=== PATIENT | male | born 1950 | race Caucasian/White ===

== ENCOUNTER 2022-12-30 13:09 | Outpatient (OUT) | payer MEDICARE, SELFPAY ==
--- NOTE | 2022-12-30 | ECG_ITS ---
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
== END 2022-12-30 13:10 | disposition home or self-care (01) ==
LOC: CARD 13:13
PROVIDERS: PCP Family Medicine; Visit Provider Family Medicine
DX: I10 Essential (primary) hypertension (principal); E78.00 Pure hypercholesterolemia, unspecified
CPT/HCPCS: 93005

== ENCOUNTER 2023-10-03 12:36 | Outpatient (OUT) | payer MEDICARE, SELFPAY ==
--- NOTE | 2023-10-03 13:17 | P.CN_ITS ---
Consult Note: HPI Data of Consult Patient: new to practice Consult date: 10/03/23 Requesting Physician: Kelly Boyd MD Primary Care Provider: ALAYNA LOPEZ Consult Narrative Reason for consult: low back, right buttock pain Narrative: 73yom who presents for evaluation. notes increasing low back, buttock R>L pain. worsening over past several months. lumbar imaging shows spondylosis and degenerative disc disease in lower lumbar spine. previously underwent lumbar rfa in 2019 with significant benefit >6 months. notes that pain is similar to back then. has completed >6 weeks of provider directed home exercises program, without benefit. uses OTC pain meds as needed. denies adverse med side effects. cc:: CC: Kelly Boyd MD Review of Systems ROS Status of ROS 10 or more systems reviewed and unremark able except as noted in history and below Exam Narrative Exam Narrative: Psych-alert and oriented x 3. Attentive and appropriate, constitutionally normal, displays normal mood and affect per situation.? There are no obvious deficits in memory, reasoning, or intellect.? Skin-no obvious rashes, bruising, erythema noted to the patient's area of pain. Extremities- extremities are warm with minimal edema and palpable pulses. Lumbar-no significant tenderness to palpation noted in the lumbar spine and paraspinal musculature.? Pain is elicited with extension, and lateral rotation of the lumbar spine. Range of motion is slightly diminished with these motions due to pain. Facet loading maneuvers are positive bilaterally and do appear to be concordant with the patient's normal complaints of pain.? Coordination remains intact.? Gait remains non-antalgic. Assessment and Plan Assessment and Plan (1) Lumbar spondylosis: Plan 73yom who presents for evaluation. failed conservative measures, as noted. imaging reviewed, as noted. given symptoms and imaging, coupled with previous relief, prudent to attempt diagnostic bilateral l4-5, l5-s1 medial branch blocks under fluoroscopic guidance with intention of proceeding to radiofrequency ablation. he is in agreement. meds reviewed, no changes. follow up after procedure.
== END 2023-10-03 12:37 | disposition home or self-care (01) ==
LOC: PM 12:36
PROVIDERS: PCP Family Medicine; Visit Provider Anesthesiology
DX: M47.816 Spondylosis without myelopathy or radiculopathy, lumbar region (principal)
CPT/HCPCS: G0463

== ENCOUNTER 2023-10-17 11:18 | Day surgery (SDC) | payer MEDICARE, SELFPAY ==
--- OUTSIDE RECORDS SUMMARY | 2023-10-17 11:30 | XMS_ITS ---
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 Name Role Phone DR JOSE JACKMAN Primary Care Unavailable ERICKA KEMP Consulting Unavailab ERICKA Schilling Attending Unavailab ERICKA Schilling Admitting Unavailab MD Bora Mcduffie Attending Provider MD Miguelina Tellez Primary Care Provider [phone] MD Miguelina Tellez Referring Provider MD Miguelina Tellez Primary Care Provider MD Gerardo Roman Attending Provider Miguelina Tellez Primary Care Unavailable Gerardo Roman Admitting Unavailable Gerardo Roman Attending Unavailable Miguelina Tellez MD Primary Care Provider MELANIE TAMAYO Attending Unavailable WONDERPARESH, MIGUELINA Alonso Referring Unavailable WONDERPARESH, MIGUELINA Gavin Primary Care Unavailable MILY NELSON Attending Unavailable WONDERPARESH, MIGUELINA Gavin Referring Unavailable WONDERLY, MIGUELINA Gavin Primary Care Unavailable QUYEN MCMAHON Attending Unavailable WONDERPARESH, MIGUELINA Alonso Referring Unavailable WONDERPARESH, MIGUELINA Gavin Primary Care Unavailable SHAHZAD SCRUGGS Attending Unavailable PIETER RANKIN Attending Unavailable PIETER RANKIN Referring Unavailable Kelly Boyd MD Attending Unavailable Allergies Allergy Classification Reported Allergen(s) Allergy Type Date of Onset Reaction(s) Facility (1 source) Penicillin Drug Allergy [facility] (4 sources) Amoxicillin; Translations: [amoxicillin] Drug Allergy 2 Unknown Reaction [facility] (4 sources) empagliflozin; Translations: [empagliflozin] Drug Allergy 2 Unknown Reaction [facility] (4 sources) Fish derivative; Translations: [fish derived] Propensity to adverse reactions 2 Vomiting [facility] (4 sources) liraglutide; Translations: [liraglutide] Drug Allergy 2 Diarrhea [facility] (9 sources) Lisinopril; Translations: [lisinopril] Drug Allergy 2 Cough [facility] (9 sources) pioglitazone; Translations: [pioglitazone] Drug Allergy 2 Unknown Reaction [facility] (4 sources) Shellfish; Translations: [shellfish derived] Propensity to adverse reactions 2 Unknown Reaction [facility] (5 sources) Penicillins; Translations: [PENICILLINS] Propensity to adverse reactions to drug 9 Rash [facility] (5 sources) Shellfish; Translations: [SHELLFISH CONTAINING PRODUCTS] Propensity to adverse reactions to drug 2 [facility] Encounters Encounter Date Encounter Type Care Provider Facility Start: 10-03-2023 End: 10-04-2023 ambulatory Kelly Boyd MD Facility:[facility] Start: 09-16-2023 End: 09-17-2023 ambulatory PIETER RANKIN Not Available Start: 09-13-2023 End: 09-13-2023 ambulatory MELANIE [facility] Start: 08-08-2023 Telephone encounter Mily perales APRN-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 ASSEMBLER Work Phone: [facility] Start: 08-05-2023 End: 08-06-2023 ambulatory SHAHZAD SCRUGGS Not Available Start: 07-15-2023 Telephone encounter [facility]ll[facility] Start: 07-11-2023 End: 07-11-2023 ambulatory QUYEN MCMAHON [facility] Start: 06-13-2023 Telephone encounter Narcisa barahona [facility] Start: 06-01-2023 End: 06-01-2023 ambulatory MILY Jimenez BARBVj [facility] Start: 06-01-2023 End: 06-01-2023 Office outpatient visit 25 minutes Mily Nelson 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 Work Phone: [facility] Comment on above: Type 2 diabetes jaxson itus with hypoglycemia without coma, without long-term current use of insulin ([facility]) (Primary Dx) Start: 03-24-2023 End: 03-24-2023 ambulatory Miguelina Tellez Facility:[facility] Start: 03-24-2023 End: 03-24-2023 ambulatory MD Miguelina Tellez Work Phone: [facility] Work Phone: Start: 03-24-2023 End: 03-24-2023 Departed Referred MD Miguelina Tellez Work Phone: [facility] [place] Work Phone: Start: 01-11-2022 End: 01-11-2022 Registered Recurring MD Bora Lindsey Work Phone: [facility] Start: 01-06-2021 End: 01-07-[address] JOSE JACKMAN Facility: Medical Equipment Procedure Code Equipment Code Equipment Origin al Text Equipment Identifier Dates USE DIRECTED THREE TIMES DAILY [id number] Start: 11-17-2022 by miscellaneous route 3 (three) times a day. [id number] USE TO ADMINISTE R INSULIN 4 TIMES DAILY. [id number] Start: 04-18-2023 Medications Current Medications Medication Drug Class(es) Dates Sig (Normalized) Sig (Original) amLODIPine 5 mg oral tablet (3 sources) Dihydropyridine Calcium Channel Evy Start: 2 take 5 mg by mouth once daily Amlodipine Active 5 MG PO Daily January 07, 2022 11:00pm AMLODIPINE BESYLATE, BULK, MISC (4 sources) AMLODIPINE BESYLATE, BULK, MISC 5 mg by miscellaneous route in the morning. 0 Active aspirin 81 mg delayed release oral tablet (7 sources) Platelet Aggregation Inhibitor, Nonsteroidal Anti-inflammatory Drug Start: 2 take 1 tablet by mouth once daily Aspirin (Aspir-81) 81 mg Tablet,Delayed Release (Dr/Ec) Active 81 MG PO Daily January 07, 2022 11:00pm atorvastatin 80 mg oral tablet (7 sources) HMG-CoA Reductase Inhibitor Start: 2 take 80 mg by mouth once daily Atorvastatin Active 80 MG PO Daily January 07, 2022 11:00pm blood-glucose meter kit (4 sources) blood-glucose meter kit by other route 3 (three) times a day. Use as instructed 0 Active blood-glucose meter misc (4 sources) blood-glucose meter misc by miscellaneous route. 0 Active glimepiride 4 mg oral tablet (3 sources) Sulfonylurea Start: 2 take 4 mg by mouth once daily Glimepiride Active 4 MG PO Daily January 07, 2022 11:00pm hydroCHLOROthiazide 25 mg / losartan potassium 100 mg oral tablet (7 sources) Thiazide Diuretic, Angiotensin 2 Receptor Evy Start: 2 take 1 tablet by mouth once daily Losartan-Hydrochl orothiazide Active 1 TAB PO Daily January 07, 2022 11:00pm take 1 tablet by constantine th once in the morning losartan-hydroCHLOROthiazide (HYZAAR) 10 0-25 mg per tablet Take 1 tablet by mouth in the morning. 0 Active 3 ml insulin aspart protamine, human 70 unt/ml / insulin aspart, human 30 unt/ml pen injector (3 sources) Insulin Analog Start: 01-11-2022 Insulin Asp Pr t-Insulin Aspart (Novolog Mix 70-30flexpen U-100) 100 unit/mL (70-30) Insulin Pen Active 35 SUBCUT Twice daily January 10, 2022 11:00pm 35 units bid 3 ml insulin aspart, human 100 unt/ml pen injector (4 sources) Insulin Analog Start: 02-18-2023 insulin aspart U-100 (NovoLOG FlexPen U-100 Insulin) 100 unit/mL (3 mL) insulin pen Indications: Type 2 diabetes mellitus with hypoglycemia without coma, without long-term current use of insulin ([facility]) Inject 18 Units under the skin in the morning and 18 Units at noon and 18 Units in the evening. Inject with meals. 45 mL 3 02/18/2023 Active 3 ml insulin glargine 100 unt/ml pen injector (4 sources) Insulin Analog Start: 02-18-2023 insulin glargi ne (LANTUS SOLOSTAR U-100 INSULIN) 100 unit/mL (3 mL) insulin pen Indications: Type 2 diabetes mellitus with hypoglycemia without coma, without long-term current use of insulin ([facility]) Inject 35 Units under the skin in the morning. 36 mL 3 02/18/2023 Active Start: 02-18-2023 insulin glargi ne (LANTUS SOLOSTAR U-100 INSULIN) 100 unit/mL (3 mL) insulin pen Indications: Type 2 diabetes mellitus with hypoglycemia without coma, without long-term current use of insulin ([facility]) Inject 35 Units under the skin in the morning. 36 mL 3 02/18/2023 Active metFORMIN hydrochloride 500 mg oral tablet (3 sources) Biguanide Start: 01-08-2022 take 500 mg by mouth once daily Metformin Active 500 MG PO Daily January 07, 2022 11:00pm Multivitamin (Multiple Vitamin) Tablet (3 sources) Start: 01-08-2022 take 1 tablet by mouth once daily Multivitamin (Multiple Vitamin) Tablet Active 1 TAB PO Daily January 07, 2022 11:00pm Start: 01-08-2022 take 1 tablet by constantine th once daily Multivitamin (Multiple Vitamin) Tablet Active 1 TAB PO Daily January 08, 2022 12:00am omega 1-swl-btw-fish oil 1,200 (144-216) mg capsule (4 sources) omega 3-dha-epa- fish oil 1,200 (144-216) mg capsule Take by mouth daily. 0 Active therapeutic multivitamin (THERAGRAN) tablet (4 sources) take 1 tablet by mouth in the morning therapeutic multivitamin (THERAGRAN) tablet Take 1 tablet by mouth in the morning. 0 Active zolpidem tartrate 10 mg oral tablet (4 sources) gamma-Aminobutyri c Acid-ergic Agonist take 1 tablet by mouth once daily as needed for sleep zolpidem (AMBIEN) 10 mg tablet Take 1 tablet (10 mg total) by mouth nightly as needed for sleep. 0 Active Payers Date Payer Category Payer Unknown 2023 Self-pay 2016 Medicare [id number] 2016 Private Health Insurance [facility] [id number] 2016-Present [phone] [address] [place] [address] [id number] 1959 Medicare [id number] 1959 Unknown [id number] 1950 Unknown [id number] 1950 Unknown [id number] .1286 1950 Unknown [id number] .1286 1950 Unknown [id number] .1286 1950 Unknown [id number] [id number] .1259 1950 Unknown [id number] .1259 1950 Unknown [id number] [id number] .1259 1950 Unknown [id number] .196 Unknown [id number] .531 Plan of Treatment Date Care Activity Detail Author Start: 11-21-2028 DTaP,Tdap and Td Vaccines (2 - Td or Tdap) DTaP,Tdap and Td Vaccines (2 - Td or Tdap) [facility] Start: 07-11-2024 Adult BMI Screening Adult BMI Screening [facility] Start: 07-09-2024 End: 07-09-2024 Patient encounter procedure 07/09/2024 10:30 AM EST Office Visit [facility] [address] [place] [address] Quyen Mcmahon MD [address] [place] [address] [facility] Start: 06-01-2024 Adult BMI Screening Adult BMI Screening [facility] Start: 06-01-2024 Tobacco Screening Tobacco Screening [facility] Start: 02-19-2024 Adult BMI Screening Adult [facility] Screening [facility] Start: 02-19-2024 Tobacco Screening Tobacco Screening [facility] Start: 12-03-2023 Urine screening for protein Urine Microalbumin [facility] Start: 10-15-2023 Depression Screening Depression Screening [facility] Start: 09-13-2023 End: 09-13-2023 Patient encounter procedure 09/13/2023 10:15 AM EDT Office Visit [facility] [address] [place] [address] Melanie Tamayo MD [address] [place] [address] [facility] Start: 07-11-2023 End: 07-11-2023 Patient encounter procedure 07/11/2023 12:00 PM EST Office Visit [facility] [address] [place] [address] Quyen Mcmahon MD [address] [place] [address] [facility] Start: 04-11-2023 COVID-19 Vaccine ( season) COVID-19 Vaccine ( season) [facility] Start: 2016 Fall Risk Screening Fall Risk Screening [facility] Start: 1969 Adult BMI Follow Up Plan Adult BMI Follow Up Plan [facility] Start: 1969 Diabetic foot examination Diabetic Foot Exam [facility] Start: 1950 Glaucoma screening Diabetic Ophthalmology Exam [facility] Start: 1950 Medicare Annual Wellness Visit Medicare Annual Wellness Visit [facility] Work Phone: Problems Active Problems Problem Classification Problem Date Documented Da te Episodic/Chronic Diabetes mellitus with complications (7 sources) Type 2 diabetes mellitus; Translations: [Type 2 diabetes mellitus with hypoglycemia without coma] Onset: 06-17-2022 06-01-2023 Chronic Diabetes mellitus without complication (5 sources) Type 2 diabetes mellitus without complication; Translations: [Type 2 diabetes mellitus without complications] Onset: 09-22-2016 Resolved: 06-17-2022 06-17-2022 Chronic Disorders of lipid metabolism (1 source) Mixed hyperlipidemia; Translations: [Mixed hyperlipidemia] Onset: 09-13-2023 Chronic Essential hypertension (5 sources) Essential hypertension; Translations: [Essential (primary) hypertension] Onset: 09-22-2016 09-22-2016 Chronic Malaise and fatigue (1 source) Other fatigue; Translations: [OTHER FATIGUE] Onset: 01-14-2021 Episodic Nutritional deficiencies (1 source) Vitamin D deficiency, unspecified; Translations: [Vitamin D deficiency, unspecified] Onset: 09-13-2023 Chronic Other nutritional; endocrine; and metabolic disorders (4 sources) Obesity; Translations: [Obesity, unspecified] Onset: 09-22-2016 09-22-2016 Chronic Residual codes; unclassified (4 sources) Obstructive sleep apnea syndrome; Translations: [Obstructive sleep apnea (adult) (pediatric)] Onset: 09-22-2016 09-22-2016 Chronic Residual codes; unclassified (1 source) Obstructive sleep apnea (adult) (pediatric); Translations: [Obstructive sleep apnea (adult) (pediatric)] Onset: 07-11-2023 Chronic Residual codes; unclassified (1 source) Sleep apnea Onset: 07-11-2023 Chronic Residual codes; unclassified (4 sources) Reactive thrombocytosis; Translations: [Reactive thrombocytosis] 01-11-2022 Episodic Unclassified (3 sources) CONTACT W/AND (SUSP) EXPOS COVID-19; Translations: [CONTACT W/AND (SUSP) EXPOS COVID-19] Onset: 01-14-2021 Unclassified (1 source) Ocular pain, bilateral; Translations: [Ocular pain, bilateral] Onset: 03-24-2023 Past or Other Problems Problem Classification Problem Date Documented Da te Episodic/Chronic Mood disorders (4 sources) Mood disorders Onset: 10-14-2022 10-14-2022 Other aftercare (1 source) 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; Translations: [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] Onset: 06-17-2022 Episodic Unclassified (1 source) CONTACT W/AND (SUSP) EXPOS COVID-19; Translations: [CONTACT W/AND (SUSP) EXPOS COVID-19] Onset: 01-06-2021 Procedures Date Procedure Procedure Detail Performing Clinician Start: 06-01-2023 Hemoglobin glycosyla javon a1c Mily Nelson [employer] Work Phone: Start: 12-02-2022 Microalbumin [Mass/v olume] in Urine by Test strip Mily Nelson [employer] Work Phone: Start: 10-14-2022 Adult depression scr eening assessment Mily Nelson [employer] Work Phone: Results Test Name Value Interpretation Reference Range Facility POCT Hemoglobin A1con 2023 HbA1c (Bld) [Mass fraction] 6.8 g/dL 4 - 7 g/dL [employer] [facility] Armando 03-24-2023 L - -------- Specimen: [id number] Received: 03/25/23 Status: AIRAM Jones Num: [id number] Spec Type: Surgical Subm Dr: Gerardo Roman MD Tissues: A Skin-Other than Cyst, tag, debridement or plastic repair (LT EYE) B Skin-Other than Cyst, tag, debridement or plastic repair (RT EYE) Procedures: HE/2, Gross/Micro L4/2 -------- Age/ Patient Sex Location Account Attending Physician -------- Jered Garay 72/M [place] [id number] Gerardo Roman MD -------- SPEC NUM: [id number] RECD: 03/25/23 STATUS: AIRAM JONES NUM: [id number] COLBY: 03/24/23 [facility] DR: Gerardo Roman MD ENTERED: 03/25/23 [facility] SIVA [facility] TYPE: Surgical DEPT: S ORDERED: HE/2, Gross/Micro L4/2 ORDERED: HE/2, Gross/Micro L4/2 Pathological Diagnosis A. 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 Received in formalin labeled with the patient's name, date of and left conjunctiva lipodermoid is a 1.5 x 1.0 x 0.2 cm aggregate of yellow-valero, lobular tissue. Entirely submitted in one cassette labeled A1. B. Received in formalin labeled with the patient's name, date of and right conjunctiva lipodermoid is a 0.7 x 0.4 x 0.3 cm yellow-valero lobular tissue. Entirely subm itted in one cassette labeled B1. -------- Specimen: [id number] Received: 03/25/23 Status: AIRAM Jones Num: [id number] Spec Type: Surgical Subm Dr: Gerardo Roman MD Tissues: A Skin-Other than Cyst, tag, debridement or plastic repair (LT EYE) B Skin-Other than Cyst, tag, debridement or plastic repair (RT EYE) Procedures: HE/Chanel, Gross/Micro L4/2 -------- Patient: Jered Garay [id number] (Continued) -------- Specimen: [id number] Received: 03/25/23 (Continued) Signed (signature on file) Minh Doran MD 03/28/23 1400 -------- Specimen: [id number] Received: 03/25/23 Status: AIRAM Jones Num: [id number] Spec Type: Surgical Subm Dr: Gerardo Roman MD Tissues: A Skin-Other than Cyst, tag, debridement or plastic repair (LT EYE) B Skin-Other than Cyst, tag, debridement or plastic repair (RT EYE) Procedures: HE/2, Gross/Micro L4/2 -------- Patient: Jered Garay [id number] (Continued) -------- Specimen: [id number] Received: 03/25/23 (Continued) Microscopic Description A. One H E slide reviewed. The microscopic examination confirms the diagnosis. B. One H E slide reviewed. The microscopic examination confirms the diagnosis. CPT Codes 57379z6 -------- -------- Specimen: [id number] Received: 03/25/23 Status: AIRAM Jones Num: [id number] Spec Type: Surgical Subm Dr: Gerardo Roman MD Tissues: A Skin-Other than Cyst, tag, debridement or plastic repair (LT EYE) B Skin-Other than Cyst, tag, debridement or plastic repair (RT EYE) Procedures: HE/Chanel, Gross/Micro L4/2 -------- Patient: TerrieJered [id number] (Continued) -------- Signed (signature on file) Minh Doran MD 03/28/[address] [place] [address] XR Chest 2 Views*on 05-04-20 XR Chest 2 Views* FINDINGS: Comparison made with prior examination September 14, 2019. No change is seen. No acute cardiac or pulmonary disease is identified. No worrisome mass lesions or infiltrates are seen. No pulmonary edema or pneumothorax is present. Cardiac silhouette size is normal. Skeletal structures are normal. IMPRESSION: No acute cardiac or pulmonary disease Report reported and signed by Mansoor Nash on 05/04/2022 0943 Normal [facility] Complete Blood Counton 10-07 Erythrocyte distribution width (RBC) [Ratio] 12.9 % Normal 11.0-15.0 [facility] Comment on above: Performed By: #### L IPD, CBC, CMP #### [facility] [address] [place], [place] [id number] Hematocrit (Bld) [Volume fraction] 45.1 % Normal 38.5-50.0 [facility] Comment on above: Performed By: #### L IPD, CBC, CMP #### [facility] [address] [place], [place] [id number] Hemoglobin (Bld) [Mass/Vol] 14.9 g/dL Normal 13.0-17.1 [facility] Comment on above: Performed By: #### L IPD, CBC, CMP #### [facility] [address] [place], [place] [id number] MCH (RBC) [Entitic mass] 29.9 pg Normal 27.0-33.0 [facility] Comment on above: Performed By: #### L IPD, CBC, CMP #### [facility] [address] [place], [place] [id number] MCHC (RBC) [Mass/Vol] 33.0 g/dL Normal 32.0-36.0 [facility] Comment on above: Performed By: #### L IPD, CBC, CMP #### [facility] [address] [place], [place] [id number] MCV (RBC) [Entitic vol] 90 fL Normal 80-100 [facility] Comment on above: Performed By: #### L IPD, CBC, CMP #### [facility] [address] [place], [place] [id number] Platelet mean volume (Bld) [Entitic vol] 8.90 fL Normal 7.50-12.50 [facility] Specialist Comment on above: Performed By: #### L IPD, CBC, CMP #### [facility] [address] [place], [place] [id number] Platelets (Bld) [#/Vol] 421 10*3/uL High 140-400 [facility] Comment on above: Performed By: #### L IPD, CBC, CMP #### [facility] [address] [place], [place] [id number] RBC (Bld) [#/Vol] 4.99 10*6/uL Normal 4.20-5.80 [facility] [employer] Comment on above: Performed By: #### L IPD, CBC, CMP #### [facility] [address] [place], [place] [id number] RDW-SD 42.6 fL Normal 37.0-50.0 [facility] Comment on above: Performed By: #### L IPD, CBC, CMP #### [facility] [address] [place], [place] [id number] WBC (Bld) [#/Vol] 6.6 10*3/uL Normal 3.8-11.0 [facility] [facility] Comment on above: Performed By: #### L IPD, CBC, CMP #### [facility] [address] [place], [place] [id number] [facility] 10-07-2021 Albumin [Mass/Vol] 4.7 g/dL Normal 3.6-5.1 [facility] [employer] Comment on above: Performed By: #### L IPD, CBC, CMP #### [facility] [address] [place], [place] [id number] Albumin/Globulin [Mass ratio] 1.9 {ratio} Normal 1.0-2.5 [facility] Special[facility] Comment on above: Performed By: #### L IPD, CBC, CMP #### [facility] [address] [place], [place] [id number] ALP [Catalytic activity/Vol] 96 U/L Normal 40-129 [facility] [employer] Comment on above: Performed By: #### L IPD, CBC, CMP #### [facility] [address] [place], [place] [id number] ALT [Catalytic activity/Vol] 29 U/L Normal 9-46 [facility] Comment on above: Result Comment: 04/15 Female reference range changed. Performed By: #### L IPD, CBC, CMP #### [facility] [address] [place], [place] [id number] Anion gap [Moles/Vol] 18 mmol/L Normal 12-20 [facility] Comment on above: Result Comment: Effchandan ctive 05/21/2019 reference range changed. Performed By: #### L IPD, CBC, CMP #### [facility] [address] [place], [place] [id number] AST [Catalytic activity/Vol] 24 U/L Normal 10-40 [facility] Comment on above: Performed By: #### L IPD, CBC, CMP #### [facility] [address] [place], [place] [id number] Bilirubin [Mass/Vol] 0.99 mg/dL Normal 0.30-1.20 [facility] Comment on above: Performed By: #### L IPD, CBC, CMP #### [facility] [address] [place], [place] [id number] BUN/CREA 13 Ratio Normal 6-22 [facility] Comment on above: Performed By: #### L IPD, CBC, CMP #### [facility] [address] [place], [place] [id number] Calcium [Mass/Vol] 10.0 mg/dL Normal 8.6-10.2 [facility] Comment on above: Performed By: #### L IPD, CBC, CMP #### [facility] [address] [place], [place] [id number] Chloride [Moles/Vol] 97 mmol/L Low 98-107 [facility] Comment on above: Performed By: #### L IPD, CBC, CMP #### [facility] [address] [place], [place] [id number] CO2 [Moles/Vol] 26 mmol/L Normal 20-31 [facility] Comment on above: Performed By: #### L IPD, CBC, CMP #### [facility] [address] [place], [place] [id number] Creatinine [Mass/Vol] 0.9 mg/dL Normal 0.7-1.4 [facility] Comment on above: Performed By: #### L IPD, CBC, CMP #### [facility] [address] [place], [place] [id number] eGFRAA 99 mL/min/1.73m2 Normal >60 [facility] [employer] Comment on above: Performed By: #### L IPD, CBC, CMP #### [facility] [address] [place], [place] [id number] eGFRNAA 81 mL/min/1.73m2 Normal >60 [facility] [employer] Comment on above: Performed By: #### L IPD, CBC, CMP #### [facility] [address] [place], [place] [id number] Globulin (S) [Mass/Vol] 2.5 g/dL Normal 1.9-3.7 [facility] [employer] Comment on above: Performed By: #### L IPD, CBC, CMP #### [facility] [address] [place], [place] [id number] Glucose [Mass/Vol] 196 mg/dL High 65-99 [facility] [facility] Comment on above: Result Comment: For FASTING Glucose --- ADA reference ranges: Normal 65-99 mg/dl Prediabetes 100-125 Diabetes >/= 126 Performed By: #### L IPD, CBC, CMP #### [facility] Laboratory [address] [place], [place] [id number] Potassium [Moles/Vol] 4.0 mmol/L Normal 3.5-5.5 [facility] Comment on above: Performed By: #### L IPD, CBC, CMP #### [facility] [address] [place], [place] [id number] Protein [Mass/Vol] 7.2 g/dL Normal 6.1-8.1 [facility] Comment on above: Performed By: #### L IPD, CBC, CMP #### [facility] [address] [place], [place] [id number] Sodium [Moles/Vol] 137 mmol/L Normal 135-146 [facility] Comment on above: Performed By: #### L IPD, CBC, CMP #### [facility] [address] [place], [place] [id number] Urea nitrogen [Mass/Vol] 12 mg/dL Normal 7-25 [facility] Comment on above: Performed By: #### L IPD, CBC, CMP #### [facility] [address] [place], [place] [id number] Lipid Panelon 10-07-2021 Cholesterol [Mass/Vol] 142 mg/dL Normal 125-200 [facility] Specialist Comment on above: Result Comment: Low risk < 200mg/dL Borderline risk 201-239 mg/dl High risk > or equal to 240 Performed By: #### L IPD, CBC, CMP #### [facility] [address] [place], [place] [id number] Cholesterol in HDL [Mass/Vol] 42 mg/dL Normal >40 [facility] Specialist Comment on above: Result Comment: High Cardiovascular Risk HDL <40 mg/dL Low Cardiovascular Risk HDL > or equal to 60 mg/dl Performed By: #### L IPD, CBC, CMP #### [facility] [address] [place], [place] [id number] Cholesterol in LDL [Mass/Vol] 40 mg/dL Normal [facility] Specialist Comment on above: Result Comment: LDL ATP III CLASSIFICATION LDL less than 100 mg/dl Optimal LDL 100-129 mg/dl Near or above optimal LDL 130-159 Borderline high LDL 160-189 High LDL greater than 189 mg/dl Very High Performed By: #### L IPD, CBC, CMP #### [facility] [address] [place], [place] [id number] Cholesterol in VLDL [Mass/Vol] 60 mg/dL Normal [facility] Specialist Comment on above: Performed By: #### L IPD, CBC, CMP #### [facility] [address] [place], [place] [id number] Cholesterol.total/Ch olesterol in HDL [Mass ratio] 3 {ratio} Normal [facility] Specialist Comment on above: Performed By: #### L IPD, CBC, CMP #### [facility] [address] [place], [place] [id number] Triglyceride [Mass/Vol] 298 mg/dL High 30-150 [facility] Comment on above: Result Comment: TRIG ATPIII CLASSIFICATIONS TRIG less than 150 mg/dl Normal TRIG 150-199 mg/dl Borderline High TRIG 200-500 mg/dl High TRIG greather than 500 mg/dl Very High Performed By: #### L IPD, CBC, CMP #### [facility] [address] [place], [place] [id number] Microalbumin (w/o Creat)on 10-07-2021 mALB 27.4 mg/dL Normal [facility] Comment on above: Result Comment: mALB reference range not established. Performed By: #### m ALB #### [facility] [address] [place], [place] [id number] Covid-19 PCR ([facility])on 12-15 SARS-CoV-2 (COVID-19) RNA DANNY+probe Ql (Unsp spec) Not detected Normal NOT DETECTED [facility] Comment on above: Result Comment: This test is not yet approved or cleared by the [place] FDA. When there are no FDA-approved or cleared tests available, and other criteria are met, FDA can make tests available under an emergency access mechanism called an Emergency Use Authorization (EUA). The EUA for this test is supported by the [place] of Health and Human Service's (HHS's) declaration that circumstances exist to justify the emergency use of in vitro diagnostics for the detection and/or diagnosis of the virus that causes COVID-19. This EUA will remain in effect (meaning this test can be used) for the duration of the COVID-19 declaration justifying emergency of IVDs, unless it is terminated or revoked by FDA (after which the test may no longer be used). When diagnostic testing is negative, the possibility of a false negative should be considered in the context of a patient's recent exposures and the presence of clinical signs and symptoms consistent with SARS-CoV-2. Performed By: #### C VDTBH #### [facility] [address] [place], [place] [address] Ted Casas Basic Metabolic Panelon 10-2 Calcium [Mass/Vol] 9.5 mg/dL Normal 8.5-10.6 [facility] Chloride [Moles/Vol] 100 mmol/L Normal 98-107 [facility] CO2 [Moles/Vol] 25 mmol/L Normal 21-32 [facility] Creatinine [Mass/Vol] 0.95 mg/dL Normal 0.70-1.30 [facility] Glucose [Mass/Vol] 171 mg/dL High 70-99 [facility] Potassium [Moles/Vol] 4.4 mmol/L Normal 3.5-5.1 [facility] Sodium [Moles/Vol] 136 mmol/L Normal 136-145 [facility] Urea nitrogen (BldV) [Mass/Vol] 19 mg/dL High 7.0-18.0 [facility] Urea nitrogen/Creatinine [Mass ratio] 20 mg/mg Normal [facility] CBC with Differentialon 10-2 -2019 Basophils (Bld) [#/Vol] 0.1 thou/mcL Normal 0.0-0.2 [facility] Basophils/100 WBC (Bld) 1.0 % Normal 0-3 [facility] Differential cell count method Nom (Bld) AUTOMATED DIFFERENTIAL Normal [facility] Eosinophils (Bld) [#/Vol] 0.1 thou/mcL Normal 0.0-0.4 [facility] Eosinophils/100 WBC (Bld) 2.6 % Normal 0-7 [facility] Erythrocyte distribution width (RBC) [Entitic vol] 14.0 % Normal 11.7-15.0 [facility] Hematocrit (Bld) [Volume fraction] 39.7 % Normal 34.0-50.0 [facility] Hemoglobin (Bld) [Mass/Vol] 13.2 g/dL Normal 11.5-17.0 [facility] Lymphocytes (Bld) [#/Vol] 1.5 thou/mcL Normal 0.7-4.5 [facility] Lymphocytes/100 WBC (Bld) 26.0 % Normal 14-46 [facility] MCH (RBC) [Entitic mass] 30.1 Picograms Normal 27.0-34.0 [facility] MCHC (RBC) [Mass/Vol] 33.3 g/dL Normal 32.0-36.0 [facility] MCV (RBC) [Entitic vol] 90.5 fL Normal 80-98 [facility] Monocytes (Bld) [#/Vol] 0.5 thou/mcL Normal 0.1-1.0 [facility] Monocytes/100 WBC (Bld) 8.4 % Normal 4-13 [facility] Neutrophils (Bld) [#/Vol] 3.5 thou/mcL Normal 1.5-7.8 [facility] Neutrophils/100 WBC (Bld) 62.0 % Normal 40-74 [facility] Platelet mean volume (Bld) [Entitic vol] 7.0 fL Low 7.5-11.2 [facility] Platelets (Bld) [#/Vol] 390 thou/mcL Normal 140-415 [facility] RBC (Bld) [#/Vol] 4.39 x(10)6/mcL Normal 3.80-5.60 [facility] WBC (Bld) [#/Vol] 5.6 thou/mcL Normal 4.0-10.5 [facility] Partial Thromboplastin Time (aPTT)on 03-07-2019 aPTT Coag (PPP) [Time] 27 Sec Normal 23.2-34.6 [facility] Prothrombin Timeon 9 INR Coag (Bld) [Relative time] 0.9 {INR} Normal [facility] Comment on above: Result Comment: MG ANN THE INDUCTION PHASE OF ORAL ANTICOAGULATION, THE INR MAY NOT REFLECT THE ANTICOAGULANT STATUS OF THE PATIENT. THERAPEUTIC RANGES FOR INR'S ARE: MOST CLINICAL SITUATIONS: INR 2.0-3.0 MECHANICAL PROSTHETIC VALVES: INR 2.5-3.5 CRITICAL: INR 5.0 PT Coag (PPP) [Time] 11.9 Sec Normal 11.9-14.[address] [facility] Patient Portal Messageon Patient Portal Message --- --- --- --- --- --- --- --- --- From: Hospital, Patient Summary Visit To: JERED GARAY Sent: 08/09/18 01:30:45 AM EDT Subject: New Results Available A summary regarding your recent visit is available in the Documents section of your Health Record. Normal [facility] Basic Metabolic Panelon 07-15 Calcium [Mass/Vol] 8.4 mg/dL Low 8.5-10.6 [facility] Chloride [Moles/Vol] 100 mmol/L Normal 98-[address] [facility] CO2 [Moles/Vol] 29 mmol/L Normal 21-32 [facility] Creatinine [Mass/Vol] 0.97 mg/dL Normal 0.70-1.30 [facility] Glucose [Mass/Vol] 166 mg/dL High 74-106 [facility] Potassium [Moles/Vol] 3.9 mmol/L Normal 3.5-5.1 [facility] Sodium [Moles/Vol] 137 mmol/L Normal 136-145 [facility] Urea nitrogen (BldV) [Mass/Vol] 14 mg/dL Normal 7-18 [facility] Urea nitrogen/Creatinine [Mass ratio] 14 mg/mg Normal [facility] CBC with Differentialon - Basophils (Bld) [#/Vol] 0.1 thou/mcL Normal 0.0-0.2 [facility] Basophils/100 WBC (Bld) 0.5 % Normal 0-3 [facility] Differential cell count method Nom (Bld) AUTOMATED DIFFERENTIAL Normal [facility] Eosinophils (Bld) [#/Vol] 0.1 thou/mcL Normal 0.0-0.4 [facility] Eosinophils/100 WBC (Bld) 1.2 % Normal 0-7 [facility] Erythrocyte distribution width (RBC) [Entitic vol] 13.3 % Normal 11.7-15.0 [facility] Hematocrit (Bld) [Volume fraction] 36.4 % Normal 34.0-50.0 [facility] Hemoglobin (Bld) [Mass/Vol] 12.1 g/dL Normal 11.5-17.0 [facility] Lymphocytes (Bld) [#/Vol] 2.0 thou/mcL Normal 0.7-4.5 [facility] Lymphocytes/100 WBC (Bld) 20.2 % Normal 14-46 [facility] MCH (RBC) [Entitic mass] 30.1 Picograms Normal 27.0-34.0 [facility] MCHC (RBC) [Mass/Vol] 33.1 g/dL Normal 32.0-36.0 [facility] MCV (RBC) [Entitic vol] 90.8 fL Normal 80-98 [facility] Monocytes (Bld) [#/Vol] 0.8 thou/mcL Normal 0.1-1.0 [facility] Monocytes/100 WBC (Bld) 8.2 % Normal 4-13 [facility] Neutrophils (Bld) [#/Vol] 7.1 thou/mcL Normal 1.5-7.8 [facility] Neutrophils/100 WBC (Bld) 69.9 % Normal 40-74 [facility] Platelet mean volume (Bld) [Entitic vol] 6.8 fL Low 7.5-11.2 [facility] Platelets (Bld) [#/Vol] 333 thou/mcL Normal 140-415 [facility] RBC (Bld) [#/Vol] 4.01 x(10)6/mcL Normal 3.80-5.60 [facility] WBC (Bld) [#/Vol] 10.1 thou/mcL Normal 4.0-10.5 [facility] Patient Summaryon 08-08-2018 Patient Summary PATIENT DISCHARGE INSTRUCTIONS If you are having an emergency and are not able to reach your physician, CALL 911 or go to the nearest emergency room and take this document with you. [facility] 08/08/18 11:02 [address] [place]. [address] PATIENT INFORMATION Name: JERED GARAY Tony Address: [address] [place] [id number] Age: 68 Years Phone: [phone] : 1950 12:00 MRN: [id number] Sex: Male Race: White Ethnicity: Not Hispan/Lat Admitted From: Clinic or [facility] Medical Service: Orthopedic Surgery Nurse Unit/Bed: (CO) 2N 0225-01 Admit Date: 08/07/2018 07:26 PCP: Miguelina Tellez MD PHYSICIANS INVOLVED WITH CARE ------ Attending Physicians: Jameson Espinal MD , Jeremy - Orthopaedic Surg Admitting Physician: Jameson Espinal MD , Jeremy - Orthopaedic Surg Primary Care Physician:Geoff VERGARA , Miguelina Clark,[facility], - Consults: RONALDO Gill - Internal Medicine FOLLOW-UP APPOINTMENTS: Provider: Specialty: Address: Date: Jeremy Bermudez Jr, MD Orthopaedic Surg [address] [facility] [address] [facility] [phone] (1) Comment: Please call to schedule a 6 week appt. May call sooner if problems occur Provider: Specialty: Address: Date: Miguelina Tellez MD [place] [id number] [place] [phone] (1) Follow-up as needed Provider: Specialty: Address: Date: Outpatient PT Comment: Blue order form for OPPT provided for patient if needed for therapy services ALLERGIES: amoxicillin : Reaction:Rash : Itching Seafood : Reaction:Vomiting penicillin : Reaction:Rash MEASUREMENTS: Last Charted: Weight: Admission 93.70 kg /206 lbs 9 oz ( 08/07/18 08:38:00 ) MEDICATIONS For: JERED GARAY This is your list of medication(s). Keep it with you at all times. Your doctor may have changed doses, add, held or stopped some of your medications. Please share this information with your family doctor. Carry this list of medications with you in case of an emergency. Update it when medications are stopped, doses are changed, or new medications (including tuof-sfa-vfrohdw products) are added. Ask your doctor if you have any questions. THESE ARE THE MEDICATIONS YOU SHOULD BE TAKING AmLODIPine (amLODIPine 5 mg oral tablet) 1 Tab(s) By Mouth once a day. am. aspirin (aspirin 81 mg oral tablet) 1 Tab(s) By Mouth once a day. NOTES TO PATIENT: May resume in 6 weeks after the 81 mg twice daily protocol is completed atorvastatin (atorvastatin 80 mg oral tablet) 1 Tab(s) By Mouth Bedtime. Freetext Medication (Freetext Medication.) Follow instructions on new written post op prescriptions -Oxycodone -Tramadol -Tylenol -Baby Aspirin -Celebrex -Flexeril. Freetext Medication (Otc Berberine plus) 1 Tab(s) By Mouth once a day. NOTES TO PATIENT: resume after follow-up with surgeon glimepiride (glimepiride 4 mg oral tablet) 1 Tab(s) By Mouth Twice a day. hydroCHLOROthiazide-l isinopril (lisinopril-hydroCHLO ROthiazide 20 mg-25 mg oral tablet) 2 Tab(s) By Mouth once a day. am. insulin isophane-insulin regular (NovoLIN 70/30 human recombinant 70 unit-30 unit/ml subcutaneous injection) 30 unit Subcutaneous Twice a day. MetFORMIN (metFORMIN 500 mg oral tablet, extended release) 2 Tab(s) By Mouth Twice a day. multivitamin 1 Tab(s) By Mouth once a day. omega-3 polyunsaturated fatty acids (Fish Oil - oral capsule) 1,200 Milligram By Mouth Twice a day. NOTES TO PATIENT: resume after follow-up with surgeon MEDICATION CHANGE DETAILS (Not your Final Home Medication List) During the course of your visit, your home medication list was updated with the most current information. The details of those changes are shown below: NEW MEDICATIONS Other Medications Freetext Medication (Freetext Medication.) Follow instructions on new written post op prescriptions -Oxycodone -Tramadol -Tylenol -Baby Aspirin -Celebrex -Flexeril. Comment UPDATED MEDICATIONS None UNCHANGED MEDICATIONS Other Medications AmLODIPine (amLODIPine 5 mg oral tablet) 1 Tab(s) By Mouth once a day. am. Comment aspirin (aspirin 81 mg oral tablet) 1 Tab(s) By Mouth once a day. NOTES TO PATIENT: May resume in 6 weeks after the 81 mg twice daily protocol is completed Comment atorvastatin (atorvastatin 80 mg oral tablet) 1 Tab(s) By Mouth Bedtime. Comment Freetext Medication (Otc Berberine plus) 1 Tab(s) By Mouth once a day. NOTES TO PATIENT: resume after follow-up with surgeon Comment glimepiride (glimepiride 4 mg oral tablet) 1 Tab(s) By Mouth Twice a day. Comment hydroCHLOROthiazide-l isinopril (lisinopril-hydroCHLO ROthiazide 20 mg-25 mg oral tablet) 2 Tab(s) By Mouth once a day. am. Comment insulin isophane-insulin regular (NovoLIN 70/30 human recombinant 70 unit-30 unit/ml subcutaneous injection) 30 unit Subcutaneous Twice a day. Comment MetFORMIN (metFORMIN 500 mg oral tablet, extended release) 2 Tab(s) By Mouth Twice a day. Comment multivitamin 1 Tab(s) By Mouth once a day. Comment omega-3 polyunsaturated fatty acids (Fish Oil - oral capsule) 1,200 Milligram By Mouth Twice a day. NOTES TO PATIENT: resume after follow-up with surgeon Comment STOP TAKING THESE MEDICATIONS ibuprofen (ibuprofen 200 mg oral tablet) 1 Tab(s) By Mouth as needed Pain/Discomfort. DO NOT TAKE UNTIL YOU TALK TO YOUR DOCTOR None NON-MEDICATION PRESCRIPTION SCHEDULING PHONE NUMBER: SELECTED LAB RESULTS Lab Result Order Date Hemoglobin 12.1 gm/dL 08/08/2018 Hematocrit 36.4 % 08/08/2018 WBC Count 10.1 thou/mcL 08/08/2018 Platelet Count 333 thou/mcL 08/08/2018 Sodium Level 137 mMol/L 08/08/2018 Potassium Level 3.9 mMol/L 08/08/2018 Creatinine 0.97 mg/dL 08/08/2018 BUN 14 mg/dL 08/08/2018 Glucose Blood POCT 146 mg/dL ADVANCE DIRECTIVE/HEALTH CARE DECISIONS: Advance Directive/Health Care Decisions Executed by Patient: Yes Advance Directive/Health Care Decisions Type: Living Will, Medical Power of Supervisor [employer] Copy of Advance Directive/Health Care Decisions on Chart: Patient/Family asked to provide copy SUICIDE HOTLINE: Your mental and emotional well-being are important. If you are in a mental health crisis, or having thoughts of suicide, please call the nationwide suicide hotline, anytime day or night, at 5-376-789-WVTU. Important information about accessing your health information through the [facility] patient portal If you initiated the self-registration process for [facility] during your stay, please check your personal email for an invitation to enroll in [facility] and complete the steps outlined in the email. If you would prefer to enroll while in the hospital, ask a member of your care team. We would be happy to assist you. If you have already enrolled in [facility], go to [email or web address] to login and access your health information. Thank you for choosing [facility]. PATIENT EDUCATION Constipation, Adult Constipation is when a person: ???Poops (has a bowel movement) less than 3 times a week. ???Has a hard time pooping. ???Has poop that is dry, hard, or bigger than normal. HOME CARE ???Eat foods with a lot of fiber in them. This includes fruits, vegetables, beans, and whole grains such as brown rice. ???Avoid fatty foods and foods with a lot of sugar. This includes st helenian fries, hamburgers, cookies, candy, and soda. ???If you are not getting enough fiber from food, take products with added fiber in them (supplements). ???Drink enough fluid to keep your pee (urine) clear or pale yellow. ???Exercise on a regular basis, or as told by your doctor. ???Go to the restroom when you feel like you need to poop. Do not hold it. ???Only take medicine as told by your doctor. Do not take medicines that help you poop (laxatives) without talking to your doctor first. GET HELP RIGHT AWAY IF: ???You have bright red blood in your poop (stool). ???Your constipation lasts more than 4 days or gets worse. ???You have belly (abdominal) or butt (rectal) pain. ???You have thin poop (as thin as a pencil). ???You lose weight, and it cannot be explained. MAKE SURE YOU: ???Understand these instructions. ???Will watch your condition. ???Will get help right away if you are not doing well or get worse. This information is not intended to replace advice given to you by your health care provider. Make sure you discuss any questions you have with your health care provider. Document Released: 10/18/2008 Document Revised: 05/23/2015 Document Reviewed: 02/11/2014 Elsevier Interactive Patient Education ?2016 [employer] Venous Thromboembolism, Prevention A venous thromboembolism is a blood clot that forms in a vein. A blood clot in a deep vein is called a deep venous thrombosis (DVT). A blood clot in the lungs is called a pulmonary embolism (PE). Blood clots are dangerous and can cause . Blood clots can form in the: ???Lungs. ???Legs. ???Arms. CAUSES ???A blood clot can form in a vein from different conditions. A blood clot can develop due to: ???Blood flow within a vein that is sluggish or very slow. ???Medical conditions that make the blood clot easily. ???Vein damage. RISK FACTORS Risk factors can increase your risk of developing a blood clot. Risk factors can include: ???Smoking. ???Obesity. ???Age. ???Immobility or sedentary lifestyle. ???Sitting or standing for long periods of time. ???Chronic or long-term bedrest. ???Medical or past history of blood clots. ???Family history of blood clots. ???Hip, leg, or pelvis injury or trauma. ???Major surgery, especially surgery on the hip, knee, or abdomen. ??? and childbirth. ??? control pills and hormone replacement therapy. ???Medical conditions such as ???Peripheral vascular disease (PVD). ???Diabetes. ???Cancer. SYMPTOMS Symptoms of VTE can depend on where the clot is located and if the clot breaks off and travels to another organ. Sometimes, there may be no symptoms. ???DVT symptoms can include: ???Swelling of the leg or arm, especially on one side. ???Warmth and redness of the leg or arm, especially on one side. ???Pain in an arm or leg. Leg pain may be more noticeable or worse when standing or walking. ???PE symptoms can include: ???Shortness of breath. ???Coughing. ???Coughing up blood or blood-tinged mucus (hemoptysis). ???Chest pain or chest pain with deep breaths (pleuritic chest pain). ???Apprehension, anxiety, or a feeling of impending doom. ???Rapid heartbeat. PREVENTION ???Exercise regularly. Take a brisk 30 minute walk every day. Staying active and moving around can help prevent blood clots. ???Avoid sitting or lying in bed for long periods of time. Change your position often, especially during a long trip. ???Women, especially those over the age of 35, should consider the risks and benefits of taking estrogen medicines. This includes control pills and hormone replacement therapy. ???Do not smoke, especially if you take estrogen medicines. If you smoke, talk to your caregiver on how to quit. ???Eat plenty of fruits and vegetables. Ask your caregiver or dietitian if there are foods you should avoid. ???Maintain a weight as suggested by your caregiver. ???Wear loose-fitting clothing. Avoid constrictive or tight clothing around your legs or waist. ???Try not to bump or injure your legs. Avoid crossing your legs when you are sitting. ???Do not use pillows under your knees unless told by your caregiver. ???Take all medicines that your caregiver prescribes you. ???Wear special stockings (compression stockings or JAVON hose) if your caregiver prescribes them. ???Wearing compression stockings (support hose) can make the leg veins more narrow. This increases blood flow in the legs and can help prevent blood clots. ???It is important to wear compression stockings correctly. Do not let them bunch up when you are wearing them. TRAVEL Long distance travel can increase the risk of a blood clot. To prevent a blood clot when traveling: ???You should exercise your legs by walking or by pumping your muscles every hour. To help prevent poor circulation on long trips, stand, stretch, and walk up and down the aisle of your airplane, train, or bus as often as possible to get the blood moving. ???Do squats if you are able. If you are unable to do squats, raise your foot on the balls of your feet and tighten your lower leg muscles (particularly the calve muscles) while seated. Pointing (flexing and extending) your toes while tightening your calves while seated are also good exercises to do every hour during long trips. They help increase blood flow and reduce risk of DVT. ???Stay well hydrated. Drink water regularly when traveling, especially when you are sitting or immobile for long periods of time. ???Use of drugs to prevent DVT during routine travel is not generally recommended. Before taking any drugs to reduce risk of DVT, consult your caregiver. SURGERY AND HOSPITALIZATION ???People who are at high risk for a blood clot may be given a blood thinning medicine (anticoagulant) when they are hospitalized even if they are not going to have surgery. ???A long trip prior to surgery can increase the risk of a clot for patients undergoing hip and knee replacements. Talk to your caregiver about travel plans before your surgery. ???After hip or knee surgery, your caregiver may give you anticoagulants to help prevent blood clots. ???Anticoagulants may be given to people at high risk of developing thromboembolism, before, during, or sometimes after surgery, including people with clotting disorders or with a history of past thromboembolism. TRAVEL AFTER SURGERY ???In orthopedic surgery, the cutting of bones prompts the body to increase clotting factors in the blood. Due to the size of the bones involved in hip and knee replacements, there is a higher risk of blood clotting than other orthopedic surgeries. ???There is a risk of clotting for up to 4?6 weeks after surgery. Flying or traveling long distances can increase your risk of a clot. As a result, those who travel long distances may need additional preventive measures after their procedure. ???Drink only non-alcoholic beverages during your flight, train, or car travel. Alcohol can dehydrate you and increase your risk of getting blood clots. SEEK IMMEDIATE MEDICAL CARE IF: ???You develop chest pain. ???You develop severe shortness of breath. ???You have breathing problems after traveling. ???You develop swelling or pain in the leg. ???You begin to cough up bloody mucus or phlegm (sputum). ???You feel dizzy or faint. This information is not intended to replace advice given to you by your health care provider. Make sure you discuss any questions you have with your health care provider. Document Released: 04/20/2010 Document Revised: 01/24/2013 Document Reviewed: 08/27/2015 [email or web address] Interactive Patient Education ?2016 [email or web address] Incentive Spirometer An incentive spirometer is a tool that can help keep your lungs clear and active. This tool measures how well you are filling your lungs with each breath. Taking long, deep breaths may help reverse or decrease the chance of developing breathing (pulmonary) problems (especially infection) following: ???Surgery of the chest or abdomen. ???Surgery if you have a history of smoking or a lung problem. ???A long period of time when you are unable to move or be active. BEFORE THE PROCEDURE ???If the spirometer includes an indicator to show your best effort, your nurse or respiratory therapist will set it to a desired goal. ???If possible, sit up straight or lean slightly forward. Try not to slouch. ???Hold the incentive spirometer in an upright position. INSTRUCTIONS FOR USE 1.??Sit on the edge of your bed if possible, or sit up as far as you can in bed or on a chair. 2.??Hold the incentive spirometer in an upright position. 3.??Breathe out normally. 4.??Place the mouthpiece in your mouth and seal your lips tightly around it. 5.??Breathe in slowly and as deeply as possible, raising the piston or the ball toward the top of the column. 6.??Hold your breath for 3?5 seconds or for as long as possible. Allow the piston or ball to fall to the bottom of the column. 7.??Remove the mouthpiece from your mouth and breathe out normally. 8.??Rest for a few seconds and repeat Steps 1 through 7 at least 10 times every 1?2 hours when you are awake. Take your time and take a few normal breaths between deep breaths. 9.??The spirometer may include an indicator to show your best effort. Use the indicator as a goal to work toward during each repetition. 10.??After each set of 10 deep breaths, practice coughing to be sure your lungs are clear. If you have an incision (the cut made at the time of surgery), support your incision when coughing by placing a pillow or rolled-up towels firmly against it. Once you are able to get out of bed, walk around indoors and cough well. You may stop using the incentive spirometer when instructed by your caregiver. RISKS AND COMPLICATIONS ???Breathing too quickly may cause dizziness. At an extreme, this could cause you to pass out. Take your time so you do not get dizzy or light-headed. ???If you are in pain, you may need to take or ask for pain medication before doing incentive spirometry. It is harder to take a deep breath if you are having pain. AFTER USE ???Rest and breathe slowly and easily. ???It can be helpful to keep a log of your progress. Your caregiver can provide you with a simple table to help with this. If you are using the spirometer at home, follow these instructions: SEEK MEDICAL CARE IF: ???You are having difficultly using the spirometer. ???You have trouble using the spirometer as often as instructed. ???Your pain medication is not giving enough relief while using the spirometer. ???You develop fever of 100.5?F (38.1?C) or higher. SEEK IMMEDIATE MEDICAL CARE IF: ???You cough up bloody sputum that had not been present before. ???You develop fever of 102?F (38.9?C) or greater. ???You develop worsening pain at or near the incision site. MAKE SURE YOU: ???Understand these instructions. ???Will watch your condition. ???Will get help right away if you are not doing well or get worse. This information is not intended to replace advice given to you by your health care provider. Make sure you discuss any questions you have with your health care provider. Document Released: 09/12/2007 Document Revised: 05/23/2015 Document Reviewed: 12/09/2014 [email or web address] Interactive Patient Education ?2016 [email or web address] Pain Medicine Instructions HOW CAN PAIN MEDICINE AFFECT ME? You were prescribed pain medicine. This medicine may: ???Make you tired or sleepy. ???Affect how well you can: ???Drive ???Do certain activities. Pain medicine may not make all of your pain go away. You should be comfortable enough to: ???Move. ???Breathe. ???Take care of yourself. HOW OFTEN SHOULD I TAKE PAIN MEDICINE AND HOW MUCH SHOULD I TAKE?Take pain medicine only as told by your doctor and only as needed for pain. ???You do not need to take pain medicine if you are not having pain, unless your doctor tells you to do that. ???You can take less than the prescribed dose if you find that less medicine helps your pain. WHAT SHOULD I AVOID WHILE I AM TAKING PAIN MEDICINE? Follow these instructions after you start taking pain medicine, while you are taking the medicine, and for 8 hours after you stop taking the medicine: ???Do not drive. ???Do not use machinery. ???Do not use power tools. ???Do not sign legal documents. ???Do not drink alcohol. ???Do not take sleeping pills. ???Do not take care of children by yourself. ???Do not do any activities that involve climbing or being in high places. ???Do not go into any body of water unless there is an adult nearby who can watch and help you. This includes: ???Lakes. ???[place]. ???Oceans. ???Spas. ???Swimming pools. HOW CAN I KEEP OTHERS SAFE WHILE I AM TAKING PAIN MEDICINE?Store your pain medicine as told by your doctor. Make sure that you keep it where children and pets cannot reach it. ???Do not share your pain medicine with anyone. ???Do not save any leftover pills. If you have any leftover pain medicine, get rid of it or destroy it as told by your doctor. WHAT ELSE DO I NEED TO KNOW ABOUT TAKING PAIN MEDICINE?Use a poop (stool) softener if you have trouble pooping (constipation) because of your pain medicine. Eating more fruits and vegetables also helps with constipation. ???Write down the times when you take your pain medicine. Look at the times before you take your next dose of medicine. ???If your pain is very bad, do not take more pills than told by your doctor. Call your doctor for help. ???Your pain medicine might have acetaminophen in it. Do not take any other acetaminophen while you are taking this medicine. An overdose of acetaminophen can do very bad damage to your liver. If you are taking any medicines in addition to your pain medicine, check the active ingredients on those medicines to see if acetaminophen is listed. WHEN SHOULD I CALL MY DOCTOR?Your medicine is not helping the pain. ???You do either of these soon after you take the medicine: ???Throw up (vomit). ???Have watery poop (diarrhea). ???You have new pain in areas that did not hurt before. ???You have an allergic reaction to your medicine. This may include: ???Feeling itchy. ???Swelling. ???Feeling dizzy. ???Getting a new rash. WHEN SHOULD I CALL 911 OR GO TO THE EMERGENCY ROOM?You feel dizzy or you faint. ???You feel very confused. ???You throw up again and again. ???Your skin or lips turn pale or bluish in color. ???You are: ???Short of breath. ???Breathing much more slowly than usual. ???You have a very bad allergic reaction to your medicine. This includes: ???Developing a swollen tongue. ???Having trouble breathing. This information is not intended to replace advice given to you by your health care provider. Make sure you discuss any questions you have with your health care provider. Document Released: 10/18/2008 Document Revised: 09/16/2015 Document Reviewed: 03/06/2015 [employer] Interactive Patient Education ?2016 [email or web address] Fall Prevention in the Home Falls can cause injuries. They can happen to people of all ages. There are many things you can do to make your home safe and to help prevent falls. WHAT CAN I DO ON THE OUTSIDE OF MY HOME?Regularly fix the edges of walkways and driveways and fix any cracks. ???Remove anything that might make you trip as you walk through a door, such as a raised step or threshold. ???Trim any bushes or trees on the path to your home. ???Use bright outdoor lighting. ???Clear any walking paths of anything that might make someone trip, such as rocks or tools. ???Regularly check to see if handrails are loose or broken. Make sure that both sides of any steps have handrails. ???Any raised decks and porches should have guardrails on the edges. ???Have any leaves, snow, or ice cleared regularly. ???Use sand or salt on walking paths during winter. ???Clean up any spills in your garage right away. This includes oil or grease spills. WHAT CAN I DO IN THE BATHROOM?Use night lights. ???Install grab bars by the toilet and in the tub and shower. Do not use towel bars as grab bars. ???Use non-skid mats or decals in the tub or shower. ???If you need to sit down in the shower, use a plastic, non-slip stool. ???Keep the floor dry. Clean up any water that spills on the floor as soon as it happens. ???Remove soap buildup in the tub or shower regularly. ???Attach bath mats securely with double-sided non-slip rug tape. ???Do not have throw rugs and other things on the floor that can make you trip. WHAT CAN I DO IN THE BEDROOM?Use night lights. ???Make sure that you have a light by your bed that is easy to reach. ???Do not use any sheets or blankets that are too big for your bed. They should not hang down onto the floor. ???Have a firm chair that has side arms. You can use this for support while you get dressed. ???Do not have throw rugs and other things on the floor that can make you trip. WHAT CAN I DO IN THE KITCHEN?Clean up any spills right away. ???Avoid walking on wet floors. ???Keep items that you use a lot in slte-kr-tihhr places. ???If you need to reach something above you, use a strong step stool that has a grab bar. ???Keep electrical cords out of the way. ???Do not use floor estonian or wax that makes floors slippery. If you must use wax, use non-skid floor wax. ???Do not have throw rugs and other things on the floor that can make you trip. WHAT CAN I DO WITH MY STAIRS?Do not leave any items on the stairs. ???Make sure that there are handrails on both sides of the stairs and use them. Fix handrails that are broken or loose. Make sure that handrails are as long as the stairways. ???Check any carpeting to make sure that it is firmly attached to the stairs. Fix any carpet that is loose or worn. ???Avoid having throw rugs at the top or bottom of the stairs. If you do have throw rugs, attach them to the floor with carpet tape. ???Make sure that you have a light switch at the top of the stairs and the bottom of the stairs. If you do not have them, ask someone to add them for you. WHAT ELSE CAN I DO TO HELP PREVENT FALLS?Wear shoes that: ???Do not have high heels. ???Have rubber bottoms. ???Are comfortable and fit you well. ???Are closed at the toe. Do not wear sandals. ???If you use a stepladder: ???Make sure that it is fully opened. Do not climb a closed stepladder. ???Make sure that both sides of the stepladder are locked into place. ???Ask someone to hold it for you, if possible. ???Clearly jose and make sure that you can see: ???Any grab bars or handrails. ???First and last steps. ???Where the edge of each step is. ???Use tools that help you move around (mobility aids) if they are needed. These include: ???Canes. ???Walkers. ???Scooters. ???Crutches. ???Turn on the lights when you go into a dark area. Replace any light bulbs as soon as they burn out. ???Set up your furniture so you have a clear path. Avoid moving your furniture around. ???If any of your floors are uneven, fix them. ???If there are any pets around you, be aware of where they are. ???Review your medicines with your doctor. Some medicines can make you feel dizzy. This can increase your chance of falling. Ask your doctor what other things that you can do to help prevent falls. This information is not intended to replace advice given to you by your health care provider. Make sure you discuss any questions you have with your health care provider. Document Released: 02/26/2010 Document Revised: 09/16/2015 Document Reviewed: 06/06/2015 [employer] Interactive Patient Education ?2016 [employer] PATIENT DISCHARGE INSTRUCTION Signature Page for: JERED GARAY Date/Time: 08/08/2018 11:02:16 A Clinician has explained the information on my discharge instructions and has provided me with a copy. My questions have been answered to my satisfaction. Patient Signature Date/Time Responsible Party Date/Time Relationship to Patient Clinician Signature Date/Time Normal [facility] Anesthesia Recordon 08-08-19 Anesthesia Record Patient: JERED GARAY Age: 68 years Sex: Male : 1950 Associated Diagnoses: None Author: Idalia Godinez DO Procedure Time Out Pitman Protocol: patient identity verified, site verified, side verified, procedure to be done verified, patient position verified. REGIONAL ANESTHESIA PROCEDURE Procedure date and begin time: See nurses notes. Procedure date and end time: See nurses notes. Second Procedure Start: Spinal block. Performed by: Idalia Godinez DO. Assisted by: no administrative assistant. Informed consent: signed by patient. Technique: Spinal technique performed, for postoperative pain management, at surgeon request. Medications-Sedation: sedate with meaningful contact maintained.. Local Anesthesia: 1% lidocaine. Preparation for Peripheral Nerve Block: The skin was prepped with chlorhexidine in the usual fashion, sterile technique followed, including: drape, cap, hand washing, gloves, and mask.. Needle(s): 4 inches, 24 gauge. Needle(s): 3.5 inches, 22 gauge. Injectate: bupivacaine (concentration 0.75 %, volume 1.2 mL). SPINAL sterile prep with chloraprep and drape. 1cc 1% lidocaine local infiltration in lower lumbar region. spinal needle placed without paresthesia. +CSF. negative heme. subarachnoid injection without pain or paresthesia. patient responsive and interactive throughout procedure. Sterile Technique Followed throughout procedure. . Monitored during procedure: EKG, heart rate, heart rhythm, blood pressure (NIBP), pulse oximetry. Procedure tolerated: well. Complications: none. Procedure done in: holding area. Findings-Comments: none. Estimated Blood Loss: none. Specimen(s) obtained: none. Impression and Plan Diagnosis and Plan: Diagnosis Preoperative Diagnosis: Hip OA Postoperative Diagnosis: Hip OA . Normal [facility] Basic Metabolic Panelon 07-15 Calcium [Mass/Vol] 8.6 mg/dL Normal 8.5-10.6 [facility] Chloride [Moles/Vol] 100 mmol/L Normal 98-107 [facility] CO2 [Moles/Vol] 26 mmol/L Normal 21-32 [facility] Creatinine [Mass/Vol] 0.95 mg/dL Normal 0.70-1.30 [facility] Glucose [Mass/Vol] 191 mg/dL High 74-106 [facility] Potassium [Moles/Vol] 4.2 mmol/L Normal 3.5-5.1 [facility] Sodium [Moles/Vol] 136 mmol/L Normal 136-145 [facility] Urea nitrogen (BldV) [Mass/Vol] 23 mg/dL High 7-18 [facility] Urea nitrogen/Creatinine [Mass ratio] 24 mg/mg Normal [facility] OR Nursingon 08-07-2018 OR Nursing CO NA OR Nursing Record Summary Primary Physician: Jeremy Bermudez Jr, MD Finalized Date/Time: 08/07/18 12:06:15 Pt. Name: GARAYJERED/Sex: 1950 Male Med Rec #: [id number] Physician: Jeremy Bermudez Jr, MD Financial #: [id number] Pt. Type: I Room/Bed: / Admit/Disch: 08/07/18 07:26:00 - Institution: CO NA OR Case Times Entry 1 Patient Times Patient In Room 08/07/18 10:06:00 Patient Out Room 08/07/18 11:59:00 Surgical Times Start Time 08/07/18 10:48:00 Stop Time 08/07/18 11:52:00 Last Modified By: Kamini Cunningham RN 08/07/18 11:57:43 CO NA OR Delays Entry 1 Delay Reason Other See Comment Description incision greater than 30 mins after in room time/dr bermudez in room@[id number] Duration (minutes) 12 Min Last Modified By: Marisa RN , Kamini 08/07/18 10:49:30 CO NA OR Case Attendees Entry 1 Entry 2 Entry 3 Case Attendee Jameson Espinal MD , Jeremy Godinez DO, Александр Flores CRNA Role Performed Primary Surgeon Anesthesiologist Nurse Book Cutter Time In 08/07/18 10:44:00 08/07/18 10:06:00 08/07/18 10:06:00 Time Out 08/07/18 11:25:00 08/07/18 11:59:00 08/07/18 11:08:00 Procedure Arthroplasty Hip Total Arthroplasty Hip Total Arthroplasty Hip Total Anterior(Right) Anterior(Right) Anterior(Right) Attendee Comment COVERAGE Relief Reason Last Modified By: Marisa RN , Marisa RN , Marisa RN , [place] 08/07/18 [place] 08/07/18 [place] 08/07/18 11:58:27 11:58:27 11:58:27 Entry 4 Entry 5 Entry 6 Case Attendee Case, Attendee Other Kristy MOY , Yessica Monreal Role Performed Hull Line Crew Member friction welding machine operator First Scrub Time In 08/07/18 10:44:00 08/07/18 10:06:00 08/07/18 10:06:00 Time Out 08/07/18 11:25:00 08/07/18 11:00:00 08/07/18 11:59:00 Procedure Arthroplasty Hip Total Arthroplasty Hip Total Arthroplasty Hip Total Anterior(Right) Anterior(Right) Anterior(Right) Attendee Comment BERNIE/GENIE Relief Reason Lunch Last Modified By: Marisa RN , Marisa RN , Marisa RN , [place] 08/07/18 [place] 08/07/18 [place] 08/07/18 11:58:27 11:58:27 11:58:27 Entry 7 Entry 8 Entry 9 Case Attendee Daija Dietrich , Rocio Lovell Role Performed Second Scrub Physician Stockroom Coordinator Assistive Personnel Time In 08/07/18 10:06:00 08/07/18 10:06:00 08/07/18 10:06:00 Time Out 08/07/18 11:35:00 08/07/18 11:59:00 08/07/18 11:59:00 Procedure Arthroplasty Hip Total Arthroplasty Hip Total Arthroplasty Hip Total Anterior(Right) Anterior(Right) Anterior(Right) Attendee Comment Relief Reason Last Modified By: Marisa RN , Marisa RN , Marisa RN , Kamini 08/07/18 Kamini 08/07/18 Kamini 08/07/18 11:58:27 11:58:27 11:58:27 Entry 10 Entry 11 Entry 12 Case Attendee Marisa RN , Kamini MOYER , Mirta Foster RN , Patricia Orona Role Performed friction welding machine operator Media Producer friction welding machine operator Time In 08/07/18 10:06:00 08/07/18 10:30:00 08/07/18 11:00:00 Time Out 08/07/18 11:00:00 08/07/18 11:59:00 08/07/18 11:30:00 Procedure Arthroplasty Hip Total Arthroplasty Hip Total Arthroplasty Hip Total Anterior(Right) Anterior(Right) Anterior(Right) Attendee Comment relief Relief Reason Lunch Last Modified By: Marisa RN , Marisa RN , Marisa RN , Kamini 08/07/18 Kamini 08/07/18 Kamini 08/07/18 11:58:27 11:58:27 11:58:27 Entry 13 Entry 14 Entry 15 Case Attendee Jd DRILLER AND BROACHER, Mansoor Ness DRILLER AND BROACHER, Александр Cunningham RN , Kamini Role Performed Nurse Book Cutter Nurse Book Cutter friction welding machine operator Time In 08/07/18 11:08:00 08/07/18 11:34:00 08/07/18 11:30:00 Time Out 08/07/18 11:34:00 08/07/18 11:59:00 08/07/18 11:59:00 Procedure Arthroplasty Hip Total Arthroplasty Hip Total Arthroplasty Hip Total Anterior(Right) Anterior(Right) Anterior(Right) Attendee Comment Relief Reason Last Modified By: Marisa RN , Marisa RN , Marisa RN , Kamini 08/07/18 Kamini 08/07/18 Kamini 08/07/18 11:58:27 11:58:27 11:58:27 Entry 16 Case Attendee Yokasta Wagner RN Role Performed friction welding machine operator Time In 08/07/18 11:30:00 Time Out 08/07/18 11:59:00 Procedure Arthroplasty Hip Total Anterior(Right) Attendee Comment Relief Reason Last Modified By: Kamini Cunningham RN 08/07/18 11:58:27 CO NA OR General Case Medical Delivery Driver 1 OR CO NA 08 ASA Class 3 Case Wound Class Clean Specialty Orthopedic Surgery Case Level Ortho Complex Diagnosis Preop Diagnosis M16.11 Postop Same As Preop Yes Postop Diagnosis M16.11 This is a down time No record. Last Modified By: Kamini Cunningham RN 08/07/18 11:47:58 CO NA OR Surgical Procedures Entry 1 Procedure Arthroplasty Hip Total Primary Procedure Yes Anterior Modifiers Right Procedure Wound Clean Class Primary Surgeon Jameson Espinal MD , Jeremy Surgical Service Orthopedic Surgery Anesthesia Type General Procedure Performed ASI right total hip arthroplasty Start 08/07/18 10:48:00 Stop 08/07/18 11:52:00 Last Modified By: Kamini Cunningham RN 08/07/18 11:51:28 CO NA OR Catheters, Drains, and Tubes Entry 1 Device Type DRAIN 10 FR ROUND Present on Arrival? No [id number] Location Operative Hip Inserted By Jameson Espinal MD , Jeremy Comments 10 Fr Round Silicone DC'd at End of Case? No Drain/400ml Hemovac [place] Tegaderm to secure drain. Last Modified By: Kamini Cunningham RN 08/07/18 10:40:29 CO NA OR Patient Positioning Entry 1 Abdomen Pre N/A Skin Condition Warm, Dry, Intact Procedure Before Body Position Supine Pressure Points Yes Assessed? Right Arm Position On armboard Left Arm Position On armboard Arm Secured Right, Left Right Leg Position Straight Left Leg Position Straight Safety Strap Applied No Positioned By Rocio Cooney Carabin RN Procedure Arthroplasty Hip Total , Yokasta, Sharp Anterior(Right) MEGAN, Marisa Fountain RN, Elizabeth Last Modified By: Kamini Cunningham RN 08/07/18 10:35:02 CO NA OR Skin Prep Entry 1 Hair Removal Method None Site Bilateral Legs Performed By Yokasta Wagner RN Skin Prep Prep Agents Duraprep Prep Site Opertaive hip, entire bilateral legs leg to toes Prep by Yokasta Wagner RN Procedure Arthroplasty Hip Total Anterior(Right) Last Modified By: Kamini Cunningham RN 08/07/18 10:35:46 CO NA OR Fire Risk Assessment Entry 1 Alcohol Based Prep Yes Solution Dry Time >3 Minutes or According to Manufactures Instructions. No Pooling Observed. (No Alcohol Prep used Select N/A) Fire Risk Factors Yes = 1, No or N/A = 0 Procedure No Open O2 Source No Site/Incision Above (Face Mask/Nasal Xyphoid Process Cannula) Ignition source Yes Fire Risk Total 1 (Cautery, Laser, Score Fiberoptic Light Source) Last Modified By: Kamini Cunningham RN 08/07/18 10:36:18 Post-Care Text: Standard Fire Safety precautions - Score 1 or 2 Prep drying time - minimum three minutes Protected heat source (i.e bovie jackson) Standard draping procedure HIGH RISK FIRE PRACTICES - SCORE 3 *RN verbalizes to the team the presence of high-risk score and verifies the fire triangle *Write High Risk on the white board *Verbally confirm lowest effective setting on the heat source *Minimize 02 entrapment by proper draping of the patient *Encourage use of wet sponges *Available basin with sterile water and bulb syringe for suppression *Anesthesia Awareness and communication of oxygen flows/concentration *Allow for dispersion of 02 at least 1 minute before and during electrosurgical and laser use and communicate to surgeon *Use lowest tolerable concentration of 02 (less than 30% when able) CO NA OR Surgical Safety Checklist Entry 1 TIme Out Verified 08/07/18 10:48:00 Procedure Arthroplasty Hip Total At: Anterior(Right) Pre-Induction Patient confirms Before Introduction of Additional identity, site and Incision/Suspend surgical team and/or Verification procedure, Anesthesia all Activities new members, Entire safety check complete, (Before surgical team verbally pulse ox on, Confirm Incision/Start of confirm patient, site, patient allergies, Procedure) procedure, Nursing team Implants, devices, reviews: has sterility special equipment been confirmed and are available and there any functioning patient-specific concerns?, Antibiotic infused/ing and redosing discussed if applicable, Relevant images and results properly labeled and correctly displayed if applicable Fire Risk Yes Assessment Completed Last Modified By: Kamini Cunningham RN/25/19 10:49:47 CO NA OR Cautery Entry 1 Cautery and Settings Type Monopolar Unit ID Number 3 Coagulation Setting 35 Cut Setting 75 Grounding Pad Abdomen Applied By Rocio Cooney Location Last Modified By: Marisa MOY , [place] 08/07/18 10:36:58 CO NA OR Medication Entry 1 Entry 2 Entry 3 Times Med Administered Medication CO NAROPIN 0.5% 5MG/1ML CO EPINEPHRINE INJ. COS VANCOMYCIN 1 GM 30ML ROPIVACAINE 1:1000/ML AMPULE POWDER VANCOCIN Medication Dosage 60ml 0.5ml 1gm Route of Local Local Topical Administration Meds Administered By Jameson Espinal MD , Jeremy Bermudez Jr, MD , Jeremy Bermudez Jr, MD , Jeremy Medication Comment Last Modified By: Marisa MOY , Marisa MOY , Marisa MOY , [place] 08/07/18 [place] 08/07/18 [place] 08/07/18 10:49:59 10:49:59 10:49:59 CO NA OR Irrigation Entry 1 Irrigant 0.9% Saline Irrigant Volume 1000 mL Last Modified By: Marisa MOY , [place] 08/07/18 12:06:05 CO NA OR Implants Entry 1 Entry 2 Entry 3 Procedure Arthroplasty Hip Total Arthroplasty Hip Total Arthroplasty Hip Total Anterior(Right) Anterior(Right) Anterior(Right) Implant/Explant Implant Implant Implant Wasted Reason Provided by Surgeon No No No Implant Identification Description HIP ACETABULAR SHELL G7 HIP ACETABULAR LINER VE SCREW SUZANNE BIOMET G7 FINNED HT 54MM F 36MM F NEUTRAL [id number] LOW PROFILE DOME TI [id number] 6.5X20MM [id number] Contractor [employer] Catalog Number [id number] Lot Number [id number] Serial Number n/a n/a n/a Implant Site right hip right hip right hip Quantity 1 1 1 Expiration Date 04/23/28 06/09/23 03/21/28 No Expiration Date No No No Unique Device Indent (KAVITA) Human Readable Machine Readable Manufactured Date Tissue Tissue Implanted No No No Material Used to N/A N/A N/A Prepare/Process Tissue Processed By: Last Modified By: Cristian MOY , Patricia Foster RN , Patricia Foster RN , Patricia Orona 08/07/18 11:14:58 08/07/18 11:14:58 08/07/18 11:14:58 Entry 4 Entry 5 Entry 6 Procedure Arthroplasty Hip Total Arthroplasty Hip Total Arthroplasty Hip Total Anterior(Right) Anterior(Right) Anterior(Right) Implant/Explant Implant Implant Implant Wasted Reason Provided by Surgeon No No No Implant Identification Description SCREW SUZANNE BIOMET G7 Taperloc 133 FP type 1 HIP CERAMIC HEAD BIOLOX LOW PROFILE DOME TI MP PPS HO [id number] Ma DELTA OPTION CE 36MM 6.5X35MM [id number] [phone] Contractor [employer]ANNE [employer]OMET BIOMET ORTHOPED BRACING BIOMET ORTHOPEDICS [employer] [facility] Catalog Number [id number] [phone] Lot Number [id number] Serial Number n/a n/a n/a Implant Site right hip right hip right hip Quantity 1 1 1 Expiration Date 04/16/28 10/22/27 02/25/28 No Expiration Date No No No Unique Device Indent (KAVITA) Human Readable Machine Readable Manufactured Date Tissue Tissue Implanted No No No Material Used to N/A N/A N/A Prepare/Process Tissue Processed By: Last Modified By: Cristian MOY , Patricia Foster RN , Patricia Foster RN , Patricia Orona 08/07/18 11:14:58 08/07/18 11:33:50 08/07/18 11:33:50 Entry 7 Procedure Arthroplasty Hip Total Anterior(Right) Implant/Explant Implant Wasted Reason Provided by Surgeon No Implant Identification Description HIP NECK BIOLOX OPTION TAPER ADAPTER -6 [phone] Contractor [employer] Catalog Number [id number] Lot Number [id number] Serial Number n/a Implant Site right hip Quantity 1 Expiration Date 04/07/28 No Expiration Date No Unique Device Indent (KAVITA) Human Readable Machine Readable Manufactured Date Tissue Tissue Implanted No Material Used to N/A Prepare/Process Tissue Processed By: Last Modified By: Patricia Foster RN 08/07/18 11:33:50 CO NA OR Counts Entry 1 Entry 2 Instrument Count N/A N/A Surgeon Notified of No Yes Count Sponge Count Initial Count Done 1st count correct X-ray Taken No No Sharps/Miscellaneous Initial Count Done 1st count correct Count RN Performing Count Kristy MOY , Yokasta Wagner RN , Yokasta Count Performed with Yessica Laura Kaley L Comment Procedure Arthroplasty Hip Total Arthroplasty Hip Total Anterior(Right) Anterior(Right) Last Modified By: Marisa MOY , Kamini Cunningham RN 08/07/18 Kamini 08/07/18 10:42:44 11:38:42 CO NA OR Dressing/Packing Entry 1 Dressing Dressing/Packing ADHESIVE SKIN DERMABOND Dressing/Packing Operative hip Type ADV 12/BX DNX12 Site Dressing/Packing Dermabond, Telfa, and Comment Large Tegaderm. Last Modified By: Kamini Cunningham RN 08/07/18 10:43:42 CO NA OR Temperature Regulation Entry 1 Device CO UNIT VERNA HUGGER Unit ID 12 Site Upper Body Verna Hugger Setting Per Anesthesia Warm blankets, Warm fluids Last Modified By: Kamini Cunningham RN 08/07/18 10:38:33 CO NA OR Final Count Entry 1 Sponges Correct Yes Sharps/Miscellaneous Yes Correct Instruments Correct n/a Count Performed with Yessica Laura RN Performing Count Kamini Cunningham RN Surgeon Notified of Yes Count X-ray Taken No Comment Also performed with Physician's Stockroom Coordinator. Procedure Arthroplasty Hip Total Anterior(Right) Last Modified By: Kamini Cunningham RN 08/07/18 12:00:10 CO NA OR PNDS Risk of Impaired Skin Entry 1 Interventions/Activi Identifies physical OUTCOME STATEMENTS: The patient is free ties: alterations that may from visible signs and affect symptoms of injury procedure-specific related to positioning, positioning., Positions immobilization, the patient., pressure and/or Implements protective shearing forces. measures to prevent skin or tissue injury due to thermal, chemical, or mechanical sources., Uses supplies and equipment within safe parameters., Evaluates for signs and symptoms of injury as a result of positioning, immobilization, pressure and/or shearing forces. Last Modified By: Kamini Cunningham RN 08/07/18 11:48:40 CO NA OR PNDS Risk of Altered Body Temp Entry 1 Interventions/Activi Monitors body OUTCOME STATEMENT: The patient is at or ties: temperature., returning to Implements normothermia at the thermoregulation conclusion of the measures., Evaluates operative period. response to thermoregulation. Last Modified By: Kamini Cunningham RN 08/07/18 11:49:04 CO NA OR PNDS Risk of Infection Entry 1 INTERVENTIONS/ACTIVI Implements aseptic OUTCOME STATEMENT: The patient is free of TIES: technique., Classifies signs and symptoms of surgical wound., infection at the Assesses susceptibility conclusion of the for infection., operative period. Performs skin preparations., Protects from cross-contamination., Monitors for signs and symptoms of infection., Minimizes the length of invasive procedure planning care., Administers prescribed prophylactic treatments., Initiates traffic control., Administers care to invasive device sites., Administers care to wound sites. Last Modified By: Kamini Cunningham RN 08/07/18 11:49:36 CO NA OR Patient Debriefing Entry 1 Patient Debriefing Verify name of Skin Assessment Unchanged from procedure(s) performed After Pre-Procedure including site/side, Sponge and needle counts are correct, N/A review specimens and how each is labeled, Discuss equipment, instrument problems reported and case improvements, Review klein concerns for further patient management Last Modified By: Kamini Cunningham RN 08/07/18 11:50:25 CO NA OR PNDS Risk of Injury Entry 1 Interventions/Activi Implements protective OUTCOME STATEMENT: The patient is free ties: measures to prevent from visible signs and injury due to symptoms of injury electrical sources., related to electrical, Implements protective mechanical, radiation measures to prevent or laser. injury due to radiation sources., Implements protective measures to prevent injury due to mechanical sources, Implements latex allergy precautions as needed, Records devices implanted during invasive procedure., Performs required counts., Evaluates for signs and symptoms of laser, electrical, mechanical and radiation injury. Last Modified By: Kamini Cunningham RN 08/07/18 11:49:46 CO NA OR Transport from OR Entry 1 Patient Status Awakening Post-op Destination PACU Phase I Via Bed Last Modified By: Kamini Cunningham RN 08/07/18 11:58:41 Case Comments Finalized By: Kamini Cunningham RN Document Signatures Signed By: Kamini Cunningham RN 08/07/18 12:06 Normal [facility] PACU I Nursingon 08-07-2018 PACU I Nursing CO NA PACU I Nursing Record Summary Primary Physician: Jeremy Bermudez Jr, MD Finalized Date/Time: 08/07/18 12:46:58 Pt. Name: JERED GARAY/Sex: 1950 Male Med Rec #: [id number] Physician: Jeremy Bermudez Jr, MD Financial #: [id number] Pt. Type: I Room/Bed: / Admit/Disch: 08/07/18 07:26:00 - Institution: CO NA OR Main PACU I Case Times Entry 1 In PACU I 08/07/18 12:00:00 Ready for PACU I 08/07/18 12:37:00 Discharge Discharge from PACU 08/07/18 12:46:00 PACU I Discharge Receiving Unit - RN I Delay Reason unavail for report Last Modified By: Ghislaine Lagunas RN 08/07/18 12:46:55 CO NA OR Main PACU I Case Attendees Entry 1 Case Attendee Ghislaine Lagunas RN Role Performed RN Last Modified By: Ghislaine Lagunas RN 08/07/18 11:59:27 Finalized By: Ghislaine Lagunas RN Document Signatures Signed By: Ghislaine Lagunas RN 08/07/18 12:46 Normal [facility] PreOp Nursingon 08-07-2018 PreOp Nursing CO NA PreOp Nursing Record Summary Primary Physician: Jeremy Bermudez Jr, MD Finalized Date/Time: 08/07/18 10:11:50 Pt. Name: JERED GARAY/Sex: 1950 Male Med Rec #: [id number] Physician: Jeremy Bermudez Jr, MD Financial #: [id number] Pt. Type: I Room/Bed: / Admit/Disch: 08/07/18 07:26:00 - Institution: CO NA OR PreOp Case Times Entry 1 PreOp Case Times In Room Time 08/07/18 08:26:00 Out Room Time 08/07/18 10:05:00 Last Modified By: Kamini Cunningham RN 08/07/18 10:11:48 CO NA OR PreOp Case Attendees Entry 1 Case Attendee Mis Blakely RN Role Performed RN Last Modified By: Mis Blakely RN 08/07/18 08:37:23 Finalized By: Kamini Cunningham RN Document Signatures Signed By: Kamini Cunningham RN 08/07/18 10:11 Normal [facility] XR Pelvis 1-2 Viewson 2018 XR Pelvis 1 or 2 views EXAMINATION TYPE: XR Pelvis 1-2 Views DATE OF EXAM : 08/07/2018 12:37 PM HISTORY: Postoperative, RIGHT total hip arthroplasty COMPARISON: NONE FINDINGS: Status post RIGHT total hip arthroplasty. Air within the surrounding soft tissues and surgical drain laterally are consistent with recent postoperative state. No acute fractures evident, given portable AP projection. IMPRESSION: Status post RIGHT total hip arthroplasty with recent postoperative changes. [place] thanks you for the opportunity to care for your patient. Workstation ID: [id number] FINAL REPORT Dictated By: Marcell Mcgowan MD 08/07/2018 12:44 Assigned Physician: Marcell Mcgowan MD Reviewed and Electronically Signed By: Marcell Mcgowan MD 08/07/2018 12:44 Transcribed by: MIMI 08/07/2018 12:44 Technologist: FRANCISCO Normal [facility] Comment on above: Order Comment: Posto perative, s/p SIMON Basic Metabolic Panelon 07-15 Calcium [Mass/Vol] 9.5 mg/dL Normal 8.5-10.6 [facility] Chloride [Moles/Vol] 100 mmol/L Normal 98-107 [facility] CO2 [Moles/Vol] 28 mmol/L Normal 21-32 [facility] Creatinine [Mass/Vol] 0.95 mg/dL Normal 0.70-1.30 [facility] Glucose [Mass/Vol] 209 mg/dL High 74-106 [facility] Potassium [Moles/Vol] 4.0 mmol/L Normal 3.5-5.1 [facility] Sodium [Moles/Vol] 139 mmol/L Normal 136-145 [facility] Urea nitrogen (BldV) [Mass/Vol] 13 mg/dL Normal 7-18 [facility] Urea nitrogen/Creatinine [Mass ratio] 14 mg/mg Normal [facility] CBC with Differentialon 03-2 0-2019 Basophils (Bld) [#/Vol] 0.1 thou/mcL Normal 0.0-0.2 [facility] Basophils/100 WBC (Bld) 1.2 % Normal 0-3 [facility] Differential cell count method Nom (Bld) AUTOMATED DIFFERENTIAL Normal [facility] Eosinophils (Bld) [#/Vol] 0.2 thou/mcL Normal 0.0-0.4 [facility] Eosinophils/100 WBC (Bld) 2.6 % Normal 0-7 [facility] Erythrocyte distribution width (RBC) [Entitic vol] 13.2 % Normal 11.7-15.0 [facility] Hematocrit (Bld) [Volume fraction] 39.4 % Normal 34.0-50.0 [facility] Hemoglobin (Bld) [Mass/Vol] 13.1 g/dL Normal 11.5-17.0 [facility] Lymphocytes (Bld) [#/Vol] 1.9 thou/mcL Normal 0.7-4.5 [facility] Lymphocytes/100 WBC (Bld) 28.7 % Normal 14-46 [facility] MCH (RBC) [Entitic mass] 29.9 Picograms Normal 27.0-34.0 [facility] MCHC (RBC) [Mass/Vol] 33.2 g/dL Normal 32.0-36.0 [facility] MCV (RBC) [Entitic vol] 90.3 fL Normal 80-98 [facility] Monocytes (Bld) [#/Vol] 0.6 thou/mcL Normal 0.1-1.0 [facility] Monocytes/100 WBC (Bld) 8.8 % Normal 4-13 [facility] Neutrophils (Bld) [#/Vol] 3.9 thou/mcL Normal 1.5-7.8 [facility] Neutrophils/100 WBC (Bld) 58.7 % Normal 40-74 [facility] Platelet mean volume (Bld) [Entitic vol] 7.2 fL Low 7.5-11.2 [facility] Platelets (Bld) [#/Vol] 418 thou/mcL High 140-415 [facility] RBC (Bld) [#/Vol] 4.37 x(10)6/mcL Normal 3.80-5.60 [facility] WBC (Bld) [#/Vol] 6.7 thou/mcL Normal 4.0-10.5 [facility] Partial Thromboplastin Time (aPTT)on 08-02-2018 aPTT Coag (PPP) [Time] 29 Sec Normal 24.4-37.5 [facility] Prothrombin Timeon 9 INR Coag (Bld) [Relative time] 1.0 {INR} Normal 0.8-1.2 [facility] Comment on above: Result Comment: MG ANN THE INDUCTION PHASE OF ORAL ANTICOAGULATION, THE INR MAY NOT REFLECT THE ANTICOAGULANT STATUS OF THE PATIENT. THERAPEUTIC RANGES FOR INR'S ARE: MOST CLINICAL SITUATIONS: INR 2.0-3.0 MECHANICAL PROSTHETIC VALVES: INR 2.5-3.5 CRITICAL: INR 5.0 PT Coag (PPP) [Time] 10.7 Sec Normal 9.4-12.5 [facility] Social History Date Type Detail Facility Start: 06-01-2023 Alcohol intake Current non-dr culled fruit packer of alcohol (finding) [facility] Start: 06-26-2020 End: 06-01-2023 Alcohol intake [facility] Start: 06-26-2020 End: 06-01-2023 Tobacco use panel [facility] Start: 06-17-2022 Tobacco use and exposure Smokeless tobacco non-user [facility] Start: 06-17-2022 Tobacco Comment Quite 40 years ago P [facility] Start: 01-11-2022 End: 06-17-2022 Tobacco smoking status NHIS Ex-smoker (finding) [facility] Start: 1950 Sex Assigned At Male F [facility] Start: 1950 Sex Assigned At Not on file P [facility] History of tobacco use Current smoker [facility] Adolescent depressio n screening assessment 0 [facility] Vital Signs Date Time Vital Sign Value Performing Clinician Gena hendrickson 06-01-2023 10:02-0500 Body mass index (BMI) [Ratio] 33.08 kg/m2 Mily Nelson 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 Work Phone: [facility] 06-01-2023 10:02-0500 Body weight 95.8 kg Mily Nelson 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 Work Phone: [facility] 06-01-2023 10:02-0500 Diastolic blood pressure 75 mm[Hg] Mily Nelson 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 Work Phone: [facility] 06-01-2023 10:02-0500 Heart rate 81 /min Mily Nelson 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 Work Phone: [facility] 06-01-2023 10:02-0500 Systolic blood pressure 140 mm[Hg] Mily Nelson 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 Work Phone: [facility] 01-11-2022 11:26-0400 Body temperature 98 [degF] MD Bora Lindsey Work Phone: [facility] 01-11-2022 11:26-0400 Body weight 95.39 kg MD Bora Lindsey Work Phone: [facility] 01-11-2022 11:26-0400 Diastolic blood pressure 78 mm[Hg] MD Bora Lindsey Work Phone: [facility] 01-11-2022 11:26-0400 Heart rate 83 /min MD Bora Lindsey Work Phone: [facility] 01-11-2022 11:26-0400 Respiratory rate 16 /min MD Bora Lindsey Work Phone: [facility] 01-11-2022 11:26-0400 SaO2% (BldA) [Mass fraction] 97 % MD Bora Lindsey Work Phone: [facility] 01-11-2022 11:26-0400 Systolic blood pressure 154 mm[Hg] MD Bora Lindsey Work Phone: [facility] 01-11-2022 11:15-0400 Body height 168.91 cm MD Bora Lindsey Work Phone: [facility] Clinical Notes 06-01-2023 to 08-08-2023 Telephone Encounter - Jordana Borrero - 08/08/2023 11:25 AM EDTTelephone Encounter - CLARI Pacheco - 08/08/2023 11:25 AM EDTTelephone Encounter - Jordana Borrero - 08/08/2023 11:25 AM EDT Note Date & Type Note Facility 08-08-2023 Miscellaneous Notes LM that he is on 3rd day of 12 day prednisone pack and sugars are elevated. Asking if any insulin adjustments need made. Currently taking 35u lantus am and novolog on ss of under 70 take no insulin, 70-100 take 5 units, 101-150 take 10 units, 151-200 take 13 units, 201-250 take 16 units, 251-300 take 19 units, over 300 take 22 units. He also states this morning bs was 116 but now 231, he ate breakfast today already. He states after meals it sometimes goes up to mid 200-300 range. Please advise I recommend he add 2 units to each range for now and until two days AFTER he is off steroids and then resume regular sliding scale. I would not increasing the long acting dose since his fasting sugars are normal Patient informed and verbalized understanding [facility] Tele[facility] encounter Note LM that he is on 3rd day of 12 day prednisone pack and sugars are elevated. Asking if any insulin adjustments need made. Currently taking 35u lantus am and novolog on ss of under 70 take no insulin, 70-100 take 5 units, 101-150 take 10 units, 151-200 take 13 units, 201-250 take 16 units, 251-300 take 19 units, over 300 take 22 units. He also states this morning bs was 116 but now 231, he ate breakfast today already. He states after meals it sometimes goes up to mid 200-300 range. Please advise [facility] 08-08-2023 Telephone encounter Note I recommend he add 2 units to each range for now and until two days AFTER he is off steroids and then resume regular sliding scale. I would not increasing the long acting dose since his fasting sugars are normal [facility] Work Phone: 08-08-2023 Telephone encounter Note Patient informed and verbalized understanding [facility] 07-15-2023 Miscellaneous Notes Faxed PAP supply order along with office note to [facility] documented in this encounter [facility] 07-15-2023 Telephone encounter Note Faxed PAP supply order along with office note to [facility] 06-13-2023 Miscellaneous Notes Patient is asking to speak with you directly. I left a message for the patient asking for more details regarding this phone call. He called back. He has Novolog 70/30 pens that are unused and have been refrigerated. He is wanting to donate them to you for the free clinic and wondering when and how to get them to you. Okay to drop them off at frontload driver. I will take them into the free clinic I let him know. He will bring them to the frontload driver soon. documented in this encounter [facility] [employer] [facility] 06-13-2023 Telephone encounter Note Patient is asking to speak with you directly. [facility] 06-13-2023 Telephone encounter Note I left a message for the patient asking for more details regarding this phone call. [facility] 06-13-2023 Telephone encounter Note He called back. He has Novolog 70/30 pens that are unused and have been refrigerated. He is wanting to donate them to you for the free clinic and wondering when and how to get them to you. [facility] 06-13-2023 Telephone encounter Note Okay to drop them off at frontload driver. I will take them into the free clinic [employer] 06-13-2023 Telephone encounter Note I let him know. He will bring them to the frontload driver soon. [employer] 06-01-2023 History of Presen t illness Narrative Images from the original note were not included. REASON FOR VISIT: Jered Garay returns today for follow-up of his diabetes. DIABETES HISTORY: Type of Diabetes: 2 Duration of Diabetes : since 1999 INTERVAL HISTORY: HgA1C was 6.8% DOWN from 8.4% at last visit. He now has sensor and switched back to MDI. He is happy with better control but concerned he is having high post prandials. Was taken off glimepiride at last visit but fasting sugars are sometimes high, he will take one glimepiride 4 mg at bedtime if BG is over 170 DIABETES COMPLICATIONS/SURVEILLANCE: Retinopathy: no Last eye exam: UTD Nephropathy: Yes;microalbuminuria Peripheral neuropathy: yes Sees podiatry: yes History of foot sores/infections: no History of amputations: no Autonomic neuropathy: no Macrovascular disease: CAD: no PVD: no Stroke: no Hypertension: yes Dyslipidemia: yes Tobacco use: no ASA prophylaxis: yes Sleep apnea: yes Routine dental care: yes Immunizations current : yes GLUCOSE CONTROL: Diabetes medications: Metformin ER 500mg 2 tabs am and hs, Lantus 35 units in the morning, NovoLog scale before meals based on blood sugars as follows under 70 take no insulin, 70-100 take 5 units, 101-150 take 10 units, 151-200 take 13 units, 201-250 take 16 units, 251-300 take 19 units, over 300 take 22 units. 2nd NovoLog scale at mealtime but not eating: Under 150 none take 3 units for every 50 points over 150. 3rd sliding scale insulin for bedtime: Under 200 none take 3 units for every 50 points over 200. Generally taking 13 units Previous medications: Victoza-GI upset,diarrhea Jardiance-nocturia, glimepiride stopped 2020 for lack of efficacy, Novolog 70/30 Blood glucose summary: Patient uses Glucometer contour next Insulin pump/ Continuous glucose monitoring sensor data is available to review under Media tab Hypoglycemia: Awareness: GOOD Frequency: infrequent Glucagon available: no Past Medical History: Diagnosis Date DM type 2 (diabetes mellitus, type 2) ([facility]) HLD (hyperlipidemia) HTN (hypertension) Lactose intolerance PAULINE (obstructive sleep apnea) Sleep apnea Past Surgical History: Procedure Laterality Date APPENDECTOMY CARPAL TUNNEL RELEASE CATARACT EXTRACTION COLONOSCOPY N/A 09/14/2018 Performed by Magnus Mccarty MD at [facility] CYST REMOVAL HYDROCELE EXCISION / REPAIR INJECTION NERVE BLOCK REPLACEMENT TOTAL KNEE 03/2019 ROTATOR CUFF REPAIR Right 2005 TONSILLECTOMY TOTAL HIP ARTHROPLASTY 07/2018 Current Outpatient Medications: AMLODIPINE BESYLATE, BULK, MISC, 5 mg by miscellaneous route in the morning., Disp: , Rfl: aspirin 81 mg, Take 1 tablet (81 mg total) by mouth in the morning., Disp: , Rfl: atorvastatin (LIPITOR) 80 mg tablet, Take 1 tablet (80 mg total) by mouth in the morning., Disp: , Rfl: blood sugar diagnostic (CONTOUR NEXT TEST STRIPS) strip, USE DIRECTED THREE TIMES DAILY, Disp: 300 strip, Rfl: 3 blood-glucose meter kit, by other route 3 (three) times a day. Use as instructed, Disp: , Rfl: blood-glucose meter misc, by miscellaneous route., Disp: , Rfl: insulin aspart U-100 (NovoLOG FlexPen U-100 Insulin) 100 unit/mL (3 mL) insulin pen, Inject 18 Units under the skin in the morning and 18 Units at noon and 18 Units in the evening. Inject with meals., Disp: 45 mL, Rfl: 3 insulin glargine (LANTUS SOLOSTAR U-100 INSULIN) 100 unit/mL (3 mL) insulin pen, Inject 35 Units under the skin in the morning., Disp: 36 mL, Rfl: 3 lancets 33 gauge misc, by miscellaneous route 3 (three) times a day., Disp: , Rfl: losartan-hydroCHLOROthiazide (HYZAAR) 100-25 mg per tablet, Take 1 tablet by mouth in the morning., Disp: , Rfl: pen needle, diabetic 32 gauge x 5/32 needle, USE TO ADMINISTER INSULIN 4 TIMES DAILY., Disp: 400 each, Rfl: 3 therapeutic multivitamin (THERAGRAN) tablet, Take 1 tablet by mouth in the morning., Disp: , Rfl: zolpidem (AMBIEN) 10 mg tablet, Take 1 tablet (10 mg total) by mouth nightly as needed for sleep., Disp: , Rfl: omega 7-afu-utt-fish oil 1,200 (144-216) mg capsule, Take by mouth daily. (Patient not taking: Reported on 02/18/2023), Disp: , Rfl: Allergies, social history and family history were reviewed and updated in [facility]. REVIEW OF SYSTEMS: 10 systems have been reviewed and positives are discussed in HPI PHYSICAL EXAM: Wt Readings from Last 3 Encounters: 06/01/23 95.8 kg (211 lb 3.2 oz) 02/18/23 98 kg (216 lb 1.6 oz) 10/14/22 95 kg (209 lb 8 oz) Body mass index is 33.08 kg/m . Vitals: 06/01/23 1002 BP: 140/75 Pulse: 81 Weight: 95.8 kg (211 lb 3.2 oz) General appearance: Well appearing male in no apparent distress. HEENT: EOMI, oropharynx clear, mucous membranes moist. Neck: No carotid bruits, thyroid palpable. No palpable cervical lymph nodes. Skin: No skin lesions. No nail lesions. No lipohypertrophy at insulin injection sites. Neuro: A & O x 3. Sensation is intact bilaterally to 10 gram monofilament testing. Psych: Mood and affect are appropriate. 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 Type 2 diabetes mellitus with hypoglycemia without coma, without long-term current use of insulin ([facility]) Better controlled, high post prandial most consistently at supper. He will add one more unit at supper time, I want him to try to avoid taking glimepiride at bedtime. - POCT Hemoglobin A1c NovoLog scale before meals based on blood sugars as follows under 70 take no insulin, 70-100 take 5 units, 101-150 take 10 units, 151-200 take 13 units, 201-250 take 16 units, 251-300 take 19 units, over 300 take 22 units. 2nd NovoLog scale at mealtime but not eating: Under 150 none take 3 units for every 50 points over 150. 3rd sliding scale insulin for bedtime: Under 200 none take 3 units for every 50 points over 200. Successful with sensor A1c elevation is associated with significant risk for the development and progression of retinal, neurological and renal complications that can lead to vision loss, amputation, and renal failure. Tight glucose control is required to prevent these complications. Ongoing diabetes education is recommended. If possible a minimum of 150 minutes of physical activity per week is encouraged. Ongoing progressive weight loss is advised yes The signs symptoms and treatment of hypoglycemia are understood by the patient. The individual should not drive if symptoms of hypoglycemia are precieved and if possible the blood glucose should be check before driving or participating in dangerous activity. A diabetes ID is recommended. Yearly dilated eye examination and yearly urine Microalbumin to cr ratio are advised. The blood pressure should be maintained under 140/80. The LDL less than 100 mg/dl for primary prevention atherosclerosis and < 70 mg/dL as secondary prevention. Daily examination of the feet for signs of injury and inspection of the shoes for foreign body or shoe deformity that could lead to foot injury. Return to clinic: august appt with doctor CLARI Pacheco 06/01/23 1237 documented in this encounter [employer] Consult note Note Date/Time January 11, 2022 12:23pm [facility] at [place] [id number] Hem/Onc Consult Note - OP Signed Patient: Jered Garay MR#: [id number] : 1950 Acct:[id number] Age/Sex: 71 / M Type: REG RCR Copies to: Miguelina Tellez MD~ HPI Date/Time of Service: Date of Service: 01/11/2022 Time of Service: 12:19 Referring Provider/PCP: Referring Provider: Miguelina Tellez MD PCP: Miguelina Tellez MD - History of Present Illness Reason for Consultation: Thrombocytosis Chief Complaint: DVT HPI: Patient is a 71-year-old white gentleman seen for evaluation and management of thrombocytosis. He had couple of CBCs about 6 months apart that showed very mild thrombocytosis 1 at 424,000 and the other at 421,000. Consistently his CBCshowed normal WBC and H&H. There is no anemia let alone iron deficiency which is not commonly associated with thrombocytosis. There is nothing to suggest a myeloproliferative disorder. Upon extensive review of systems he has had off-and-on symptoms of degenerative joint disease with flareups that required injections. No obvious history of infection. Patient denies any symptoms of erythromelalgia or related problems. He even denies nonspecific symptoms including unexplained fever, night sweats or weight loss. PMFSH - Medical History Medical History: Medical History (Last Updated 01/08/22 @ 15:50 by Nichole Mccoy) Back pain Benign essential hypertension Colon polyp 2013 Diabetes GERD (gastroesophageal reflux disease) Hyperlipidemia Insomnia - Surgical History Surgical History: Surgical History (Last Updated 01/08/22 @ 15:53 by Nichole Mccoy) H/O cataract extraction 2009 H/O repair of rotator cuff 2005 History of carpal tunnel release 1992 History of total right hip arthroplasty 2019 Hx of appendectomy Hx of tonsillectomy Status post right partial knee replacement 2019 - Family History Family History: Family History (Last Updated 01/08/22 @ 15:56 by Nichole Mccoy) Father Heart disease Mother CAD (coronary artery disease) - Social History Smoking Status: Former smoker Tobacco Type: cigarettes Substance Use Type: None Home Medications & Allergies Allergies amoxicillin Adverse Reaction (Verified 01/11/22 11:23) Unknown Reaction empagliflozin [From Jardiance] Adverse Reaction (Verified 01/11/22 11:23) Unknown Reaction fish derived Adverse Reaction (Verified 01/11/22 11:23) Vomiting liraglutide [From Victoza] Adverse Reaction (Verified 01/11/22 11:23) Diarrhea lisinopril Adverse Reaction (Verified 01/11/22 11:23) Cough pioglitazone [From Actos] Adverse Reaction (Verified 01/11/22 11:23) Unknown Reaction shellfish derived Adverse Reaction (Verified 01/11/22 11:23) Unknown Reaction Home Medications amlodipine 5 mg tablet 5 mg PO DAILY 01/08/22 [History Confirmed 01/08/22] aspirin 81 mg tablet,delayed release 81 mg PO DAILY 01/08/22 [History Confirmed 01/08/22] atorvastatin 80 mg tablet 80 mg PO DAILY 01/08/22 [History Confirmed 01/08/22] glimepiride 4 mg tablet 4 mg PO DAILY 01/08/22 [History Confirmed 01/08/22] losartan 100 mg-hydrochlorothiazide 25 mg tablet 1 tab PO DAILY 01/08/22 [History Confirmed 01/08/22] metformin 500 mg tablet 500 mg PO DAILY 01/08/22 [History Confirmed 01/08/22] multivitamin 1 tab PO DAILY 01/08/22 [History Confirmed 01/08/22] insulin aspar prot-insulin aspart 100 unit/mL (70-30) subcutaneous pen (Novolog Mix 70-30FlexPen U-100) 35 subcut BID 01/11/22 [History] Subjective Data Subjective/ROS - Narrative: My ROS complete Objective - Height/Weight Height/Weight: Height 5 ft 6.5 in Weight 95.39 kg - Vital Signs Vital Signs: 01/11/22 11:26 Temperature 98 F Pulse Rate [Right Brachial] 83 Respiratory Rate 16 Blood Pressure [Left Arm] 154/78 H 02 Sat by Pulse Oximetry 97 Oxygen Delivery Method Room Air Physical Exam Narrative: My PE complete - ECOG Performance Status ECOG Score: 0 Assessment and Plan (1) Reactive thrombocytosis Patient's thrombocytosis is very mild and actually in many labs across the [place] would have been considered in the normal range. He is completely asymptomatic, has no splenomegaly or any other features suspicious for myeloproliferative disorder. Evaluating the CBC speaks against conditions such as myelofibrosis orMDS. Reassured patient that certainly does not require any therapeutic intervention. Discussed with him certain available tests including the JAK2 mutations, CALR and MPL which can be done anytime and anywhere. However the very benign level of his count and no other features would be actually against performing this testing and certainly a test like BCR/ABL by FISH analysis I recommended to the patient to have his CBC every 6 months done by his PCP. If they become persistently greater than 500,000 or even 450,000 would be prudent to refer her back to hematology. At that time molecular testing can be more reasonably considered. I instructed patient to return to office as needed - Time with Patient Coordination of Care & Counseling Time: Greater than 50% of time spent with patient was for coordination of care (as documented) and ffyf-es-sebt counseling of patient and/or family. Dictated By: Bora Lindsey MD DD/ 1219 Signed By: <Electronically signed by Bora Lindsey MD> 01/11/22 1230 [facility] Work Phone: Evaluation note* Diagnosis Onset Date Resolution Status Reactive thrombocytosis acut e [facility] Work Phone: Evaluation noteNo assessment information available [facility] Work Phone: Evaluation note* Diagnosis Type 2 diabetes mellitus with hypoglycemia without coma, without long-term current use of insulin ([facility])- Primary documented in this encounter [employer] SystemInstructionsNot on filedocumented in this encounter [employer] SystemInstructionsNot on filedocumented in this encounter [employer] SystemInstructionsNot on filedocumented in this encounter [employer] Summary Purpose Family History No Family History Records Found Relationship Condition Age at Onset Recorded Date/T lacey father Heart disease Unknown Not Specified Coronary artery disease Unknown Advance Directives No Advanced Directives Records Found Advance Directive Response Recorded Date/ Time Advance Directives No January 08, 2022 3:31pm Advance Directive Response Recorded Date/ Time Advance Directives No January 08, 2022 2:31pm Assessments Note Patient: JERED GARAY MRN: [id number] Age: 68 years Sex: Male : 1950 Associated Diagnoses: None Author: Kenneth Zuniga DO Assessment Assessment Diagnosis: Primary osteoarthritis of right hip (RDG51-UO M16.11, Working, Medical). Plan Postoperative day #1 right total hip arthroplasty. Enteric coated aspirin--deep venous thrombosis prophylaxis per primary surgical service. Ijjmhsaizenj-dgnyicwdp-floqaoubhf on qvbtpjhhdh-chsoykzhjgrcadgnkyi-dqlrfhody postoperatively. Good blood pressure control postoperatively. Type II insulin requiring diabetes mellitus-control?-On metformin/glimepiride/70/30 insulin-continued postoperatively plus sliding scale regular insulin coverage ordered. Glucose range 146-191. Obstructive Sleep Apnea (G47.33) - chronic condition present on admission. Patient will be at risk for postoperative respiratory complications and will require close monitoring including continuous pulse oximetry and telemetry. Sleep apnea protocol griffin (more content not included)... Note CONSULTATION DICTATED BY: LEVI MD DATE OF SERVICE: 08/02/2018 NAME: JERED GARAY. DATE OF : 1950 SURGERY DATE: 08/07/2018 REFERRING PHYSICIAN: Jeremy Bermudez MD ADMISSION DIAGNOSIS: Osteoarthritis of the right hip. CHIEF COMPLAINT: Preoperative medical risk stratification. HISTORY OF PRESENT ILLNESS: This is a 68-year-old male presenting for preoperative medical risk stratification prior to plans for a right hip replacement surgery. The patient describes a 6-month history of severe constant right hip pain, which has failed to improve with conservative measures. The patient now seeks surgical correction for his ongoing hip pain. Please see below regarding the status of this patient's active medical conditions and the impression and plan for his preoperative medical risk stratification. PAST MEDICAL HISTORY: Surgeries: 1. Right rotator cuff repair, 2004. 2. Cataract removal, 2005. 3. Hydrocele removal, 2012. 4. Appendectomy in 1966. Medical Illnesses: 1. (more content not included)... Note CLINICAL SUMMARY Please take this summary document to your follow up appointments. [facility] 08/08/18 11:02 [address] [place]. [id number] PATIENT INFORMATION Name: JERED GARAY Address: [address] [place] [id number] Age: 68 Years Phone: [phone] : 1950 12:00 [id number] Sex: Male Race: White Ethnicity: Not Hispan/Lat Admitted From: Clinic or [facility] Medical Service: Orthopedic Surgery Nurse Unit/Bed: ([facility] 2N 0225-01 Admit Date: 08/07/2018 07:26 PCP: Miguelina Tellez MD PHYSICIANS INVOLVED WITH CARE Attending Physicians: Jameson Espinal MD , Jeremy - Orthopaedic Surg Admitting Physician: Jameson Espinal MD , Jeremy - Orthopaedic Surg Primary Care Physician:Geoff VERGARA , Miguelina Clark,[facility], - Consults: RONALDO Gill - Internal Medicine Problems Active PAULINE (more content not included)... Note Patient: JERED GARAY [id number] Age: 68 years Sex: Male : 1950 Associated Diagnoses: None Author: Idalia Godinez DO Supervising Physician Comments Documentation By: Attending Physician. Subjective Subjective: Patient participated in the evaluation: Yes. Nausea: not present. Vomiting: not present. Pain: acceptable pain control. Objective Objective: Vital Signs: Last Charted Vital Signs Temperature: 97.7 (08/07 14:37) Pulse: 62 (08/07 14:37) Respiration: 16 (08/07 14:37) BP: 118/82 (08/07 14:37) Activity: Awake (08/07 14:37) Pulse Ox: 98 (08/07 14:37) Oxygen Delivery: Nasal cannula (08/07 12:55) O2 Device Flow: 3 L/min Pain Score: 6 (08/07 16:40) . Mental Status: alert and oriented. Postoperative hydration: adequate. Assessment Assessment: Post anesthetic condition: no anesthetic complications, the patient is doing well, pain is adequately controlled. Airway patent: yes. Plan Plan: Postanesthesia Plan: post anesthetic surveillance concluded (more content not included)... Hospital Course Note CLINICAL SUMMARY Please take this summary document to your follow up appointments. [facility] 08/08/18 11:02 [address] [place]. [address] PATIENT INFORMATION Name: JERED GARAY Address: [address] [place] [id number] Age: 68 Years Phone: [phone] : 1950 12:00 MRN: ([id number] Sex: Male Race: White Ethnicity: Not Hispan/Lat Admitted From: Clinic or [facility] Medical Service: Orthopedic Surgery Nurse Unit/Bed: ([place]) [facility] [address] Admit Date: 08/07/2018 07:26 PCP: Miguelina Tellez MD PHYSICIANS INVOLVED WITH CARE Attending Physicians: Jameson Espinal MD , Jeremy - Orthopaedic Surg Admitting Physician: Jameson Espinal MD , Jeremy - Orthopaedic Surg Primary Care Physician:Geoff VERGARA , Miguelina Clark,[facility], - Consults: RONALDO Gill - Internal Medicine Problems Active PAULINE (more content not included)... Procedure Findings Note Patient: JERED GARAY MRN: ([id number] Age: 68 years Sex: Male : 1950 Associated Diagnoses: None Author: Idalia Godinez DO Supervising Physician Comments Documentation By: Attending Physician. Subjective Subjective: Patient participated in the evaluation: Yes. Nausea: not present. Vomiting: not present. Pain: acceptable pain control. Objective Objective: Vital Signs: Last Charted Vital Signs Temperature: 97.7 (08/07 14:37) Pulse: 62 (08/07 14:37) Respiration: 16 (08/07 14:37) BP: 118/82 (08/07 14:37) Activity: Awake (08/07 14:37) Pulse Ox: 98 (08/07 14:37) Oxygen Delivery: Nasal cannula (08/07 12:55) O2 Device Flow: 3 L/min Pain Score: 6 (08/07 16:40) . Mental Status: alert and oriented. Postoperative hydration: adequate. Assessment Assessment: Post anesthetic condition: no anesthetic complications, the patient is doing well, pain is adequately controlled. Airway patent: yes. Plan Plan: Postanesthesia Plan: post anesthetic surveillance concluded (more content not included)... Chief Complaint and Reason for Visit Chief Complaint High Platelet Reason for Visit Reactive thrombocyto sis Additional Source Comments (unrecognized sect ion and content) No Status Records FoundNo Status Records FoundNo Status Records FoundNo Status Records FoundNo Status Records FoundNo Status Records FoundNo Status Records Found INFORMATION SOURCE (unrecogn ized section and content) DATE CREATED AUTHOR 03/08/2019 [facility] DATE CREATED AUTHOR AUTHOR'S ORGANIZ ATION 01/15/2021 [facility] DATE CREATED AUTHOR AUTHOR'S ORGANIZ ATION 05/07/[address] [facility] dical Specialist DATE CREATED AUTHOR AUTHOR'S ORGANIZ ATION 04/03/2023 [facility] DATE CREATED AUTHOR AUTHOR'S ORGANIZ ATION 09/14/2023 [facility] DATE CREATED AUTHOR AUTHOR'S ORGANIZ ATION 09/21/[address] [facility] dical Specialists EPIC DATE CREATED AUTHOR AUTHOR'S ORGANIZ ATION 10/09/2023 [facility] Care Teams (unrecognized sec tion and content) Team Status: Active Member Role Status Dates Bora Lindsey MD Attending Provider Active Miguelina Tellez MD Primary Care Provider, Referring Pr meño Active Team Status: Active Member Role Status Dates Miguelina Tellez MD Primary Care Provider Active Team Status: Inactive Member Role Status Dates Miguelina Tellez MD Primary Care Provider Active Gene Mike Roman MD Attending Provider Active Mold Presser Relationship Specialty Start Date End Date Miguelina Tellez MD [address] [place] [address] PCP - General Family Medicine 09/12/18 Mold Presser Relationship Specialty Start Date End Date Miguelina Tellez MD [address] [place] [address] PCP - General Family Medicine 09/12/18 Mold Presser Relationship Specialty Start Date End Date Miguelina Tellez MD [address] [place] [address] PCP - General Family Medicine 09/12/18 Goals (unrecognized section and content) Goals may be documented in a n alternate sectionGoals may be documented in an alternate sectionGoals may be documented in an alternate sectionNot on filedocumented as of this encounterNot on filedocumented as of this encounterNot on filedocumented as of this encounterNot on filedocumented as of this encounter Reason for Visit (unrecogniz ed section and content) Reason Comments Diabetes Mellitus FOR RECORDS PERTAINING TO PATIENTS WHO ARE OR HAVE BEEN ENROLLED IN A CHEMICAL DEPENDENCY/SUBSTANCEABUSE PROGRAM, SOME INFORMATION MAY BE OMITTED. This clinical summary was aggregated from multiple sources. Caution should be exercised in using it in the provision of clinical care. This summary normalizes information from multiple sources, and as a consequence, information in this document may materially change the coding, format and clinical context of patient data. In addition, data may be omitted in some cases. CLINICAL DECISIONS SHOULD BE BASED ON THE PRIMARY CLINICAL RECORDS. [facility]. provides no warranty or guarantee of the accuracy or completeness of information in this document.
[2023-10-17 11:59] VITALS: BP 135/76; PULSE 68; TEMP 36.6; O2SAT 98
[2023-10-17 12:22] VITALS: PULSE 75; O2SAT 95
[2023-10-17] MEDS: LIDOCAINE HCL 2% PF 100 MG/5 ML VIAL INJ (12:23)
[2023-10-17] MEDS: BUPIVACAINE HCL 0.25% PF 25 MG/10 ML VIAL INJ (12:23)
[2023-10-17 12:24] VITALS: BP 126/62; BP 157/69; PULSE 65; O2SAT 96
--- NOTE | 2023-10-17 12:26 | P.ON_ITS ---
Date of procedure: 10/17/23 Pre-op diagnosis: Lumbar spondylosis without myelopathy Post-op diagnosis: same as pre-op Procedure: Procedure: Bilateral L4-5, L5-S1 medial branch block Medications: Bupivacaine 0.25% 6cc The patient was seen and examined in the preoperative holding area.? An informed consent was obtained and placed on the chart.? The patient was brought to the medical procedure unit and placed in the prone position.? A timeout was completed verifying correct patient, procedure site, positioning, plan, and special equipment.? Using aseptic technique, the needle was placed at left L4. Under direct fluoroscopic visualization a Quincke-tipped spinal needle was ad vanced to the junction of the superior articulating process with the transverse process at the designated medial branch segment.? Preceded by negative aspiration, the above-mentioned injectate was placed in 1 mL aliquots.? The procedure was repeated at left L5, S1.? The needle was removed and insertion site was covered. The same procedure, at the same levels, was completed on the right side. The patient was taken to the postprocedural recovery area and monitored for an appropriate length of time before found suitable for discharge in the company of a responsible adult. Anesthesia: Local Surgeon: Kelly Boyd Pathology: none sent Condition: stable Disposition: no change
== END 2023-10-17 12:29 | disposition home or self-care (01) ==
LOC: SURGOUT 11:20
PROVIDERS: PCP Family Medicine; Visit Provider Anesthesiology
DX: M47.816 Spondylosis without myelopathy or radiculopathy, lumbar region (principal); Z79.4 Long term (current) use of insulin; Z79.84 Long term (current) use of oral hypoglycemic drugs
CPT/HCPCS: 64493; 64494; 82948

== ENCOUNTER 2023-10-20 08:44 | Outpatient (OUT) | payer MEDICARE, SELFPAY ==
--- OUTSIDE RECORDS SUMMARY | 2023-10-20 08:59 | XMS_ITS | CCD ---
Author Organization [facility] ion Partnership 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 Name Role Phone DR JOSE JACKMAN Primary Care Unavailable ERICKA KEMP Consulting Unavailab ERICKA Schilling Attending Unavailab ERICKA Schilling Admitting Unavailab MD Bora Mcduffie Attending Provider [phone] MD Miguelina Tellez Primary Care Provider MD Miguelina Tellez Referring Provider [phone] MD Miguelina Tellez Primary Care Provider MD Gerardo Roman Attending Provider Miguelina Tellez Primary Care Unavailable Gerardo Roman Admitting Unavailable Gerardo Roman Attending Unavailable Miguelina Tellez MD Primary Care Provider MELANIE SAXENA Attending Unavailable WONDERPARESH, MIGUELINA Alonso Referring Unavailable WONDERLY, MIGUELINA Gavin Primary Care Unavailable MILY NELSON Attending Unavailable WONDERLY, MIGUELINA B Referring Unavailable WONDERLY, MIGUELINA B Primary Care Unavailable QUYEN MCMAHON Attending Unavailable WONDERLY, MIGUELINA B Referring Unavailable WONDERLY, MIGUELINA B Primary Care Unavailable SHAHZAD SCRUGGS Attending Unavailable PIETER RANKIN Attending Unavailable PIETER RANKIN Referring Unavailable Oliver VERGARA, Kelly Longoria Attending Unavailable Allergies Allergy Classification Reported Allergen(s) Allergy Type Date of Onset Reaction(s) Facility (1 source) Penicillin Drug Allergy [facility] Repository (4 sources) Amoxicillin; Translations: [amoxicillin] Drug Allergy 2 Unknown Reaction [facility] (4 sources) empagliflozin; Translations: [empagliflozin] Drug Allergy 2 Unknown Reaction [facility] (4 sources) Fish derivative; Translations: [fish derived] Propensity to adverse reactions 2 Vomiting [facility] (4 sources) liraglutide; Translations: [liraglutide] Drug Allergy 2 Diarrhea [facility] (9 sources) Lisinopril; Translations: [lisinopril] Drug Allergy 2 Cough [facility] (9 sources) pioglitazone; Translations: [pioglitazone] Drug Allergy 2 Unknown Reaction [facility] (4 sources) Shellfish; Translations: [shellfish derived] Propensity to adverse reactions 2 Unknown Reaction [facility] (5 sources) Penicillins; Translations: [PENICILLINS] Propensity to adverse reactions to drug 9 Rash [employer] [employer] [facility] (5 sources) Shellfish; Translations: [SHELLFISH CONTAINING PRODUCTS] Propensity to adverse reactions to drug 2 [facility] Medications Current Medications Medication Drug Class(es) Dates [...] Thiazide Diuretic, Angiotensin 2 Receptor Evy Start: take 1 tablet by mouth once daily [...] coma, without long-term current use of insulin ([facility]) Inject 18 Units under the skin in [...] coma, without long-term current use of insulin ([facility]) Inject 35 Units under the skin in the morning. 36 mL 3 02/18/2023 Active Start: 02-18-2023 insulin glargi ne (LANTUS SOLOSTAR U-100 INSULIN) 100 unit/mL (3 mL) insulin pen Indications: Type 2 diabetes mellitus with hypoglycemia without coma, without long-term current use of insulin ([facility]) Inject 35 Units under the skin in [...] PO Daily January 08, 2022 12:00am omega 2-xrx-roo-fish oil 1,200 (144-216) mg capsule (4 sources) [...] nightly as needed for sleep. 0 Active Problems Active Problems Problem Classification Problem Date [...] Onset: 10-14-2022 10-14-2022 Other aftercare (1 source) penitentiary (current) use of insulin; Translations: [penitentiary (current) use of insulin] Onset: 06-17-2022 Episodic Unclassified (1 source) CONTACT W/AND (SUSP) EXPOS COVID-19; Translations: [CONTACT W/AND (SUSP) EXPOS COVID-19] Onset: 01-06-2021 Results Test Name Value Interpretation Reference Range Facility POCT Hemoglobin A1con 2023 HbA1c (Bld) [Mass fraction] 6.8 g/dL 4 - 7 g/dL [facility] Armando 03-24-2023 L - -------- Specimen: [id number] Received: 03/25/23 Status: AIRAM Rosado Num: [id number] Spec Type: Surgical Subm Dr: Gerardo Roman MD Tissues: A Skin-Other than Cyst, tag, debridement or plastic repair (LT EYE) B Skin-Other than Cyst, tag, debridement or plastic repair (RT EYE) Procedures: HE/2, Gross/Micro L4/2 -------- Age/ Patient Sex Location Account Attending Physician -------- Jered Falcon/M [place] [id number] Gerardo Roman MD -------- SPEC NUM: [id number] RECD: 03/25/23 STATUS: AIRAM ROSADO NUM: [id number] COLBY: 03/24/[address] [facility] [address]: Gerardo Roman MD ENTERED: 03/25/[address]: SPEC TYPE: Surgical DEPT: S ORDERED: HE/2, Gross/Micro [...] in one cassette labeled B1. -------- Specimen: [id number] Received: 03/25/23 Status: AIRAM Rosado Num: [id number] Spec Type: Surgical Subm Dr: Gerardo Roman MD Tissues: A Skin-Other than Cyst, tag, debridement or plastic repair (LT EYE) B Skin-Other than Cyst, tag, debridement or plastic repair (RT EYE) Procedures: RICHARD/Xavier Buchanan/Vipul L4/2 -------- Patient: Jered Falcon [id number] (Continued) -------- Specimen: [id number] Received: 03/25/23 (Continued) Signed (signature on file) Minh Doran MD 03/28/23 1400 -------- Specimen: [id number] Received: 03/25/23 Status: AIRAM Karen Num: [id number] Spec Type: Surgical Subm Dr: Gerardo Roman MD Tissues: A Skin-Other than Cyst, tag, debridement or plastic repair (LT EYE) B Skin-Other than Cyst, tag, debridement or plastic repair (RT EYE) Procedures: Xavier BLANCO/Vipul L4/2 -------- Patient: Jered Falcon [id number] (Continued) -------- Specimen: [id number] Received: 03/25/23 (Continued) Microscopic Description A. One H E slide reviewed. The microscopic examination confirms the diagnosis. B. One H E slide reviewed. The microscopic examination confirms the diagnosis. CPT Codes 39405l4 -------- -------- Specimen: [id number] Received: 03/25/23 Status: AIRAM Rosado Num: [id number] Spec Type: Surgical Subm Dr: Gerardo Roman MD Tissues: A Skin-Other than Cyst, tag, debridement or plastic repair (LT EYE) B Skin-Other than Cyst, tag, debridement or plastic repair (RT EYE) Procedures: HE/Chanel, Gross/Micro L4/2 -------- Patient: Jered Falcon [id number] (Continued) -------- Signed (signature on file) Minh Doran MD 03/28/23 1400 [facility] XR Chest 2 Views*on 05-04-20 XR Chest [...] by Mansoor Nash on 05/04/20[address] [facility] Complete Blood Counton 10-07 Erythrocyte distribution width (RBC) [Ratio] 12.9 % Normal 11.0-15.0 [facility] Comment on above: Performed By: #### L IPD, CBC, CMP #### [facility] [address], [place] [id number] Hematocrit (Bld) [Volume fraction] 45.1 % Normal 38.5-50.0 [facility] Comment on above: Performed By: #### L IPD, CBC, CMP #### [facility] [address], [place] [id number] Hemoglobin (Bld) [Mass/Vol] 14.9 g/dL Normal 13.0-17.1 [facility] Comment on above: Performed By: #### L IPD, CBC, CMP #### [facility] [address], [place] [id number] MCH (RBC) [Entitic mass] 29.9 pg Normal 27.0-33.0 [facility] Comment on above: Performed By: #### L IPD, CBC, CMP #### [facility] [address], [place] [id number] MCHC (RBC) [Mass/Vol] 33.0 g/dL Normal 32.0-36.0 [facility] Comment on above: Performed By: #### L IPD, CBC, CMP #### [facility] [address], [place] [id number] MCV (RBC) [Entitic vol] 90 fL Normal 80-100 [facility] Comment on above: Performed By: #### L IPD, CBC, CMP #### [facility] [address], [place] [id number] Platelet mean volume (Bld) [Entitic vol] 8.90 fL Normal 7.50-12.50 [facility] Specialist Comment on above: Performed By: #### L IPD, CBC, CMP #### [facility] [address], [place] [id number] Platelets (Bld) [#/Vol] 421 10*3/uL High 140-400 [facility] Comment on above: Performed By: #### L IPD, CBC, CMP #### [facility] [address], [place] [id number] RBC (Bld) [#/Vol] 4.99 10*6/uL Normal 4.20-5.80 [facility] Comment on above: Performed By: #### L IPD, CBC, CMP #### [facility] [address], [place] [id number] RDW-SD 42.6 fL Normal 37.0-50.0 [facility] Comment on above: Performed By: #### L IPD, CBC, CMP #### [facility] [address], [place] [id number] WBC (Bld) [#/Vol] 6.6 10*3/uL Normal 3.8-11.0 [facility] Comment on above: Performed By: #### L IPD, CBC, CMP #### [facility] [address], [place] [id number] Comprehensive Metabolic Pane [facility] 10-07-2021 Albumin [Mass/Vol] 4.7 g/dL Normal 3.6-5.1 [facility] Comment on above: Performed By: #### L IPD, CBC, CMP #### [facility] [address], [place] [id number] Albumin/Globulin [Mass ratio] 1.9 {ratio} Normal 1.0-2.5 [facility] [employer] Comment on above: Performed By: #### L IPD, CBC, CMP #### [facility] [address], [place] [id number] ALP [Catalytic activity/Vol] 96 U/L Normal 40-[address] [facility] Comment on above: Performed By: #### L IPD, CBC, CMP #### [facility] [address], [place] [id number] ALT [Catalytic activity/Vol] 29 U/L Normal 9-[address] [facility] Comment on above: Result Comment: 04/15 Female reference range changed. Performed By: #### L IPD, CBC, CMP #### [facility] [address], [place] [id number] Anion gap [Moles/Vol] 18 mmol/L Normal 12-[address] [facility] Comment on above: Result Comment: Effe ctive 05/21/2019 reference range changed. Performed By: #### L IPD, CBC, CMP #### [facility] [address], [place] [id number] AST [Catalytic activity/Vol] 24 U/L Normal 10-[address] [facility] Comment on above: Performed By: #### L IPD, CBC, CMP #### [facility] [address], [place] [id number] Bilirubin [Mass/Vol] 0.99 mg/dL Normal 0.30-1.20 [facility] Comment on above: Performed By: #### L IPD, CBC, CMP #### [facility] [address], [place] [id number] BUN/CREA 13 Ratio Normal 6-[address] [facility] Comment on above: Performed By: #### L IPD, CBC, CMP #### [facility] [address], [place] [id number] Calcium [Mass/Vol] 10.0 mg/dL Normal 8.6-10.2 [facility] Comment on above: Performed By: #### L IPD, CBC, CMP #### [facility] [address], [place] [id number] Chloride [Moles/Vol] 97 mmol/L Low 98-107 [facility] Comment on above: Performed By: #### L IPD, CBC, CMP #### [facility] [address], [place] [id number] CO2 [Moles/Vol] 26 mmol/L Normal 20-31 [facility] Comment on above: Performed By: #### L IPD, CBC, CMP #### [facility] [address], [place] [id number] Creatinine [Mass/Vol] 0.9 mg/dL Normal 0.7-1.4 [facility] [facility] Comment on above: Performed By: #### L IPD, CBC, CMP #### [facility] [address], [place] [id number] eGFRAA 99 mL/min/1.73m2 Normal >60 [facility] Comment on above: Performed By: #### L IPD, CBC, CMP #### [facility] [address], [place] [id number] eGFRNAA 81 mL/min/1.73m2 Normal >60 [facility] [facility] Comment on above: Performed By: #### L IPD, CBC, CMP #### [facility] [address], [place] [id number] Globulin (S) [Mass/Vol] 2.5 g/dL Normal 1.9-3.7 [facility] Comment on above: Performed By: #### L IPD, CBC, CMP #### [facility] [address], [place] [id number] Glucose [Mass/Vol] 196 mg/dL High 65-99 [facility] Comment on above: Result Comment: For FASTING Glucose --- ADA reference ranges: Normal 65-99 mg/dl Prediabetes 100-125 Diabetes >/= 126 Performed By: #### L IPD, CBC, CMP #### [facility] [address], [place] [id number] Potassium [Moles/Vol] 4.0 mmol/L Normal 3.5-5.5 [facility] Comment on above: Performed By: #### L IPD, CBC, CMP #### [facility] [address], [place] [id number] Protein [Mass/Vol] 7.2 g/dL Normal 6.1-8.1 [facility] Comment on above: Performed By: #### L IPD, CBC, CMP #### [facility] [address] [place], [place] [id number] Sodium [Moles/Vol] 137 mmol/L Normal 135-146 [place] [facility] Comment on above: Performed By: #### L IPD, CBC, CMP #### [facility] [address] [place], [place] [id number] Urea nitrogen [Mass/Vol] 12 mg/dL Normal 7-25 [facility] Comment on above: Performed By: #### L IPD, CBC, CMP #### [facility] [address] [place], [place] [id number] Lipid Panelon 10-07-2021 Cholesterol [Mass/Vol] 142 mg/dL Normal 125-200 [facility] Comment on above: Result Comment: Low risk < 200mg/dL Borderline risk 201-239 mg/dl High risk > or equal to 240 Performed By: #### L IPD, CBC, CMP #### [facility] [address] [place] [id number] Cholesterol in HDL [Mass/Vol] 42 mg/dL Normal >40 [facility] Comment on above: Result Comment: High Cardiovascular Risk HDL <40 mg/dL Low Cardiovascular Risk HDL > or equal to 60 mg/dl Performed By: #### L IPD, CBC, CMP #### [facility] [address] [id number] Cholesterol in LDL [Mass/Vol] 40 mg/dL Normal [facility] Comment on above: Result Comment: LDL ATP III CLASSIFICATION LDL less than 100 mg/dl Optimal LDL 100-129 mg/dl Near or above optimal LDL 130-159 Borderline high LDL 160-189 High LDL greater than 189 mg/dl Very High Performed By: #### L IPD, CBC, CMP #### [facility] [address] [id number] Cholesterol in VLDL [Mass/Vol] 60 mg/dL Normal [facility] Comment on above: Performed By: #### L IPD, CBC, CMP #### [facility] [address] [place], [place] [id number] Cholesterol.total/Ch olesterol in HDL [Mass ratio] 3 {ratio} Normal [facility] Comment on above: Performed By: #### L IPD, CBC, CMP #### [facility] [address], [place] [id number] Triglyceride [Mass/Vol] 298 mg/dL High 30-150 [facility] Comment on above: Result Comment: TRIG ATPIII CLASSIFICATIONS TRIG less than 150 mg/dl Normal TRIG 150-199 mg/dl Borderline High TRIG 200-500 mg/dl High TRIG greather than 500 mg/dl Very High Performed By: #### L IPD, CBC, CMP #### [facility] [address], [place] [id number] Microalbumin (w/o Creat)on 0 10-07-2021 mALB 27.4 mg/dL Normal [facility] Comment on above: Result Comment: mALB reference range not established. Performed By: #### m ALB #### [facility] [address], [place] [id number] Covid-19 PCR ([facility])on 12-15 SARS-CoV-2 (COVID-19) RNA DANNY+probe Ql (Unsp spec) Not detected Normal NOT DETECTED [facility] Comment on above: Result Comment: This test is not yet approved or cleared by the [place] FDA. When there are no FDA-approved or cleared tests available, and other criteria are met, FDA can make tests available under an emergency access mechanism called an Emergency Use Authorization (EUA). The EUA for this test is supported by the [place] of Health and Human Service's (HHS's) declaration [...] SARS-CoV-2. Performed By: #### C VDTBH #### [facility] [address] [address] Ted Casas Basic Metabolic Panelon 02-14 Calcium [Mass/Vol] 9.5 mg/dL Normal 8.5-10.6 [facility] Chloride [Moles/Vol] 100 mmol/L Normal 98-107 [facility] CO2 [Moles/Vol] 25 mmol/L Normal 21-32 [facility] Creatinine [Mass/Vol] 0.95 mg/dL Normal 0.70-1.30 [facility] Glucose [Mass/Vol] 171 mg/dL High 70-99 [facility] Potassium [Moles/Vol] 4.4 mmol/L Normal 3.5-5.1 [facility] Sodium [Moles/Vol] 136 mmol/L Normal 136-145 [facility] Urea nitrogen (BldV) [Mass/Vol] 19 mg/dL High 7.0-18.0 [facility] Urea nitrogen/Creatinine [Mass ratio] 20 mg/mg Normal [facility] CBC with Differentialon 02-14 Basophils (Bld) [#/Vol] 0.1 thou/mcL Normal 0.0-0.2 [facility] Basophils/100 WBC (Bld) 1.0 % Normal 0-3 [facility] Differential cell count method Nom (Bld) AUTOMATED DIFFERENTIAL Normal [facility] Eosinophils (Bld) [#/Vol] 0.1 thou/mcL Normal 0.0-0.4 [facility] Eosinophils/100 WBC (Bld) 2.6 % Normal 0-7 [facility] Lymphocytes (Bld) [#/Vol] 1.5 thou/mcL Normal 0.7-4.5 [facility] Lymphocytes/100 WBC (Bld) 26.0 % Normal 14-46 [facility] Monocytes (Bld) [#/Vol] 0.5 thou/mcL Normal 0.1-1.0 [facility] Monocytes/100 WBC (Bld) 8.4 % Normal 4-13 [facility] Neutrophils (Bld) [#/Vol] 3.5 thou/mcL Normal 1.5-7.8 [facility] Neutrophils/100 WBC (Bld) 62.0 % Normal 40-74 [facility] Erythrocyte distribution width (RBC) [Entitic vol] 14.0 % Normal 11.7-15.0 [facility] Hematocrit (Bld) [Volume fraction] 39.7 % Normal 34.0-50.0 [facility] Hemoglobin (Bld) [Mass/Vol] 13.2 g/dL Normal 11.5-17.0 [facility] MCH (RBC) [Entitic mass] 30.1 Picograms Normal 27.0-34.0 [facility] MCHC (RBC) [Mass/Vol] 33.3 g/dL Normal 32.0-36.0 [facility] MCV (RBC) [Entitic vol] 90.5 fL Normal 80-98 [facility] Platelet mean volume (Bld) [Entitic vol] 7.0 fL Low 7.5-11.2 [facility] Platelets (Bld) [#/Vol] 390 thou/mcL Normal 140-415 [facility] RBC (Bld) [#/Vol] 4.39 x(10)6/mcL Normal 3.80-5.60 [facility] WBC (Bld) [#/Vol] 5.6 thou/mcL Normal 4.0-10.5 [facility] Partial Thromboplastin Time (aPTT)on 03-07-2019 aPTT Coag (PPP) [Time] 27 Sec Normal 23.2-34.6 [facility] Prothrombin Timeon 9 INR Coag (Bld) [Relative time] 0.9 {INR} Normal [facility] Comment on above: Result Comment: MG ANN THE INDUCTION PHASE OF ORAL ANTICOAGULATION, THE INR MAY NOT REFLECT THE ANTICOAGULANT STATUS OF THE PATIENT. THERAPEUTIC RANGES FOR INR'S ARE: MOST CLINICAL SITUATIONS: INR 2.0-3.0 MECHANICAL PROSTHETIC VALVES: INR 2.5-3.5 CRITICAL: INR 5.0 PT Coag (PPP) [Time] 11.9 Sec Normal 11.9-14.6 [facility] Patient Portal Messageon Patient Portal Message --- --- --- --- --- --- --- --- --- From: Hospital, Patient Summary Visit To: JERED FALCON Sent: 08/09/18 01:30:45 AM EDT Subject: New Results Available A summary regarding your recent visit is available in the Documents section of your Health Record. Normal [facility] Basic Metabolic Panelon 07-15 Calcium [Mass/Vol] 8.4 mg/dL Low 8.5-10.6 [facility] Chloride [Moles/Vol] 100 mmol/L Normal 98-107 Moun t [facility] CO2 [Moles/Vol] 29 mmol/L Normal 21-32 [facility] Creatinine [Mass/Vol] 0.97 mg/dL Normal 0.70-1.30 [facility] Glucose [Mass/Vol] 166 mg/dL High 74-106 [facility] Potassium [Moles/Vol] 3.9 mmol/L Normal 3.5-5.1 [facility] Sodium [Moles/Vol] 137 mmol/L Normal 136-145 [facility] Urea nitrogen (BldV) [Mass/Vol] 14 mg/dL Normal 7-18 [facility] Urea nitrogen/Creatinine [Mass ratio] 14 mg/mg Normal [facility] CBC with Differentialon 07-15 Basophils (Bld) [#/Vol] 0.1 thou/mcL Normal 0.0-0.2 [facility] Basophils/100 WBC (Bld) 0.5 % Normal 0-3 [facility] Differential cell count method Nom (Bld) AUTOMATED DIFFERENTIAL Normal [facility] Eosinophils (Bld) [#/Vol] 0.1 thou/mcL Normal 0.0-0.4 [facility] Eosinophils/100 WBC (Bld) 1.2 % Normal 0-7 [facility] Erythrocyte distribution width (RBC) [Entitic vol] 13.3 % Normal 11.7-15.0 [facility] Hematocrit (Bld) [Volume fraction] 36.4 % Normal 34.0-50.0 [facility] Hemoglobin (Bld) [Mass/Vol] 12.1 g/dL Normal 11.5-17.0 [facility] Lymphocytes (Bld) [#/Vol] 2.0 thou/mcL Normal 0.7-4.5 [facility] Lymphocytes/100 WBC (Bld) 20.2 % Normal 14-46 [facility] MCH (RBC) [Entitic mass] 30.1 Picograms Normal 27.0-34.0 [facility] MCHC (RBC) [Mass/Vol] 33.1 g/dL Normal 32.0-36.0 [facility] MCV (RBC) [Entitic vol] 90.8 fL Normal 80-98 [facility] Monocytes (Bld) [#/Vol] 0.8 thou/mcL Normal 0.1-1.0 [facility] Monocytes/100 WBC (Bld) 8.2 % Normal 4-13 [facility] Neutrophils (Bld) [#/Vol] 7.1 thou/mcL Normal 1.5-7.8 [facility] Neutrophils/100 WBC (Bld) 69.9 % Normal 40-74 [facility] Platelet mean volume (Bld) [Entitic vol] 6.8 fL Low 7.5-11.2 [facility] Platelets (Bld) [#/Vol] 333 thou/mcL Normal 140-415 [facility] RBC (Bld) [#/Vol] 4.01 x(10)6/mcL Normal 3.80-5.60 [facility] WBC (Bld) [#/Vol] 10.1 thou/mcL Normal 4.0-10.5 Moun t [facility] Patient Summaryon 08-08-2018 Patient Summary PATIENT DISCHARGE INSTRUCTIONS If you are having an emergency and are not able to reach your physician, CALL 911 or go to the nearest emergency room and take this document with you. [facility] 08/08/18 11:02 [address] [place]. [address] PATIENT INFORMATION Name: JERED FALCON Tony Address: [address] [place] [id number] Age: 68 Years Phone: [phone] : 1950 12:00 MRN: [id number] Sex: Male Race: White Ethnicity: Not Hispan/Lat Admitted From: Clinic or [facility] Medical Service: Orthopedic Surgery Nurse Unit/Bed: ([place]) 2N 0225-01 Admit Date: 08/07/2018 07:26 PCP: Miguelina Tellez MD PHYSICIANS INVOLVED WITH CARE ------ Attending Physicians: Jameson Espinal MD , Jeremy - Orthopaedic Surg Admitting Physician: Jameson Espinal MD , Jeremy - Orthopaedic Surg Primary Care Physician:Geoff VERGARA , Miguelina Clark,[facility], - Consults: RONALDO Gill - Internal Medicine FOLLOW-UP APPOINTMENTS: Provider: Specialty: Address: Date: Jeremy Barba Jr, MD Orthopaedic Surg [address] [place] [address] (1) Comment: Please call to schedule a 6 week appt. May call sooner if problems occur Provider: Specialty: Address: Date: Miguelina Tellez MD [place] [address] (1) Follow-up as needed Provider: Specialty: Address: Date: Outpatient PT Comment: Blue order form for OPPT provided for patient if needed for therapy services ALLERGIES: amoxicillin : Reaction:Rash : Itching Seafood : Reaction:Vomiting penicillin : Reaction:Rash MEASUREMENTS: Last Charted: Weight: Admission 93.70 kg /206 lbs 9 oz ( 08/07/18 08:38:00 ) MEDICATIONS For: JERED FALCON This is your list of medication(s). Keep it with you at all times. Your doctor may have changed doses, add, held or stopped some of your medications. Please share this information with your family doctor. Carry this list of medications with you in case of an emergency. Update it when medications are stopped, doses are changed, or new medications (including fbev-qha-htdgkmq products) are added. Ask your doctor if [...] Decisions Type: Living Will, Medical Power of Teacher Copy of Advance Directive/Health Care Decisions on Chart: Patient/Family asked to provide copy SUICIDE HOTLINE: Your mental and emotional well-being are important. If you are in a mental health crisis, or having thoughts of suicide, please call the nationwide suicide hotline, anytime day or night, at 3-765-981-YQXM. Important information about accessing your health information through the [facility] patient portal If you initiated the self-registration process [facility] during your stay, please check your personal email for an invitation to enroll in [facility] and complete the steps outlined in the email. If you would prefer to enroll while in the hospital, ask a member of your care team. We would be happy to assist you. If you have already enrolled in [employer], go to [email or web address].[email or web address] /[email or web address] to login and access your health information. [facility] you [facility] choosing [facility]. PATIENT EDUCATION Constipation, Adult Constipation is when [...] with a lot of sugar. This includes luxembourger fries, hamburgers, cookies, candy, and soda. ???If [...] 10/18/2008 Document Revised: 05/23/2015 Document Reviewed: 02/11/2014 [employer] Interactive Patient Education ?2016 [employer] Venous Thromboembolism, Prevention A venous thromboembolism [...] 04/20/2010 Document Revised: 01/24/2013 Document Reviewed: 08/27/2015 [employer] Interactive Patient Education ?2016 [employer]. Incentive Spirometer An incentive spirometer is a [...] 09/12/2007 Document Revised: 05/23/2015 Document Reviewed: 12/09/2014 ElseIngeny Interactive Patient Education ?2016 [employer] Pain Medicine Instructions HOW CAN PAIN [...] watch and help you. This includes: ???Lakes. ???Shaw. ???Oceans. ???Spas. ???Swimming pools. HOW CAN I [...] 10/18/2008 Document Revised: 09/16/2015 Document Reviewed: 03/06/2015 [employer] Interactive Patient Education ?2016 [employer] Fall Prevention in the Home Falls [...] items that you use a lot in vvlo-cu-bmjlg places. ???If you need to reach something above you, use a strong step stool that has a grab bar. ???Keep electrical cords out of the way. ???Do not use floor kazakh or wax that makes floors slippery. If [...] Document Reviewed: 06/06/2015 Elsevier Interactive Patient Education ?2015 Elsevier Inc. PATIENT DISCHARGE INSTRUCTION Signature Page for: JERED FALCON Date/Time: 08/08/2018 11:02:16 A Clinician has explained the information on my discharge instructions and has provided me with a copy. My questions have been answered to my satisfaction. Patient Signature Date/Time Responsible Party Date/Time Relationship to Patient Clinician Signature Date/Time Normal [facility] Anesthesia Recordon 08-08-19 Anesthesia Record Patient: JERED FALCON Age: 68 years Sex: Male : 1950 Associated Diagnoses: None Author: Idalia Godinez DO Procedure Time Out Weare Protocol: patient identity verified, site verified, side verified, procedure to be done verified, patient position verified. REGIONAL ANESTHESIA PROCEDURE Procedure date and begin time: See nurses notes. Procedure date and end time: See nurses notes. Second Procedure Start: Spinal block. Performed by: Idalia Godinez DO. Assisted by: no fire control assistant. Informed consent: signed by patient. Technique: [...] OA Postoperative Diagnosis: Hip OA . Normal [facility] Basic Metabolic Panelon 07-15 Calcium [Mass/Vol] 8.6 mg/dL Normal 8.5-10.6 [facility] Chloride [Moles/Vol] 100 mmol/L Normal 98-107 [facility] CO2 [Moles/Vol] 26 mmol/L Normal 21-32 [facility] Creatinine [Mass/Vol] 0.95 mg/dL Normal 0.70-1.30 [facility] Glucose [Mass/Vol] 191 mg/dL High 74-106 [facility] Potassium [Moles/Vol] 4.2 mmol/L Normal 3.5-5.1 [facility] Sodium [Moles/Vol] 136 mmol/L Normal 136-145 [facility] Urea nitrogen (BldV) [Mass/Vol] 23 mg/dL High 7-18 [facility] Urea nitrogen/Creatinine [Mass ratio] 24 mg/mg Normal [facility] OR Nursingon 08-07-2018 OR Nursing CO NA OR Nursing Record Summary Primary Physician: Jameson Espinal MD , Jeremy Finalized Date/Time: 08/07/18 12:06:15 Pt. Name: JERED FALCON/Sex: 1950 Male Med Rec #: [id number] Physician: Jeremy Barba Jr, MD Financial #: [id number] Pt. Type: I Room/Bed: / Admit/Disch: 08/07/18 07:26:00 - Institution: CO NA OR Case Times Entry 1 Patient Times Patient In Room 08/07/18 10:06:00 Patient Out Room 08/07/18 11:59:00 Surgical Times Start Time 08/07/18 10:48:00 Stop Time 08/07/18 11:52:00 Last Modified By: Marisa MOY , Kamini 08/07/18 11:57:43 CO NA OR Delays Entry 1 Delay Reason Other See Comment Description incision greater than 30 mins after in room time/dr barba in room@1044 Duration (minutes) 12 Min Last Modified By: Marisa MOY , Kamini 08/07/18 10:49:30 CO NA OR Case Attendees Entry 1 Entry 2 Entry 3 Case Attendee Jameson Espinal MD , Idalia Mo DO, CRNA, Storm Role Performed Primary Surgeon Anesthesiologist Nurse Ice Cream Mixer Time In 08/07/18 10:44:00 08/07/18 10:06:00 08/07/18 10:06:00 Time Out 08/07/18 11:25:00 08/07/18 11:59:00 08/07/18 11:08:00 Procedure Arthroplasty Hip Total Arthroplasty Hip Total Arthroplasty Hip Total Anterior(Right) Anterior(Right) Anterior(Right) Attendee Comment COVERAGE Relief Reason Last Modified By: Marisa RN , Marisa RN , Marisa MOY Ravenna 08/07/18 Ravenna 08/07/18 Ravenna 08/07/18 11:58:27 11:58:27 11:58:27 Entry 4 Entry 5 Entry 6 Case Attendee Case, Attendee Other Kristy MOY , Yessica Monreal Role Performed Head Grease Maker business services sales agent First Scrub Time In 08/07/18 10:44:00 08/07/18 10:06:00 08/07/18 10:06:00 Time Out 08/07/18 11:25:00 08/07/18 11:00:00 08/07/18 11:59:00 Procedure Arthroplasty Hip Total Arthroplasty Hip Total Arthroplasty Hip Total Anterior(Right) Anterior(Right) Anterior(Right) Attendee Comment BERNIE/GENIE Relief Reason Lunch Last Modified By: Marisa RN , Marisa RN , Marisa RN , Ravenna 08/07/18 Ravenna 08/07/18 Kamini 08/07/18 11:58:27 11:58:27 11:58:27 Entry 7 Entry 8 Entry 9 Case Attendee Daija Dietrich , Rocio Lovell Role Performed Second Scrub Physician Surfacing Technician Assistive Personnel Time In 08/07/18 10:06:00 08/07/18 10:06:00 08/07/18 10:06:00 Time Out 08/07/18 11:35:00 08/07/18 11:59:00 08/07/18 11:59:00 Procedure Arthroplasty Hip Total Arthroplasty Hip Total Arthroplasty Hip Total Anterior(Right) Anterior(Right) Anterior(Right) Attendee Comment Relief Reason Last Modified By: Marisa RN , Marisa RN , Marisa RN , Ravenna 08/07/18 Ravenna 08/07/18 Kamini 08/07/18 11:58:27 11:58:27 11:58:27 Entry 10 Entry 11 Entry 12 Case Attendee Marisa RN , Kamini MOEYR , Mirta Foster RN , Patricia Orona Role Performed business services sales agent [employer]ator business services sales agent Time In 08/07/18 10:06:00 08/07/18 10:30:00 08/07/18 11:00:00 Time Out 08/07/18 11:00:00 08/07/18 11:59:00 08/07/18 11:30:00 Procedure Arthroplasty Hip Total Arthroplasty Hip Total Arthroplasty Hip Total Anterior(Right) Anterior(Right) Anterior(Right) Attendee Comment relief Relief Reason Lunch Last Modified By: Marisa RN , Marisa RN , Marisa RN , Ravenna 08/07/18 Ravenna 08/07/18 Ravenna 08/07/18 11:58:27 11:58:27 11:58:27 Entry 13 Entry 14 Entry 15 Case Attendee Jd MANAGER KNOWLEDGE, Mansoor Ness MANAGER KNOWLEDGE, Александр Cunningham RN , Kamini Role Performed Nurse Ice Cream Mixer Nurse Ice Cream Mixer business services sales agent Time In 08/07/18 11:08:00 08/07/18 11:34:00 08/07/18 11:30:00 Time Out 08/07/18 11:34:00 08/07/18 11:59:00 08/07/18 11:59:00 Procedure Arthroplasty Hip Total Arthroplasty Hip Total Arthroplasty Hip Total Anterior(Right) Anterior(Right) Anterior(Right) Attendee Comment Relief Reason Last Modified By: Marisa MOY , Marisa MOY , Marisa MOY Kamini 08/07/18 Ravenna 08/07/18 Ravenna 08/07/18 11:58:27 11:58:27 11:58:27 Entry 16 Case Attendee Yokasta Wagner RN Role Performed business services sales agent Time In 08/07/18 11:30:00 Time Out 08/07/18 11:59:00 Procedure Arthroplasty Hip Total Anterior(Right) Attendee Comment Relief Reason Last Modified By: Rosi Cunningham RNbeth 08/07/18 11:58:27 CO NA OR General Case Vaccinator 1 OR CO NA 08 ASA Class 3 Case Wound Class Clean Specialty Orthopedic Surgery Case Level Ortho Complex Diagnosis Preop Diagnosis M16.11 Postop Same As Preop Yes Postop Diagnosis M16.11 This is a down time No record. Last Modified By: Rosi Cunningham RNbeth 08/07/18 11:47:58 CO NA OR Surgical Procedures Entry 1 Procedure Arthroplasty Hip Total Primary Procedure Yes Anterior Modifiers Right Procedure Wound Clean Class Primary Surgeon Jameson Espinal MD , Jeremy Surgical Service Orthopedic Surgery Anesthesia Type General Procedure Performed ASI right total hip arthroplasty Start 08/07/18 10:48:00 Stop 08/07/18 11:52:00 Last Modified By: Rosi Cunningham RNbeth 08/07/18 11:51:28 CO NA OR Catheters, Drains, and Tubes Entry 1 Device Type DRAIN 10 FR ROUND Present on Arrival? No [id number] Location Operative Hip Inserted By Jameson Espinal MD , Jeremy Comments 10 Fr Round Silicone DC'd at End of Case? No Drain/400ml Hemovac [place] Tegaderm to secure drain. Last Modified By: Errol Cunningham RNth 08/07/18 10:40:29 CO NA OR Patient Positioning [...] Arthroplasty Hip Total , Yokasta, Sharp Anterior(Right) Александр GUZMAN Calderone RN, Elizabeth Last Modified By: Kamini Cunningham [...] Risk Yes Assessment Completed Last Modified By: Marisa MOY , Kamini 08/07/18 10:49:47 CO NA OR Cautery Entry 1 Cautery and Settings Type Monopolar Unit ID Number 3 Coagulation Setting 35 Cut Setting 75 Grounding Pad Abdomen Applied By Rocio Cooney Location Last Modified By: Kamini Cunningham RN 08/07/18 10:36:58 CO NA OR Medication Entry 1 Entry 2 Entry 3 Times Med Administered Medication CO NAROPIN 0.5% 5MG/1ML CO EPINEPHRINE INJ. COS VANCOMYCIN 1 GM 30ML ROPIVACAINE 1:1000/ML AMPULE POWDER VANCOCIN Medication Dosage 60ml 0.5ml 1gm Route of Local Local Topical Administration Meds Administered By Jameson Espinal MD , Jeremy Barba Jr, MD , Jeremy Barba Jr, MD , Jeremy Medication Comment Last Modified By: Marisa MOY , Marisa MOY , Marisa MOY , Kamini 08/07/18 Kamini 08/07/18 Kamini 08/07/18 10:49:59 10:49:59 10:49:59 CO NA OR Irrigation Entry 1 Irrigant 0.9% Saline Irrigant Volume 1000 mL Last Modified By: Errol Cunningham RNth 08/07/18 12:06:05 CO NA OR Implants Entry 1 Entry 2 Entry 3 Procedure Arthroplasty Hip Total Arthroplasty Hip Total Arthroplasty Hip Total Anterior(Right) Anterior(Right) Anterior(Right) Implant/Explant Implant Implant Implant Wasted Reason Provided by Surgeon No No No Implant Identification Description HIP ACETABULAR SHELL G7 HIP ACETABULAR LINER VE SCREW SUZANNE BIOMET G7 FINNED HT 54MM F 36MM F NEUTRAL [id number] LOW PROFILE DOME TI [id number] 6.5X20MM [id number] Cooker Meal SUZANNE BIOMET SUZANNE BIOMET SUZANNE BIOMET Catalog Number [id number] Lot Number [id number] Serial Number n/a n/a n/a Implant Site right hip right hip right hip Quantity 1 1 1 Expiration Date 04/23/28 06/09/23 03/21/28 No Expiration Date No No No Unique Device Indent (KAVITA) Human Readable Machine Readable Manufactured Date Tissue Tissue Implanted No No No Material Used to N/A N/A N/A Prepare/Process Tissue Processed By: Last Modified By: Cristian RN , Patricia Foster RN , Patricia Foster [...] LOW PROFILE DOME TI MP PPS HO [id number] Ma DELTA OPTION CE 36MM 6.5X35MM [id number] 650-1057 [employer]er Meal SUZANNE BIOMET BIOMET ORTHOPED BRACING BIOMET ORTHOPEDICS [facility] Catalog Number [id number] [id number] Lot Number [id number] Serial Number n/a n/a n/a Implant Site right hip right hip right hip Quantity 1 1 1 Expiration Date 04/16/28 10/22/27 02/25/28 No Expiration Date No No No Unique Device Indent (KAVITA) Human Readable Machine Readable Manufactured Date Tissue Tissue Implanted No No No Material Used to N/A N/A N/A Prepare/Process Tissue Processed By: Last Modified By: Cristian RN , Patricia Foster RN , Patricia Foster RN , Patricia Orona 08/07/18 11:14:58 08/07/18 11:33:50 08/07/18 11:33:50 Entry 7 Procedure Arthroplasty Hip Total Anterior(Right) Implant/Explant Implant Wasted Reason Provided by Surgeon No Implant Identification Description HIP NECK BIOLOX OPTION TAPER ADAPTER -6 [id number] Cooker Meal [employer]THOP[employer] Catalog Number 650-1064 Lot Number [id number] Serial Number n/a Implant Site right hip [...] Total Anterior(Right) Anterior(Right) Last Modified By: Marisa Cunningham RN, RN, Elizabeth 08/07/18 Kamini 08/07/18 10:42:44 11:38:42 CO NA [...] Taken No Comment Also performed with Physician's Surfacing Technician. Procedure Arthroplasty Hip Total Anterior(Right) Last Modified [...] By: Kamini Cunningham RN 08/07/18 12:06 Normal [facility] PACU I Nursingon 08-07-2018 PACU I Nursing CO NA PACU I Nursing Record Summary Primary Physician: Jeremy Barba Jr, MD Finalized Date/Time: 08/07/18 12:46:58 Pt. Name: RIO FALCONONI Frederick/Sex: 1950 Male Med Rec #: [id number] Physician: Jeremy Barba Jr, MD Financial #: [id number] Pt. Type: I Room/Bed: / Admit/Disch: 08/07/18 [...] By: Ghislaine Lagunas RN 08/07/18 12:46 Normal [facility] PreOp Nursingon 08-07-2018 PreOp Nursing CO NA PreOp Nursing Record Summary Primary Physician: Jeremy Barba Jr, MD Finalized Date/Time: 08/07/18 10:11:50 Pt. Name: JERED FALCON Tony HesterB./Sex: 1950 Male Med Rec #: [id number] Physician: Jameson Espinal MD , Jeremy Financial #: [id number] Pt. Type: I Room/Bed: / Admit/Disch: 08/07/18 07:26:00 - Institution: CO NA OR PreOp Case Times Entry 1 PreOp Case Times In Room Time 08/07/18 08:26:00 Out Room Time 08/07/18 10:05:00 Last Modified By: Kamini Cunningham RN 08/07/18 10:11:48 CO NA OR PreOp Case Attendees Entry 1 Case Attendee Mis Blakely RN RN Last Modified By: Mis Blakely RN 08/07/18 08:37:23 Finalized By: Kamini Cunningham RN Document Signatures Signed By: Kamini Cunningham RN 08/07/18 10:11 Normal [facility] XR Pelvis 1-2 Viewson 2018 XR Pelvis [...] total hip arthroplasty with recent postoperative changes. [place] thanks you for the opportunity to care for your patient. Workstation ID: [id number] - [id number] FINAL REPORT Dictated By: Marcell Mcgowan MD 08/07/2018 12:44 Assigned Physician: Marcell Mcgowan MD Reviewed and Electronically Signed By: Marcell Mcgowan MD 08/07/2018 12:44 Transcribed by: MIMI 08/07/2018 12:44 Technologist: FRANCISCO [facility] Comment on above: Order Comment: Posto perative, s/p SIMON Basic Metabolic Panelon 07-15 Calcium [Mass/Vol] 9.5 mg/dL Normal 8.5-10.6 [facility] Chloride [Moles/Vol] 100 mmol/L Normal 98-107 [facility] CO2 [Moles/Vol] 28 mmol/L Normal 21-32 [facility] Creatinine [Mass/Vol] 0.95 mg/dL Normal 0.70-1.30 [facility] Glucose [Mass/Vol] 209 mg/dL High 74-106 [facility] Potassium [Moles/Vol] 4.0 mmol/L Normal 3.5-5.1 [facility] Sodium [Moles/Vol] 139 mmol/L Normal 136-145 [facility] Urea nitrogen (BldV) [Mass/Vol] 13 mg/dL Normal 7-18 [facility] Urea nitrogen/Creatinine [Mass ratio] 14 mg/mg Normal [facility] CBC with Differentialon 07-15 Basophils (Bld) [#/Vol] 0.1 thou/mcL Normal 0.0-0.2 [facility] Basophils/100 WBC (Bld) 1.2 % Normal 0-3 [facility] Differential cell count method Nom (Bld) AUTOMATED DIFFERENTIAL Normal [facility] Eosinophils (Bld) [#/Vol] 0.2 thou/mcL Normal 0.0-0.4 [facility] Eosinophils/100 WBC (Bld) 2.6 % Normal 0-7 [facility] Erythrocyte distribution width (RBC) [Entitic vol] 13.2 % Normal 11.7-15.0 [facility] Hematocrit (Bld) [Volume fraction] 39.4 % Normal 34.0-50.0 [facility] Hemoglobin (Bld) [Mass/Vol] 13.1 g/dL Normal 11.5-17.0 [facility] Lymphocytes (Bld) [#/Vol] 1.9 thou/mcL Normal 0.7-4.5 [facility] Lymphocytes/100 WBC (Bld) 28.7 % Normal 14-46 [facility] MCH (RBC) [Entitic mass] 29.9 Picograms Normal 27.0-34.0 [facility] MCHC (RBC) [Mass/Vol] 33.2 g/dL Normal 32.0-36.0 [facility] MCV (RBC) [Entitic vol] 90.3 fL Normal 80-98 [facility] Monocytes (Bld) [#/Vol] 0.6 thou/mcL Normal 0.1-1.0 [facility] Monocytes/100 WBC (Bld) 8.8 % Normal 4-13 [facility] Neutrophils (Bld) [#/Vol] 3.9 thou/mcL Normal 1.5-7.8 [facility] Neutrophils/100 WBC (Bld) 58.7 % Normal 40-74 [facility] Platelet mean volume (Bld) [Entitic vol] 7.2 fL Low 7.5-11.2 [facility] Platelets (Bld) [#/Vol] 418 thou/mcL High 140-415 [facility] RBC (Bld) [#/Vol] 4.37 x(10)6/mcL Normal 3.80-5.60 [facility] WBC (Bld) [#/Vol] 6.7 thou/mcL Normal 4.0-10.5 [facility] Partial Thromboplastin Time (aPTT)on 08-02-2018 aPTT Coag (PPP) [Time] 29 Sec Normal 24.4-37.5 [facility] Prothrombin Timeon 9 INR Coag (Bld) [Relative time] 1.0 {INR} Normal 0.8-1.2 [facility] Comment on above: Result Comment: MG ANN THE INDUCTION PHASE OF ORAL ANTICOAGULATION, THE INR MAY NOT REFLECT THE ANTICOAGULANT STATUS OF THE PATIENT. THERAPEUTIC RANGES FOR INR'S ARE: MOST CLINICAL SITUATIONS: INR 2.0-3.0 MECHANICAL PROSTHETIC VALVES: INR 2.5-3.5 CRITICAL: INR 5.0 PT Coag (PPP) [Time] 10.7 Sec Normal 9.4-12.5 [facility] Vital Signs Date Time Vital Sign Value Performing Clinician Gena hendrickson 06-01-2023 10:02-0500 Body mass index (BMI) [Ratio] 33.08 kg/m2 Mily Nelson APRN-SR COMMUNITY MANAGER Work Phone: [facility] 06-01-2023 10:02-0500 Body weight 95.8 kg Mily Nelson LEAD APPLICATION ARCHITECT-SR COMMUNITY MANAGER Work Phone: [facility] 06-01-2023 10:02-0500 Diastolic blood pressure 75 mm[Hg] Mily Nelson LEAD APPLICATION ARCHITECT-SR COMMUNITY MANAGER Work Phone: [facility] 06-01-2023 10:02-0500 Heart rate 81 /min Mily Nelson LEAD APPLICATION ARCHITECT-SR COMMUNITY MANAGER Work Phone: [facility] 06-01-2023 10:02-0500 Systolic blood pressure 140 mm[Hg] Mily Nelson LEAD APPLICATION ARCHITECT-SR COMMUNITY MANAGER Work Phone: [facility] 01-11-2022 11:26-0400 Body temperature 98 [degF] MD Bora Lindsey Work Phone: [facility] 01-11-2022 11:26-0400 Body weight 95.39 kg MD Bora Lindsey Work Phone: [facility] 01-11-2022 11:26-0400 Diastolic blood pressure 78 mm[Hg] MD Bora Lindsey Work Phone: [facility] 01-11-2022 11:26-0400 Heart rate 83 /min MD Bora Lindsey Work Phone: [facility] 01-11-2022 11:26-0400 Respiratory rate 16 /min MD Bora Lindsey Work Phone: [facility] 01-11-2022 11:26-0400 SaO2% (BldA) [Mass fraction] 97 % MD Bora Lindsey Work Phone: [facility] 01-11-2022 11:26-0400 Systolic blood pressure 154 mm[Hg] MD Bora Lindsey Work Phone: [facility] 01-11-2022 11:15-0400 Body height 168.91 cm MD Bora Lindsey Work Phone: [facility] Encounters Encounter Date Encounter Type Care Provider Facility Start: 10-03-2023 End: 10-04-2023 [facility] Start: 09-16-2023 End: 09-17-2023 ambulatory PIETER Raj RANKIN Not Available Start: 09-13-2023 End: 09-13-2023 ambulatory MELANIE [facility] Start: 08-08-2023 Telephone encounter Mily perales LEAD APPLICATION ARCHITECT-SR COMMUNITY MANAGER Work Phone: [facility] Start: 08-05-2023 End: 08-06-2023 ambulatory SHAHZAD SCRUGGS Not Available Start: 07-15-2023 Telephone encounter Sonia Mcclelland RN [facility] Start: 07-11-2023 End: 07-11-2023 ambulatory QUYEN MCMAHON [facility] Start: 06-13-2023 Telephone encounter [facility] Start: 06-01-2023 End: 06-01-2023 ambulatory [facility] Tony [facility] Start: 06-01-2023 End: 06-01-2023 Office outpatient visit 25 minutes Mily Nelson LEAD APPLICATION ARCHITECT-SR COMMUNITY MANAGER Work Phone: [facility] Comment on above: Type 2 diabetes jaxson itus with hypoglycemia without coma, without long-term current use of insulin ([facility]) (Primary Dx) Start: 03-24-2023 End: 03-24-2023 ambulatory Miguelina Tellez Facility:[facility] Start: 03-24-2023 End: 03-24-2023 ambulatory MD Miguelina Tellez Work Phone: [facility] Work Phone: Start: 03-24-2023 End: 03-24-2023 Departed Referred MD Miguelina Tellez Work Phone: [facility] Work Phone: Start: 01-11-2022 End: 01-11-2022 Registered Recurring MD Bora Lindsey [facility] Start: 01-06-2021 End: 01-07-[address] JOSE JACKMAN Facility:[facility] Procedures Date Procedure Procedure Detail Performing Clinician Start: 06-01-2023 Hemoglobin glycosyla javon a1c Mily Ronquillobib LEAD APPLICATION ARCHITECT-SR COMMUNITY MANAGER Work Phone: Start: 12-02-2022 Microalbumin [Mass/v olume] in Urine by Test strip Mily Mary LEAD APPLICATION ARCHITECT-SR COMMUNITY MANAGER Work Phone: Start: 10-14-2022 Adult depression scr eening assessment Mily [employer]gent [employer] LEAD APPLICATION ARCH[employer]ECT[employer] Work Phone: Plan of Treatment Date Care Activity Detail Author Start: 11-21-2028 DTaP,Tdap and Td Vaccines (2 - Td or Tdap) DTaP,Tdap and Td Vaccines (2 - Td or Tdap) [facility] Start: 07-11-2024 Adult BMI Screening [facility] Start: 07-09-2024 End: 07-09-2024 Patient encounter procedure 07/09/2024 10:30 AM EST Office Visit [facility] [address] [place] [place] [address] Quyen Mcmahon MD [address] [place] [address] [facility] Start: 06-01-2024 Adult BMI Screening Adult [facility] Screening [facility] Start: 06-01-2024 Tobacco Screening Tobacco Screening [facility] Start: 02-19-2024 Adult BMI Screening Adult [facility] Screening [facility] Start: 02-19-2024 Tobacco Screening Tobacco Screening [facility] Start: 12-03-2023 Urine screening for protein [facility]rine [facility]albumin [facility] Start: 10-15-2023 Depression Screening [facility] Start: 09-13-2023 End: 09-13-2023 Patient encounter procedure 09/13/2023 10:15 AM EDT Office Visit [facility] [address] [place] [address] Melanie Saxena MD [address] [place] [address] [facility] Start: 07-11-2023 End: 07-11-2023 Patient encounter procedure 07/11/2023 12:00 PM EST Office Visit [facility] [address] [facility] [place] [place] [address] Quyen Mcmahon MD [address] [place] [address] [facility] Start: 04-11-2023 COVID-19 Vaccine ( season) COVID-19 Vaccine ( season) [facility] Start: 2016 Fall Risk Screening Fall Risk Screening [facility] Start: 1969 Adult BMI Follow Up Plan Adult BMI Follow Up Plan [facility] Start: 1969 Diabetic foot examination Diabetic Foot Exam [facility] Start: 1950 Glaucoma screening Diabetic Ophthalmology Exam [facility] Start: 1950 Medicare Annual Wellness Visit Medicare Annual Wellness Visit [facility] Work Phone: Payers Date Payer Category Payer Unknown 2023 Self-pay 2016 Medicare [id number] 2016 Private Health Insurance [facility] AARP SUPPLEMENT [id number] 2016-Present [phone] [address] [place] [address] [id number] 1959 Medicare [id number] 1959 Unknown [id number] 1950 Unknown [id number] 1950 Unknown [id number] [id number] .1286 1951 Unknown [id number] [id number] .1286 1951 Unknown [id number] [id number] .1286 1951 Unknown [id number] [id number] .1259 1950 Unknown [id number] [id number] .1259 1950 Unknown [id number] [id number] .1259 1950 Unknown [id number] [id number] .196 Unknown [id number] [id number] .531 Social History Date Type Detail Facility Start: 01-11-2022 End: 06-17-2022 Tobacco smoking status [facility] Ex-smoker (finding) [facility] Start: 1950 Sex Assigned At Male [facility] History of tobacco use Current smoker [facility] Start: 06-17-2022 Tobacco use and exposure Smokeless tobacco non-user [facility] Start: 06-01-2023 Alcohol intake Current non-dr senior director insight of alcohol (finding) [facility] Start: 06-26-2020 End: 06-01-2023 Alcohol intake [facility] Start: 06-26-2020 End: 06-01-2023 Tobacco use panel [facility] Adolescent depressio n screening assessment 0 [facility] Start: 06-17-2022 Tobacco Comment Quite 40 years ago [facility] Start: 1950 Sex Assigned At Not on file [facility] Medical Equipment Procedure Code Equipment Code Equipment Origin al Text Equipment Identifier Dates USE DIRECTED THREE TIMES DAILY [id number] Start: 11-17-2022 by miscellaneous route 3 (three) times a day. [id number] USE TO ADMINISTE R INSULIN 4 TIMES DAILY. [id number] Start: 04-18-2023 Clinical Notes 06-01-2023 to 08-08-2023 Telephone Encounter [...] and verbalized understanding documented in this encounter [facility] 08-08-2023 Telephone encounter Note LM that he [...] up to mid 200-300 range. Please advise [facility] 08-08-2023 Telephone encounter Note I recommend he add 2 units to each range for now and until two days AFTER he is off steroids and then resume regular sliding scale. I would not increasing the long acting dose since his fasting sugars are normal [facility] Work Phone: 08-08-2023 Telephone encounter Note Patient informed and verbalized understanding [facility] 07-15-2023 Miscellaneous Notes Faxed PAP supply order along with office note to [facility] documented in this encounter [facility] 07-15-2023 Telephone encounter Note Faxed PAP supply order along with office note to [facility] 06-13-2023 Miscellaneous Notes Patient is asking to [...] you. Okay to drop them off at front end software developer. I will take them into the free clinic I let him know. He will bring them to the front end software developer soon. documented in this encounter [facility] 06-13-2023 Telephone encounter Note Patient is asking to speak with you directly. [facility] Telephone encounter Note I left a message for the patient asking for more details regarding this phone call. [facility] 06-13-2023 Telephone encounter Note He called back. He has Novolog 70/30 pens that are unused and have been refrigerated. He is wanting to donate them to you for the free clinic and wondering when and how to get them to you. [facility]23 Telephone encounter Note Okay to drop them off at front end software developer. I will take them into the free clinic [facility] 06-13-2023 Telephone encounter Note I let him know. He will bring them to the front end software developer soon. [facility] 06-01-2023 History of Presen t illness Narrative Images from the original note were not included. REASON FOR VISIT: Jered Falcon returns today for follow-up of his diabetes. 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 Type 2 diabetes mellitus with hypoglycemia without coma, without long-term current use of insulin ([facility]) Better controlled, high post prandial most consistently [...] Pacheco 06/01/23 1237 documented in this encounter N-1-1 Consult note Note Date/Time January 11, 2022 12:23pm [facility] at [address] [address] Hem/Onc Consult Note - OP Signed Patient: Jered Falcon MR#: [id number] : 1950 Acct:[id number] Age/Sex: 71 / M Type: REG RCR [...] Back pain Benign essential hypertension Colon polyp 2014 Diabetes GERD (gastroesophageal reflux disease) Hyperlipidemia Insomnia - Surgical History Surgical History: Surgical History (Last Updated 01/08/22 @ 15:53 by Nichole Mccoy) H/O cataract extraction 2009 H/O repair of rotator cuff 2006 History of carpal tunnel release 1992 History [...] for coordination of care (as documented) and npcr-td-pltx counseling of patient and/or family. Dictated By: Bora Lindsey MD DD/ 1219 Signed By: <Electronically signed by Bora Lindsey MD> 01/11/22 1230 [facility] Work Phone: Evaluation note* Diagnosis Onset Date Resolution Status Reactive thrombocytosis acut e [facility] Work Phone: Evaluation noteNo assessment information available [facility] Work Phone: Evaluation note* Diagnosis Type 2 diabetes mellitus with hypoglycemia without coma, without long-term current use of insulin ([facility])- Primary documented in this encounter [facility] filedocumented in this encounter [facility] filedocumented in this encounter [facility] filedocumented in this encounter [facility] Summary Purpose Family History No Family [...] 08, 2022 2:31pm Assessments Note Patient: JERED FALCON MRN: [id number] Age: 68 years Sex: Male : 1950 Associated Diagnoses: None Author: Kenneth Zuniga DO Assessment Assessment Diagnosis: Primary osteoarthritis of right hip (GYM48-PV M16.11, Working, Medical). Plan Postoperative day #1 right total hip arthroplasty. Enteric coated aspirin--deep venous thrombosis prophylaxis per primary surgical service. Dreezltwlfgf-pqkhuktoh-buvrzgxymu on monjdjkqrn-vlbeojwwyrhttdtumpg-nlrkoqqhy postoperatively. Good blood pressure control postoperatively. Type [...] MD DATE OF SERVICE: 08/02/2018 NAME: JERED FALCON. DATE OF : 1950 SURGERY DATE: 08/07/2018 REFERRING PHYSICIAN: Jeremy Barba MD ADMISSION DIAGNOSIS: Osteoarthritis of the right [...] summary document to your follow up appointments. [facility] 08/08/18 11:02 [address] [place]. [address] PATIENT INFORMATION Name: JERED FALCON Tony Address: [address] [place] [id number] Age: 68 Years Phone: [phone] : 1950 12:00 [id number] Sex: Male Race: White Ethnicity: Not Hispan/Lat Admitted From: Clinic or [facility] Medical Service: Orthopedic Surgery Nurse Unit/Bed: [place] 2N 0225-01 Admit Date: 08/07/2018 07:26 PCP: Miguelina Tellez MD PHYSICIANS INVOLVED WITH CARE Attending Physicians: Jameson Espinal MD , Jeremy - Orthopaedic Surg Admitting Physician: Jameson Espinal MD , Jeremy - Orthopaedic Surg Primary Care Physician:Geoff VERGARA , Miguelina Clark,[facility], - Consults: RONALDO Gill - Internal Medicine Problems Active PAULINE (more content not included)... Note Patient: JERED FALCON [facility]: [id number] Age: 68 years Sex: Male : 1950 [...] summary document to your follow up appointments. [facility] 08/08/18 11:02 [address] [facility], [place]. [address] PATIENT INFORMATION Name: JERED FALCON Address: [address] [place] [id number] Age: 68 Years Phone: [phone] : 1950 12:00 MRN: ([id number] Sex: Male Race: White Ethnicity: Not Hispan/Lat Admitted From: Clinic or [facility] Medical Service: Orthopedic Surgery Nurse Unit/Bed: (TX) 2N 0225-01 Admit Date: 08/07/2018 07:26 PCP: Miguelina Tellez MD PHYSICIANS INVOLVED WITH CARE Attending Physicians: Jameson Espinal MD , Jeremy - Orthopaedic Surg Admitting Physician: Jameson Espinal MD , Jeremy - Orthopaedic Surg Primary Care Physician:Miguelina Tellez MD,[facility], - Consults: RONALDO Gill - Internal Medicine Problems Active PAULINE (more content not included)... Procedure Findings Note Patient: JERED FALCON MRN: ([id number] Age: 68 years Sex: Male : 1950 [...] section and content) DATE CREATED AUTHOR 03/08/2019 [facility] DATE CREATED AUTHOR AUTHOR'S ORGANIZ ATION 01/15/2021 [facility] DATE CREATED AUTHOR AUTHOR'S ORGANIZ ATION 05/07/2022 [facility] DATE CREATED AUTHOR AUTHOR'S ORGANIZ ATION 04/03/2023 [facility] DATE CREATED AUTHOR AUTHOR'S ORGANIZ ATION 09/14/2023 [facility] DATE CREATED AUTHOR AUTHOR'S ORGANIZ ATION 09/21/2023 [facility] EPIC DATE CREATED AUTHOR AUTHOR'S ORGANIZ ATION 10/09/2023 [facility] Care Teams (unrecognized sec tion and content) [...] Gene Mike Roman MD Attending Provider Active [employer]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 [facility] [employer] [facility]. provides no warranty or guarantee of the accuracy or completeness of information in this document.
--- NOTE | 2023-10-20 09:03 | P.CN_ITS ---
Consult Note: HPI Data of Consult Patient: known to practice within the last 3 years Consult date: 10/03/23 Requesting Physician: Sarah Tran NP Primary Care Provider: ALAYNA Gallegos Narrative Reason for consult: low back, right buttock pain Narrative: 73yom who presents for evaluation. notes increasing low back, buttock R>L pain. worsening over past several months. lumbar imaging shows spondylosis and degenerative disc disease in lower lumbar spine. previously underwent lumbar rfa in 2019 with significant benefit >6 months. notes that pain is similar to back then. has completed >6 weeks of provider directed home exercises program, without benefit. uses OTC pain meds as needed. denies adverse med side effects. Recently underwent bilateral L4-5 L5-S1 medial branch block #1 with >80% improvement in pain and functional ability immediately following and 1 day after injection. Patient noticed improvement in pain with car rides, sitting, and activity. cc:: CC: Sarah Tran NP Review of Systems ROS Status of ROS 10 or more systems reviewed and unremark able except as noted in history and below Musculoskeletal Reports: back pain PFSH PFSH Medical History (Updated 10/03/23 @ 14:52 by Kamini Knott RN) Diabetes ?E11.9 - Type 2 diabetes mellitus without complications (ICD-10) Sleep apnea ?G47.30 - Sleep apnea, unspecified (ICD-10) High cholesterol ?E78.00 - Pure hypercholesterolemia, unspecified (ICD-10) HTN (hypertension) ?I10 - Essential (primary) hypertension (ICD-10) Surgical History History of knee replacement ?Z96.659 - Presence of unspecified artificial knee joint (ICD-10) History of hip replacement ?Z96.649 - Presence of unspecified artificial hip joint (ICD-10) History of rotator cuff surgery ?Z98.890 - Other specified postprocedural states (ICD-10) History of carpal tunnel release ?Z98.890 - Other specified postprocedural states (ICD-10) Meds Home Medications and Allergies Home Medications ?Medication ?Instructions ?Recorded ?Confirmed ?Type amlodipine 5 mg tablet 5 mg PO DAILY 10/03/23 10/17/23 History atorvastatin 80 mg tablet 80 mg PO DAILY 10/03/23 10/17/23 History glimepiride 4 mg tablet 4 mg PO BID 10/03/23 10/17/23 History insulin aspart U-100 100 unit/mL 35 unit subcut DAILY 10/03/23 10/17/23 History (3 mL) subcutaneous pen (Novolog FlexPen U-100 Insulin aspart) insulin glargine 100 unit/mL 35 unit subcut DAILY 10/03/23 10/17/23 History subcutaneous solution (Lantus U-100 Insulin) losartan 100 1 tab PO DAILY 10/03/23 10/17/23 History mg-hydrochlorothiazide 25 mg tablet metformin 500 mg tablet,extended 500 mg PO QID 10/03/23 10/17/23 History release 24 hr Allergies Allergy/AdvReac Type Severity Reaction Status Date / Time Penicillins Allergy Verified 10/17/23 12:03 Exam Narrative Exam Narrative: Psych-alert and oriented x 3. Attentive and appropriate, constitutionally normal, displays normal mood and affect per situation.? There are no obvious deficits in memory, reasoning, or intellect.? Skin-no obvious rashes, bruising, erythema noted to the patient's area of pain. Extremities- extremities are warm with minimal edema and palpable pulses. Lumbar-no significant tenderness to palpation noted in the lumbar spine and paraspinal musculature.? Pain is elicited with extension, and lateral rotation of the lumbar spine. Range of motion is slightly diminished with these motions due to pain. Facet loading maneuvers are positive bilaterally and do appear to be concordant with the patient's normal complaints of pain.? Coordination remains intact.? Gait remains non-antalgic. Constitutional Documenting provider has reviewed patient's vital signs: yes Common normals: no apparent distress, oriented x3, healthy appearing, alert and well nourished General appearance: cooperative [facility] Common normals: normocephalic, hearing grossly normal bilaterally and moist oral mucous membranes Head and scalp: normocephalic Eye Common normals: PERRL Pupil: PERRL Neck & C-Spine Common normals: full ROM General: normal visual inspection Chest Common normals: inspection of chest normal Respiratory Common normals: normal respiratory effort, no retractions and no use of accessory muscles Neuro Common normals: oriented x3, CN's II-XII intact bilaterally, moves all extremities, no focal motor deficits, no sensory deficits noted and deep tendon reflexes 2+ bilaterally Sensorium/orientation: alert Motor exam: strength 5/5 throughout and no movement abnormalities noted Psych Common normals: mental status grossly normal, thought process normal, cooperat michelle, affect normal, speech normal and activity/motor behavior normal Speech: normal speech Thought process: normal thought process Results Additional Findings Additional findings: If on a controlled substance or opioids, I have checked an [place]AR[place] report on this patient and there are no aberrancies noted in the prescribing history.??If on a controlled substance or opioid a drug screen was completed and reviewed within the last year, and if there has not been a drug screen completed we ordered one today to monitor higher risk, state monitored pain medication use. As part of providing excellent, safe, comprehensive care, the following was completed at our patient's visit: 1. A medication reconciliation and review to ensure accurate knowledge of current/active medications, including asking our patients to inform us about any hrda-svc-ujwuxuy medications or herbal remedies/nutritional supplements/alternative remedies. 2. A review to specifically ensure our patients have had annual screening for screening for depression, screening for tobacco use, and screening for unhealthy alcohol use. For concerning screenings had a discussion with the patient, provided patient education, and recommended follow-up with primary care provider when appropriate. If patient noted with a risk of falling, they received education on strength, gait, and balance training to prevent future risk of falling. Assessment and Plan Assessment and Plan (1) Lumbar spondylosis: Plan 73yom who presents for evaluation. failed conservative measures, as noted. imaging reviewed, as noted. given symptoms and imaging, coupled with previous relief, prudent to attempt diagnostic bilateral l4-5, l5-s1 medial branch blocks under fluoroscopic guidance with intention of proceeding to radiofrequency ablation. he is in agreement. meds reviewed, no changes. follow up after procedure.
== END 2023-10-20 08:45 | disposition home or self-care (01) ==
LOC: PM 08:45
PROVIDERS: PCP Family Medicine; Visit Provider Nurse Practitioner
DX: M47.816 Spondylosis without myelopathy or radiculopathy, lumbar region (principal)
CPT/HCPCS: G0463

== ENCOUNTER 2023-10-31 08:51 | Day surgery (SDC) | payer MEDICARE, SELFPAY ==
[2023-10-31 09:37] VITALS: BP 142/81; PULSE 73; TEMP 37; O2SAT 97
[2023-10-31] MEDS: BUPIVACAINE HCL 0.25% PF 25 MG/10 ML VIAL INJ (10:11)
[2023-10-31] MEDS: LIDOCAINE HCL 2% PF 100 MG/5 ML VIAL INJ (10:12)
--- NOTE | 2023-10-31 10:14 | W.PM.PROCNOT ---
Date of procedure: 10/31/23 Pre-op diagnosis: Pain due to lumbar spondylosis without myelopathy Post-op diagnosis: same as pre-op Procedure: Procedure: Bilateral L4-5, L5-S1 medial branch block Medications: Bupivacaine 0.25% 6cc The patient was seen and examined in the preoperative holding area.? An informed consent was obtained and placed on the chart.? The patient was brought to the medical procedure unit and placed in the prone position.? A timeout was completed verifying correct patient, procedure site, positioning, plan, and special equipment.? Using aseptic technique, the needle was placed at left L4. Under direct fluoroscopic visualization a Quincke-tipped spinal needle was advanced to the junction of the superior articulating process with the transverse process at the designated medial branch segment.? Preceded by negative aspiration, the above-mentioned injectate was placed in 1 mL aliquots.? The procedure was repeated at left L5, S1.? The needle was removed and insertion site was covered. The same procedure, at the same levels, was completed on the right side. The patient was taken to the postprocedural recovery area and monitored for an appropriate length of time before found suitable for discharge in the company of a responsible adult. Anesthesia: Local Surgeon: Kelly Boyd Pathology: none sent Condition: stable Disposition: no change
[2023-10-31 10:15] VITALS: BP 132/60; BP 137/64; PULSE 62; PULSE 68; O2SAT 94; O2SAT 95
== END 2023-10-31 10:18 | disposition home or self-care (01) ==
LOC: SURGOUT 08:51
PROVIDERS: PCP Family Medicine; Visit Provider Anesthesiology
DX: M47.816 Spondylosis without myelopathy or radiculopathy, lumbar region (principal); Z79.4 Long term (current) use of insulin; Z79.84 Long term (current) use of oral hypoglycemic drugs
CPT/HCPCS: 64493; 64494; 82948; J0665

== ENCOUNTER 2023-11-02 09:24 | Outpatient (OUT) | payer MEDICARE, SELFPAY ==
--- OUTSIDE RECORDS SUMMARY | 2023-11-02 09:36 | XMS_ITS | CCD ---
Author Organization [facility] ion Partnership [facility] Care Team Providers Care Physicians And Surgeons Name Role Phone DR JOSE JACKMAN Primary Care Unavailable ERICKA KEMP Consulting Unavailab ERICKA Schilling Attending Unavailab ERICKA Schilling Admitting Unavailab MD Bora Mcduffie Attending Provider MD Miguelina Tellez Primary Care Provider [phone] MD Miguelina Tellez Referring Provider MD Miguelina [...] WONDERLY, MIGUELINA B Referring Unavailable WONDERLY, MIGUELINA Gavin Primary Care Unavailable SHAHZAD SCRUGGS Attending Unavailable PIETER RANKIN Attending Unavailable PIETER RANKIN Referring Unavailable Oliver VERGARA, Kelly Longoria Attending Unavailable Oliver VERGARA, Kelly Longoria Attending Unavailable Allergies Allergy Classification Reported Allergen(s) Allergy Type Date of Onset Reaction(s) Facility (1 source) Penicillin Drug Allergy [facility] Repository (4 sources) Amoxicillin; Translations: [amoxicillin] Drug Allergy 2 Unknown Reaction [place] (4 sources) empagliflozin; Translations: [empagliflozin] Drug Allergy 2 Unknown Reaction [place] (4 sources) Fish derivative; Translations: [fish derived] Propensity to adverse reactions 2 Vomiting [place] (4 sources) liraglutide; Translations: [liraglutide] Drug Allergy 2 Diarrhea [place] (9 sources) Lisinopril; Translations: [lisinopril] Drug Allergy 2 Cough [place] (9 sources) pioglitazone; Translations: [pioglitazone] Drug Allergy 2 Unknown Reaction [place] (4 sources) Shellfish; Translations: [shellfish derived] Propensity to adverse reactions 2 Unknown Reaction [place] (5 sources) Penicillins; Translations: [PENICILLINS] Propensity to adverse reactions to drug 9 Rash [facility] (5 sources) Shellfish; Translations: [SHELLFISH CONTAINING PRODUCTS] Propensity to adverse reactions to drug 2 [facility] Medications Current Medications Medication Drug Class(es) Dates [...] coma, without long-term current use of insulin [place] Inject 18 Units under the skin in [...] coma, without long-term current use of insulin ([facility]) Inject 35 Units under the skin in the morning. 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) use of insulin] Onset: 06-17-2022 Episodic Unclassified (1 source) CONTACT W/AND (SUSP) EXPOS COVID-19; Translations: [CONTACT W/AND (SUSP) EXPOS COVID-19] Onset: 01-06-2021 Results Test Name Value Interpretation Reference Range Facility POCT Hemoglobin A1con 2023 HbA1c (Bld) [Mass fraction] 6.8 g/dL 4 - 7 g/dL [facility] Armando 03-24-2023 L - -------- Specimen: [id number] Received: 03/25/23 Status: AIRAM Jones Num: [id number] Spec Type: Surgical Subm Dr: Gerardo Roman MD Tissues: A Skin-Other than Cyst, tag, debridement or plastic repair (LT EYE) B Skin-Other than Cyst, tag, debridement or plastic repair (RT EYE) Procedures: HE/2, Gross/Micro L4/2 -------- Age/ Patient Sex Location Account Attending Physician -------- Jered Garay/M [place] [id number] Gerardo Roman MD -------- SPEC NUM: [id number] RECD: 03/25/23 STATUS: AIRAM JONES NUM: [id number] COLBY: 03/24/23 [facility] DR: Gerardo Roman MD ENTERED: 03/25/[address]: SPEC TYPE: Surgical DEPT: S ORDERED: [...] in one cassette labeled B1. -------- Specimen: [id number] Received: 03/25/23 Status: AIRAM Jones Num: [id number] Spec Type: Surgical Subm Dr: Gerardo Roman MD Tissues: A Skin-Other than Cyst, tag, debridement or plastic repair (LT EYE) B Skin-Other than Cyst, tag, debridement or plastic repair (RT EYE) Procedures: FRANCIS, Gross/Micro L4/2 -------- Patient: GarayJered [id number] (Continued) -------- Specimen: [id number] Received: 03/25/23 (Continued) Signed (signature on file) Minh Doran MD 03/28/23 1400 -------- Specimen: [id number] Received: 03/25/23 Status: AIRAM Clementlópez Num: [id number] Spec Type: Surgical Subm Dr: Gerardo Roman MD Tissues: A Skin-Other than Cyst, tag, debridement or plastic repair (LT EYE) B Skin-Other than Cyst, tag, debridement or plastic repair (RT EYE) Procedures: Xavier BLANCO/Vipul L4/2 -------- Patient: Jered Garay [id number] (Continued) -------- Specimen: [id number] Received: 03/25/23 (Continued) Microscopic Description A. One H E slide reviewed. The microscopic examination confirms the diagnosis. B. One H E slide reviewed. The microscopic examination confirms the diagnosis. CPT Codes 99315u1 -------- -------- Specimen: [id number] Received: 03/25/23 Status: AIRAM Jones Num: [id number] Spec Type: Surgical Subm Dr: Gerardo Roman MD Tissues: A Skin-Other than Cyst, tag, debridement or plastic repair (LT EYE) B Skin-Other than Cyst, tag, debridement or plastic repair (RT EYE) Procedures: HE/Chanel, Gross/Micro L4/2 -------- Patient: Jered Garay [id number] (Continued) -------- Signed (signature on file) Minh Doran MD 03/28/23 1400 [facility] XR Chest 2 Views*on 05-04-20 XR Chest [...] by Mansoor Nash on 05/04/2022 0943 Normal [facility] Complete Blood Counton 10-07 Erythrocyte distribution width (RBC) [Ratio] 12.9 % Normal 11.0-15.0 [facility] Specialist Comment on above: Performed By: #### L IPD, CBC, CMP #### [facility] [address], [place] [id number] Hematocrit (Bld) [Volume fraction] 45.1 % Normal 38.5-50.0 [facility] Specialist Comment on above: Performed By: #### L IPD, CBC, CMP #### [facility] [address], [place] [id number] Hemoglobin (Bld) [Mass/Vol] 14.9 g/dL Normal 13.0-17.1 [facility] Specialist Comment on above: Performed By: #### L IPD, CBC, CMP #### [facility] [address], [place] [id number] MCH (RBC) [Entitic mass] 29.9 pg Normal 27.0-33.0 [facility] Specialist Comment on above: Performed By: #### L IPD, CBC, CMP #### [facility] [address], [place] [id number] MCHC (RBC) [Mass/Vol] 33.0 g/dL Normal 32.0-36.0 [facility] Specialist Comment on above: Performed By: #### L IPD, CBC, CMP #### [facility] [address], [place] [id number] MCV (RBC) [Entitic vol] 90 fL Normal 80-100 [facility] Specialist Comment on above: Performed By: #### L IPD, CBC, CMP #### [facility] [address], [place] [id number] Platelet mean volume (Bld) [Entitic vol] 8.90 fL Normal 7.50-12.50 [facility] Comment on above: Performed By: #### L IPD, CBC, CMP #### [facility] [address], [place] [id number] Platelets (Bld) [#/Vol] 421 10*3/uL High 140-400 [facility] Specialist Comment on above: Performed By: #### L IPD, CBC, CMP #### [facility] [address], [place] [id number] RBC (Bld) [#/Vol] 4.99 10*6/uL Normal 4.20-5.80 [facility] Specialist Comment on above: Performed By: #### L IPD, CBC, CMP #### [facility] [address], [place] [id number] RDW-SD 42.6 fL Normal 37.0-50.0 [facility] Specialist Comment on above: Performed By: #### L IPD, CBC, CMP #### [facility] [address], [place] [id number] WBC (Bld) [#/Vol] 6.6 10*3/uL Normal 3.8-11.0 [facility] [employer] Comment on above: Performed By: #### L IPD, CBC, CMP #### [facility] [address], [place] [id number] Comprehensive Metabolic Pane armando 10-07-2021 Albumin [Mass/Vol] 4.7 g/dL Normal 3.6-5.1 [facility] [employer] Comment on above: Performed By: #### L IPD, CBC, CMP #### [facility] [address], [place] [id number] Albumin/Globulin [Mass ratio] 1.9 {ratio} Normal 1.0-2.5 [facility] Comment on above: Performed By: #### L IPD, CBC, CMP #### [facility] [address], [place] [id number] ALP [Catalytic activity/Vol] 96 U/L Normal 40-129 [facility] Comment on above: Performed By: #### L IPD, CBC, CMP #### [facility] [address], [place] [id number] ALT [Catalytic activity/Vol] 29 U/L Normal 9-46 [facility] Comment on above: Result Comment: 04/15 Female reference range changed. Performed By: #### L IPD, CBC, CMP #### [facility] [address], [place] [id number] Anion gap [Moles/Vol] 18 mmol/L Normal 12-20 [facility] Specialist Comment on above: Result Comment: Effe ctive 05/21/2019 reference range changed. Performed By: #### L IPD, CBC, CMP #### [facility] [address], [place] [id number] AST [Catalytic activity/Vol] 24 U/L Normal 10-40 [facility] Comment on above: Performed By: #### L IPD, CBC, CMP #### [facility] [address], [place] [id number] Bilirubin [Mass/Vol] 0.99 mg/dL Normal 0.30-1.20 [facility] Comment on above: Performed By: #### L IPD, CBC, CMP #### [facility] [address], [place] [id number] BUN/CREA 13 Ratio Normal 6-22 [facility] Comment on above: Performed By: #### L IPD, CBC, CMP #### [facility] [address], [place] [id number] Calcium [Mass/Vol] 10.0 mg/dL Normal 8.6-10.2 [facility] Comment on above: Performed By: #### L IPD, CBC, CMP #### [facility] [address], [place] [id number] Chloride [Moles/Vol] 97 mmol/L Low 98-107 [facility] Comment on above: Performed By: #### L IPD, CBC, CMP #### [facility] [address], [place] [id number] CO2 [Moles/Vol] 26 mmol/L Normal 20-31 [facility] Comment on above: Performed By: #### L IPD, CBC, CMP #### [facility] [address], [place] [id number] Creatinine [Mass/Vol] 0.9 mg/dL Normal 0.7-1.4 [facility] Comment on above: Performed By: #### L IPD, CBC, CMP #### [facility] [address], [place] [id number] eGFRAA 99 mL/min/1.73m2 Normal >60 [facility] Comment on above: Performed By: #### L IPD, CBC, CMP #### [facility] [address], [place] [id number] eGFRNAA 81 mL/min/1.73m2 Normal >60 [facility] Comment on above: Performed By: #### L IPD, CBC, CMP #### [facility] [address], [place] [id number] Globulin (S) [Mass/Vol] 2.5 g/dL Normal 1.9-3.7 [facility] Comment on above: Performed By: #### L IPD, CBC, CMP #### [facility] [address], [place] [id number] Glucose [Mass/Vol] 196 mg/dL High 65-99 [facility] Comment on above: Result Comment: For FASTING Glucose --- ADA reference ranges: Normal 65-99 mg/dl Prediabetes 100-125 Diabetes >/= 126 Performed By: #### L IPD, CBC, CMP #### [facility] [address], [place] [id number] Potassium [Moles/Vol] 4.0 mmol/L Normal 3.5-5.5 [facility] Comment on above: Performed By: #### L IPD, CBC, CMP #### [facility] [address], [place] [id number] Protein [Mass/Vol] 7.2 g/dL Normal 6.1-8.1 [facility] [place] [employer] Comment on above: Performed By: #### L IPD, CBC, CMP #### [facility] [address], [place] [id number] Sodium [Moles/Vol] 137 mmol/L Normal 135-146 [facility] [employer] Comment on above: Performed By: #### L IPD, CBC, CMP #### [facility] [address], [place] [id number] Urea nitrogen [Mass/Vol] 12 mg/dL Normal 7-25 [facility] [employer] Comment on above: Performed By: #### L IPD, CBC, CMP #### [facility] [address], [place] [id number] Lipid Panelon 10-07-2021 Cholesterol [Mass/Vol] 142 mg/dL Normal 125-200 [facility] [employer] Comment on above: Result Comment: Low risk < 200mg/dL Borderline risk 201-239 mg/dl High risk > or equal to 240 Performed By: #### L IPD, CBC, CMP #### [facility] [address], [place] [id number] Cholesterol in HDL [Mass/Vol] 42 mg/dL Normal >40 [facility] [employer] Comment on above: Result Comment: High Cardiovascular Risk HDL <40 mg/dL Low Cardiovascular Risk HDL > or equal to 60 mg/dl Performed By: #### L IPD, CBC, CMP #### [facility] [address], [place] [id number] Cholesterol in LDL [Mass/Vol] 40 mg/dL Normal [facility] [employer] Comment on above: Result Comment: LDL ATP III CLASSIFICATION LDL less than 100 mg/dl Optimal LDL 100-129 mg/dl Near or above optimal LDL 130-159 Borderline high LDL 160-189 High LDL greater than 189 mg/dl Very High Performed By: #### L IPD, CBC, CMP #### [facility] [address], [place] [id number] Cholesterol in VLDL [Mass/Vol] 60 mg/dL Normal [facility] [employer] Comment on above: Performed By: #### L IPD, CBC, CMP #### [facility] [address], [place] [id number] Cholesterol.total/Ch olesterol in HDL [Mass ratio] 3 {ratio} Normal [facility] [employer] Comment on above: Performed By: #### L IPD, CBC, CMP #### [facility] [address], [place] [id number] Triglyceride [Mass/Vol] 298 mg/dL High 30-150 [facility] [employer] Comment on above: Result Comment: TRIG ATPIII CLASSIFICATIONS TRIG less than 150 mg/dl Normal TRIG 150-199 mg/dl Borderline High TRIG 200-500 mg/dl High TRIG greather than 500 mg/dl Very High Performed By: #### L IPD, CBC, CMP #### [facility] [address], [place] [id number] Microalbumin (w/o Creat)on 10-07-2021 mALB 27.4 mg/dL Normal [facility] [employer] Comment on above: Result Comment: mALB reference range not established. Performed By: #### m ALB #### [facility] [address], [place] [id number] Covid-19 PCR (CVDTBH)on 12-15 SARS-CoV-2 (COVID-19) RNA DANNY+probe Ql (Unsp spec) Not detected Normal NOT DETECTED [facility] Comment on above: Result Comment: This test is not yet approved or cleared by the [place] FDA. When there are no FDA-approved or cleared tests available, and other criteria are met, FDA can make tests available under an emergency access mechanism called an Emergency Use Authorization (EUA). The EUA for this test is supported by the [place] of Health and Human Service's (HHS's) declaration [...] SARS-CoV-2. Performed By: #### C VDTBH #### [facility] [address] [place], [place] [address] Ted Casas Basic Metabolic Panelon 02-14 Calcium [Mass/Vol] 9.5 mg/dL Normal 8.5-10.6 [facility] Chloride [Moles/Vol] 100 mmol/L Normal 98-107 [facility] CO2 [Moles/Vol] 25 mmol/L Normal 21-32 [facility] Creatinine [Mass/Vol] 0.95 mg/dL Normal 0.70-1.30 [facility] Glucose [Mass/Vol] 171 mg/dL High 70-99 [facility] Potassium [Moles/Vol] 4.4 mmol/L Normal 3.5-5.1 [facility] Sodium [Moles/Vol] 136 mmol/L Normal 136-145 [facility] Urea nitrogen (BldV) [Mass/Vol] 19 mg/dL High 7.0-18.0 [facility] Urea nitrogen/Creatinine [Mass ratio] 20 mg/mg Normal [facility] CBC with Differentialon 02-14 Basophils (Bld) [#/Vol] 0.1 thou/mcL Normal 0.0-0.2 [facility] Basophils/100 WBC (Bld) 1.0 % Normal 0-3 [facility] Differential cell count method Nom (Bld) AUTOMATED DIFFERENTIAL Normal [facility] Eosinophils (Bld) [#/Vol] 0.1 thou/mcL Normal 0.0-0.4 [facility] Eosinophils/100 WBC (Bld) 2.6 % Normal 0-7 [facility] Lymphocytes (Bld) [#/Vol] 1.5 thou/mcL Normal 0.7-4.5 [facility] Lymphocytes/100 WBC (Bld) 26.0 % Normal 14-46 [facility] Monocytes (Bld) [#/Vol] 0.5 thou/mcL Normal 0.1-1.0 [facility] Monocytes/100 WBC (Bld) 8.4 % Normal 4-13 [facility] Neutrophils (Bld) [#/Vol] 3.5 thou/mcL Normal 1.5-7.8 [facility] Neutrophils/100 WBC (Bld) 62.0 % Normal 40-74 [facility] Erythrocyte distribution width (RBC) [Entitic vol] 14.0 % Normal 11.7-15.0 [facility] Hematocrit (Bld) [Volume fraction] 39.7 % Normal 34.0-50.0 [facility] Hemoglobin (Bld) [Mass/Vol] 13.2 g/dL Normal 11.5-17.0 [facility] MCH (RBC) [Entitic mass] 30.1 Picograms Normal 27.0-34.0 [facility] MCHC (RBC) [Mass/Vol] 33.3 g/dL Normal 32.0-36.0 [facility] MCV (RBC) [Entitic vol] 90.5 fL Normal 80-98 [facility] Platelet mean volume (Bld) [Entitic vol] 7.0 fL Low 7.5-11.2 [facility] Platelets (Bld) [#/Vol] 390 thou/mcL Normal 140-415 [facility] RBC (Bld) [#/Vol] 4.39 x(10)6/mcL Normal 3.80-5.60 [facility] WBC (Bld) [#/Vol] 5.6 thou/mcL Normal 4.0-10.5 [facility] Partial Thromboplastin Time (aPTT)on 03-07-2019 aPTT Coag (PPP) [Time] 27 Sec Normal 23.2-34.6 [facility] Prothrombin Timeon 201 9 INR Coag (Bld) [Relative time] 0.9 {INR} Normal [facility] Comment on above: Result Comment: MG ANN THE INDUCTION PHASE OF ORAL ANTICOAGULATION, THE INR MAY NOT REFLECT THE ANTICOAGULANT STATUS OF THE PATIENT. THERAPEUTIC RANGES FOR INR'S ARE: MOST CLINICAL SITUATIONS: INR 2.0-3.0 MECHANICAL PROSTHETIC VALVES: INR 2.5-3.5 CRITICAL: INR 5.0 PT Coag (PPP) [Time] 11.9 Sec Normal 11.9-14.6 [facility] Patient Portal Messageon Patient Portal Message --- --- --- --- --- --- --- --- --- From: Hospital, Patient Summary Visit To: JERED GARAY Sent: 08/09/18 01:30:45 AM EDT Subject: New Results Available A summary regarding your recent visit is available in the Documents section of your Health Record. Normal [facility] Basic Metabolic Panelon 07-15 Calcium [Mass/Vol] 8.4 mg/dL Low 8.5-10.6 [facility] Chloride [Moles/Vol] 100 mmol/L Normal 98-107 [facility] CO2 [Moles/Vol] 29 mmol/L Normal 21-32 [facility] Creatinine [Mass/Vol] 0.97 mg/dL Normal 0.70-1.30 [facility] Glucose [Mass/Vol] 166 mg/dL High 74-106 [facility] Potassium [Moles/Vol] 3.9 mmol/L Normal 3.5-5.1 [facility] Sodium [Moles/Vol] 137 mmol/L Normal 136-145 [facility] Urea nitrogen (BldV) [Mass/Vol] 14 mg/dL Normal 7-18 [facility] Urea nitrogen/Creatinine [Mass ratio] 14 mg/mg Normal [facility] CBC with Differentialon 07-15 Basophils (Bld) [#/Vol] 0.1 thou/mcL Normal 0.0-0.2 [facility] Basophils/100 WBC (Bld) 0.5 % Normal 0-3 [facility] Differential cell count method Nom (Bld) AUTOMATED DIFFERENTIAL Normal [facility] Eosinophils (Bld) [#/Vol] 0.1 thou/mcL Normal 0.0-0.4 [facility] Eosinophils/100 WBC (Bld) 1.2 % Normal 0-7 [facility] Erythrocyte distribution width (RBC) [Entitic vol] 13.3 % Normal 11.7-15.0 [facility] Hematocrit (Bld) [Volume fraction] 36.4 % Normal 34.0-50.0 [facility] Hemoglobin (Bld) [Mass/Vol] 12.1 g/dL Normal 11.5-17.0 [facility] Lymphocytes (Bld) [#/Vol] 2.0 thou/mcL Normal 0.7-4.5 [facility] Lymphocytes/100 WBC (Bld) 20.2 % Normal 14-46 [facility] MCH (RBC) [Entitic mass] 30.1 Picograms Normal 27.0-34.0 [facility] MCHC (RBC) [Mass/Vol] 33.1 g/dL Normal 32.0-36.0 [facility] MCV (RBC) [Entitic vol] 90.8 fL Normal 80-98 [facility] Monocytes (Bld) [#/Vol] 0.8 thou/mcL Normal 0.1-1.0 [facility] Monocytes/100 WBC (Bld) 8.2 % Normal 4-13 [facility] Neutrophils (Bld) [#/Vol] 7.1 thou/mcL Normal 1.5-7.8 [facility] Neutrophils/100 WBC (Bld) 69.9 % Normal 40-74 [facility] Platelet mean volume (Bld) [Entitic vol] 6.8 fL Low 7.5-11.2 [facility] Platelets (Bld) [#/Vol] 333 thou/mcL Normal 140-415 [facility] RBC (Bld) [#/Vol] 4.01 x(10)6/mcL Normal 3.80-5.60 [facility] WBC (Bld) [#/Vol] 10.1 thou/mcL Normal 4.0-10.5 [facility] Patient Summaryon 08-08-2018 Patient Summary PATIENT DISCHARGE INSTRUCTIONS If you are having an emergency and are not able to reach your physician, CALL 911 or go to the nearest emergency room and take this document with you. [facility] 08/08/18 11:02 [address] [place]. [address] PATIENT INFORMATION Name: JERED GARAY Address: [address] [place] [id number] Age: 68 Years Phone: [phone] : 1950 12:[birth year] MRN: [id number] Sex: Male Race: White Ethnicity: Not Hispan/Lat Admitted From: Clinic or [facility] Medical Service: Orthopedic Surgery Nurse Unit/Bed: (MD) 2N [id number] Admit Date: 08/07/2018 07:26 PCP: Miguelina Tellez MD PHYSICIANS INVOLVED WITH CARE ------ Attending Physicians: Jameson Espinal MD , Jeremy - Orthopaedic Surg Admitting Physician: Jameson Espinal MD , Jeremy - Orthopaedic Surg Primary Care Physician:Miguelina Tellez MD,[facility], - Consults: RONALDO Gill - Internal Medicine FOLLOW-UP APPOINTMENTS: Provider: Specialty: Address: Date: Jeremy Bermudez Jr, MD Orthopaedic Surg [address] [place] [address] (1) Comment: Please call to schedule a 6 week appt. May call sooner if problems occur Provider: Specialty: Address: Date: Miguelina Tellez MD [place] [address] (1) Follow-up as needed Provider: Specialty: Address: [...] doses are changed, or new medications (including xvpu-pzv-wyjolsp products) are added. Ask your doctor if [...] Decisions Type: Living Will, Medical Power of Manager Photo Copy of Advance Directive/Health Care Decisions on Chart: Patient/Family asked to provide copy SUICIDE HOTLINE: Your mental and emotional well-being are important. If you are in a mental health crisis, or having thoughts of suicide, please call the nationwide suicide hotline, anytime day or night, at 4-816-254-JHNU. Important information about accessing your health information through the [facility] patient portal If you initiated the self-registration process for [facility] during your stay, please check your personal email for an invitation to enroll in [facility] and complete the steps outlined in the email. If you would prefer to enroll while in the hospital, ask a member of your care team. We would be happy to assist you. If you have already enrolled in [facility], go to [email or web address] to login and access your health information. Thank you for choosing [facility]. PATIENT EDUCATION Constipation, Adult Constipation is when [...] with a lot of sugar. This includes greek fries, hamburgers, cookies, candy, and soda. ???If [...] 10/18/2008 Document Revised: 05/23/2015 Document Reviewed: 02/11/2014 [employer] Patient Education ?2016 [employer] Venous Thromboembolism, Prevention A venous thromboembolism [...] 04/20/2010 Document Revised: 01/24/2013 Document Reviewed: 08/27/2015 [employer] Patient Education ?2016 [employer] Incentive Spirometer An incentive spirometer is [...] 09/12/2007 Document Revised: 05/23/2015 Document Reviewed: 12/09/2014 [employer] Interactive Patient Education ?2016 [employer] Pain Medicine Instructions HOW CAN PAIN [...] 10/18/2008 Document Revised: 09/16/2015 Document Reviewed: 03/06/2015 [employer] Interactive Patient Education ?2016 [employer] Fall Prevention in the Home Falls [...] items that you use a lot in [id number] places. ???If you need to reach something above you, use a strong step stool that has a grab bar. ???Keep electrical cords out of the way. ???Do not use floor georgian or wax that makes floors slippery. If [...] Relationship to Patient Clinician Signature Date/Time Normal [facility] Anesthesia Recordon 08-08-19 Anesthesia Record Patient: JERED GARAY Age: 68 years Sex: Male : 1950 Associated Diagnoses: None Author: Idalia Godinez DO Procedure Time Out [place] Protocol: patient identity verified, site verified, side verified, procedure to be done verified, patient position verified. REGIONAL ANESTHESIA PROCEDURE Procedure date and begin time: See nurses notes. Procedure date and end time: See nurses notes. Second Procedure Start: Spinal block. Performed by: Idalia Godinez DO. Assisted by: no surgeon assistant. Informed consent: signed by patient. Technique: [...] OA Postoperative Diagnosis: Hip OA . Normal [facility] Basic Metabolic Panelon 07-15 Calcium [Mass/Vol] 8.6 mg/dL Normal 8.5-10.6 [facility] Chloride [Moles/Vol] 100 mmol/L Normal 98-107 [facility] CO2 [Moles/Vol] 26 mmol/L Normal 21-32 [facility] Creatinine [Mass/Vol] 0.95 mg/dL Normal 0.70-1.30 [facility] Glucose [Mass/Vol] 191 mg/dL High 74-106 [facility] Potassium [Moles/Vol] 4.2 mmol/L Normal 3.5-5.1 [facility] Sodium [Moles/Vol] 136 mmol/L Normal 136-145 [facility] Urea nitrogen (BldV) [Mass/Vol] 23 mg/dL High 7-18 [facility] Urea nitrogen/Creatinine [Mass ratio] 24 mg/mg Normal [facility] OR Nursingon 08-07-2018 OR Nursing CO NA OR Nursing Record Summary Primary Physician: Jameson Espinal MD , Jeremy Finalized Date/Time: 08/07/18 12:06:15 Pt. Name: JERED GARAY/Sex: 1950 Male [facility] Rec #: [id number] Physician: Jeremy Bermudez Jr, MD Financial #: [id number] Pt. Type: I Room/Bed: / Admit/Disch: 08/07/18 07:26:00 - Institution: CO NA OR Case Times Entry 1 Patient Times Patient In Room 08/07/18 10:06:00 Patient Out Room 08/07/18 11:59:00 Surgical Times Start Time 08/07/18 10:48:00 Stop Time 08/07/18 11:52:00 Last Modified By: Marisa MOY , [place] 08/07/18 11:57:43 CO NA OR Delays Entry 1 Delay Reason Other See Comment Description incision greater than 30 mins after in room time/dr bermudez in room@1044 Duration (minutes) 12 Min Last Modified By: Marisa MOY , [place] 08/07/18 10:49:30 CO NA OR Case Attendees Entry 1 Entry 2 Entry 3 Case Attendee Jameson Espinal MD , Idalia Mo DO, CRNA [facility] Role Performed Primary Surgeon Anesthesiologist Nurse Tape Deck Installer Time In 08/07/18 10:44:00 08/07/18 10:06:00 08/07/18 10:06:00 Time Out 08/07/18 11:25:00 08/07/18 11:59:00 08/07/18 11:08:00 Procedure Arthroplasty Hip Total Arthroplasty Hip Total Arthroplasty Hip Total Anterior(Right) Anterior(Right) Anterior(Right) Attendee Comment COVERAGE Relief Reason Last Modified By: Marisa RN , Marisa RN , Marisa MOY , [place] 08/07/18 [place] 08/07/18 [place] 08/07/18 11:58:27 11:58:27 11:58:27 Entry 4 Entry 5 Entry 6 Case Attendee Case, Attendee Other Kristy MOY , Yessica Monreal Role Performed Spreader Operator painter supervisor First Scrub Time In 08/07/18 10:44:00 08/07/18 10:06:00 08/07/18 10:06:00 Time Out 08/07/18 11:25:00 08/07/18 11:00:00 08/07/18 11:59:00 Procedure Arthroplasty Hip Total Arthroplasty Hip Total Arthroplasty Hip Total Anterior(Right) Anterior(Right) Anterior(Right) Attendee Comment BERNIE/GENIE Relief Reason Lunch Last Modified By: Marisa RN , Marisa RN , Marisa RN , [place] 08/07/18 [place] 08/07/18 Kamini 08/07/18 11:58:27 11:58:27 11:58:27 Entry 7 Entry 8 Entry 9 Case Attendee Daija Dietrich , Rocio Lovell Role Performed Second Scrub Physician Flight Attendant Inflight Services Assistive Personnel Time In 08/07/18 10:06:00 08/07/18 10:06:00 08/07/18 10:06:00 Time Out 08/07/18 11:35:00 08/07/18 11:59:00 08/07/18 11:59:00 Procedure Arthroplasty Hip Total Arthroplasty Hip Total Arthroplasty Hip Total Anterior(Right) Anterior(Right) Anterior(Right) Attendee Comment Relief Reason Last Modified By: Marisa RN , Marisa RN , Marisa RN , [place] 08/07/18 [place] 08/07/18 [place] 08/07/18 11:58:27 11:58:27 11:58:27 Entry 10 Entry 11 Entry 12 Case Attendee Marisa RN , Kamini Hurley ARRT , Mirta Foster RN , Patricia Orona Role Performed painter supervisor Pharmacy Billing Adjudicator painter supervisor Time In 08/07/18 10:06:00 08/07/18 10:30:00 08/07/18 11:00:00 Time Out 08/07/18 11:00:00 08/07/18 11:59:00 08/07/18 11:30:00 Procedure Arthroplasty Hip Total Arthroplasty Hip Total Arthroplasty Hip Total Anterior(Right) Anterior(Right) Anterior(Right) Attendee Comment relief Relief Reason Lunch Last Modified By: Marisa RN , Marisa RN , Marisa RN , [place] 08/07/18 [place] 08/07/18 [place] 08/07/18 11:58:27 11:58:27 11:58:27 Entry 13 Entry 14 Entry 15 Case Attendee Jd CURTAIN CUTTER HAND, Mansoor Ness CRNA, Kamini Bowers RN Role Performed Nurse Tape Deck Installer Nurse Tape Deck Installer painter supervisor Time In 08/07/18 11:08:00 08/07/18 11:34:00 08/07/18 11:30:00 Time Out 08/07/18 11:34:00 08/07/18 11:59:00 08/07/18 11:59:00 Procedure Arthroplasty Hip Total Arthroplasty Hip Total Arthroplasty Hip Total Anterior(Right) Anterior(Right) Anterior(Right) Attendee Comment Relief Reason Last Modified By: Mairsa RN , Marisa RN , Kamini Cunningham RN 08/07/18 Kamini 08/07/18 Kamiin 08/07/18 11:58:27 11:58:27 11:58:27 Entry 16 Case Attendee Yokasta Wagner RN Role Performed painter supervisor Time In 08/07/18 11:30:00 Time Out 08/07/18 11:59:00 Procedure Arthroplasty Hip Total Anterior(Right) Attendee Comment Relief Reason Last Modified By: Kamini Cunnignham RN 08/07/18 11:58:27 CO NA OR General Case Neuroscience Director Na 1 OR CO NA 08 ASA Class [...] 10 FR ROUND Present on Arrival? No [id number] Location Operative Hip Inserted By Jameson Espinal MD , Jeremy Comments 10 Fr Round Silicone DC'd at End of Case? No Drain/400ml Hemovac [place] Tegaderm to secure drain. Last Modified By: [...] Irrigant Volume 1000 mL Last Modified By: Kamini Cunningham RN 08/07/18 12:06:05 CO NA OR Implants Entry 1 Entry 2 Entry 3 Procedure Arthroplasty Hip Total Arthroplasty Hip Total Arthroplasty Hip Total Anterior(Right) Anterior(Right) Anterior(Right) Implant/Explant Implant Implant Implant Wasted Reason Provided by Surgeon No No No Implant Identification Description HIP ACETABULAR SHELL G7 HIP ACETABULAR LINER VE SCREW SUZANNE BIOMET G7 FINNED HT 54MM F 36MM F NEUTRAL [id number] LOW PROFILE DOME TI [id number] 6.5X20MM [id number] Finished Hardware Erector SUZANNE BIOMET SUZANNE BIOMET SUZANNE BIOMET Catalog Number [id number] Lot Number [id number] Serial Number n/a n/a n/a Implant Site [...] LOW PROFILE DOME TI MP PPS HO [id number] Ma DELTA OPTION CE 36MM 6.5X35MM [id number] 650-1057 Finished Hardware Erector SUZANNE BIOMET BIOMET ORTHOPED BRACING BIOMET [employer] [facility] Catalog Number [id number] [phone] Lot Number [id number] Serial Number n/a n/a n/a Implant Site [...] NECK BIOLOX OPTION TAPER ADAPTER -6 [phone] Finished Hardware Erector [employer] Vax[employer]nate Catalog Number [id number] Lot Number [id number] Serial Number n/a Implant Site right hip [...] Taken No Comment Also performed with Physician's Flight Attendant Inflight Services. Procedure Arthroplasty Hip Total Anterior(Right) Last Modified [...] By: Kamini Cunningham RN 08/07/18 12:06 Normal [facility] PACU I Nursingon 08-07-2018 PACU I Nursing CO NA PACU I Nursing Record Summary Primary Physician: Jeremy Bermudez Jr, MD Finalized Date/Time: 08/07/18 12:46:58 Pt. Name: JARRODJERED/Sex: 1950 Male Med Rec #: [id number] Physician: Jeremy Bermudez Jr, MD Financial #: [id number] Pt. Type: I Room/Bed: / Admit/Disch: 08/07/18 [...] Case Attendees Entry 1 Case Attendee Ghislaine Laugnas RN Role Performed RN Last Modified By: Ghislaine Lagunas RN 08/07/18 11:59:27 Finalized By: Ghislaine Lagunas RN Document Signatures Signed By: Ghislaine Lagunas RN 08/07/18 12:46 Normal [facility] PreOp Nursingon 08-07-2018 PreOp Nursing CO NA PreOp Nursing Record Summary Primary Physician: Jeremy Bermudez Jr, MD Finalized Date/Time: 08/07/18 10:11:50 Pt. Name: EJRED GARAY Otoniel/Sex: 1950 Male Med Rec #: [id number] Physician: Jeremy Bermudez Jr, MD Financial #: [id number] Pt. Type: I Room/Bed: / Admit/Disch: 08/07/18 [...] Signed By: Kamini Cunningham RN 08/07/18 10:11 [facility] XR Pelvis 1-2 Viewson 2018 XR Pelvis [...] total hip arthroplasty with recent postoperative changes. [place] thanks you for the opportunity to care for your patient. Workstation ID: [id number] FINAL REPORT Dictated By: Marcell Mcgowan MD 08/07/2018 12:44 Assigned Physician: Marcell Mcgowan MD Reviewed and Electronically Signed By: Marcell Mcgowan MD 08/07/2018 12:44 Transcribed by: MIMI 08/07/2018 12:44 Technologist: FRANCISCO [facility] Comment on above: Order Comment: Posto perative, s/p SIMON Basic Metabolic Panelon 07-15 Calcium [Mass/Vol] 9.5 mg/dL Normal 8.5-10.6 [facility] Chloride [Moles/Vol] 100 mmol/L Normal 98-107 [facility] CO2 [Moles/Vol] 28 mmol/L Normal 21-32 [facility] Creatinine [Mass/Vol] 0.95 mg/dL Normal 0.70-1.30 [facility] Glucose [Mass/Vol] 209 mg/dL High 74-106 [facility] Potassium [Moles/Vol] 4.0 mmol/L Normal 3.5-5.1 [facility] Sodium [Moles/Vol] 139 mmol/L Normal 136-145 [facility] Urea nitrogen (BldV) [Mass/Vol] 13 mg/dL Normal 7-18 [facility] Urea nitrogen/Creatinine [Mass ratio] 14 mg/mg Normal [facility] CBC with Differentialon 07-15 Basophils (Bld) [#/Vol] 0.1 thou/mcL Normal 0.0-0.2 [facility] Basophils/100 WBC (Bld) 1.2 % Normal 0-3 [facility] Differential cell count method Nom (Bld) AUTOMATED DIFFERENTIAL Normal [facility] Eosinophils (Bld) [#/Vol] 0.2 thou/mcL Normal 0.0-0.4 [facility] Eosinophils/100 WBC (Bld) 2.6 % Normal 0-7 [facility] Erythrocyte distribution width (RBC) [Entitic vol] 13.2 % Normal 11.7-15.0 [facility] Hematocrit (Bld) [Volume fraction] 39.4 % Normal 34.0-50.0 [facility] Hemoglobin (Bld) [Mass/Vol] 13.1 g/dL Normal 11.5-17.0 [facility] Lymphocytes (Bld) [#/Vol] 1.9 thou/mcL Normal 0.7-4.5 [facility] Lymphocytes/100 WBC (Bld) 28.7 % Normal 14-46 [facility] MCH (RBC) [Entitic mass] 29.9 Picograms Normal 27.0-34.0 [facility] MCHC (RBC) [Mass/Vol] 33.2 g/dL Normal 32.0-36.0 [facility] MCV (RBC) [Entitic vol] 90.3 fL Normal 80-98 [facility] Monocytes (Bld) [#/Vol] 0.6 thou/mcL Normal 0.1-1.0 [facility] Monocytes/100 WBC (Bld) 8.8 % Normal 4-13 [facility] Neutrophils (Bld) [#/Vol] 3.9 thou/mcL Normal 1.5-7.8 [facility] Neutrophils/100 WBC (Bld) 58.7 % Normal 40-74 [facility] Platelet mean volume (Bld) [Entitic vol] 7.2 fL Low 7.5-11.2 [facility] Platelets (Bld) [#/Vol] 418 thou/mcL High 140-415 [facility] RBC (Bld) [#/Vol] 4.37 x(10)6/mcL Normal 3.80-5.60 [facility] WBC (Bld) [#/Vol] 6.7 thou/mcL Normal 4.0-10.5 [facility] Partial Thromboplastin Time (aPTT)on 08-02-2018 aPTT Coag (PPP) [Time] 29 Sec Normal 24.4-37.5 [facility] Prothrombin Timeon 9 INR Coag (Bld) [Relative time] 1.0 {INR} Normal 0.8-1.2 [facility] Comment on above: Result Comment: MG ANN THE INDUCTION PHASE OF ORAL ANTICOAGULATION, THE INR MAY NOT REFLECT THE ANTICOAGULANT STATUS OF THE PATIENT. THERAPEUTIC RANGES FOR INR'S ARE: MOST CLINICAL SITUATIONS: INR 2.0-3.0 MECHANICAL PROSTHETIC VALVES: INR 2.5-3.5 CRITICAL: INR 5.0 PT Coag (PPP) [Time] 10.7 Sec Normal 9.4-12.5 [facility] Vital Signs Date Time Vital Sign Value Performing Clinician Gena hendrickson 06-01-2023 10:02-0500 Body mass index (BMI) [Ratio] 33.08 kg/m2 Mily Zsarnay INTERNAL COMBUSTION ENGINE ASSEMBLER-RHIC SYSTEMS SAFETY ENGINEER Work Phone: [facility] [employer] [facility] 06-01-2023 10:02-0500 Body weight 95.8 kg Mily Nelson INTERNAL COMBUSTION ENGINE ASSEMBLER-RHIC SYSTEMS SAFETY ENGINEER Work Phone: [facility] [employer] [facility] 06-01-2023 10:02-0500 Diastolic blood pressure 75 mm[Hg] Mily Nelson INTERNAL COMBUSTION ENGINE ASSEMBLER-RHIC SYSTEMS SAFETY ENGINEER Work Phone: [facility] 06-01-2023 10:02-0500 Heart rate 81 /min Mily Nelson INTERNAL COMBUSTION ENGINE ASSEMBLER-RHIC SYSTEMS SAFETY ENGINEER Work Phone: [facility] [employer] [facility] 06-01-2023 10:02-0500 Systolic blood pressure 140 mm[Hg] Mily Nelson INTERNAL COMBUSTION ENGINE ASSEMBLER-RHIC SYSTEMS SAFETY ENGINEER Work Phone: [facility] 01-11-2022 11:26-0400 Body temperature 98 [degF] MD Bora Lindsey Work Phone: [facility] 01-11-2022 11:26-0400 Body weight 95.39 kg MD Bora Lindsey Work Phone: [facility] 01-11-2022 11:26-0400 Diastolic blood pressure 78 mm[Hg] MD Bora Lindsey Work Phone: [facility] 01-11-2022 11:26-0400 Heart rate 83 /min MD Bora Lindsey Work Phone: [facility] 01-11-2022 11:26-0400 Respiratory rate 16 /min MD Bora Lindsey Work Phone: [facility] 01-11-2022 11:26-0400 SaO2% (BldA) [Mass fraction] 97 % MD Bora Lindsey Work Phone: [facility] 01-11-2022 11:26-0400 Systolic blood pressure 154 mm[Hg] MD Bora Lindsey Work Phone: [facility] 01-11-2022 11:15-1270 Body height 168.91 cm MD Bora Lindsey Work Phone: [facility] Encounters Encounter Date Encounter Type Care Provider Facility Start: 10-17-2023 End: 10-17-2023 ambulatory Kelly Boyd MD Facility:[facility] Start: 10-03-2023 End: 10-03-2023 ambulatory Kelly Boyd MD Facility:[facility] Start: 09-16-2023 End: 09-17-2023 ambulatory PIETER RANKIN Not Available Start: 09-13-2023 End: 09-13-2023 ambulatory [facility] Start: 08-08-2023 Telephone encounter Mily perales INTERNAL COMBUSTION ENGINE ASSEMBLER-RHIC SYSTEMS SAFETY ENGINEER Work Phone: [facility] Start: 08-05-2023 End: 08-06-2023 ambulatory SHAHZAD SCRUGGS Not Available Start: 07-15-2023 Telephone encounter Sonia [facility]cc[facility]lland [facility] Start: 07-11-2023 End: 07-11-2023 ambulatory QUYEN MCMAHON [facility] Start: 06-13-2023 Telephone encounter [facility]arc[facility] barahona [facility] Start: 06-01-2023 End: 06-01-2023 ambulatory [facility] Tony BARBBib [facility] Start: 06-01-2023 End: 06-01-2023 Office outpatient visit 25 minutes Mily Nelson INTERNAL COMBUSTION ENGINE ASSEMBLER-RHIC SYSTEMS SAFETY ENGINEER Work Phone: [facility] Comment on above: Type 2 diabetes jaxson itus with hypoglycemia without coma, without long-term current use of insulin ([facility]) (Primary Dx) Start: 03-24-2023 End: 03-24-2023 ambulatory Miguelina Tellez Facility:[facility] Start: 03-24-2023 End: 03-24-2023 ambulatory MD Miguelina Tellez Work Phone: [facility] Work Phone: Start: 03-24-2023 End: 03-24-2023 Departed Referred MD Miguelina Tellez Work Phone: [facility] [place] Work Phone: Start: 01-11-2022 End: 01-11-2022 Registered Recurring MD Bora Lindsey Work Phone: [facility] Start: 01-06-2021 End: 01-07-[address] JOSE JACKMAN Facility: Procedures Date Procedure Procedure Detail Performing Clinician Start: 06-01-2023 Hemoglobin glycosyla javon a1c Mily A E-Buyangella INTERNAL COMBUSTION ENGINE ASSEMBLERBapul Work Phone: Start: 12-02-2022 Microalbumin [Mass/v olume] in Urine by Test strip Mily Nelson INTERNAL COMBUSTION ENGINE ASSEMBLERBapul Work Phone: Start: 10-14-2022 Adult depression scr eening assessment Mily GettingHiredbib INTERNAL COMBUSTION ENGINE ASSEMBLERBapul Work Phone: Plan of Treatment Date Care Activity Detail Author Start: 11-21-2028 DTaP,Tdap and Td Vaccines (2 - Td or Tdap) DTaP,Tdap and Td Vaccines (2 - Td or Tdap) [facility] [employer] Start: 07-11-2024 Adult [facility] Start: 07-09-2024 End: 07-09-2024 Patient encounter procedure 07/09/2024 10:30 AM EST Office Visit [facility] [address] [place] [address] Quyen Mcmahon MD [address] [place] [address] [facility] Start: 06-01-2024 Adult BMI Screening Adult [facility] Screening [facility] Start: 06-01-2024 Tobacco Screening Tobacco Screening [facility] Start: 02-19-2024 Adult BMI Screening Adult BMI Screening [facility] Start: 02-19-2024 Tobacco Screening Tobacco Screening [facility] Start: 12-03-2023 Urine screening for protein Urine Microalbumin [facility] Start: 10-15-2023 Depression Screening Depression Screening [facility] Start: 09-13-2023 End: 09-13-2023 Patient encounter procedure 09/13/2023 10:15 AM EDT Office Visit [facility] [address] [place] [address] Melanie Tamayo MD [address] [place] [address] [facility] Start: 07-11-2023 End: 07-11-2023 Patient encounter procedure 07/11/2023 12:00 PM EST Office Visit [facility] [address] [place] [address] Quyen Mcmahon MD [address] [place], [place] [id number] [facility] Start: 04-11-2023 COVID-19 Vaccine ( season) COVID-19 Vaccine ( season) [facility] Start: 2016 Fall Risk Screening Fall Risk Screening [facility] Start: 1969 Adult BMI Follow Up Plan Adult BMI Follow Up Plan [facility] Start: 1969 Diabetic foot examination Diabetic Foot Exam [facility] Start: 1950 Glaucoma screening Diabetic Ophthalmology Exam [facility] Start: 1950 Medicare Annual Wellness Visit Medicare Annual Wellness Visit [facility] Work Phone: Payers Date Payer Category Payer Unknown 2023 Self-pay 2016 Medicare [id number] 2016 Private Health Insurance [facility] SUPPLEMENT [id number] 2016-Present [phone] [address] [place] [address] [id number] 1959 Medicare [id number] 1959 Unknown [id number] 1950 Unknown [id number] 1950 Unknown [id number] 1950 Unknown [id number] 1950 Unknown [id number] .[id number] 1950 Unknown [id number] .[id number] 1950 Unknown [id number] .[id number] 1950 Unknown [id number] .1259 1950 Unknown [id number] [id number] .196 1950 Unknown [id number] Unknown [id number] Social History Date Type Detail Facility Start: 01-11-2022 End: 06-17-2022 Tobacco smoking status RIIS Ex-smoker (finding) [facility] Start: 1950 Sex Assigned At Male [facility] History of tobacco use Current smoker [facility] Start: 06-17-2022 Tobacco use and exposure Smok[facility] Start: 06-01-2023 Alcohol intake Current non-dr mobile home set up person of alcohol (finding) [facility] Start: 06-26-2020 End: 06-01-2023 Alcohol intake [facility] Start: 06-26-2020 End: 06-01-2023 Tobacco use panel [facility] Adolescent depressio n screening assessment 0 [facility] Start: 06-17-2022 Tobacco Comment Quite 40 years ago P [facility] Start: 1950 Sex Assigned At Not on file P [facility] Medical Equipment Procedure Code Equipment Code Equipment Origin al Text Equipment Identifier Dates USE DIRECTED THREE TIMES DAILY [id number] Start: 11-17-2022 by miscellaneous route 3 (three) times a day. [id number] USE TO ADMINISTE R INSULIN 4 TIMES DAILY. [id number] Start: 04-18-2023 Clinical Notes 06-01-2023 to 08-08-2023 Telephone Encounter - Jordana Borrero - 08/08/2023 11:25 AM EDTTelephone Encounter - Mily Nelson APRN-GABRIEL - 08/08/2023 11:25 AM EDTTelephone Encounter - [...] and verbalized understanding documented in this encounter [facility] 08-08-2023 Telephone encounter Note LM that he [...] up to mid 200-300 range. Please advise [facility] 08-08-2023 Telephone encounter Note I recommend he add 2 units to each range for now and until two days AFTER he is off steroids and then resume regular sliding scale. I would not increasing the long acting dose since his fasting sugars are normal [facility] Work Phone: 08-08-2023 Telephone encounter Note Patient informed and verbalized understanding [facility] 07-15-2023 Miscellaneous Notes Faxed PAP supply order along with office note to [facility] documented in this encounter [facility] 07-15-2023 Telephone encounter Note Faxed PAP supply order along with office note to [facility] 06-13-2023 Miscellaneous Notes Patient is asking to [...] Okay to drop them off at front desk manager. I will take them into the free clinic I let him know. He will bring them to the front desk manager soon. documented in this encounter [facility] [employer] 06-13-2023 Telephone encounter Note Patient is asking to speak with you directly. [facility]23 Telephone encounter Note I left a message for the patient asking for more details regarding this phone call. [facility]23 Telephone encounter Note He called back. He has Novolog 70/30 pens that are unused and have been refrigerated. He is wanting to donate them to you for the free clinic and wondering when and how to get them to you. [employer] 06-13-2023 Telephone encounter Note Okay to drop them off at front desk manager. I will take them into the free clinic [employer] 06-13-2023 Telephone encounter Note I let him know. He will bring them to the front desk manager soon. [facility] [employer] 06-01-2023 History of Presen t illness Narrative [...] DM type 2 (diabetes mellitus, type 2) ([facility]) HLD (hyperlipidemia) HTN (hypertension) Lactose intolerance PAULINE (obstructive sleep apnea) Sleep apnea Past Surgical History: Procedure Laterality Date APPENDECTOMY CARPAL TUNNEL RELEASE CATARACT EXTRACTION COLONOSCOPY N/A 09/14/2018 Performed by Magnus Mccarty MD at [facility] CYST REMOVAL HYDROCELE EXCISION / REPAIR [...] needed for sleep., Disp: , Rfl: omega 1-ryj-mgi-fish oil 1,200 (144-216) mg capsule, Take by [...] coma, without long-term current use of insulin ([facility]) Better controlled, high post prandial most consistently [...] Return to clinic: august appt with doctor Mily Nelson, [employer] 06/01/23 1237 documented in this encounter [employer] System Consult note Note Date/Time January 11, 2022 12:23pm [facility] [place] [id number] Hem/Onc Consult Note - OP Signed Patient: Jered Garay MR#: [id number] : 1950 Acct:[id number] Age/Sex: 71 / M Type: REG RCR [...] cuff 2006 History of carpal tunnel release 1993 History of total right hip arthroplasty 2019 [...] for coordination of care (as documented) and mvto-zc-xnbu counseling of patient and/or family. Dictated By: Bora Lindsey MD DD/ 1219 Signed By: <Electronically signed by Bora Lindsey MD> 01/11/22 1230 [facility] Work Phone: Evaluation note* Diagnosis Onset Date Resolution Status Reactive thrombocytosis acut e [facility] Work Phone: Evaluation noteNo assessment information available [facility] Work Phone: Evaluation note* Diagnosis Type 2 diabetes mellitus with hypoglycemia without coma, without long-term current use of insulin ([facility])- Primary documented in this encounter [employer]itan[employer] SystemInstructionsNot on filedocumented in this encounter [employer] SystemInstructionsNot on filedocumented in this encounter [employer] SystemInstructionsNot on filedocumented in this encounter [employer] System Summary Purpose Family History No Family [...] 2022 2:31pm Assessments Note Patient: JERED GARAY Age: 68 years Sex: Male : 1950 Associated Diagnoses: None Author: Kenneth Zuniga DO Assessment Assessment Diagnosis: Primary osteoarthritis of right hip (VFP53-DB M16.11, Working, Medical). Plan Postoperative day #1 right total hip arthroplasty. Enteric coated aspirin--deep venous thrombosis prophylaxis per primary surgical service. Khbxqvnqewow-zaavoxcne-pyxysjdukd on iyfakgbkvz-eysldyihyvfmfowxaew-rffwsrury postoperatively. Good blood pressure control postoperatively. Type [...] summary document to your follow up appointments. [facility] 08/08/18 11:02 [address] [place]. [address] PATIENT INFORMATION Name: JERED GARAY Address: [address] [place] [id number] Age: 68 Years Phone: [phone] : 1950 12:00 [id number] Sex: Male Race: White Ethnicity: Not Hispan/Lat Admitted From: Clinic or [facility] Medical Service: Orthopedic Surgery Nurse Unit/Bed: (CO) 2NAN 0225-01 Admit Date: 08/07/2018 07:26 PCP: Miguelina Tellez MD PHYSICIANS INVOLVED WITH CARE Attending Physicians: Jameson Espinal MD , Jeremy - Orthopaedic Surg Admitting Physician: Jameson Espinal MD , Jeremy - Orthopaedic Surg Primary Care Physician:Geoff VERGARA , Miguelina Clark,[facility], - Consults: RONALDO Gill - Internal Medicine Problems Active PAULINE (more content not included)... Note Patient: JERED GARAY [id number] Age: 68 years Sex: Male : 1950 [...] summary document to your follow up appointments. [facility] 08/08/18 11:02 [address] [place]. [address] PATIENT INFORMATION Name: JERED GARAY Address: [address] [place] [id number] Age: 68 Years Phone: [phone] : 1950 12:00 MRN: ([id number] Sex: Male Race: White Ethnicity: Not Hispan/Lat Admitted From: Clinic or [facility] Medical Service: Orthopedic Surgery Nurse Unit/Bed: (CO) 2N 0225-01 Admit Date: 08/07/2018 07:26 PCP: Miguelina Tellez MD PHYSICIANS INVOLVED WITH CARE Attending Physicians: Jameson Espinal MD , Jeremy - Orthopaedic Surg Admitting Physician: Jameson Espinal MD , Jeremy - Orthopaedic Surg Primary Care Physician:Geoff VERGARA , Miguelina Clark,[facility], - Consults: RONALDO Gill - Internal Medicine Problems Active PAULINE (more content not included)... Procedure Findings Note Patient: JERED GARAY MRN: ([id number] Age: 68 years Sex: Male : 1950 [...] section and content) DATE CREATED AUTHOR 03/08/2019 [facility] DATE CREATED AUTHOR AUTHOR'S ORGANIZ ATION 01/15/2021 [facility] DATE CREATED AUTHOR AUTHOR'S ORGANIZ ATION 05/07/2022 [facility] DATE CREATED AUTHOR AUTHOR'S ORGANIZ ATION 04/03/2023 [facility] DATE CREATED AUTHOR AUTHOR'S ORGANIZ ATION 09/14/2023 [facility] DATE CREATED AUTHOR AUTHOR'S ORGANIZ ATION 09/21/2023 [facility] Specialists EPIC DATE CREATED AUTHOR AUTHOR'S ORGANIZ ATION 10/27/2023 [facility] Care Teams (unrecognized sec tion and [...] Gene Mike Roman MD Attending Provider Active [facility] Relationship Specialty Start Date End Date Miguelina Tellez MD [address] [place] [address] PCP - General Family Medicine 09/12/18 [facility] Relationship Specialty Start Date End Date Miguelina Tellez MD [address] [facility] [place] [address] PCP - General Family Medicine 09/12/18 [facility] Relationship Specialty Start Date End Date Miguelina Tellez MD [address] [place] [address] PCP - General Family Medicine 09/12/18 Goals [...] BE BASED ON THE PRIMARY CLINICAL RECORDS. [employer] provides no warranty or guarantee of the accuracy or completeness of information in this document.
--- NOTE | 2023-11-02 09:52 | P.CN_ITS ---
Consult Note: HPI Data of Consult Patient: known to practice within the last 3 years Consult date: 10/03/23 Requesting Physician: Sarah Tran NP Primary Care Provider: ALAYNA Gallegos Narrative Reason for consult: low back, right buttock pain Narrative: 73yom who presents for evaluation. notes increasing low back, buttock R>L pain. worsening over past several months. lumbar imaging shows spondylosis and degenerative disc disease in lower lumbar spine. previously underwent lumbar rfa in 2019 with significant benefit >6 months. notes that pain is similar to back then. has completed >6 weeks of provider directed home exercises program, without benefit. uses OTC pain meds as needed. denies adverse med side effects. Recently underwent bilateral L4-5 L5-S1 medial branch block #2 with >80% improvement in pain and functional ability immediately following and 1 day after injection. Patient noticed improvement in pain with car rides, sitting, and activity. cc:: CC: Sarah Tran NP Review of Systems ROS Status of ROS 10 or more systems reviewed and unremark able except as noted in history and below Musculoskeletal Reports: back pain PFSH PFSH Medical History Diabetes ?E11.9 - Type 2 diabetes mellitus without complications (ICD-10) Sleep apnea ?G47.30 - Sleep apnea, unspecified (ICD-10) High cholesterol ?E78.00 - Pure hypercholesterolemia, unspecified (ICD-10) HTN (hypertension) ?I10 - Essential (primary) hypertension (ICD-10) Surgical History History of knee replacement ?Z96.659 - Presence of unspecified artificial knee joint (ICD-10) History of hip replacement ?Z96.649 - Presence of unspecified artificial hip joint (ICD-10) History of rotator cuff surgery ?Z98.890 - Other specified postprocedural states (ICD-10) History of carpal tunnel release ?Z98.890 - Other specified postprocedural states (ICD-10) Meds Home Medications and Allergies Home Medications ?Medication ?Instructions ?Recorded ?Confirmed ?Type amlodipine 5 mg tablet 5 mg PO DAILY 10/03/23 10/31/23 History atorvastatin 80 mg tablet 80 mg PO DAILY 10/03/23 10/31/23 History glimepiride 4 mg tablet 4 mg PO BID 10/03/23 10/31/23 History insulin aspart U-100 100 unit/mL 35 unit subcut DAILY 10/03/23 10/31/23 History (3 mL) subcutaneous pen (Novolog FlexPen U-100 Insulin aspart) insulin glargine 100 unit/mL 35 unit subcut DAILY 10/03/23 10/31/23 History subcutaneous solution (Lantus U-100 Insulin) losartan 100 1 tab PO DAILY 10/03/23 10/31/23 History mg-hydrochlorothiazide 25 mg tablet metformin 500 mg tablet,extended 500 mg PO QID 10/03/23 10/31/23 History release 24 hr Allergies Allergy/AdvReac Type Severity Reaction Status Date / Time Penicillins Allergy Verified 10/31/23 09:38 Exam Narrative Exam Narrative: Psych-alert and oriented x 3. Attentive and appropriate, constitutionally normal, displays normal mood and affect per situation.? There are no obvious deficits in memory, reasoning, or intellect.? Skin-no obvious rashes, bruising, erythema noted to the patient's area of pain. Extremities- extremities are warm with minimal edema and palpable pulses. Lumbar-no significant tenderness to palpation noted in the lumbar spine and paraspinal musculature.? Pain is elicited with extension, and lateral rotation of the lumbar spine. Range of motion is slightly diminished with these motions due to pain. Facet loading maneuvers are positive bilaterally and do appear to be concordant with the patient's normal complaints of pain.? Coordination remains intact.? Gait remains non-antalgic. Constitutional Documenting provider has reviewed patient's vital signs: yes Common normals: no apparent distress, oriented x3, healthy appearing, alert and well nourished General appearance: cooperative [facility] Common normals: normocephalic, hearing grossly normal bilaterally and moist oral mucous membranes Head and scalp: normocephalic Eye Common normals: PERRL Pupil: PERRL Neck & C-Spine Common normals: full ROM General: normal visual inspection Chest Common normals: inspection of chest normal Respiratory Common normals: normal respiratory effort, no retractions and no use of accessory muscles Neuro Common normals: oriented x3, CN's II-XII intact bilaterally, moves all extremities, no focal motor deficits, no sensory deficits noted and deep tendon reflexes 2+ bilaterally Sensorium/orientation: alert Motor exam: strength 5/5 throughout and no movement abnormalities noted Psych Common normals: mental status grossly normal, thought process normal, cooperative, affect normal, speech normal and activity/motor behavior normal Speech: normal speech Thought process: normal thought process Results Additional Findings Additional findings: If on a controlled substance or opioids, I have checked an [place] report on this patient and there are no aberrancies noted in the prescribing history.??If on a controlled substance or opioid a drug screen was completed and reviewed within the last year, and if there has not been a drug screen completed we ordered one today to monitor higher risk, state monitored pain medication use. As part of providing excellent, safe, comprehensive care, the following was completed at our patient's visit: 1. A medication reconciliation and review to ensure accurate knowledge of current/active medications, including asking our patients to inform us about any rsot-kyx-tqucmwv medications or herbal remedies/nutritional supplements/alternative remedies. 2. A review to specifically ensure our patients have had annual screening for screening for depression, screening for tobacco use, and screening for unhealthy alcohol use. For concerning screenings had a discussion with the patient, provided patient education, and recommended follow-up with primary care provider when appropriate. If patient noted with a risk of falling, they received education on strength, gait, and balance training to prevent future risk of falling. Assessment and Plan Assessment and Plan (1) Lumbar spondylosis: Plan bilateral L4-5 L5-S1 medial branch thermal RFA under fluoroscopy, risks vs benefits reviewed f/u 1 month after
== END 2023-11-02 09:25 | disposition home or self-care (01) ==
LOC: PM 09:24
PROVIDERS: PCP Family Medicine; Visit Provider Nurse Practitioner
DX: M47.816 Spondylosis without myelopathy or radiculopathy, lumbar region (principal)
CPT/HCPCS: G0463

== ENCOUNTER 2023-11-07 06:49 | Day surgery (SDC) | payer MEDICARE, SELFPAY ==
--- OUTSIDE RECORDS SUMMARY | 2023-11-07 06:52 | XMS_ITS ---
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 Name Role Phone DR JOSE JACKMAN Primary Care Unavailable ERICKA KEMP Consulting Unavailab ERICKA Schilling Attending Unavailab ERICKA Schilling Admitting Unavailab MD Bora Mcduffie Attending Provider MD Miguelina Tellez Primary Care Provider [phone] MD Miguelina Tellez Referring Provider [phone] MD Miguelina Tellez Primary Care Provider MD Gerardo Roman Attending Provider Miguelina Tellez Primary Care Unavailable Gerardo Roman Admitting Unavailable Gerardo Roman Attending Unavailable Miguelina Tellez MD Primary Care Provider MELANIE TAMAYO Attending Unavailable WONDERPARESH, MIGUELINA Alonso Referring Unavailable WONDERLY, MIGUELINA Gavin Primary Care Unavailable MILY NELSON Attending Unavailable WONDERLY, MIGUELINA Gavin Referring Unavailable WONDERLY, MIGUELINA Gavin Primary Care Unavailable QUYEN MCMAHON Attending Unavailable WONDERPARESH, MIGUELINA Alonso Referring Unavailable WONDERLY, MIGUELINA Gavin Primary Care Unavailable SHAHZAD SCRUGGS Attending Unavailable PIETER RANKIN Attending Unavailable PIETER RANKIN Referring Unavailable Oliver VERGARA, Kelly Longoria Attending Unavailable Oliver VERGARA, Karishmarius Longoria Attending Unavailable Oliver VERGARA, Kelly Longoria Attending Unavailable Allergies Allergy Classification Reported Allergen(s) Allergy Type Date of Onset Reaction(s) Facility (1 source) Penicillin Drug Allergy [facility] Repository (4 sources) Amoxicillin; Translations: [amoxicillin] Drug Allergy 2 Unknown Reaction [facility] (4 sources) empagliflozin; Translations: [empagliflozin] Drug Allergy [address] Unknown [address] [facility] (4 sources) Fish derivative; Translations: [fish derived] Propensity to adverse reactions [address] [facility] (4 sources) liraglutide; Translations: [liraglutide] Drug Allergy [address] [facility] (9 sources) Lisinopril; Translations: [lisinopril] Drug Allergy [address] [facility] (9 sources) pioglitazone; Translations: [pioglitazone] Drug Allergy 2 Unknown Reaction [facility] (4 sources) Shellfish; Translations: [shellfish derived] Propensity to adverse reactions [address] Unknown [address] [facility] (5 sources) Penicillins; Translations: [PENICILLINS] Propensity to adverse reactions to drug 9 Rash [facility] (5 sources) Shellfish; Translations: [SHELLFISH CONTAINING PRODUCTS] Propensity to adverse reactions to drug 2 [facility] Encounters Encounter Date Encounter Type Care Provider Facility Start: 10-31-2023 End: 10-31-2023 ambulatory [facility] Start: 10-17-2023 End: 10-17-2023 ambulatory Andluus Swati Adamsitis [facility] Start: 10-03-2023 End: 10-03-2023 ambulatory Andkeely Adamsitis [facility] Start: 09-16-2023 End: 09-17-2023 ambulatory PIETER RANKIN Not Available Start: 09-13-2023 End: 09-13-2023 ambulatory [facility] Start: 08-08-2023 Telephone encounter Mily perales EYELET CUTTER-STAFF COUNSELOR Work Phone: [facility] Start: 08-05-2023 End: 08-06-2023 ambulatory SHAHZAD SCRUGGS Not Available Start: 07-15-2023 Telephone encounter Sonia Mcclelland RN [facility] Start: 07-11-2023 End: 07-11-2023 ambulatory QUYEN MCMAHON [facility] Start: 06-13-2023 Telephone encounter Narcisa barahona [facility] Start: 06-01-2023 End: 06-01-2023 ambulatory [facility] Start: 06-01-2023 End: 06-01-2023 Office outpatient visit 25 minutes Mily Ronquillo EYELET CUTTER-STAFF COUNSELOR Work Phone: [facility] Comment on above: Type 2 diabetes jaxson itus with hypoglycemia without coma, without long-term current use of insulin ([facility]) (Primary Dx) Start: 03-24-2023 End: 03-24-2023 ambulatory Miguelina Tellez Facility:[facility] Start: 03-24-2023 End: 03-24-2023 ambulatory MD Miguelina Tellez Work Phone: [facility] Work Phone: Start: 03-24-2023 End: 03-24-2023 Departed Referred MD Miguelina Tellez Work Phone: [facility] [place] Work Phone: Start: 01-11-2022 End: 01-11-2022 Registered Recurring MD Bora Lindsey Work Phone: [facility] Start: 01-06-2021 End: 01-07-[address] JOSE JACKMAN Facility: Medical Equipment Procedure Code Equipment Code Equipment Origin al Text Equipment Identifier Dates USE DIRECTED THREE TIMES DAILY [id number] Start: 11-17-2022 by miscellaneous route 3 (three) times a day. [id number] USE TO ADMINISTE R INSULIN 4 TIMES DAILY. [id number] Start: 04-18-2023 Medications Current Medications Medication Drug [...] coma, without long-term current use of insulin ([facility]) Inject 18 Units under the skin in [...] coma, without long-term current use of insulin ([facility]) Inject 35 Units under the skin in the morning. 36 mL 3 02/18/2023 Active Start: 02-18-2023 insulin glargi ne (LANTUS SOLOSTAR U-100 INSULIN) 100 unit/mL (3 mL) insulin pen Indications: Type 2 diabetes mellitus with hypoglycemia without coma, without long-term current use of insulin ([facility]) Inject 35 Units under the skin in [...] PO Daily January 08, 2022 12:00am omega 0-rpu-nrb-fish oil 1,200 (144-216) mg capsule (4 sources) [...] Category Payer Unknown 2023 Self-pay 2016 Medicare [id number] 2016 Private Health Insurance [facility] SUPPLEMENT [id number] 2016-Present [phone] [address] [place] [address] [id number] 1959 Medicare [id number] 1959 Unknown [id number] 1950 Unknown [id number] [id number] .593 1950 Unknown [id number] 2.16.840.1.361321.3.579.2 .1286 1950 Unknown [id number] 2.16.840.1.404078.3.579.2 .1286 1950 Unknown [id number] 2.16.840.1.078703.3.579.2 .1286 1950 Unknown [id number] 2.16.840.1.410129.3.579.2 .1259 1950 Unknown [id number] 2.16.840.1.478671.3.579.2 .1259 1950 Unknown [id number] 2.16.840.1.318102.3.579.2 .1259 1950 Unknown [id number] 2.16.840.1.572747.3.579.2 .196 1950 Unknown [id number] 2.16.840.1.710733.3.579.2 .196 1950 Unknown [id number] 2.16.840.1.348259.3.579.2 .196 Unknown [id number] [id number] .531 Plan of Treatment Date Care Activity Detail Author Start: 11-21-2028 DTaP,Tdap and Td Vaccines (2 - Td or Tdap) DTaP,Tdap and Td Vaccines (2 - Td or Tdap) [facility] Start: 07-11-2024 Adult BMI Screening Adult BMI Screening [facility] Start: 07-09-2024 End: 07-09-2024 Patient encounter procedure 07/09/2024 10:30 AM EST Office Visit [facility] [address] [place] [id number] [place] [address] [place] [address] [address] [place] [address] [facility] Start: 06-01-2024 Adult BMI Screening [facility] Start: 06-01-2024 Tobacco Screening Tobacco Screening [facility] Start: 02-19-2024 Adult BMI Screening Adult [facility] Screening [facility] Start: 02-19-2024 Tobacco Screening [facility] Start: 12-03-2023 Urine screening for protein Urine Microalbumin [facility] Start: 10-15-2023 Depression Screening Depression Screening [facility] Start: 09-13-2023 End: 09-13-2023 Patient encounter procedure 09/13/2023 10:15 AM EDT Office Visit [facility] [address] [place] [address] Melanie Tamayo MD [address] [place] [address] [facility] Start: 07-11-2023 End: 07-11-2023 Patient encounter procedure 07/11/2023 12:00 PM EST Office Visit [facility] [address] [place] [id number] [place] [address] [place] [address] [address] [place] [address] [facility] Start: 04-11-2023 COVID-19 Vaccine ( season) COVID-19 Vaccine () [facility] Start: 2016 Fall Risk Screening Fall Risk Screening [facility] Start: 1969 Adult BMI Follow Up Plan Adult BMI Follow Up Plan [facility] Start: 1969 Diabetic foot examination Diabetic Foot Exam [facility] Start: 1950 Glaucoma screening Diabetic Ophthalmology Exam [facility] Start: 1950 Medicare Annual Wellness Visit Medicare Annual Wellness Visit [facility] Work Phone: Problems Active Problems [...] Onset: 10-14-2022 10-14-2022 Other aftercare (1 source) 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 (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) use of insulin; Translations: [nursing home (current) use of insulin] Onset: 06-17-2022 Episodic Unclassified (1 source) CONTACT W/AND (SUSP) EXPOS COVID-19; Translations: [CONTACT W/AND (SUSP) EXPOS COVID-19] Onset: 01-06-2021 Procedures Date Procedure Procedure Detail Performing Clinician Start: 06-01-2023 Hemoglobin glycosyla javon a1c Mily Nelson [facility] Work Phone: Start: 12-02-2022 Microalbumin [Mass/v olume] in Urine by Test strip Mily Nelson [facility]IT [facility] Work Phone: Start: 10-14-2022 Adult depression scr eening assessment Mily Nelson [facility]IT [facility] Work Phone: Results Test Name Value Interpretation Reference Range Facility POCT Hemoglobin A1con 2023 HbA1c (Bld) [Mass fraction] 6.8 g/dL 4 - 7 g/dL [facility] 03-24-2023 L - -------- Specimen: [id number] Received: 03/25/23 Status: AIRAM Jones Num: [id number] Spec Type: Surgical Subm Dr: Gerardo Roman MD Tissues: A Skin-Other than Cyst, tag, debridement or plastic repair (LT EYE) B Skin-Other than Cyst, tag, debridement or plastic repair (RT EYE) Procedures: Xavier BLANCO/Vipul L4/2 -------- Age/ Patient Sex Location Account Attending Physician -------- Jered Garay 72/M [place] [id number] Gerardo Roman MD -------- SPEC NUM: [id number] RECD: 03/25/23 STATUS: AIRAM ALONZO NUM: [id number] COLBY: 03/24/[address] [facility] [address]: Gerardo Roman MD ENTERED: 03/25/[address] [facility] [address]: SPEC TYPE: Surgical DEPT: S ORDERED: [...] in one cassette labeled B1. -------- Specimen: [id number] Received: 03/25/23 Status: AIRAM Jones Num: [id number] Spec Type: Surgical Subm Dr: Gerardo Roman MD Tissues: A Skin-Other than Cyst, tag, debridement or plastic repair (LT EYE) B Skin-Other than Cyst, tag, debridement or plastic repair (RT EYE) Procedures: HE/2, Gross/Micro L4/2 -------- Patient: Jered Garay [id number] (Formerly [facility]) -------- Specimen: [id number] Received: 03/25/23 (Continued) Signed (signature on file) Minh Doran MD 03/28/23 1400 -------- Specimen: [id number] Received: 03/25/23 Status: AIRAM Jones Num: [id number] Spec Type: Surgical Subm Dr: Gerardo Roman MD Tissues: A Skin-Other than Cyst, tag, debridement or plastic repair (LT EYE) B Skin-Other than Cyst, tag, debridement or plastic repair (RT EYE) Procedures: Xavier BLANCO/Vipul L4/2 -------- Patient: Jered Garay [id number] (Continued) -------- Specimen: [id number] Received: 03/25/23 (Continued) Microscopic Description A. One H E slide reviewed. The microscopic examination confirms the diagnosis. B. One H E slide reviewed. The microscopic examination confirms the diagnosis. CPT Codes 60814i2 -------- -------- Specimen: [id number] Received: 03/25/23 Status: AIRAM Alonzo Num: [id number] Spec Type: Surgical Subm Dr: Gerardo Roman MD Tissues: A Skin-Other than Cyst, tag, debridement or plastic repair (LT EYE) B Skin-Other than Cyst, tag, debridement or plastic repair (RT EYE) Procedures: HE/2, Gross/Micro L4/2 -------- Patient: GarayJered [id number] (Continued) -------- Signed (signature on file) Minh Doran MD 03/28/23 1400 [facility] XR Chest 2 Views*on 05-04-20 22 XR Chest 2 Views* FINDINGS: Comparison made [...] Nash on 05/04/2022 0943 Normal [facility] Complete Blood Counton 10-07 Erythrocyte distribution width (RBC) [Ratio] 12.9 % Normal 11.0-15.0 [facility] Comment on above: Performed By: #### L IPD, CBC, CMP #### [facility] [address], [place] [id number] Hematocrit (Bld) [Volume fraction] 45.1 % Normal 38.5-50.0 [facility] Comment on above: Performed By: #### L IPD, CBC, CMP #### [facility] [address], [place] [id number] Hemoglobin (Bld) [Mass/Vol] 14.9 g/dL Normal 13.0-17.1 [facility] Comment on above: Performed By: #### L IPD, CBC, CMP #### [facility] [address], [place] [id number] MCH (RBC) [Entitic mass] 29.9 pg Normal 27.0-33.0 [facility] Comment on above: Performed By: #### L IPD, CBC, CMP #### [facility] [address], [place] [id number] MCHC (RBC) [Mass/Vol] 33.0 g/dL Normal 32.0-36.0 [facility] Comment on above: Performed By: #### L IPD, CBC, CMP #### [facility] [address], [place] [id number] MCV (RBC) [Entitic vol] 90 fL Normal 80-100 [facility] Comment on above: Performed By: #### L IPD, CBC, CMP #### [facility] [address], [place] [id number] Platelet mean volume (Bld) [Entitic vol] 8.90 fL Normal 7.50-12.50 [facility] Specialist Comment on above: Performed By: #### L IPD, CBC, CMP #### [facility] [address], [place] [id number] Platelets (Bld) [#/Vol] 421 10*3/uL High 140-400 [facility] Counselor Comment on above: Performed By: #### L IPD, CBC, CMP #### [facility] [address], [place] [id number] RBC (Bld) [#/Vol] 4.99 10*6/uL Normal 4.20-5.80 [facility] Relocation Counselor Comment on above: Performed By: #### L IPD, CBC, CMP #### [facility] [address], [place] [id number] RDW-SD 42.6 fL Normal 37.0-50.0 [facility] Comment on above: Performed By: #### L IPD, CBC, CMP #### [facility] [address], [place] [id number] WBC (Bld) [#/Vol] 6.6 10*3/uL Normal 3.8-11.0 [facility] Relocation Counselor Comment on above: Performed By: #### L IPD, CBC, CMP #### [facility] [address], [place] [id number] Comprehensive Metabolic Pane [facility] 10-07-2021 Albumin [Mass/Vol] 4.7 g/dL Normal 3.6-5.1 [place] [facility] Relocation Counselor Comment on above: Performed By: #### L IPD, CBC, CMP #### [facility] [address], [place] [id number] Albumin/Globulin [Mass ratio] 1.9 {ratio} Normal 1.0-2.5 [facility] Comment on above: Performed By: #### L IPD, CBC, CMP #### [facility] [address], [place] [id number] ALP [Catalytic activity/Vol] 96 U/L Normal 40-129 [facility] Comment on above: Performed By: #### L IPD, CBC, CMP #### [facility] [address], [place] [id number] ALT [Catalytic activity/Vol] 29 U/L Normal 9-46 [facility] Comment on above: Result Comment: 04/15 Female reference range changed. Performed By: #### L IPD, CBC, CMP #### [facility] [address], [place] [id number] Anion gap [Moles/Vol] 18 mmol/L Normal 12-20 [facility] Comment on above: Result Comment: Effe ctive 05/21/2019 reference range changed. Performed By: #### L IPD, CBC, CMP #### [facility] [address], [place] [id number] AST [Catalytic activity/Vol] 24 U/L Normal 10-40 [facility] Comment on above: Performed By: #### L IPD, CBC, CMP #### [facility] [address], [place] [id number] Bilirubin [Mass/Vol] 0.99 mg/dL Normal 0.30-1.20 [facility] Comment on above: Performed By: #### L IPD, CBC, CMP #### [facility] [address], [place] [id number] BUN/CREA 13 Ratio Normal 6-22 [facility] Comment on above: Performed By: #### L IPD, CBC, CMP #### [facility] [address], [place] [id number] Calcium [Mass/Vol] 10.0 mg/dL Normal 8.6-10.2 [facility] Comment on above: Performed By: #### L IPD, CBC, CMP #### [facility] [address], [place] [id number] Chloride [Moles/Vol] 97 mmol/L Low 98-107 [facility] Comment on above: Performed By: #### L IPD, CBC, CMP #### [facility] [address], [place] [id number] CO2 [Moles/Vol] 26 mmol/L Normal 20-31 [facility] Comment on above: Performed By: #### L IPD, CBC, CMP #### [facility] [address], [place] [id number] Creatinine [Mass/Vol] 0.9 mg/dL Normal 0.7-1.4 [facility] Comment on above: Performed By: #### L IPD, CBC, CMP #### [facility] [address], [place] [id number] eGFRAA 99 mL/min/1.73m2 Normal >60 [facility] Comment on above: Performed By: #### L IPD, CBC, CMP #### [facility] [address], [place] [id number] eGFRNAA 81 mL/min/1.73m2 Normal >60 [facility] Comment on above: Performed By: #### L IPD, CBC, CMP #### [facility] [address], [place] [id number] Globulin (S) [Mass/Vol] 2.5 g/dL Normal 1.9-3.7 [facility] Comment on above: Performed By: #### L IPD, CBC, CMP #### [facility] [address], [place] [id number] Glucose [Mass/Vol] 196 mg/dL High 65-99 [facility] Comment on above: Result Comment: For FASTING Glucose --- ADA reference ranges: Normal 65-99 mg/dl Prediabetes 100-125 Diabetes >/= 126 Performed By: #### L IPD, CBC, CMP #### [facility] [address], [place] [id number] Potassium [Moles/Vol] 4.0 mmol/L Normal 3.5-5.5 [facility] Comment on above: Performed By: #### L IPD, CBC, CMP #### [facility] [address], [place] [id number] Protein [Mass/Vol] 7.2 g/dL Normal 6.1-8.1 [place] [facility] Counselor Comment on above: Performed By: #### L IPD, CBC, CMP #### [facility] [address], [place] [id number] Sodium [Moles/Vol] 137 mmol/L Normal 135-146 [place] [facility] Counselor Comment on above: Performed By: #### L IPD, CBC, CMP #### [facility] [address], [place] [id number] Urea nitrogen [Mass/Vol] 12 mg/dL Normal 7-25 [facility] Comment on above: Performed By: #### L IPD, CBC, CMP #### [facility] [address], [place] [id number] Lipid Panelon 10-07-2021 Cholesterol [Mass/Vol] 142 mg/dL Normal 125-200 [facility] Comment on above: Result Comment: Low risk < 200mg/dL Borderline risk 201-239 mg/dl High risk > or equal to 240 Performed By: #### L IPD, CBC, CMP #### [facility] [address], [place] [id number] Cholesterol in HDL [Mass/Vol] 42 mg/dL Normal >40 [facility] Comment on above: Result Comment: High Cardiovascular Risk HDL <40 mg/dL Low Cardiovascular Risk HDL > or equal to 60 mg/dl Performed By: #### L IPD, CBC, CMP #### [facility] [address], [place] [id number] Cholesterol in LDL [Mass/Vol] 40 mg/dL Normal [facility] Comment on above: Result Comment: LDL ATP III CLASSIFICATION LDL less than 100 mg/dl Optimal LDL 100-129 mg/dl Near or above optimal LDL 130-159 Borderline high LDL 160-189 High LDL greater than 189 mg/dl Very High Performed By: #### L IPD, CBC, CMP #### [facility] [address], [place] [id number] Cholesterol in VLDL [Mass/Vol] 60 mg/dL Normal [facility] Comment on above: Performed By: #### L IPD, CBC, CMP #### [facility] [address], [place] [id number] Cholesterol.total/Ch olesterol in HDL [Mass ratio] 3 {ratio} Normal [facility] Comment on above: Performed By: #### L IPD, CBC, CMP #### [facility] [address], [place] [id number] Triglyceride [Mass/Vol] 298 mg/dL High 30-150 [facility] Comment on above: Result Comment: TRIG ATPIII CLASSIFICATIONS TRIG less than 150 mg/dl Normal TRIG 150-199 mg/dl Borderline High TRIG 200-500 mg/dl High TRIG greather than 500 mg/dl Very High Performed By: #### L IPD, CBC, CMP #### [facility] [address], [place] [id number] Microalbumin (w/o Creat)on 10-07-2021 mALB 27.4 mg/dL Normal [facility] Comment on above: Result Comment: mALB reference range not established. Performed By: #### m ALB #### [facility] [address], [place] [id number] Covid-19 PCR (CVDTB)on 12-15 SARS-CoV-2 (COVID-19) RNA DANNY+probe Ql (Unsp spec) Not detected Normal NOT DETECTED [facility] Comment on above: Result Comment: This test is not yet approved or cleared by the [place] FDA. When there are no FDA-approved or cleared tests available, and other criteria are met, FDA can make tests available under an emergency access mechanism called an Emergency Use Authorization (EUA). The EUA for this test is supported by the [employer] Consultant of Health and Human Service's (HHS's) declaration [...] consistent with SARS-CoV-2. Performed By: #### C VDTB #### [facility] [address] [place] [address] Ted Casas Basic Metabolic Panelon 02-14 Calcium [Mass/Vol] 9.5 mg/dL Normal 8.5-10.6 [facility] Chloride [Moles/Vol] 100 mmol/L Normal 98-107 M[facility] t [facility] CO2 [Moles/Vol] 25 mmol/L Normal 21-32 [facility] Creatinine [Mass/Vol] 0.95 mg/dL Normal 0.70-1.30 [facility] Glucose [Mass/Vol] 171 mg/dL High 70-99 [facility] Potassium [Moles/Vol] 4.4 mmol/L Normal 3.5-5.1 [facility] Sodium [Moles/Vol] 136 mmol/L Normal 136-145 [facility] Urea nitrogen (BldV) [Mass/Vol] 19 mg/dL High 7.0-18.0 [facility] Urea nitrogen/Creatinine [Mass ratio] 20 mg/mg Normal [facility] CBC with Differentialon 02-14 Basophils (Bld) [#/Vol] 0.1 thou/mcL Normal 0.0-0.2 [facility] Basophils/100 WBC (Bld) 1.0 % Normal 0-3 [facility] Differential cell count method Nom (Bld) AUTOMATED DIFFERENTIAL Normal [facility] Eosinophils (Bld) [#/Vol] 0.1 thou/mcL Normal 0.0-0.4 [facility] Eosinophils/100 WBC (Bld) 2.6 % Normal 0-7 [facility] Erythrocyte distribution width (RBC) [Entitic vol] 14.0 % Normal 11.7-15.0 [facility] Hematocrit (Bld) [Volume fraction] 39.7 % Normal 34.0-50.0 [facility] Hemoglobin (Bld) [Mass/Vol] 13.2 g/dL Normal 11.5-17.0 [facility] Lymphocytes (Bld) [#/Vol] 1.5 thou/mcL Normal 0.7-4.5 [facility] Lymphocytes/100 WBC (Bld) 26.0 % Normal 14-46 [facility] MCH (RBC) [Entitic mass] 30.1 Picograms Normal 27.0-34.0 [facility] MCHC (RBC) [Mass/Vol] 33.3 g/dL Normal 32.0-36.0 [facility] MCV (RBC) [Entitic vol] 90.5 fL Normal 80-98 [facility] Monocytes (Bld) [#/Vol] 0.5 thou/mcL Normal 0.1-1.0 [facility] Monocytes/100 WBC (Bld) 8.4 % Normal 4-13 [facility] Neutrophils (Bld) [#/Vol] 3.5 thou/mcL Normal 1.5-7.8 [facility] Neutrophils/100 WBC (Bld) 62.0 % Normal 40-74 [facility] [facility] Platelet mean volume (Bld) [Entitic vol] 7.0 fL Low 7.5-11.2 [facility] Platelets (Bld) [#/Vol] 390 thou/mcL Normal 140-415 [facility] RBC (Bld) [#/Vol] 4.39 x(10)6/mcL Normal 3.80-5.60 [place] WBC (Bld) [#/Vol] 5.6 thou/mcL Normal 4.0-10.5 [facility] Partial Thromboplastin Time (aPTT)on 03-07-2019 aPTT Coag (PPP) [Time] 27 Sec Normal 23.2-34.6 [facility] Prothrombin Timeon 201 9 INR Coag (Bld) [Relative time] 0.9 {INR} Normal [facility] Comment on above: Result Comment: MG ANN THE INDUCTION PHASE OF ORAL ANTICOAGULATION, THE INR MAY NOT REFLECT THE ANTICOAGULANT STATUS OF THE PATIENT. THERAPEUTIC RANGES FOR INR'S ARE: MOST CLINICAL SITUATIONS: INR 2.0-3.0 MECHANICAL PROSTHETIC VALVES: INR 2.5-3.5 CRITICAL: INR 5.0 PT Coag (PPP) [Time] 11.9 Sec Normal 11.9-14.6 [facility] Patient Portal Messageon Patient Portal Message --- --- --- --- --- --- --- --- --- From: Hospital, Patient Summary Visit To: JARROD JERED Tony Sent: 08/09/18 01:30:45 AM EDT Subject: New Results Available A summary regarding your recent visit is available in the Documents section of your Health Record. Normal [facility] Basic Metabolic Panelon 07-15 Calcium [Mass/Vol] 8.4 mg/dL Low 8.5-10.6 [facility] Chloride [Moles/Vol] 100 mmol/L Normal 98-107 [facility] CO2 [Moles/Vol] 29 mmol/L Normal 21-32 [facility] Creatinine [Mass/Vol] 0.97 mg/dL Normal 0.70-1.30 [facility] Glucose [Mass/Vol] 166 mg/dL High 74-106 [facility] Potassium [Moles/Vol] 3.9 mmol/L Normal 3.5-5.1 [facility] Sodium [Moles/Vol] 137 mmol/L Normal 136-145 [facility] Urea nitrogen (BldV) [Mass/Vol] 14 mg/dL Normal 7-18 [facility] Urea nitrogen/Creatinine [Mass ratio] 14 mg/mg Normal [facility] CBC with Differentialon 07-15 Basophils (Bld) [#/Vol] 0.1 thou/mcL Normal 0.0-0.2 [facility] Basophils/100 WBC (Bld) 0.5 % Normal 0-3 [facility] Differential cell count method Nom (Bld) AUTOMATED DIFFERENTIAL Normal [facility] Eosinophils (Bld) [#/Vol] 0.1 thou/mcL Normal 0.0-0.4 [facility] Eosinophils/100 WBC (Bld) 1.2 % Normal 0-7 [facility] Erythrocyte distribution width (RBC) [Entitic vol] 13.3 % Normal 11.7-15.0 [facility] Hematocrit (Bld) [Volume fraction] 36.4 % Normal 34.0-50.0 [facility] Hemoglobin (Bld) [Mass/Vol] 12.1 g/dL Normal 11.5-17.0 [facility] Lymphocytes (Bld) [#/Vol] 2.0 thou/mcL Normal 0.7-4.5 [facility] Lymphocytes/100 WBC (Bld) 20.2 % Normal 14-46 [facility] MCH (RBC) [Entitic mass] 30.1 Picograms Normal 27.0-34.0 [facility] MCHC (RBC) [Mass/Vol] 33.1 g/dL Normal 32.0-36.0 [facility] MCV (RBC) [Entitic vol] 90.8 fL Normal 80-98 [facility] Monocytes (Bld) [#/Vol] 0.8 thou/mcL Normal 0.1-1.0 [facility] Monocytes/100 WBC (Bld) 8.2 % Normal 4-13 [facility] Neutrophils (Bld) [#/Vol] 7.1 thou/mcL Normal 1.5-7.8 [facility] Neutrophils/100 WBC (Bld) 69.9 % Normal 40-74 [facility] Platelet mean volume (Bld) [Entitic vol] 6.8 fL Low 7.5-11.2 [facility] Platelets (Bld) [#/Vol] 333 thou/mcL Normal 140-415 [facility] RBC (Bld) [#/Vol] 4.01 x(10)6/mcL Normal 3.80-5.60 [facility] WBC (Bld) [#/Vol] 10.1 thou/mcL Normal 4.0-10.5 [facility] Patient Summaryon 08-08-2018 Patient Summary PATIENT DISCHARGE INSTRUCTIONS If you are having an emergency and are not able to reach your physician, CALL 911 or go to the nearest emergency room and take this document with you. [facility] 08/08/18 11:02 [address] [place]. [address] PATIENT INFORMATION Name: JERED GARAY Address: [address] [place] [id number] Age: 68 Years Phone: [phone] : 1950 12:00 MRN: [id number] Sex: Male Race: White Ethnicity: Not Hispan/Lat Admitted From: Clinic or [facility] Medical Service: Orthopedic Surgery Nurse Unit/Bed: (CO) 2N 0225-01 Admit Date: 08/07/2018 07:26 PCP: Miguelina Tellez MD PHYSICIANS INVOLVED WITH CARE ------ Attending Physicians: Jameson Espinal MD , Jeremy - Orthopaedic Surg Admitting Physician: Jameson Espinal MD , Jeremy - Orthopaedic Surg Primary Care Physician:Miguelina Tellez MD,[facility], - Consults: RONALDO Gill - Internal Medicine FOLLOW-UP APPOINTMENTS: Provider: Specialty: Address: Date: Jeremy Bermudez Jr, MD Orthopaedic Surg [address] [address] (1) Comment: Please call to schedule a 6 week appt. May call sooner if problems occur Provider: Specialty: Address: Date: Miguelina Tellez MD [place] [phone] (1) Follow-up as needed Provider: Specialty: Address: Date: Outpatient PT Comment: Blue order form for OPPT provided for patient if needed for therapy services ALLERGIES: amoxicillin : Reaction:Rash : Itching Seafood : Reaction:Vomiting penicillin : Reaction:Rash MEASUREMENTS: Last Charted: Weight: Admission 93.70 kg /206 lbs 9 oz ( 08/07/18 08:38:00 ) MEDICATIONS For: JERED GARAY Tony This is your list of medication(s). Keep it with you at all times. Your doctor may have changed doses, add, held or stopped some of your medications. Please share this information with your family doctor. Carry this list of medications with you in case of an emergency. Update it when medications are stopped, doses are changed, or new medications (including zzit-ler-qukbmmv products) are added. Ask your doctor if [...] Decisions Type: Living Will, Medical Power of Cleaning Supervisor Copy of Advance Directive/Health Care Decisions on Chart: Patient/Family asked to provide copy SUICIDE HOTLINE: Your mental and emotional well-being are important. If you are in a mental health crisis, or having thoughts of suicide, please call the nationwide suicide hotline, anytime day or night, at 0-335-320-AQFD. Important information about accessing your health information through the [facility] [email or web address] patient portal If you initiated the self-registration process for [email or web address] during your stay, please check your personal email for an invitation to enroll in [email or web address] and complete the steps outlined in the email. If you would prefer to enroll while in the hospital, ask a member of your care team. We would be happy to assist you. If you have already enrolled in [email or web address], go to [email or web address] to login and access your health information. Thank you for choosing [facility] [email or web address]. PATIENT EDUCATION Constipation, Adult Constipation is when [...] with a lot of sugar. This includes estonian fries, hamburgers, cookies, candy, and soda. ???If [...] 10/18/2008 Document Revised: 05/23/2015 Document Reviewed: 02/11/2014 [employer] Patient Education ?2016 [employer] Venous Thromboembolism, Prevention A venous thromboembolism [...] 04/20/2010 Document Revised: 01/24/2013 Document Reviewed: 08/27/2015 [employer] Patient Education ?2016 [employer] Incentive Spirometer An incentive spirometer is [...] 09/12/2007 Document Revised: 05/23/2015 Document Reviewed: 12/09/2014 Elsevier Interactive Patient Education ?2016 Elsevier Inc. Pain Medicine Instructions HOW CAN PAIN [...] 10/18/2008 Document Revised: 09/16/2015 Document Reviewed: 03/06/2015 [employer] Interactive Patient Education ?2016 [employer] Fall Prevention in the Home Falls [...] items that you use a lot in hnyy-kr-stdbz places. ???If you need to reach something above you, use a strong step stool that has a grab bar. ???Keep electrical cords out of the way. ???Do not use floor bulgarian or wax that makes floors slippery. If [...] Reviewed: 06/06/2015 Elsevier Interactive Patient Education ?2015 [employer] PATIENT DISCHARGE INSTRUCTION Signature Page for: JERED GARAY Date/Time: 08/08/2018 11:02:16 A Clinician has explained the information on my discharge instructions and has provided me with a copy. My questions have been answered to my satisfaction. Patient Signature Date/Time Responsible Party Date/Time Relationship to Patient Clinician Signature Date/Time Normal [facility] Anesthesia Recordon 08-08-19 Anesthesia Record Patient: JERED GARAY MRN: [id number] Age: 68 years Sex: Male : 1950 Associated Diagnoses: None Author: Idalia Godinez DO Procedure Time Out [place] Protocol: patient identity verified, site verified, side verified, procedure to be done verified, patient position verified. REGIONAL ANESTHESIA PROCEDURE Procedure date and begin time: See nurses notes. Procedure date and end time: See nurses notes. Second Procedure Start: Spinal block. Performed by: Idalia Godinez DO. Assisted by: no ssn/ssbn assistant navigator. Informed consent: signed by patient. Technique: Spinal [...] OA Postoperative Diagnosis: Hip OA . Normal [facility] Basic Metabolic Panelon 07-15 Calcium [Mass/Vol] 8.6 mg/dL Normal 8.5-10.6 [facility] Chloride [Moles/Vol] 100 mmol/L Normal 98-107 [facility] CO2 [Moles/Vol] 26 mmol/L Normal 21-32 [facility] Creatinine [Mass/Vol] 0.95 mg/dL Normal 0.70-1.30 [facility] Glucose [Mass/Vol] 191 mg/dL High 74-106 [facility] Potassium [Moles/Vol] 4.2 mmol/L Normal 3.5-5.1 [facility] Sodium [Moles/Vol] 136 mmol/L Normal 136-145 [facility] Urea nitrogen (BldV) [Mass/Vol] 23 mg/dL High 7-18 [facility] Urea nitrogen/Creatinine [Mass ratio] 24 mg/mg Normal [facility] OR Nursingon 08-07-2018 OR Nursing CO NA OR Nursing Record Summary Primary Physician: Jameson Espinal MD , Jeremy Finalized Date/Time: 08/07/18 12:06:15 Pt. Name: JERED GARAY Tony Frederick/Sex: 1950 Male [facility] Rec #: [id number] Physician: Jeremy Bermudez Jr, MD Financial #: [id number] Pt. Type: I Room/Bed: / Admit/Disch: 08/07/18 [...] Storm Role Performed Primary Surgeon Anesthesiologist Nurse Ward Supervisor Time In 08/07/18 10:44:00 08/07/18 10:06:00 08/07/18 10:06:00 Time Out 08/07/18 11:25:00 08/07/18 11:59:00 08/07/18 11:08:00 Procedure Arthroplasty Hip Total Arthroplasty Hip Total Arthroplasty Hip Total Anterior(Right) Anterior(Right) Anterior(Right) Attendee Comment COVERAGE Relief Reason Last Modified By: Marisa RN , Marisa RN , Rosi Cunningham RNbeth 08/07/18 Kamini 08/07/18 Kamini 08/07/18 11:58:27 11:58:27 11:58:27 Entry 4 Entry 5 Entry 6 Case Attendee Case, Attendee Other Kristy MOY , Yessica Monreal Role Performed Conference Coordinator metal furniture repairer First Scrub Time In 08/07/18 10:44:00 08/07/18 [...] Rocio Lovell Role Performed Second Scrub Physician Technology Infusion Specialist Assistive Personnel Time In 08/07/18 10:06:00 08/07/18 [...] RN , Kamini Hurley ARRT , Mirta Fotser RN , Patricia Ornoa Role Performed metal furniture repairer Clinical Research Coordinator metal furniture repairer Time In 08/07/18 10:06:00 08/07/18 10:30:00 08/07/18 [...] Entry 14 Entry 15 Case Attendee Jd PLATE PUT IN WORKER, Mansoor Ness PLATE PUT IN WORKER, Kamini Bowers RN Role Performed Nurse Ward Supervisor Nurse Ward Supervisor metal furniture repairer Time In 08/07/18 11:08:00 08/07/18 11:34:00 08/07/18 11:30:00 Time Out 08/07/18 11:34:00 08/07/18 11:59:00 08/07/18 11:59:00 Procedure Arthroplasty Hip Total Arthroplasty Hip Total Arthroplasty Hip Total Anterior(Right) Anterior(Right) Anterior(Right) Attendee Comment Relief Reason Last Modified By: Marisa RN , Marisa RN , Kamini Cunningham RN 08/07/18 Kamini 08/07/18 Kamini 08/07/18 11:58:27 11:58:27 11:58:27 Entry 16 Case Attendee Yokasta Wagner RN Role Performed metal furniture repairer Time In 08/07/18 11:30:00 Time Out 08/07/18 11:59:00 Procedure Arthroplasty Hip Total Anterior(Right) Attendee Comment Relief Reason Last Modified By: Kamini Cunningham RN 08/07/18 11:58:27 CO NA OR General Case Orchid Transplanter 1 OR CO NA 08 ASA Class [...] 10 FR ROUND Present on Arrival? No [id number] Location Operative Hip Inserted By Jameson Espinal MD , Jeremy Comments 10 Fr Round Silicone DC'd at End of Case? No Drain/400ml Hemovac Painter Tegaderm to secure drain. Last Modified By: [...] Assessment Completed Last Modified By: Kamini Cunningham RN 08/07/18 10:49:47 CO NA OR Cautery Entry [...] By: Marisa MOY , Marisa MOY , Kamini Cunningham RN 08/07/18 Kamini 08/07/18 Kamini 08/07/18 10:49:59 10:49:59 [...] FINNED HT 54MM F 36MM F NEUTRAL [id number] LOW PROFILE DOME TI [id number] 6.5X20MM [id number] [employer] Catalog Number [id number] Lot Number [id number] Serial Number n/a n/a n/a Implant Site [...] LOW PROFILE DOME TI MP PPS HO [id number] Ma DELTA OPTION CE 36MM 6.5X35MM [id number] [employer] BIOMET ORTHOPED BRACING BIOMET ORTHOPEDICS [facility] Catalog Number [id number] Lot Number [id number] Serial Number n/a n/a n/a Implant Site [...] HIP NECK BIOLOX OPTION TAPER ADAPTER -6 [id number] [employer] Catalog Number [phone] Lot Number [id number] Serial Number n/a Implant Site right hip [...] Count Kristy MOY , Yokasta Wagner RN Yokasta Count Performed with Yessica Laura Kaley [...] Taken No Comment Also performed with Physician's Technology Infusion Specialist. Procedure Arthroplasty Hip Total Anterior(Right) Last Modified [...] By: Kamini Cunningham RN 08/07/18 12:06 Normal [facility] PACU I Nursingon 08-07-2018 PACU I Nursing CO NA PACU I Nursing Record Summary Primary Physician: Jeremy Bermudez Jr, MD Finalized Date/Time: 08/07/18 12:46:58 Pt. Name: JERED GARAY Tony Frederick/Sex: 1950 Male Med Rec #: [id number] Physician: Jeremy Bermudez Jr, MD Financial #: [id number] Pt. Type: I Room/Bed: / Admit/Disch: 08/07/18 [...] By: Ghislaine Lagunas RN 08/07/18 12:46 Normal [facility] PreOp Nursingon 08-07-2018 PreOp Nursing CO NA PreOp Nursing Record Summary Primary Physician: Jeremy Bermudez Jr, MD Finalized Date/Time: 08/07/18 10:11:50 Pt. Name: JERED GARAY /Sex: 1950 Male Med Rec #: [id number] Physician: Jeremy Bermudez Jr, MD Financial #: [id number] Pt. Type: I Room/Bed: / Admit/Disch: 08/07/18 07:26:00 - Institution: CO NA OR PreOp Case Times Entry 1 PreOp Case Times In Room Time 08/07/18 08:26:00 Out Room Time 08/07/18 10:05:00 Last Modified By: Kamini Cunningham RN 08/07/18 10:11:48 CO NA OR PreOp Case Attendees Entry 1 Case Attendee Mis Blakely RN Role Dean RN Last Modified By: Mis Blakely RN 08/07/18 08:37:23 Finalized By: Kamini Cunningham RN Document Signatures Signed By: Kamini Cunningham RN 08/07/18 10:11 Normal [facility] XR Pelvis 1-2 Viewson 2018 XR Pelvis [...] total hip arthroplasty with recent postoperative changes. [facility] thanks you for the opportunity to care for your patient. Workstation ID: [id number] FINAL REPORT Dictated By: Marcell Mcgowan MD 08/07/2018 12:44 Assigned Physician: Marcell Mcgowan MD Reviewed and Electronically Signed By: Marcell Mcgowan MD 08/07/2018 12:44 Transcribed by: MIMI 08/07/2018 12:44 Technologist: FRANCISCO Jones [facility] Comment on above: Order Comment: Posto perative, s/p SIMON Basic Metabolic Panelon 07-15 Calcium [Mass/Vol] 9.5 mg/dL Normal 8.5-10.6 [facility] Chloride [Moles/Vol] 100 mmol/L Normal 98-107 [facility] CO2 [Moles/Vol] 28 mmol/L Normal 21-32 [facility] Creatinine [Mass/Vol] 0.95 mg/dL Normal 0.70-1.30 [facility] Glucose [Mass/Vol] 209 mg/dL High 74-106 [facility] Potassium [Moles/Vol] 4.0 mmol/L Normal 3.5-5.1 [facility] Sodium [Moles/Vol] 139 mmol/L Normal 136-145 [facility] Urea nitrogen (BldV) [Mass/Vol] 13 mg/dL Normal 7-18 [facility] Urea nitrogen/Creatinine [Mass ratio] 14 mg/mg Normal [facility] CBC with Differentialon 07-15 Basophils (Bld) [#/Vol] 0.1 thou/mcL Normal 0.0-0.2 [facility] Basophils/100 WBC (Bld) 1.2 % Normal 0-3 [facility] Differential cell count method Nom (Bld) AUTOMATED DIFFERENTIAL Normal [facility] Eosinophils (Bld) [#/Vol] 0.2 thou/mcL Normal 0.0-0.4 [facility] Eosinophils/100 WBC (Bld) 2.6 % Normal 0-7 [facility] Erythrocyte distribution width (RBC) [Entitic vol] 13.2 % Normal 11.7-15.0 [facility] Hematocrit (Bld) [Volume fraction] 39.4 % Normal 34.0-50.0 [facility] Hemoglobin (Bld) [Mass/Vol] 13.1 g/dL Normal 11.5-17.0 [facility] Lymphocytes (Bld) [#/Vol] 1.9 thou/mcL Normal 0.7-4.5 [facility] Lymphocytes/100 WBC (Bld) 28.7 % Normal 14-46 [facility] MCH (RBC) [Entitic mass] 29.9 Picograms Normal 27.0-34.0 [facility] MCHC (RBC) [Mass/Vol] 33.2 g/dL Normal 32.0-36.0 [facility] MCV (RBC) [Entitic vol] 90.3 fL Normal 80-98 [facility] Monocytes (Bld) [#/Vol] 0.6 thou/mcL Normal 0.1-1.0 [facility] Monocytes/100 WBC (Bld) 8.8 % Normal 4-13 [facility] Neutrophils (Bld) [#/Vol] 3.9 thou/mcL Normal 1.5-7.8 [facility] Neutrophils/100 WBC (Bld) 58.7 % Normal 40-74 [facility] Platelet mean volume (Bld) [Entitic vol] 7.2 fL Low 7.5-11.2 [facility] Platelets (Bld) [#/Vol] 418 thou/mcL High 140-415 [facility] RBC (Bld) [#/Vol] 4.37 x(10)6/mcL Normal 3.80-5.60 [facility] WBC (Bld) [#/Vol] 6.7 thou/mcL Normal 4.0-10.5 [facility] Partial Thromboplastin Time (aPTT)on 08-02-2018 aPTT Coag (PPP) [Time] 29 Sec Normal 24.4-37.5 [facility] Prothrombin Timeon 201 9 INR Coag (Bld) [Relative time] 1.0 {INR} Normal 0.8-1.2 [facility] Comment on above: Result Comment: MG ANN THE INDUCTION PHASE OF ORAL ANTICOAGULATION, THE INR MAY NOT REFLECT THE ANTICOAGULANT STATUS OF THE PATIENT. THERAPEUTIC RANGES FOR INR'S ARE: MOST CLINICAL SITUATIONS: INR 2.0-3.0 MECHANICAL PROSTHETIC VALVES: INR 2.5-3.5 CRITICAL: INR 5.0 PT Coag (PPP) [Time] 10.7 Sec Normal 9.4-12.5 [facility] Social History Date Type Detail Facility Start: 06-01-2023 Alcohol intake Current non-dr linker up of alcohol (finding) [facility] Start: 06-26-2020 End: 06-01-2023 Alcohol intake [facility] [employer] [facility] Start: 06-26-2020 End: 06-01-2023 Tobacco use panel [facility] Start: 06-17-2022 Tobacco use and exposure Smokeless tobacco non-user [facility] Start: 06-17-2022 Tobacco Comment Quite 40 years ago [facility] Start: 01-11-2022 End: 06-17-2022 Tobacco smoking status NHIS Ex-smoker (finding) [facility] Start: 1950 Sex Assigned At Male F [facility] Start: 1950 Sex Assigned At Not on file P [facility] History of tobacco use Current smoker [facility] [employer] [facility] Adolescent depressio n screening assessment 0 [facility] Vital Signs Date Time Vital Sign Value Performing Clinician Faci lity 06-01-2023 10:02-0500 Body mass index (BMI) [Ratio] 33.08 kg/m2 Mily Jefferyangella EYELET CUTTER-STAFF COUNSELOR Work Phone: [facility] 06-01-2023 10:02-0500 Body weight 95.8 kg Mily Ronquilloy EYELET CUTTER-STAFF COUNSELOR Work Phone: [facility] 06-01-2023 10:02-0500 Diastolic blood pressure 75 mm[Hg] Mily Ronquilloy EYELET CUTTER-STAFF COUNSELOR Work Phone: [facility] 06-01-2023 10:02-0500 Heart rate 81 /min Mily Maysnay EYELET CUTTER-STAFF COUNSELOR Work Phone: [facility] [employer] [facility] 06-01-2023 10:02-0500 Systolic blood pressure 140 mm[Hg] Mily Ronquillobbi EYELET CUTTER-STAFF COUNSELOR Work Phone: [facility] 01-11-2022 11:26-0400 Body temperature 98 [degF] MD Bora Lindsey Work Phone: [facility] 01-11-2022 11:26-0400 Body weight 95.39 kg MD Bora Lindsey Work Phone: [facility] 01-11-2022 11:26-0400 Diastolic blood pressure 78 mm[Hg] MD Bora Lindsey Work Phone: [facility] 01-11-2022 11:26-0400 Heart rate 83 /min MD Bora Lindsey Work Phone: [facility] 01-11-2022 11:26-0400 Respiratory rate 16 /min MD Bora Lindsey Work Phone: [facility] 01-11-2022 11:26-0400 SaO2% (BldA) [Mass fraction] 97 % MD Bora Lindsey Work Phone: [facility] 01-11-2022 11:26-0400 Systolic blood pressure 154 mm[Hg] MD Bora Lindsey Work Phone: [facility] 01-11-2022 11:15-0400 Body height 168.91 cm MD Bora Lindsey Work Phone: [facility] Clinical Notes 06-01-2023 to 08-08-2023 Telephone Encounter [...] and verbalized understanding documented in this encounter [employer] 08-08-2023 Telephone encounter Note LM that he [...] up to mid 200-300 range. Please advise [employer] 08-08-2023 Telephone encounter Note I recommend he add 2 units to each range for now and until two days AFTER he is off steroids and then resume regular sliding scale. I would not increasing the long acting dose since his fasting sugars are normal [employer] [employer] Work Phone: 08-08-2023 Telephone encounter Note Patient informed and verbalized understanding [employer] 07-15-2023 Miscellaneous Notes Faxed PAP supply order along with office note to [facility] documented in this encounter [facility] 07-15-2023 Telephone encounter Note Faxed PAP supply order along with office note to [facility] 06-13-2023 Miscellaneous Notes Patient is asking [...] Okay to drop them off at front office spec. I will take them into the free clinic I let him know. He will bring them to the front office spec soon. documented in this encounter [facility] 06-13-2023 Telephone encounter Note Patient is asking to speak with you directly. [facility] 06-13-2023 Telephone encounter Note I left a message for the patient asking for more details regarding this phone call. [employer] 06-13-2023 Telephone encounter Note He called back. He has Novolog 70/30 pens that are unused and have been refrigerated. He is wanting to donate them to you for the free clinic and wondering when and how to get them to you. [employer] 06-13-2023 Telephone encounter Note Okay to drop them off at front office spec. I will take them into the free clinic [employer] 06-13-2023 Telephone encounter Note I let him know. He will bring them to the front office spec soon. [employer] 06-01-2023 History of Presen t illness Narrative [...] DM type 2 (diabetes mellitus, type 2) ([facility]) HLD (hyperlipidemia) HTN (hypertension) Lactose intolerance PAULINE (obstructive sleep apnea) Sleep apnea Past Surgical History: Procedure Laterality Date APPENDECTOMY CARPAL TUNNEL RELEASE CATARACT EXTRACTION COLONOSCOPY N/A 09/14/2018 Performed by Magnus Mccarty MD at [facility]ST REMOVAL HYDROCELE EXCISION / REPAIR [...] Rfl: pen needle, diabetic 32 gauge x / needle, USE TO ADMINISTER INSULIN 4 TIMES DAILY., Disp: 400 each, Rfl: 3 therapeutic multivitamin (THERAGRAN) tablet, Take 1 tablet by mouth in the morning., Disp: , Rfl: zolpidem (AMBIEN) 10 mg tablet, Take 1 tablet (10 mg total) by mouth nightly as needed for sleep., Disp: , Rfl: omega 8-tfk-yuk-fish oil 1,200 (144-216) mg capsule, Take by [...] coma, without long-term current use of insulin ([facility]) Better controlled, high post prandial [...] Pacheco 06/01/23 1237 documented in this encounter [facility] Consult note Note Date/Time January 11, 2022 12:23pm [facility] [place] [address] Hem/Onc Consult Note - OP Signed Patient: Jered Garay MR#: [id number] : 1950 Acct:[id number] Age/Sex: 71 / M Type: REG RCR [...] and actually in many labs across the [facility] would have been considered in the normal [...] for coordination of care (as documented) and dsoo-vg-dtzf counseling of patient and/or family. Dictated By: Bora Lindsey MD DD/ 1219 Signed By: <Electronically signed by Bora Lindsey MD> 01/11/22 1230 [facility] Work Phone: Evaluation note* Diagnosis Onset Date Resolution Status Reactive thrombocytosis acut e [facility] Work Phone: Evaluation noteNo assessment information available [facility] Work Phone: Evaluation note* Diagnosis Type 2 diabetes mellitus with hypoglycemia without coma, without long-term current use of insulin ([facility])- Primary documented [facility] SystemInstructionsNot on filedocumented in this encounter [facility] SystemInstructionsNot on filedocumented in this encounter [facility] Summary Purpose Family History No Family [...] 2:31pm Assessments Note Patient: JERED GARAY MRN: [id number] Age: 68 years Sex: Male : 1950 Associated Diagnoses: None Author: Kenneth Zuniga DO Assessment Assessment Diagnosis: Primary osteoarthritis of right hip ([id number]-SW M16.11, Working, Medical). Plan Postoperative day #1 right total hip arthroplasty. Enteric coated aspirin--deep venous thrombosis prophylaxis per primary surgical service. Gxtltkabddlz-fwsabtytm-wpcntktufh on ksycakrobd-qnvstacffucvjpmexkh-jmylspwzm postoperatively. Good blood pressure control postoperatively. Type [...] 3. Hydrocele removal, 2012. 4. Appendectomy in 1967. Medical Illnesses: 1. (more content not included)... Note CLINICAL SUMMARY Please take this summary document to your follow up appointments. [facility] 08/08/18 11:02 [address] [place]. [address] PATIENT INFORMATION Name: JERED GARAY Address: [address] [place] [id number] Age: 68 Years Phone: [phone] : 1950 12:00 MRN: ([id number] Sex: Male Race: White Ethnicity: Not Hispan/Lat Admitted From: Clinic or [facility] Medical Service: Orthopedic Surgery Nurse Unit/Bed: (NH) [facility] 0225-01 Admit Date: 08/07/2018 07:26 PCP: Miguelina Tellez MD PHYSICIANS INVOLVED WITH CARE Attending Physicians: Jameson Espinal MD , Jeremy - Orthopaedic Surg Admitting Physician: Jameson Espinal MD , Jeremy - Orthopaedic Surg Primary Care Physician:Geoff VERGARA , Miguelina Clark,[facility], - Consults: RONALDO Gill - Internal Medicine Problems Active PAULINE (more content not included)... Note Patient: JERED GARAY MRN: ([id number] Age: 68 years Sex: Male : 1950 [...] document to your follow up appointments. [facility] 08/08/18 11:02 [address] [place]. [address] PATIENT INFORMATION Name: JERED GARAY Address: [address] [place] [id number] Age: 68 Years Phone: [phone] : 1950 12:00 Sex: Male Race: White Ethnicity: Not Hispan/Lat Admitted From: Clinic or [facility] Medical Service: Orthopedic Surgery Nurse Unit/Bed: (NH) 2N 0225-01 Admit Date: 08/07/2018 07:26 PCP: Miguelina Tellez MD PHYSICIANS INVOLVED WITH CARE Attending Physicians: Jameson Espinal MD , Jeremy - Orthopaedic Surg Admitting Physician: Jameson Espinal MD , Jeremy - Orthopaedic Surg Primary Care Physician:Geoff VERGARA , Miguelina Clark,[facility], - Consults: RONALDO Gill - Internal Medicine Problems Active PAULINE (more content not included)... Procedure Findings Note Patient: JERED GARAY MRN: ([id number] [facility]: [id number] Age: 68 years Sex: Male : 1950 [...] section and content) DATE CREATED AUTHOR 03/08/2019 [facility] DATE CREATED AUTHOR AUTHOR'S ORGANIZ ATION 01/15/2021 [facility] DATE CREATED AUTHOR AUTHOR'S ORGANIZ ATION 05/07/2022 [facility] DATE CREATED AUTHOR AUTHOR'S ORGANIZ ATION 04/03/2023 [facility] DATE CREATED AUTHOR AUTHOR'S ORGANIZ ATION 09/14/2023 [facility] DATE CREATED AUTHOR AUTHOR'S ORGANIZ ATION 09/21/2023 [facility] EPIC DATE CREATED AUTHOR AUTHOR'S ORGANIZ ATION 11/06/2023 [facility] Care Teams (unrecognized sec tion and content) Team Status: Active Member Role Status Dates Bora Lindsey MD Attending Provider Active Miguelina Tellez MD Primary Care Provider, Referring Jeronimo wilder Active Team Status: Active Member Role Status Dates Miguelina Tellez MD Primary Care Provider Active Team Status: Inactive Member Role Status Dates Miguelina Tellez MD Primary Care Provider Active Gerardo Roman MD Attending Provider Active Antenna Machine Operator Relationship Specialty Start Date End Date Miguelina Tellez MD [address] [facility] [place] [address] PCP - General Family Medicine 09/12/18 Antenna Machine Operator Relationship Specialty Start Date End Date Miguelian Tellez MD [address] [facility] [place] [address] PCP - General Family Medicine 09/12/18 Antenna Machine Operator Relationship Specialty Start Date End Date Miguelina Tellez MD [address] [facility] [place] [address] PCP - General Family Medicine 09/12/18 Goals [...] BE BASED ON THE PRIMARY CLINICAL RECORDS. [employer] [facility]. provides no warranty or guarantee of the accuracy or completeness of information in this document.
[2023-11-07 07:14] VITALS: BP 162/80; PULSE 73; TEMP 36.8; O2SAT 97
[2023-11-07 07:56] VITALS: BP 149/72; PULSE 73; O2SAT 95
[2023-11-07 07:57] VITALS: BP 145/74; PULSE 74; O2SAT 96
--- NOTE | 2023-11-07 08:09 | P.ON_ITS ---
Date of procedure: 11/07/23 Pre-op diagnosis: Pain due to lumbar spondylosis without myelopathy Post-op diagnosis: same as pre-op Procedure: Procedure: Bilateral L4-5, L5-S1 radiofrequency ablation Medications: Bupivacaine 0.25% 6cc, lidocaine 2% 5cc, kenalog 80mg The patient was seen and examined in the preoperative holding area.? The site was marked.? Written informed consent was obtained and placed on the chart.? The patient was brought to the medical procedure unit and placed in the prone position.? A timeout was completed verifying correct patient, procedure, positioning, and special requirements.? The skin overlying the target points, the designated medial branch, were prepped and draped in the usual sterile fashion.? The target point was achieved with a 20-gauge 15 cm with a 10 mm curved active tip radiofrequency cannula under direct fluoroscopic visualization.? The needle was inserted at level L4 on the right side. Needle tip position was confirmed with lateral fluoroscopic position.? Motor stimulation was carried out at 2 Hz up to 5 volts with the absence of extremity activity.? This was repeated at level L5, S1 on right side.?? Sensory stimulation was carried out.? Concordant pain was realized at the above- mentioned sites.? Then radiofrequency lesioning was carried out times 90 seconds at 80 degrees times 2 lesions at each level.? The radiofrequency probe was removed prior to cannula removal.? The above-mentioned injectate was placed in 1 mL increments.? The needle was removed. The same procedure, with the same steps, was then completed on the left side at the same levels. Insertion sites were covered.? The patient was taken to the postoperative recovery area and monitored for an appropriate length of time before being found suitable for discharge in the company of a responsible adult. Anesthesia: Local Surgeon: Kelly Boyd Pathology: none sent Condition: stable Disposition: no change
[2023-11-07] MEDS: BUPIVACAINE HCL 0.25% PF 25 MG/10 ML VIAL 4 ML INJ (08:10)
[2023-11-07] MEDS: TRIAMCINOLONE ACETONIDE 40 MG/ML VIAL 80 MG INJ (08:11)
[2023-11-07] MEDS: LIDOCAINE HCL 2% 400 MG/20 ML MDV 17 ML INJ (08:11)
== END 2023-11-07 08:25 | disposition home or self-care (01) ==
PROVIDERS: PCP Family Medicine; Visit Provider Anesthesiology
DX: M47.816 Spondylosis without myelopathy or radiculopathy, lumbar region (principal)
CPT/HCPCS: 64635; 64636; J0665; J3301

== ENCOUNTER 2023-12-07 09:10 | Outpatient (OUT) | payer MEDICARE, SELFPAY ==
--- NOTE | 2023-12-07 09:24 | P.CN_ITS ---
Consult Note: HPI Data of Consult Patient: known to practice within the last 3 years Consult date: 10/03/23 Requesting Physician: Sarah Tran NP Primary Care Provider: ALAYNA Gallegos Narrative Reason for consult: low back, right buttock pain Narrative: 73yom who presents for evaluation. notes increasing low back, buttock R>L pain. worsening over past several months. lumbar imaging shows spondylosis and degenerative disc disease in lower lumbar spine. previously underwent lumbar rfa in 2019 with significant benefit >6 months. notes that pain is similar to back then. has completed >6 weeks of provider directed home exercises program, without benefit. uses OTC pain meds as needed. denies adverse med side effects. Recently underwent bilateral L4-5 L5-S1 medial branch thermal RFA with no improvement. Reports worsening of right buttock and thigh pain. Pain today 7- 8/10 increasing with driving and sitting cc:: CC: Sarah Tran NP Review of Systems ROS Status of ROS 10 or more systems reviewed and unremark able except as noted in history and below Musculoskeletal Reports: back pain, extremity pain and joint pain PFSH PFSH Medical History Diabetes ?E11.9 - Type 2 diabetes mellitus without complications (ICD-10) Sleep apnea ?G47.30 - Sleep apnea, unspecified (ICD-10) High cholesterol ?E78.00 - Pure hypercholesterolemia, unspecified (ICD-10) HTN (hypertension) ?I10 - Essential (primary) hypertension (ICD-10) Surgical History History of knee replacement ?Z96.659 - Presence of unspecified artificial knee joint (ICD-10) History of hip replacement ?Z96.649 - Presence of unspecified artificial hip joint (ICD-10) History of rotator cuff surgery ?Z98.890 - Other specified postprocedural states (ICD-10) History of carpal tunnel release ?Z98.890 - Other specified postprocedural states (ICD-10) Meds Home Medications and Allergies Home Medications ?Medication ?Instructions ?Recorded ?Confirmed ?Type amlodipine 5 mg tablet 5 mg PO DAILY 10/03/23 11/07/23 History atorvastatin 80 mg tablet 80 mg PO DAILY 10/03/23 11/07/23 History glimepiride 4 mg tablet 4 mg PO BID 10/03/23 11/07/23 History insulin aspart U-100 100 unit/mL 35 unit subcut DAILY 10/03/23 11/07/23 History (3 mL) subcutaneous pen (Novolog FlexPen U-100 Insulin aspart) insulin glargine 100 unit/mL 35 unit subcut DAILY 10/03/23 11/07/23 History subcutaneous solution (Lantus U-100 Insulin) losartan 100 1 tab PO DAILY 10/03/23 11/07/23 History mg-hydrochlorothiazide 25 mg tablet metformin 500 mg tablet,extended 500 mg PO QID 10/03/23 11/07/23 History release 24 hr Allergies Allergy/AdvReac Type Severity Reaction Status Date / Time Penicillins Allergy Verified 11/07/23 07:19 Exam Constitutional Documenting provider has reviewed patient's vital signs: yes Common normals: no apparent distress, oriented x3, healthy appearing, alert and well nourished General appearance: cooperative HENMT Common normals: normocephalic, hearing grossly normal bilaterally and moist oral mucous membranes Head and scalp: normocephalic Eye Common normals: PERRL Pupil: PERRL Neck & C-Spine Common normals: full ROM General: normal visual inspection Chest Common normals: inspection of chest normal Respiratory Common normals: normal respiratory effort, no retractions and no use of accessory muscles Back & Pelvis Lumbar spine/lower back: pain with ROM, paraspinal muscle tenderness and straight leg raise positive right Pelvis: sciatic notch tenderness Sacroiliac joints: SI joint(s) abnormal Other: nontender right ischial bursa, no pain with internal or external rotation of right hip (replaced) nontender over right GTB and IT band positive right straight leg raise strength 4/5 in RLE 5/5 in LLE right SIJ positive omar(patricks), gaenslens, thigh thrust, compression test Extremity Common normals: normal to inspection and full ROM Neuro Common normals: oriented x3, CN's II-XII intact bilaterally, moves all extremities, no focal motor deficits, no sensory deficits noted and deep tendon reflexes 2+ bilaterally Sensorium/orientation: alert Motor exam: no movement abnormalities noted and strength abnormal Psych Common normals: mental status grossly normal, thought process normal, cooperative, affect normal, speech normal and activity/motor behavior normal Speech: normal speech Thought process: normal thought process Results Additional Findings Additional findings: If on a controlled substance or opioids, I have checked an [place]AR[place] report on this patient and there are no aberrancies noted in the prescribing history.??If on a controlled substance or opioid a drug screen was completed and reviewed within the last year, and if there has not been a drug screen completed we ordered one today to monitor higher risk, state monitored pain medication use. As part of providing excellent, safe, comprehensive care, the following was completed at our patient's visit: 1. A medication reconciliation and review to ensure accurate knowledge of current/active medications, including asking our patients to inform us about any qbqz-ztx-psztphn medications or herbal remedies/nutritional supplements/alternative remedies. 2. A review to specifically ensure our patients have had annual screening for screening for depression, screening for tobacco use, and screening for unhealthy alcohol use. For concerning screenings had a discussion with the patient, provided patient education, and recommended follow-up with primary care provider when appropriate. If patient noted with a risk of falling, they received education on strength, gait, and balance training to prevent future risk of falling. Assessment and Plan Assessment and Plan (1) Lumbar spondylosis: (2) Lumbar stenosis with neurogenic claudication: (3) Sacroiliitis: (4) Lumbar degenerative disc disease: Plan right L4-5 L5-S1 TFESI under fluoroscopy, risks vs benefits reviewed right SIJ injection under fluoroscopy, risks vs benefits reviewed continue HEP as tolerated continue current medications f/u 2 weeks after injections complete
--- OUTSIDE RECORDS SUMMARY | 2023-12-07 09:24 | XMS_ITS | CCD ---
Author Organization [facility] Care Team Providers Care Director Of Athletics Name Role Phone DR JOSE JACKMAN Primary Care Unavailable ERICKA KEMP Consulting Unavailab ERICKA Schilling Attending Unavailab ERICKA Schilling Admitting Unavailab MD Bora Mcduffie Attending Provider MD Miguelina Tellez Primary Care Provider [phone] MD Miguelina Tellez Referring Provider MD Miguelina Tellez Primary Care Provider MD Gerardo Roman Attending Provider Miguelina Tellez Primary Care Unavailable Gerardo Roman Admitting Unavailable Gerardo Roman Attending Unavailable Miguelina Tellez MD Primary Care Provider MELANIE TAMAYO Attending Unavailable WONDERPARESH, MIGUELINA Gavin Referring Unavailable WONDERLY, MIGUELINA Gavin Primary Care Unavailable MILY NELSON Attending Unavailable WONDERLY, MIGUELINA B Referring Unavailable WONDERLY, MIGUELINA B Primary Care Unavailable QUYEN MCMAHON Attending Unavailable WONDERLY, MIGUELINA B Referring Unavailable WONDERLY, MIGUELINA B Primary Care Unavailable SHAHZAD SCRUGGS Attending Unavailable PIETER RANKIN Attending Unavailable PIETER RANKIN Referring Unavailable Oliver VERGARA, Karishmarius Longoria Attending Unavailable Oliver VERGARA, Andrius Vhaley Attending Unavailable Oliver VERGARA, Andrius Vytregulo Attending Unavailable Oliver VERGARA, Andrius Swati Attending Unavailable Allergies Allergy Classification Reported Allergen(s) Allergy Type Date of Onset Reaction(s) Facility (1 source) Penicillin Drug Allergy [facility] Repository (4 sources) Amoxicillin; Translations: [amoxicillin] Drug Allergy 2 Unknown Reaction [facility] (4 sources) empagliflozin; Translations: [empagliflozin] Drug Allergy 2 Unknown Reaction [facility] (4 sources) Fish derivative; Translations: [fish derived] Propensity to adverse reactions 2 Vomiting [facility] (4 sources) liraglutide; Translations: [liraglutide] Drug Allergy 2 Diarrhea [facility] (9 sources) Lisinopril; Translations: [lisinopril] Drug Allergy 2 Cough [facility] (9 sources) pioglitazone; Translations: [pioglitazone] Drug Allergy 2 Unknown Reaction [facility] (4 sources) Shellfish; Translations: [shellfish derived] Propensity to adverse reactions 2 Unknown Reaction [facility] (5 sources) Penicillins; Translations: [PENICILLINS] Propensity to adverse reactions to drug 9 Rash [facility] (5 sources) Shellfish; Translations: [SHELLFISH CONTAINING PRODUCTS] Propensity to adverse reactions to drug 2 [facility] Medications Current Medications Medication Drug Class(es) Dates [...] coma, without long-term current use of insulin ([facility]) Inject 18 Units under the skin in [...] coma, without long-term current use of insulin ([facility]) Inject 35 Units under the skin in the morning. 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 insulin] Onset: 06-17-2022 Episodic Unclassified (1 source) CONTACT W/AND (SUSP) EXPOS COVID-19; Translations: [CONTACT W/AND (SUSP) EXPOS COVID-19] Onset: 01-06-2021 Results Test Name Value Interpretation Reference Range Facility POCT Hemoglobin A1con 2023 HbA1c (Bld) [Mass fraction] 6.8 g/dL 4 - 7 g/dL [facility] [employer] [facility] Armando 03-24-2023 L - -------- Specimen: [id number] Received: 03/25/23 Status: AIRAM Jones Num: [id number] Spec Type: Surgical Subm Dr: Gerardo Roman MD Tissues: A Skin-Other than Cyst, tag, debridement or plastic repair (LT EYE) B Skin-Other than Cyst, tag, debridement or plastic repair (RT EYE) Procedures: HE/Chanel, Xavier/Micro L4/2 -------- Age/ Patient Sex Location Account Attending Physician -------- Jered Garay 72/M [place] [id number] Gerardo Roman MD -------- SPEC NUM: [id number] RECD: 03/25/23 STATUS: AIRAM ALONZO NUM: [id number] COLBY: 03/24/23 [facility] DR: Gerardo Roman MD ENTERED: 03/25/23 [facility] : SPEC TYPE: Surgical DEPT: S ORDERED: HE/2, [...] in one cassette labeled B1. -------- Specimen: [id number] Received: 03/25/23 Status: AIRAM Joens Num: [id number] Spec Type: Surgical Subm Dr: Gerardo Roman MD Tissues: A Skin-Other than Cyst, tag, debridement or plastic repair (LT EYE) B Skin-Other than Cyst, tag, debridement or plastic repair (RT EYE) Procedures: HE/2, Gross/Micro L4/2 -------- Patient: TerrieJered [id number] (Continued) -------- Specimen: [id number] Received: 03/25/23 (Continued) Signed (signature on file) Minh Doran MD 03/28/231399 -------- Specimen: [id number] Received: 03/25/23 Status: AIRAM Jones Num: [id number] Spec Type: Surgical Subm Dr: Gerardo Roman MD Tissues: A Skin-Other than Cyst, tag, debridement or plastic repair (LT EYE) B Skin-Other than Cyst, tag, debridement or plastic repair (RT EYE) Procedures: Xavier BLANCO/Vipul L4/2 -------- Patient: Jered Garay [id number] (Continued) -------- Specimen: [id number] Received: 03/25/23 (Continued) Microscopic Description A. One H E slide reviewed. The microscopic examination confirms the diagnosis. B. One H E slide reviewed. The microscopic examination confirms the diagnosis. CPT Codes 70949y1 -------- -------- Specimen: [id number] Received: 03/25/23 Status: AIRAM Jones Num: [id number] Spec Type: Surgical Subm Dr: Gerardo Roman MD Tissues: A Skin-Other than Cyst, tag, debridement or plastic repair (LT EYE) B Skin-Other than Cyst, tag, debridement or plastic repair (RT EYE) Procedures: HE/2, Gross/Micro L4/2 -------- Patient: GarayJered [id number] (Continued) -------- Signed (signature on file) Minh Doran MD 03/28/23 1400 [facility] XR Chest 2 Views*on 05-04-20 XR [...] by Mansoor Nash on 05/04/2022 0943 Normal [facility] Complete Blood Counton 10-07 Erythrocyte distribution width (RBC) [Ratio] 12.9 % Normal 11.0-15.0 [facility] Comment on above: Performed By: #### L IPD, CBC, CMP #### [facility] [address], [place] [id number] Hematocrit (Bld) [Volume fraction] 45.1 % Normal 38.5-50.0 [facility] Comment on above: Performed By: #### L IPD, CBC, CMP #### [facility] [address], [place] [id number] Hemoglobin (Bld) [Mass/Vol] 14.9 g/dL Normal 13.0-17.1 [facility] Comment on above: Performed By: #### L IPD, CBC, CMP #### [facility] [address], [place] [id number] MCH (RBC) [Entitic mass] 29.9 pg Normal 27.0-33.0 [facility] Comment on above: Performed By: #### L IPD, CBC, CMP #### [facility] [address], [place] [id number] MCHC (RBC) [Mass/Vol] 33.0 g/dL Normal 32.0-36.0 [facility] [employer] Comment on above: Performed By: #### L IPD, CBC, CMP #### [facility] [address], [place] [id number] MCV (RBC) [Entitic vol] 90 fL Normal 80-100 [facility] Comment on above: Performed By: #### L IPD, CBC, CMP #### [facility] [address], [place] [id number] Platelet mean volume (Bld) [Entitic vol] 8.90 fL Normal 7.50-12.50 [facility] Specialist Comment on above: Performed By: #### L IPD, CBC, CMP #### [facility] [address], [place] [id number] Platelets (Bld) [#/Vol] 421 10*3/uL High 140-400 [facility] [employer] Comment on above: Performed By: #### L IPD, CBC, CMP #### [facility] [address], [place] [id number] RBC (Bld) [#/Vol] 4.99 10*6/uL Normal 4.20-5.80 [facility] [employer] Comment on above: Performed By: #### L IPD, CBC, CMP #### [facility] [address], [place] [id number] RDW-SD 42.6 fL Normal 37.0-50.0 [facility] [employer] Comment on above: Performed By: #### L IPD, CBC, CMP #### [facility] [address], [place] [id number] WBC (Bld) [#/Vol] 6.6 10*3/uL Normal 3.8-11.0 [facility] [employer] Comment on above: Performed By: #### L IPD, CBC, CMP #### [facility] [address], [place] [id number] Comprehensive Metabolic Pane [facility] 10-07-2021 Albumin [Mass/Vol] 4.7 g/dL Normal 3.6-5.1 [facility] [place] [employer] [facility] Comment on above: Performed By: #### L IPD, CBC, CMP #### [facility] [address], [place] [id number] Albumin/Globulin [Mass ratio] 1.9 {ratio} Normal 1.0-2.5 [facility] Comment on above: Performed By: #### L IPD, CBC, CMP #### [facility] [address], [place] [id number] ALP [Catalytic activity/Vol] 96 U/L Normal 40-129 [facility] Comment on above: Performed By: #### L IPD, CBC, CMP #### [facility] [address], [place] [id number] ALT [Catalytic activity/Vol] 29 U/L Normal 9-46 [facility] Comment on above: Result Comment: 04/15 Female reference range changed. Performed By: #### L IPD, CBC, CMP #### [facility] [address], [place] [id number] Anion gap [Moles/Vol] 18 mmol/L Normal 12-20 [facility] Comment on above: Result Comment: Effe ctive 05/21/2019 reference range changed. Performed By: #### L IPD, CBC, CMP #### [facility] [address], [place] [id number] AST [Catalytic activity/Vol] 24 U/L Normal 10-40 [facility] Comment on above: Performed By: #### L IPD, CBC, CMP #### [facility] [address], [place] [id number] Bilirubin [Mass/Vol] 0.99 mg/dL Normal 0.30-1.20 [facility] Comment on above: Performed By: #### L IPD, CBC, CMP #### [facility] [address], [place] [id number] BUN/CREA 13 Ratio Normal 6-22 [facility] Comment on above: Performed By: #### L IPD, CBC, CMP #### [facility] [address], [place] [id number] Calcium [Mass/Vol] 10.0 mg/dL Normal 8.6-10.2 [facility] Comment on above: Performed By: #### L IPD, CBC, CMP #### [facility] [address], [place] [id number] Chloride [Moles/Vol] 97 mmol/L Low 98-107 [facility] Comment on above: Performed By: #### L IPD, CBC, CMP #### [facility] [address], [place] [id number] CO2 [Moles/Vol] 26 mmol/L Normal 20-31 [facility] Comment on above: Performed By: #### L IPD, CBC, CMP #### [facility] [address], [place] [id number] Creatinine [Mass/Vol] 0.9 mg/dL Normal 0.7-1.4 [facility] Comment on above: Performed By: #### L IPD, CBC, CMP #### [facility] [address], [place] [id number] eGFRAA 99 mL/min/1.73m2 Normal >60 [facility] Comment on above: Performed By: #### L IPD, CBC, CMP #### [facility] [address], [place] [id number] eGFRNAA 81 mL/min/1.73m2 Normal >60 [facility] Comment on above: Performed By: #### L IPD, CBC, CMP #### [facility] [address], [place] [id number] Globulin (S) [Mass/Vol] 2.5 g/dL Normal 1.9-3.7 [facility] Comment on above: Performed By: #### L IPD, CBC, CMP #### [facility] [address], [place] [id number] Glucose [Mass/Vol] 196 mg/dL High 65-99 [facility] Comment on above: Result Comment: For FASTING Glucose --- ADA reference ranges: Normal 65-99 mg/dl Prediabetes 100-125 Diabetes >/= 126 Performed By: #### L IPD, CBC, CMP #### [facility] [address], [place] [id number] Potassium [Moles/Vol] 4.0 mmol/L Normal 3.5-5.5 [facility] Comment on above: Performed By: #### L IPD, CBC, CMP #### [facility] [address], [place] [id number] Protein [Mass/Vol] 7.2 g/dL Normal 6.1-8.1 [facility] Specialist Comment on above: Performed By: #### L IPD, CBC, CMP #### [facility] [address], [place] [id number] Sodium [Moles/Vol] 137 mmol/L Normal 135-146 [facility] [employer] Operator Comment on above: Performed By: #### L IPD, CBC, CMP #### [facility] [address], [place] [id number] Urea nitrogen [Mass/Vol] 12 mg/dL Normal 7-25 [facility] Comment on above: Performed By: #### L IPD, CBC, CMP #### [facility] [address], [place] [id number] Lipid Panelon 10-07-2021 Cholesterol [Mass/Vol] 142 mg/dL Normal 125-200 [facility] Comment on above: Result Comment: Low risk < 200mg/dL Borderline risk 201-239 mg/dl High risk > or equal to 240 Performed By: #### L IPD, CBC, CMP #### [facility] [address], [place] [id number] Cholesterol in HDL [Mass/Vol] 42 mg/dL Normal >40 [facility] Comment on above: Result Comment: High Cardiovascular Risk HDL <40 mg/dL Low Cardiovascular Risk HDL > or equal to 60 mg/dl Performed By: #### L IPD, CBC, CMP #### [facility] [address], [place] [id number] Cholesterol in LDL [Mass/Vol] 40 mg/dL Normal [facility] Comment on above: Result Comment: LDL ATP III CLASSIFICATION LDL less than 100 mg/dl Optimal LDL 100-129 mg/dl Near or above optimal LDL 130-159 Borderline high LDL 160-189 High LDL greater than 189 mg/dl Very High Performed By: #### L IPD, CBC, CMP #### [facility] [address], [place] [id number] Cholesterol in VLDL [Mass/Vol] 60 mg/dL Normal [facility] [employer] Operator Comment on above: Performed By: #### L IPD, CBC, CMP #### [facility] [address], [place] [id number] Cholesterol.total/Ch olesterol in HDL [Mass ratio] 3 {ratio} Normal [facility] Comment on above: Performed By: #### L IPD, CBC, CMP #### [facility] [address], [place] [id number] Triglyceride [Mass/Vol] 298 mg/dL High 30-150 [facility] Comment on above: Result Comment: TRIG ATPIII CLASSIFICATIONS TRIG less than 150 mg/dl Normal TRIG 150-199 mg/dl Borderline High TRIG 200-500 mg/dl High TRIG greather than 500 mg/dl Very High Performed By: #### L IPD, CBC, CMP #### [facility] [address], [place] [id number] Microalbumin (w/o Creat)on 0 10-07-2021 mALB 27.4 mg/dL Normal [facility] Comment on above: Result Comment: mALB reference range not established. Performed By: #### m ALB #### [facility] [address], [place] [id number] [facility]on 12-15 SARS-CoV-2 (COVID-19) RNA DANNY+probe Ql (Unsp spec) Not detected Normal NOT DETECTED [facility] Comment on above: Result Comment: This test is not yet approved or cleared by the [place] FDA. When there are no FDA-approved or cleared tests available, and other criteria are met, FDA can make tests available under an emergency access mechanism called an Emergency Use Authorization (EUA). The EUA for this test is supported by the [place] of Health and Human Service's (HHS's) declaration [...] consistent with SARS-CoV-2. Performed By: #### C [facility] #### [facility] [address] [place] [address] Ted Casas Basic Metabolic Panelon 02-14 Calcium [Mass/Vol] 9.5 mg/dL Normal 8.5-10.6 [facility] Chloride [Moles/Vol] 100 mmol/L Normal 98-107 [facility] CO2 [Moles/Vol] 25 mmol/L Normal 21-32 [facility] Creatinine [Mass/Vol] 0.95 mg/dL Normal 0.70-1.30 [facility] Glucose [Mass/Vol] 171 mg/dL High 70-99 [facility] Potassium [Moles/Vol] 4.4 mmol/L Normal 3.5-5.1 [facility] Sodium [Moles/Vol] 136 mmol/L Normal 136-145 [facility] Urea nitrogen (BldV) [Mass/Vol] 19 mg/dL High 7.0-18.0 [facility] Urea nitrogen/Creatinine [Mass ratio] 20 mg/mg Normal [facility] CBC with Differentialon 02-14 Basophils (Bld) [#/Vol] 0.1 thou/mcL Normal 0.0-0.2 [facility] Basophils/100 WBC (Bld) 1.0 % Normal 0-3 [facility] Differential cell count method Nom (Bld) AUTOMATED DIFFERENTIAL Normal [facility] Eosinophils (Bld) [#/Vol] 0.1 thou/mcL Normal 0.0-0.4 [facility] Eosinophils/100 WBC (Bld) 2.6 % Normal 0-7 [facility] Lymphocytes (Bld) [#/Vol] 1.5 thou/mcL Normal 0.7-4.5 [facility] Lymphocytes/100 WBC (Bld) 26.0 % Normal 14-46 [facility] Monocytes (Bld) [#/Vol] 0.5 thou/mcL Normal 0.1-1.0 [facility] Monocytes/100 WBC (Bld) 8.4 % Normal 4-13 [facility] Neutrophils (Bld) [#/Vol] 3.5 thou/mcL Normal 1.5-7.8 [facility] Neutrophils/100 WBC (Bld) 62.0 % Normal 40-74 [facility] Erythrocyte distribution width (RBC) [Entitic vol] 14.0 % Normal 11.7-15.0 [facility] Hematocrit (Bld) [Volume fraction] 39.7 % Normal 34.0-50.0 [facility] Hemoglobin (Bld) [Mass/Vol] 13.2 g/dL Normal 11.5-17.0 [facility] MCH (RBC) [Entitic mass] 30.1 Picograms Normal 27.0-34.0 [facility] MCHC (RBC) [Mass/Vol] 33.3 g/dL Normal 32.0-36.0 [facility] MCV (RBC) [Entitic vol] 90.5 fL Normal 80-98 [facility] Platelet mean volume (Bld) [Entitic vol] 7.0 fL Low 7.5-11.2 [facility] Platelets (Bld) [#/Vol] 390 thou/mcL Normal 140-415 [facility] RBC (Bld) [#/Vol] 4.39 x(10)6/mcL Normal 3.80-5.60 [facility] WBC (Bld) [#/Vol] 5.6 thou/mcL Normal 4.0-10.5 [facility] Partial Thromboplastin Time (aPTT)on 03-07-2019 aPTT Coag (PPP) [Time] 27 Sec Normal 23.2-34.6 [facility] Prothrombin Timeon 9 INR Coag (Bld) [Relative time] 0.9 {INR} Normal [facility] Comment on above: Result Comment: MG ANN THE INDUCTION PHASE OF ORAL ANTICOAGULATION, THE INR MAY NOT REFLECT THE ANTICOAGULANT STATUS OF THE PATIENT. THERAPEUTIC RANGES FOR INR'S ARE: MOST CLINICAL SITUATIONS: INR 2.0-3.0 MECHANICAL PROSTHETIC VALVES: INR 2.5-3.5 CRITICAL: INR 5.0 PT Coag (PPP) [Time] 11.9 Sec Normal 11.9-14.6 [facility] Patient Portal Messageon Patient Portal Message --- --- --- --- --- --- --- --- --- From: Hospital, Patient Summary Visit To: GARAYJERED Sent: 08/09/18 01:30:45 AM EDT Subject: New Results Available A summary regarding your recent visit is available in the Documents section of your Health Record. Normal [facility] Basic Metabolic Panelon 07-15 Calcium [Mass/Vol] 8.4 mg/dL Low 8.5-10.6 [facility] Chloride [Moles/Vol] 100 mmol/L Normal 98-107 [facility] CO2 [Moles/Vol] 29 mmol/L Normal 21-32 [facility] Creatinine [Mass/Vol] 0.97 mg/dL Normal 0.70-1.30 [facility] Glucose [Mass/Vol] 166 mg/dL High 74-106 [facility] Potassium [Moles/Vol] 3.9 mmol/L Normal 3.5-5.1 [facility] Sodium [Moles/Vol] 137 mmol/L Normal 136-145 [facility] Urea nitrogen (BldV) [Mass/Vol] 14 mg/dL Normal 7-18 [facility] Urea nitrogen/Creatinine [Mass ratio] 14 mg/mg Normal [facility] CBC with Differentialon 07-15 Basophils (Bld) [#/Vol] 0.1 thou/mcL Normal 0.0-0.2 [facility] Basophils/100 WBC (Bld) 0.5 % Normal 0-3 [facility] Differential cell count method Nom (Bld) AUTOMATED DIFFERENTIAL Normal [facility] Eosinophils (Bld) [#/Vol] 0.1 thou/mcL Normal 0.0-0.4 [facility] Eosinophils/100 WBC (Bld) 1.2 % Normal 0-7 [facility] Erythrocyte distribution width (RBC) [Entitic vol] 13.3 % Normal 11.7-15.0 [facility] Hematocrit (Bld) [Volume fraction] 36.4 % Normal 34.0-50.0 [facility] Hemoglobin (Bld) [Mass/Vol] 12.1 g/dL Normal 11.5-17.0 [facility] Lymphocytes (Bld) [#/Vol] 2.0 thou/mcL Normal 0.7-4.5 [facility] Lymphocytes/100 WBC (Bld) 20.2 % Normal 14-46 [facility] MCH (RBC) [Entitic mass] 30.1 Picograms Normal 27.0-34.0 [facility] MCHC (RBC) [Mass/Vol] 33.1 g/dL Normal 32.0-36.0 [facility] MCV (RBC) [Entitic vol] 90.8 fL Normal 80-98 [facility] Monocytes (Bld) [#/Vol] 0.8 thou/mcL Normal 0.1-1.0 [facility] Monocytes/100 WBC (Bld) 8.2 % Normal 4-13 [facility] Neutrophils (Bld) [#/Vol] 7.1 thou/mcL Normal 1.5-7.8 [facility] Neutrophils/100 WBC (Bld) 69.9 % Normal 40-74 [facility] Platelet mean volume (Bld) [Entitic vol] 6.8 fL Low 7.5-11.2 [facility] Platelets (Bld) [#/Vol] 333 thou/mcL Normal 140-415 [facility] RBC (Bld) [#/Vol] 4.01 x(10)6/mcL Normal 3.80-5.60 [facility] WBC (Bld) [#/Vol] 10.1 thou/mcL Normal 4.0-10.5 [facility] Patient Summaryon 08-08-2018 Patient Summary PATIENT DISCHARGE INSTRUCTIONS If you are having an emergency and are not able to reach your physician, CALL 911 or go to the nearest emergency room and take this document with you. [facility] 08/08/18 11:02 [address] [place]. [address] PATIENT INFORMATION Name: JERED GARAY Address: [address] [place] [id number] Age: 68 Years Phone: [phone] : 1950 12:00 MRN: [id number] Sex: Male Race: White Ethnicity: Not Hispan/Lat Admitted From: Clinic or [facility] Medical Service: Orthopedic Surgery Nurse Unit/Bed: (CO) 2N 0225-01 Admit Date: 08/07/2018 07:26 PCP: Miguelina Tellez MD PHYSICIANS INVOLVED WITH CARE ------ Attending Physicians: Jameson Espinal MD , Jeremy - Orthopaedic Surg Admitting Physician: Jameson Espinal MD , Jeremy - Orthopaedic Surg Primary Care Physician:Miguelina Tellez MD,[facility], - Consults: RONALDO Gill - Internal Medicine FOLLOW-UP APPOINTMENTS: Provider: Specialty: Address: Date: Jeremy Bermudez Jr, MD Orthopaedic Surg [address] [place] [address] (1) Comment: Please call to schedule a 6 week appt. May call sooner if problems occur Provider: Specialty: Address: Date: Miguelina Tellez MD [place] [address] (1) Follow-up as needed Provider: Specialty: Address: [...] doses are changed, or new medications (including tikg-ddy-kpagrqm products) are added. Ask your doctor if [...] Decisions Type: Living Will, Medical Power of Exterminator Copy of Advance Directive/Health Care Decisions on Chart: Patient/Family asked to provide copy SUICIDE HOTLINE: Your mental and emotional well-being are important. If you are in a mental health crisis, or having thoughts of suicide, please call the nationwide suicide hotline, anytime day or night, at 4-828-705-FVUD. Important information about accessing your health information through the [facility] patient portal If you initiated the self-registration process for [facility] during your stay, please check your personal email for an invitation to enroll in [facility] and complete the steps outlined in the email. If you would prefer to enroll while in the hospital, ask a member of your care team. We would be happy to assist you. If you have already enrolled in [facility], go to [email or web address] [email or web address] to login and access your health information. Thank you for choosing [facility]. PATIENT EDUCATION Constipation, Adult Constipation is when [...] with a lot of sugar. This includes telugu fries, hamburgers, cookies, candy, and soda. ???If [...] 10/18/2008 Document Revised: 05/23/2015 Document Reviewed: 02/11/2014 [employer] Interactive Patient Education ?2016 [employer] Venous Thromboembolism, Prevention A venous thromboembolism [...] 04/20/2010 Document Revised: 01/24/2013 Document Reviewed: 08/27/2015 [employer] Interactive Patient Education ?2016 [employer] Incentive Spirometer An incentive spirometer is [...] 10/18/2008 Document Revised: 09/16/2015 Document Reviewed: 03/06/2015 [employer] Interactive Patient Education ?2016 [employer] Fall Prevention in the Home Falls [...] items that you use a lot in klgo-fw-ksvbe places. ???If you need to reach something above you, use a strong step stool that has a grab bar. ???Keep electrical cords out of the way. ???Do not use floor comoran or wax that makes floors slippery. If [...] Reviewed: 06/06/2015 Elsevier Interactive Patient Education ?2015 [employer] PATIENT DISCHARGE INSTRUCTION Signature Page for: JERED GARAY Date/Time: 08/08/2018 11:02:16 A Clinician has explained the information on my discharge instructions and has provided me with a copy. My questions have been answered to my satisfaction. Patient Signature Date/Time Responsible Party Date/Time Relationship to Patient Clinician Signature Date/Time Normal [facility] Anesthesia Recordon 08-08-19 Anesthesia Record Patient: JERED GARAY MRN: [id number] Age: 68 years Sex: Male : 1950 Associated Diagnoses: None Author: Idalia Godinez DO Procedure Time Out [place] Protocol: patient identity verified, site verified, side verified, procedure to be done verified, patient position verified. REGIONAL ANESTHESIA PROCEDURE Procedure date and begin time: See nurses notes. Procedure date and end time: See nurses notes. Second Procedure Start: Spinal block. Performed by: Idalia Godinez DO. Assisted by: no data entry assistant. Informed consent: signed by patient. Technique: [...] Diagnosis: Hip OA . Normal [facility] Basic Metabolic Panelon 07-15 Calcium [Mass/Vol] 8.6 mg/dL Normal 8.5-10.6 [facility] Chloride [Moles/Vol] 100 mmol/L Normal 98-107 [facility] CO2 [Moles/Vol] 26 mmol/L Normal 21-32 [facility] Creatinine [Mass/Vol] 0.95 mg/dL Normal 0.70-1.30 [facility] Glucose [Mass/Vol] 191 mg/dL High 74-106 [facility] Potassium [Moles/Vol] 4.2 mmol/L Normal 3.5-5.1 [facility] Sodium [Moles/Vol] 136 mmol/L Normal 136-145 [facility] Urea nitrogen (BldV) [Mass/Vol] 23 mg/dL High 7-18 [facility] Urea nitrogen/Creatinine [Mass ratio] 24 mg/mg Normal [facility] OR Nursingon 08-07-2018 OR Nursing CO NA OR Nursing Record Summary Primary Physician: Jameson Espinal MD , Jeremy Finalized Date/Time: 08/07/18 12:06:15 Pt. Name: JERED GARAY /Sex: 1950 Male Med Rec #: [id number] Physician: Jeremy Bermudez Jr, MD Financial #: [id number] Pt. Type: I Room/Bed: / Admit/Disch: 08/07/18 [...] Duration (minutes) 12 Min Last Modified By: Kamini Cunningham RN 08/07/18 10:49:30 CO NA OR Case Attendees Entry 1 Entry 2 Entry 3 Case Attendee Jameson Espinal MD , Idalia Mo DO, CRNA, Storm Role Performed Primary Surgeon Anesthesiologist Nurse Hollock Maker Time In 08/07/18 10:44:00 08/07/18 10:06:00 08/07/18 [...] Kristy MOY , Yessica Monreal Role Performed Gelatin Powder Mixer retail advisor First Scrub Time In 08/07/18 10:44:00 08/07/18 [...] Rocio Lovell Role Performed Second Scrub Physician Dispatcher Chief Coal Slurry Assistive Personnel Time In 08/07/18 10:06:00 08/07/18 [...] Foster RN , Patricia Orona Role Performed retail advisor Director Imaging retail advisor Time In 08/07/18 10:06:00 08/07/18 10:30:00 08/07/18 [...] Entry 14 Entry 15 Case Attendee Jd DIETITIAN CONSULTANT, Mansoor Ness DIETITIAN CONSULTANT, Александр Cunningham RN Kamini Role Performed Nurse Hollock Maker Nurse Hollock Maker retail advisor Time In 08/07/18 11:08:00 08/07/18 11:34:00 08/07/18 11:30:00 Time Out 08/07/18 11:34:00 08/07/18 11:59:00 08/07/18 11:59:00 Procedure Arthroplasty Hip Total Arthroplasty Hip Total Arthroplasty Hip Total Anterior(Right) Anterior(Right) Anterior(Right) Attendee Comment Relief Reason Last Modified By: Marisa RN , Marisa RN , Kamini Cunningham RN 08/07/18 Kamini 08/07/18 Kamini 08/07/18 11:58:27 11:58:27 11:58:27 Entry 16 Case Attendee Yokasta Wagner RN Role Performed retail advisor Time In 08/07/18 11:30:00 Time Out 08/07/18 11:59:00 Procedure Arthroplasty Hip Total Anterior(Right) Attendee Comment Relief Reason Last Modified By: Kamini Cunningham RN 08/07/18 11:58:27 CO NA OR General Case Game Tester 1 OR CO NA 08 ASA Class [...] 10 FR ROUND Present on Arrival? No [id number] Location Operative Hip Inserted By Jameson Espinal MD , Jeremy Comments 10 Fr Round Silicone DC'd at End of Case? No Drain/400ml Hemovac [place] Tegaderm to secure drain. Last Modified By: [...] By Rocio Cooney Location Last Modified By: Rosi Cunningham RNbeth 08/07/18 10:36:58 CO NA OR Medication Entry [...] Irrigant Volume 1000 mL Last Modified By: Rosi Cunningham RNbeth 08/07/18 12:06:05 CO NA OR Implants Entry 1 Entry 2 Entry 3 Procedure Arthroplasty Hip Total Arthroplasty Hip Total Arthroplasty Hip Total Anterior(Right) Anterior(Right) Anterior(Right) Implant/Explant Implant Implant Implant Wasted Reason Provided by Surgeon No No No Implant Identification Description HIP ACETABULAR SHELL G7 HIP ACETABULAR LINER VE SCREW SUZANNE BIOMET G7 FINNED HT 54MM F 36MM F NEUTRAL [id number] LOW PROFILE DOME TI [id number] 6.5X20MM [id number] Polytechnic Registrar SUZANNE BIOMET SUZANNE BIOMET SUZANNE BIOMET Catalog Number [id number] Lot Number [id number] Serial Number n/a n/a n/a Implant Site [...] LOW PROFILE DOME TI MP PPS HO [id number] Ma DELTA OPTION CE 36MM 6.5X35MM [id number] [phone] Polytechnic Registrar SUZANNE BIOMET BIOMET ORTHOPED BRACING BIOMET ORTHOPEDICS [facility] Catalog Number [id number] [phone] Lot Number [id number] Serial Number n/a n/a n/a Implant Site [...] NECK BIOLOX OPTION TAPER ADAPTER -6 [phone] Polytechnic Registrar [employer]alogixS BitWall Catalog Number [phone] Lot Number [id number] Serial Number n/a Implant Site right hip [...] Taken No Comment Also performed with Physician's Dispatcher Chief Coal Slurry. Procedure Arthroplasty Hip Total Anterior(Right) Last Modified [...] Cunningham RN 08/07/18 12:06 Normal [facility] PACU I Nursingon 08-07-2018 PACU I Nursing CO NA PACU I Nursing Record Summary Primary Physician: Jeremy Bermudez Jr, MD Finalized Date/Time: 08/07/18 12:46:58 Pt. Name: JERED GARAY Tony Frederick/Sex: 1950 Male Med Rec #: [id number] Physician: Jeremy Bermudez Jr, MD Financial #: [id number] Pt. Type: I Room/Bed: / Admit/Disch: 08/07/18 [...] Lagunas RN 08/07/18 12:46 Normal [facility] PreOp Nursingon 08-07-2018 PreOp Nursing CO NA PreOp Nursing Record Summary Primary Physician: Jeremy Bermudez Jr, MD Finalized Date/Time: 08/07/18 10:11:50 Pt. Name: JERED GARAY /Sex: 1950 Male Med Rec #: [id number] Physician: Jeremy Bermudez Jr, MD Financial #: [id number] Pt. Type: I Room/Bed: / Admit/Disch: 08/07/18 [...] Cunningham RN 08/07/18 10:11 Normal [facility] XR Pelvis 1-2 Viewson 2018 XR Pelvis [...] total hip arthroplasty with recent postoperative changes. [facility] thanks you for the opportunity to care for your patient. Workstation ID: [id number] FINAL REPORT Dictated By: Marcell Mcgowan MD 08/07/2018 12:44 Assigned Physician: Marcell Mcgowan MD Reviewed and Electronically Signed By: Marcell Mcgowan MD 08/07/2018 12:44 Transcribed by: MIMI 08/07/2018 12:44 Technologist: FRANCISCO Jones [facility] Comment on above: Order Comment: Posto perative, s/p SIMON Basic Metabolic Panelon 07-15 Calcium [Mass/Vol] 9.5 mg/dL Normal 8.5-10.6 [facility] Chloride [Moles/Vol] 100 mmol/L Normal 98-107 [facility] CO2 [Moles/Vol] 28 mmol/L Normal 21-32 [facility] Creatinine [Mass/Vol] 0.95 mg/dL Normal 0.70-1.30 [facility] Glucose [Mass/Vol] 209 mg/dL High 74-106 [facility] Potassium [Moles/Vol] 4.0 mmol/L Normal 3.5-5.1 [facility] Sodium [Moles/Vol] 139 mmol/L Normal 136-145 [facility] Urea nitrogen (BldV) [Mass/Vol] 13 mg/dL Normal 7-18 [facility] Urea nitrogen/Creatinine [Mass ratio] 14 mg/mg Normal [facility] CBC with Differentialon 07-15 Basophils (Bld) [#/Vol] 0.1 thou/mcL Normal 0.0-0.2 [facility] Basophils/100 WBC (Bld) 1.2 % Normal 0-3 [facility] Differential cell count method Nom (Bld) AUTOMATED DIFFERENTIAL Normal [facility] Eosinophils (Bld) [#/Vol] 0.2 thou/mcL Normal 0.0-0.4 [facility] Eosinophils/100 WBC (Bld) 2.6 % Normal 0-7 [facility] Erythrocyte distribution width (RBC) [Entitic vol] 13.2 % Normal 11.7-15.0 [facility] Hematocrit (Bld) [Volume fraction] 39.4 % Normal 34.0-50.0 [facility] Hemoglobin (Bld) [Mass/Vol] 13.1 g/dL Normal 11.5-17.0 [facility] Lymphocytes (Bld) [#/Vol] 1.9 thou/mcL Normal 0.7-4.5 [facility] Lymphocytes/100 WBC (Bld) 28.7 % Normal 14-46 [facility] MCH (RBC) [Entitic mass] 29.9 Picograms Normal 27.0-34.0 [facility] MCHC (RBC) [Mass/Vol] 33.2 g/dL Normal 32.0-36.0 [facility] MCV (RBC) [Entitic vol] 90.3 fL Normal 80-98 [facility] Monocytes (Bld) [#/Vol] 0.6 thou/mcL Normal 0.1-1.0 [facility] Monocytes/100 WBC (Bld) 8.8 % Normal 4-13 [facility] Neutrophils (Bld) [#/Vol] 3.9 thou/mcL Normal 1.5-7.8 [facility] Neutrophils/100 WBC (Bld) 58.7 % Normal 40-74 [facility] Platelet mean volume (Bld) [Entitic vol] 7.2 fL Low 7.5-11.2 [facility] Platelets (Bld) [#/Vol] 418 thou/mcL High 140-415 [facility] RBC (Bld) [#/Vol] 4.37 x(10)6/mcL Normal 3.80-5.60 Mo [facility] WBC (Bld) [#/Vol] 6.7 thou/mcL Normal 4.0-10.5 [facility] Partial Thromboplastin Time (aPTT)on 08-02-2018 aPTT Coag (PPP) [Time] 29 Sec Normal 24.4-37.5 [facility] Prothrombin Timeon 201 9 INR Coag (Bld) [Relative time] 1.0 {INR} Normal 0.8-1.2 [facility] Comment on above: Result Comment: MG ANN THE INDUCTION PHASE OF ORAL ANTICOAGULATION, THE INR MAY NOT REFLECT THE ANTICOAGULANT STATUS OF THE PATIENT. THERAPEUTIC RANGES FOR INR'S ARE: MOST CLINICAL SITUATIONS: INR 2.0-3.0 MECHANICAL PROSTHETIC VALVES: INR 2.5-3.5 CRITICAL: INR 5.0 PT Coag (PPP) [Time] 10.7 Sec Normal 9.4-12.5 [facility] Vital Signs Date Time Vital Sign Value Performing Clinician Faci emeka 06-01-2023 10:02-0500 Body mass index (BMI) [Ratio] 33.08 kg/m2 Mily Nelson PRINTED CIRCUIT BOARD PANELS TRIMMER-DOCUMENTATION CLERK Work Phone: [facility] 06-01-2023 10:02-0500 Body weight 95.8 kg Mily Nelson PRINTED CIRCUIT BOARD PANELS TRIMMER-DOCUMENTATION CLERK Work Phone: [facility] 06-01-2023 10:02-0500 Diastolic blood pressure 75 mm[Hg] Mily Nelson PRINTED CIRCUIT BOARD PANELS TRIMMER-DOCUMENTATION CLERK Work Phone: [facility] 06-01-2023 10:02-0500 Heart rate 81 /min Mily Nelson PRINTED CIRCUIT BOARD PANELS TRIMMER-DOCUMENTATION CLERK Work Phone: [facility] 06-01-2023 10:02-0500 Systolic blood pressure 140 mm[Hg] Mily Nelson PRINTED CIRCUIT BOARD PANELS TRIMMER-DOCUMENTATION CLERK Work Phone: [facility] 01-11-2022 11:26-0400 Body temperature 98 [degF] MD Bora Lindsey Work Phone: [facility] 01-11-2022 11:26-0400 Body weight 95.39 kg MD Bora Lindsey Work Phone: [facility] 01-11-2022 11:26-0400 Diastolic blood pressure 78 mm[Hg] MD Bora Lindsey Work Phone: [facility] 01-11-2022 11:26-0400 Heart rate 83 /min MD Bora Lindsey Work Phone: [facility] 01-11-2022 11:26-0400 Respiratory rate 16 /min MD Bora Lindsey Work Phone: [facility] 01-11-2022 11:26-0400 SaO2% (BldA) [Mass fraction] 97 % MD Bora Lindsey Work Phone: [facility] 01-11-2022 11:26-0400 Systolic blood pressure 154 mm[Hg] MD Bora Lindsey Work Phone: [facility] 01-11-2022 11:15-0400 Body height 168.91 cm MD Bora Lindsey Work Phone: [facility] Encounters Encounter Date Encounter Type Care Provider Facility Start: 11-07-2023 End: 11-07-2023 ambulatory Kelly Pangautjovanna Boyd MD [facility] Start: 10-31-2023 End: 10-31-2023 ambulatory Andrius Sandraytautas Oliver VERGARA Facility:[facility] Start: 10-17-2023 End: 10-17-2023 ambulatory Andluus Polyautas Oliver VERGARA Facility:[facility] Start: 10-03-2023 End: 10-03-2023 ambulatory Kelly Boyd MD Facility:[facility] Start: 09-16-2023 End: 09-17-2023 ambulatory PIETER RANKIN Not Available Start: 09-13-2023 End: 09-13-2023 ambulatory [facility] Start: 08-08-2023 Telephone encounter Mily perales PRINTED CIRCUIT BOARD PANELS TRIMMER-DOCUMENTATION CLERK Work Phone: [facility] Start: 08-05-2023 End: 08-06-2023 ambulatory SHAHZAD SCRUGGS Not Available Start: 07-15-2023 Telephone encounter Sonia Mcclelland RN [facility] Start: 07-11-2023 End: 07-11-2023 ambulatory QUYEN MCMAHON [facility] Start: 06-13-2023 Telephone encounter Narcisa barahona [facility] Start: 06-01-2023 End: 06-01-2023 ambulatory MILY Jimenez BARBVj [facility] Start: 06-01-2023 End: 06-01-2023 Office outpatient visit 25 minutes Mily Nelson PRINTED CIRCUIT BOARD PANELS TRIMMER-DOCUMENTATION CLERK Work Phone: [facility] Comment on above: Type 2 diabetes jaxson itus with hypoglycemia without coma, without long-term current use of insulin ([facility]) (Primary Dx) Start: 03-24-2023 End: 03-24-2023 ambulatory Miguelina Tellez Facility:[facility] Start: 03-24-2023 End: 03-24-2023 ambulatory MD Miguelina Tellez Work Phone: [facility] Work Phone: Start: 03-24-2023 End: 03-24-2023 Departed Referred MD Miguelina Tellez Work Phone: [facility] [place] Work Phone: Start: 01-11-2022 End: 01-11-2022 Registered Recurring MD Bora Lindsey Work Phone: [facility] Start: 01-06-2021 End: 01-07-[address] JOSE JACKMAN Facility:[facility] Procedures Date Procedure Procedure Detail Performing Clinician Start: 06-01-2023 Hemoglobin glycosyla javon a1c Mily Nelson PRINTED CIRCUIT BOARD PANELS TRIMMERFanXchange Work Phone: Start: 12-02-2022 Microalbumin [Mass/v olume] in Urine by Test strip Mily Nelson APRNFanXchange Work Phone: Start: 10-14-2022 Adult depression scr eening assessment Mily Nelson PRINTED CIRCUIT BOARD PANELS TRIMMERFanXchange Work Phone: Plan of Treatment Date Care Activity Detail Author Start: 11-21-2028 DTaP,Tdap and Td Vaccines (2 - Td or Tdap) DTaP,Tdap and Td Vaccines (2 - Td or Tdap) [facility] Start: 07-11-2024 Adult BMI Screening Adult BMI Screening [facility] Start: 07-09-2024 End: 07-09-2024 Patient encounter procedure 07/09/2024 10:30 AM EST Office Visit [facility] [address] [place] [address] Quyen Mcmahon MD [address] [facility]NOTE 2][address] [place] [address] [facility] Start: 06-01-2024 Adult BMI Screening Adult BMI Screening [facility] Start: 06-01-2024 Tobacco Screening Tobacco Screening [facility] Start: 02-19-2024 Adult BMI Screening Adult BMI Screening [facility] Start: 02-19-2024 Tobacco Screening Tobacco Screening [facility] Start: 12-03-2023 Urine screening for protein Urine Microalbumin [facility] Start: 10-15-2023 Depression Screening Depression Screening [facility] Start: 09-13-2023 End: 09-13-2023 Patient encounter procedure 09/13/2023 10:15 AM EDT Office Visit [facility] [address] [place] [address] Melanie Tamayo MD [address] [place] [address] [facility] Start: 07-11-2023 End: 07-11-2023 Patient encounter procedure 07/11/2023 12:00 PM EST Office Visit [facility] [address] [place] [id number] Quyen Mcmahon MD [address] [facility] [address] [place] [address] [facility] Start: 04-11-2023 COVID-19 Vaccine ( season) COVID-19 Vaccine ( season) [facility] Start: 2016 Fall Risk Screening Fall Risk Screening [facility] Start: 1969 Adult BMI Follow Up Plan Adult BMI Follow Up Plan [facility] Start: 1969 Diabetic foot examination Diabetic Foot Exam [facility] Start: 1950 Glaucoma screening Diabetic Ophthalmology Exam [facility] Start: [birth year]21-1951 Medicare Annual Wellness Visit Medicare Annual Wellness Visit [facility] Work Phone: Payers Date Payer Category Payer Unknown 2023 Self-pay 2016 Medicare [id number] 2016 Private Health Insurance [facility] AAR SUPPLEMENT [id number] 2016-Present [phone] [address] [place] [address] [id number] 1959 Medicare [id number] 1959 Unknown [id number] 1950 Unknown [id number] .593 1950 Unknown [id number] [id number] .1286 1950 Unknown [id number] [id number] .1286 1950 Unknown [id number] [id number] .1286 1950 Unknown [id number] 2.16.840.1.991449.3.579.2 .1259 1950 Unknown [id number] 2.16.840.1.105819.3.579.2 .1259 1950 Unknown [id number] [id number] .1259 1950 Unknown [id number] 2.16.840.1.735331.3.579.2 .196 1950 Unknown [id number] 2.16.840.1.304650.3.579.2 .196 1950 Unknown [id number] [id number] .196 1950 Unknown [id number] [id number] .196 Unknown [id number] [id number] .531 Social History Date Type Detail Facility Start: 01-11-2022 End: 06-17-2022 Tobacco smoking status NHIS Ex-smoker (finding) [facility] Start: 1950 Sex Assigned At Male F [facility] History of tobacco use Current smoker [facility] [employer] [facility] Start: 06-17-2022 Tobacco use and exposure Smokeless tobacco [facility]user [facility] Start: 06-01-2023 Alcohol intake Current non-dr sports attorney of alcohol (finding) [facility] Start: 06-26-2020 End: 06-01-2023 Alcohol intake [facility] Start: 06-26-2020 End: 06-01-2023 Tobacco use panel [facility] Adolescent depressio n screening assessment 0 [facility] Start: 06-17-2022 Tobacco Comment Quite 40 years ago [employer] Start: 1950 Sex Assigned At Not on file [facility] [employer] [facility] Medical Equipment Procedure Code Equipment Code Equipment Origin al Text Equipment Identifier Dates USE DIRECTED THREE TIMES DAILY [id number] Start: 11-17-2022 by miscellaneous route 3 (three) times a day. [id number] USE TO ADMINISTE R INSULIN 4 TIMES DAILY. [id number] Start: 04-18-2023 Clinical Notes 06-01-2023 to 08-08-2023 Telephone Encounter - Jordana Borrero - 08/08/2023 11:25 AM EDTTelephone Encounter - Mily Nelson APRN-DOCUMENTATION CLERK - 08/08/2023 11:25 AM EDTTelephone Encounter - [...] and verbalized understanding documented in this encounter [facility] 08-08-2023 Telephone encounter Note LM that he [...] up to mid 200-300 range. Please advise [facility] 08-08-2023 Telephone encounter Note I recommend he add 2 units to each range for now and until two days AFTER he is off steroids and then resume regular sliding scale. I would not increasing the long acting dose since his fasting sugars are normal [facility] Work Phone: 08-08-2023 Telephone encounter Note Patient informed and verbalized understanding [facility] 07-15-2023 Miscellaneous Notes Faxed PAP supply order along with office note to [facility] documented in this encounter [facility] 07-15-2023 Telephone encounter Note Faxed PAP supply order along with office note to [facility] 06-13-2023 Miscellaneous Notes Patient is asking [...] to drop them off at front end technician. I will take them into the free clinic I let him know. He will bring them to the front end technician soon. documented in this encounter [facility] 06-13-2023 Telephone encounter Note Patient is asking to speak with you directly. [facility] 06-13-2023 Telephone encounter Note I left a message for the patient asking for more details regarding this phone call. [facility] 06-13-2023 Telephone encounter Note He called back. He has Novolog 70/30 pens that are unused and have been refrigerated. He is wanting to donate them to you for the free clinic and wondering when and how to get them to you. [facility] 06-13-2023 Telephone encounter Note Okay to drop them off at front end technician. I will take them into the free clinic [facility] 06-13-2023 Telephone encounter Note I let him know. He will bring them to the front end technician soon. [facility] 06-01-2023 History of Presen t illness Narrative [...] DM type 2 (diabetes mellitus, type 2) ([facility]) HLD (hyperlipidemia) HTN (hypertension) Lactose intolerance PAULINE (obstructive sleep apnea) Sleep apnea Past Surgical History: Procedure Laterality Date APPENDECTOMY CARPAL TUNNEL RELEASE CATARACT EXTRACTION COLONOSCOPY N/A 09/14/2018 Performed by Magnus Mccarty MD at [facility] CYST REMOVAL HYDROCELE EXCISION / REPAIR [...] needed for sleep., Disp: , Rfl: omega 4-eod-mvj-fish oil 1,200 (144-216) mg capsule, Take by [...] coma, without long-term current use of insulin ([facility]) Better controlled, high post prandial [...] Pacheco 06/01/23 1237 documented in this encounter [employer] Consult note Note Date/Time January 11, 2022 12:23pm [facility] [place] [address] Hem/Onc Consult Note - OP Signed Patient: Jered Garay MR#: [id number] : 1950 Acct:[id number] Age/Sex: 71 / M Type: REG RCR [...] unexplained fever, night sweats or weight loss. [facility] - Medical History Medical History: Medical History [...] and actually in many labs across the [facility] would have been considered in the [...] for coordination of care (as documented) and yeei-re-xzkr counseling of patient and/or family. Dictated By: Bora Lindsey MD DD/ 1219 Signed By: <Electronically signed by Bora Lindsey MD> 01/11/22 1230 [facility] Work Phone: Evaluation note* Diagnosis Onset Date Resolution Status Reactive thrombocytosis acut e [facility] Work Phone: Evaluation noteNo assessment information available [facility] Work Phone: Evaluation note* Diagnosis Type 2 diabetes mellitus with hypoglycemia without coma, without long-term current use of insulin ([facility] Primary documented in this encounter [facility]ructionsNot on filedocumented in this encounter [facility]ructionsNot on filedocumented in this encounter [facility]ructionsNot on filedocumented in this encounter [facility] Summary Purpose Family History No Family [...] 2:31pm Assessments Note Patient: JERED GARAY MRN: [id number] Age: 68 years Sex: Male : 1950 Associated Diagnoses: None Author: Kenneth Zuniga DO Assessment Assessment Diagnosis: Primary osteoarthritis of right hip (GTG32-TT M16.11, Working, Medical). Plan Postoperative day #1 right total hip arthroplasty. Enteric coated aspirin--deep venous thrombosis prophylaxis per primary surgical service. Ocxapumtbicr-qavulswrk-pyendgtqnk on ohmvsqiglt-budhrkkcerxqvnkixbx-ilrfovfca postoperatively. Good blood pressure control postoperatively. Type [...] summary document to your follow up appointments. [facility] 08/08/18 11:02 [address] [place]. [address] PATIENT INFORMATION Name: JERED GARAY Address: [address] [place] [id number] Age: 68 Years Phone: [phone] : 1950 12:00 MRN: ([facility])-[id number] Sex: Male Race: White Ethnicity: Not Hispan/Lat Admitted From: Clinic or [facility] Medical Service: Orthopedic Surgery Nurse Unit/Bed: (CO) 2NAN 0225-01 Admit Date: 08/07/2018 07:26 PCP: Miguelina Tellez MD PHYSICIANS INVOLVED WITH CARE Attending Physicians: Jameson Espinal MD , Jeremy - Orthopaedic Surg Admitting Physician: Jameson Espinal MD , Jeremy - Orthopaedic Surg Primary Care Physician:Miguelina Tellez MD,[facility], - Consults: RONALDO Gill - Internal Medicine Problems Active PAULINE (more content not included)... Note Patient: JERED GARAY MRN: ([id number] Age: 68 years Sex: Male : 1950 [...] summary document to your follow up appointments. [facility] 08/08/18 11:02 [address] [place]. [address] PATIENT INFORMATION Name: JERED GARAY Tony Address: [address] [place] [id number] Age: 68 Years Phone: [phone] : 1950 12:00 MRN: [id number] Sex: Male Race: White Ethnicity: Not Hispan/Lat Admitted From: Clinic or [facility] Medical Service: Orthopedic Surgery Nurse Unit/Bed: (MO) 2N 0225-01 Admit Date: 08/07/2018 07:26 PCP: Geoff VERGARA , Miguelina Clark PHYSICIANS INVOLVED WITH CARE Attending Physicians: Jameson Espinal MD , Jeremy - Orthopaedic Surg Admitting Physician: Jameson Espinal MD , Jeremy - Orthopaedic Surg Primary Care Physician:Geoff VERGARA , Miguelina Clark,[facility], - Consults: GenMedRONALDO - Internal Medicine Problems Active PAULINE (more content not included)... Procedure Findings Note Patient: JERED GARAY Age: 68 years [...] section and content) DATE CREATED AUTHOR 03/08/[address] [facility] [address] [facility] DATE CREATED AUTHOR AUTHOR'S ORGANIZ ATION 01/15/[address] [facility] DATE CREATED AUTHOR AUTHOR'S ORGANIZ ATION 05/07/2022 [facility] DATE CREATED AUTHOR AUTHOR'S ORGANIZ ATION 04/03/2023 [facility] DATE CREATED AUTHOR AUTHOR'S ORGANIZ ATION 09/14/2023 [facility] DATE CREATED AUTHOR AUTHOR'S ORGANIZ ATION 09/21/2023 [facility] EP[facility] DATE CREATED AUTHOR AUTHOR'S ORGANIZ ATION 11/09/2023 [facility] Care Teams (unrecognized sec tion and [...] Gene Mike Roman MD Attending Provider Active Director Of Athletics Relationship Specialty Start Date End Date Miguelina Tellez MD [address] [place] [address] [place] [address] PCP - General Family Medicine 09/12/18 Director Of Athletics Relationship Specialty Start Date End Date Miguelina Tellez MD [address] [place] [address] PCP - General Family Medicine 09/12/18 Director Of Athletics Relationship Specialty Start Date End Date Miguelina Tellez MD [address] [place] [place] [address] PCP - General Family Medicine 09/12/18 Goals [...] BE BASED ON THE PRIMARY CLINICAL RECORDS. [facility]. provides no warranty or guarantee of the accuracy or completeness of information in this document.
== END 2023-12-07 09:11 | disposition home or self-care (01) ==
LOC: PM 09:10
PROVIDERS: PCP Family Medicine; Visit Provider Nurse Practitioner
DX: M47.816 Spondylosis without myelopathy or radiculopathy, lumbar region (principal); M48.062 Spinal stenosis, lumbar region with neurogenic claudication; M53.3 Sacrococcygeal disorders, not elsewhere classified; M51.36 Other intervertebral disc degeneration, lumbar region
CPT/HCPCS: G0463

== ENCOUNTER 2023-12-19 11:19 | Day surgery (SDC) | payer MEDICARE, SELFPAY ==
[2023-12-19 11:33] VITALS: BP 153/81; PULSE 72; TEMP 36.8; O2SAT 96
[2023-12-19 11:53] VITALS: BP 133/73; PULSE 73; O2SAT 94
[2023-12-19 11:54] VITALS: BP 134/73; PULSE 74; O2SAT 95
[2023-12-19] MEDS: 0.9 % SODIUM CHLORIDE 10 ML SYRINGE - SALINE FLUSH INJ (11:55)
[2023-12-19] MEDS: IOHEXOL 240 MG/ML - 10 ML VIAL INJ (11:56)
[2023-12-19] MEDS: TRIAMCINOLONE ACETONIDE 40 MG/ML VIAL 80 MG INJ (11:56)
[2023-12-19] MEDS: LIDOCAINE HCL 2% 400 MG/20 ML MDV 5 ML INJ (11:56)
[2023-12-19] MEDS: BUPIVACAINE HCL 0.25% PF 25 MG/10 ML VIAL INJ (11:56)
--- NOTE | 2023-12-19 11:58 | P.ON_ITS ---
Date of procedure: 12/19/23 Pre-op diagnosis: Pain due to lumbar stenosis with neurogenic claudication Post-op diagnosis: same as pre-op Procedure: Procedure: Right L4-5, L5-S1 transforaminal epidural steroid injection Medications: Bupivacaine 0.25% 2cc, lidocaine 2% 1cc, kenalog 80mg The patient was seen and examined in the preoperative holding area.? The site was marked.? Written informed consent was obtained and placed on the chart.? The patient was brought to the medical procedure unit and placed in the prone position.? A timeout was completed verifying correct patient, procedure, positioning, and special requirements.? The skin overlying the target points, the designated medial branch, were prepped and draped in the usual sterile fashion.? The target point was achieved with a 20-gauge 15 cm with a 10 mm curved active tip radiofrequency cannula under direct fluoroscopic visualization.? The needle was inserted at level L4-5 on the right side. Needle tip position was confirmed with lateral fluoroscopic position.? Motor stimulation was carried out at 2 Hz up to 5 volts with the absence of extremity activity.? This was repeated at level L5-S1 on right side.?? Sensory stimulation was carried out.? Concordant pain was realized at the above- mentioned sites.? Then radiofrequency lesioning was carried out times 90 seconds at 80 degrees times 2 lesions at each level.? The radiofrequency probe was removed prior to cannula removal.? The above-mentioned injectate was placed in 1 mL increments.? The needle was removed.? Insertion sites were covered.? The patient was taken to the postoperative recovery area and monitored for an appropriate length of time before being found suitable for discharge in the company of a responsible adult. Anesthesia: Local Surgeon: Kelly Boyd Pathology: none sent Condition: stable Disposition: no change
== END 2023-12-19 12:02 | disposition home or self-care (01) ==
LOC: SURGOUT 11:20
PROVIDERS: PCP Family Medicine; Visit Provider Anesthesiology
DX: M48.062 Spinal stenosis, lumbar region with neurogenic claudication (principal); Z79.4 Long term (current) use of insulin
CPT/HCPCS: 64483; 64484; 82948; J0665; J3301; Q9966

== ENCOUNTER 2024-01-02 08:47 | Day surgery (SDC) | payer MEDICARE, SELFPAY ==
[2024-01-02 09:01] VITALS: BP 154/78; PULSE 68; TEMP 36.4; O2SAT 96
--- OUTSIDE RECORDS SUMMARY | 2024-01-02 09:03 | XMS_ITS | CCD ---
Author Organization [facility] ion Partnership [facility] Care Team Providers Care Terminal Clerk Name Role Phone DR JOSE JACKMAN Primary Care Unavailable ERICKA KEMP Consulting Unavailab ERICKA Schilling Attending Unavailab ERICKA Schilling Admitting Unavailab MD Bora Mcduffie Attending Provider [phone] MD Miguelina Lopez Primary Care Provider [phone] MD Miguelina Lopez Referring Provider MD Miguelina Lopez Primary Care Provider [phone] MD Gerardo Roman Attending Provider Miguelina Lopez Primary Care Unavailable Gerardo Roman Admitting Unavailable Gerardo Roman Attending Unavailable Miguelina Lopez MD Primary Care Provider MELANIE SAXENA Attending Unavailable WONDERPARESH, MIGUELINA Gavin Referring Unavailable WONDERLY, MIGUELINA Gavin Primary Care Unavailable MILY NELSON Attending Unavailable WONDERLY, MIGUELINA B Referring Unavailable WONDERLY, MIGUELINA B Primary Care Unavailable QUYEN MCMAHON Attending Unavailable WONDERLY, MIGUELINA Gavin Referring Unavailable WONDERLY, MIGUELINA Gavin Primary Care Unavailable SHAHZAD SCRUGGS Attending Unavailable PIETER RANKIN Attending Unavailable PIETER RANKIN Referring Unavailable WONDERPARESH, MIGUELINA Alonso Attending Unavailable Oliver VERGARA, Andrius Swati Attending Unavailable Gibritta VERGARA, Andrius Vytautas Attending Unavailable Gibritta VERGARA, Andrius Vytautas Attending Unavailable Oliver VERGARA, Andrius Vytautas Attending Unavailable Gibritta VERGARA, Andrius Vytautjovanna Attending Unavailable Allergies Allergy Classification Reported Allergen(s) Allergy Type Date of Onset Reaction(s) Facility (1 source) Penicillin Drug Allergy [facility] Repository (4 sources) Amoxicillin; Translations: [amoxicillin] Drug Allergy 2 Unknown Reaction [facility] (4 sources) empagliflozin; Translations: [empagliflozin] Drug Allergy 2 Unknown Reaction [facility] (4 sources) Fish derivative; Translations: [fish derived] Propensity to adverse reactions 2 Vomiting [facility] (4 sources) liraglutide; Translations: [liraglutide] Drug Allergy 2 Diarrhea [facility] (9 sources) Lisinopril; Translations: [lisinopril] Drug Allergy 2 Cough [facility] (9 sources) pioglitazone; Translations: [pioglitazone] Drug Allergy 2 Unknown Reaction [facility] (4 sources) Shellfish; Translations: [shellfish derived] Propensity to adverse reactions 2 Unknown Reaction [facility] (5 sources) Penicillins; Translations: [PENICILLINS] Propensity to adverse reactions to drug 9 [facility] sources[facility] Shellfish; Translations: [SHELLFISH CONTAINING PRODUCTS] Propensity to adverse reactions to drug 2 [facility] Current Medications Medication Drug Class(es) Dates [...] coma, without long-term current use of insulin ([facility]) Inject 18 Units under the skin in [...] coma, without long-term current use of insulin ([facility]) Inject 35 Units under the skin in the morning. 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] Onset: 06-17-2022 Episodic Unclassified (1 source) CONTACT W/AND (SUSP) EXPOS COVID-19; Translations: [CONTACT W/AND (SUSP) EXPOS COVID-19] Onset: 01-06-2021 Results Test Name Value Interpretation Reference Range Facility POCT Hemoglobin A1con 2023 HbA1c (Bld) [Mass fraction] 6.8 g/dL 4 - 7 g/dL [facility] Armando 03-24-2023 L - -------- Specimen: [id number] Received: 03/25/23 Status: AIRAM Clementlópez Num: [id number] Spec Type: Surgical Subm Dr: Gerardo Roman MD Tissues: A Skin-Other than Cyst, tag, debridement or plastic repair (LT EYE) B Skin-Other than Cyst, tag, debridement or plastic repair (RT EYE) Procedures: HE/Xavier Buchanan/Vipul L4/2 -------- Age/ Patient Sex Location Account Attending Physician -------- Jered Falcon/M [place] [id number] Gerardo Roman MD -------- SPEC NUM: [id number] RECD: 03/25/23 STATUS: AIRAM ROSADO NUM: [id number] COLBY: 03/24/23 [facility] DR: Gerardo Roman MD ENTERED: 03/25/23 [facility] DR: SPEC TYPE: Surgical DEPT: S ORDERED: [...] in one cassette labeled B1. -------- Specimen: [id number] Received: 03/25/23 Status: AIRAM Rosado Num: [id number] Spec Type: Surgical Subm Dr: Gerardo Roman MD Tissues: A Skin-Other than Cyst, tag, debridement or plastic repair (LT EYE) B Skin-Other than Cyst, tag, debridement or plastic repair (RT EYE) Procedures: HE/2, Gross/Micro L4/2 -------- Patient: Jered Falcon [id number] (Continued) -------- Specimen: [id number] Received: 03/25/23 (Continued) Signed (signature on file) Minh Doran MD 03/28/231399 -------- Specimen: [id number] Received: 03/25/23 Status: AIRAM Karen Num: [id number] Spec Type: Surgical Subm Dr: Gerardo Roman MD Tissues: A Skin-Other than Cyst, tag, debridement or plastic repair (LT EYE) B Skin-Other than Cyst, tag, debridement or plastic repair (RT EYE) Procedures: HE/Chanel, Xavier/Vipul L4/2 -------- Patient: TerrieJered [id number] (Continued) -------- Specimen: [id number] Received: 03/25/23 (Continued) Microscopic Description A. One H E slide reviewed. The microscopic examination confirms the diagnosis. B. One H E slide reviewed. The microscopic examination confirms the diagnosis. CPT Codes 29483l5 -------- -------- Specimen: [id number] Received: 03/25/23 Status: AIRAM Karen Num: [id number] Spec Type: Surgical Subm Dr: Gerardo Roman MD Tissues: A Skin-Other than Cyst, tag, debridement or plastic repair (LT EYE) B Skin-Other than Cyst, tag, debridement or plastic repair (RT EYE) Procedures: HE/2, Xavier/Vipul L4/2 -------- Patient: Jered Falcon [id number] (Continued) -------- Signed (signature on file) Minh Doran MD 03/28/23 1400 [facility] XR Chest 2 Views*on 05-04-20 [...] by Mansoor Nash on 05/04/2022 0943 Normal [facility] Complete Blood Counton 10-07 Erythrocyte distribution width (RBC) [Ratio] 12.9 % Normal 11.0-15.0 [facility] Specialist Comment on above: Performed By: #### L IPD, CBC, CMP #### [facility] [address], [place] [id number] Hematocrit (Bld) [Volume fraction] 45.1 % Normal 38.5-50.0 [facility] Specialist Comment on above: Performed By: #### L IPD, CBC, CMP #### [facility] [address], [place] [id number] Hemoglobin (Bld) [Mass/Vol] 14.9 g/dL Normal 13.0-17.1 [facility] Specialist Comment on above: Performed By: #### L IPD, CBC, CMP #### [facility] [address], [place] [id number] MCH (RBC) [Entitic mass] 29.9 pg Normal 27.0-33.0 [facility] Specialist Comment on above: Performed By: #### L IPD, CBC, CMP #### [facility] [address], [place] [id number] MCHC (RBC) [Mass/Vol] 33.0 g/dL Normal 32.0-36.0 [facility] Chargem[employer] Analyst Comment on above: Performed By: #### L IPD, CBC, CMP #### [facility] [address], [place] [id number] MCV (RBC) [Entitic vol] 90 fL Normal 80-100 [facility] Specialist Comment on above: Performed By: #### L IPD, CBC, CMP #### [facility] [address], [place] [id number] Platelet mean volume (Bld) [Entitic vol] 8.90 fL Normal 7.50-12.50 [facility] Comment on above: Performed By: #### L IPD, CBC, CMP #### [facility] [address], [place] [id number] Platelets (Bld) [#/Vol] 421 10*3/uL High 140-400 [facility] Specialist Comment on above: Performed By: #### L IPD, CBC, CMP #### [facility] [address], [place] [id number] RBC (Bld) [#/Vol] 4.99 10*6/uL Normal 4.20-5.80 [facility] Chargemaster Analyst Comment on above: Performed By: #### L IPD, CBC, CMP #### [facility] [address], [place] [id number] RDW-SD 42.6 fL Normal 37.0-50.0 [facility] Specialist Comment on above: Performed By: #### L IPD, CBC, CMP #### [facility] [address], [place] [id number] WBC (Bld) [#/Vol] 6.6 10*3/uL Normal 3.8-11.0 [facility] Chargemaster Analyst Comment on above: Performed By: #### L IPD, CBC, CMP #### [facility] [address], [place] [id number] Comprehensive Metabolic Pane [facility] 10-07-2021 Albumin [Mass/Vol] 4.7 g/dL Normal 3.6-5.1 [place] [employer] Analyst Comment on above: Performed By: #### L IPD, CBC, CMP #### [facility] [address], [place] [id number] Albumin/Globulin [Mass ratio] 1.9 {ratio} Normal 1.0-2.5 [facility] Comment on above: Performed By: #### L IPD, CBC, CMP #### [facility] [address], [place] [id number] ALP [Catalytic activity/Vol] 96 U/L Normal 40-129 [facility] Comment on above: Performed By: #### L IPD, CBC, CMP #### [facility] [address], [place] [id number] ALT [Catalytic activity/Vol] 29 U/L Normal 9-46 [facility] Comment on above: Result Comment: 04/15 Female reference range changed. Performed By: #### L IPD, CBC, CMP #### [facility] [address], [place] [id number] Anion gap [Moles/Vol] 18 mmol/L Normal 12-20 [facility] Comment on above: Result Comment: Effe ctive 05/21/2019 reference range changed. Performed By: #### L IPD, CBC, CMP #### [facility] [address], [place] [id number] AST [Catalytic activity/Vol] 24 U/L Normal 10-40 [facility] Comment on above: Performed By: #### L IPD, CBC, CMP #### [facility] [address], [place] [id number] Bilirubin [Mass/Vol] 0.99 mg/dL Normal 0.30-1.20 [facility] Comment on above: Performed By: #### L IPD, CBC, CMP #### [facility] [address], [place] [id number] BUN/CREA 13 Ratio Normal 6-22 [facility] Comment on above: Performed By: #### L IPD, CBC, CMP #### [facility] [address], [place] [id number] Calcium [Mass/Vol] 10.0 mg/dL Normal 8.6-10.2 [place] [employer] Analyst Comment on above: Performed By: #### L IPD, CBC, CMP #### [facility] [address], [place] [id number] Chloride [Moles/Vol] 97 mmol/L Low 98-107 [facility] Comment on above: Performed By: #### L IPD, CBC, CMP #### [facility] [address], [place] [id number] CO2 [Moles/Vol] 26 mmol/L Normal 20-31 [facility] Specialist Comment on above: Performed By: #### L IPD, CBC, CMP #### [facility] [address], [place] [id number] Creatinine [Mass/Vol] 0.9 mg/dL Normal 0.7-1.4 [facility] Specialist Comment on above: Performed By: #### L IPD, CBC, CMP #### [facility] [address], [place] [id number] eGFRAA 99 mL/min/1.73m2 Normal >60 [facility] Specialist Comment on above: Performed By: #### L IPD, CBC, CMP #### [facility] [address], [place] [id number] eGFRNAA 81 mL/min/1.73m2 Normal >60 [facility] Specialist Comment on above: Performed By: #### L IPD, CBC, CMP #### [facility] [address], [place] [id number] Globulin (S) [Mass/Vol] 2.5 g/dL Normal 1.9-3.7 [facility] Specialist Comment on above: Performed By: #### L IPD, CBC, CMP #### [facility] [address], [place] [id number] Glucose [Mass/Vol] 196 mg/dL High 65-99 [facility] Comment on above: Result Comment: For FASTING Glucose --- ADA reference ranges: Normal 65-99 mg/dl Prediabetes 100-125 Diabetes >/= 126 Performed By: #### L IPD, CBC, CMP #### [facility] [address] [place], [place] [id number] Potassium [Moles/Vol] 4.0 mmol/L Normal 3.5-5.5 [place] [employer] Analyst Comment on above: Performed By: #### L IPD, CBC, CMP #### [facility] [address], [place] [id number] Protein [Mass/Vol] 7.2 g/dL Normal 6.1-8.1 [facility] [place]isset [place] Charg[employer] Analyst Comment on above: Performed By: #### L IPD, CBC, CMP #### [facility] [address] [place], [place] [id number] Sodium [Moles/Vol] 137 mmol/L Normal 135-146 [facility] Chargemaster Analyst Comment on above: Performed By: #### L IPD, CBC, CMP #### [facility] [address], [place] [id number] Urea nitrogen [Mass/Vol] 12 mg/dL Normal 7-25 [facility] Charg[employer]aster Analyst Comment on above: Performed By: #### L IPD, CBC, CMP #### [facility] [address], [place] [id number] Lipid Panelon 10-07-2021 Cholesterol [Mass/Vol] 142 mg/dL Normal 125-200 [facility] Chargemaster Analyst Comment on above: Result Comment: Low risk < 200mg/dL Borderline risk 201-239 mg/dl High risk > or equal to 240 Performed By: #### L IPD, CBC, CMP #### [facility] [address], [place] [id number] Cholesterol in HDL [Mass/Vol] 42 mg/dL Normal >40 [facility] Chargemaster Analyst Comment on above: Result Comment: High Cardiovascular Risk HDL <40 mg/dL Low Cardiovascular Risk HDL > or equal to 60 mg/dl Performed By: #### L IPD, CBC, CMP #### [facility] [address] [place], [place] [id number] Cholesterol in LDL [Mass/Vol] 40 mg/dL Normal [facility] Chargemaster Analyst Comment on above: Result Comment: LDL ATP III CLASSIFICATION LDL less than 100 mg/dl Optimal LDL 100-129 mg/dl Near or above optimal LDL 130-159 Borderline high LDL 160-189 High LDL greater than 189 mg/dl Very High Performed By: #### L IPD, CBC, CMP #### [facility] [address] [place], [place] [id number] Cholesterol in VLDL [Mass/Vol] 60 mg/dL Normal [facility] Chargemaster Analyst Comment on above: Performed By: #### L IPD, CBC, CMP #### [facility] [address] [place], [place] [id number] Cholesterol.total/Ch olesterol in HDL [Mass ratio] 3 {ratio} Normal [facility] Chargemaster Analyst Comment on above: Performed By: #### L IPD, CBC, CMP #### [facility] [address] [place], [place] [id number] Triglyceride [Mass/Vol] 298 mg/dL High 30-150 [facility] Chargemaster Analyst Comment on above: Result Comment: TRIG ATPIII CLASSIFICATIONS TRIG less than 150 mg/dl Normal TRIG 150-199 mg/dl Borderline High TRIG 200-500 mg/dl High TRIG greather than 500 mg/dl Very High Performed By: #### L IPD, CBC, CMP #### [facility] [address], [place] [id number] Microalbumin (w/o Creat)on 10-07-2021 mALB 27.4 mg/dL Normal [facility] Chargemaster Analyst Comment on above: Result Comment: mALB reference range not established. Performed By: #### m ALB #### [facility] [address] [place], [place] [id number] Covid-19 PCR ([facility])on 12-15 SARS-CoV-2 (COVID-19) RNA DANNY+probe Ql (Unsp spec) Not detected Normal NOT DETECTED [facility] Comment on above: Result Comment: This test is not yet approved or cleared by the [place] FDA. When there are no FDA-approved or cleared tests available, and other criteria are met, FDA can make tests available under an emergency access mechanism called an Emergency Use Authorization (EUA). The EUA for this test is supported by the [place] of Health and Human Service's (HHS's) declaration [...] consistent with SARS-CoV-2. Performed By: #### [facility] #### [facility] [address] [place] [address] Ted Casas Basic Metabolic Panelon 02-14 Calcium [Mass/Vol] 9.5 mg/dL Normal 8.5-10.6 [facility] Chloride [Moles/Vol] 100 mmol/L Normal 98-107 [facility] CO2 [Moles/Vol] 25 mmol/L Normal 21-32 [facility] Creatinine [Mass/Vol] 0.95 mg/dL Normal 0.70-1.30 [facility] Glucose [Mass/Vol] 171 mg/dL High 70-99 [facility] Potassium [Moles/Vol] 4.4 mmol/L Normal 3.5-5.1 [facility] Sodium [Moles/Vol] 136 mmol/L Normal 136-145 [facility] Urea nitrogen (BldV) [Mass/Vol] 19 mg/dL High 7.0-18.0 [facility] Urea nitrogen/Creatinine [Mass ratio] 20 mg/mg Normal [facility] CBC with Differentialon 02-14 Basophils (Bld) [#/Vol] 0.1 thou/mcL Normal 0.0-0.2 [facility] Basophils/100 WBC (Bld) 1.0 % Normal 0-3 [facility] Differential cell count method Nom (Bld) AUTOMATED DIFFERENTIAL Normal [facility] Eosinophils (Bld) [#/Vol] 0.1 thou/mcL Normal 0.0-0.4 [facility] Eosinophils/100 WBC (Bld) 2.6 % Normal 0-7 [facility] Lymphocytes (Bld) [#/Vol] 1.5 thou/mcL Normal 0.7-4.5 [facility] Lymphocytes/100 WBC (Bld) 26.0 % Normal 14-46 [facility] Monocytes (Bld) [#/Vol] 0.5 thou/mcL Normal 0.1-1.0 [facility] Monocytes/100 WBC (Bld) 8.4 % Normal 4-13 [facility] Neutrophils (Bld) [#/Vol] 3.5 thou/mcL Normal 1.5-7.8 [facility] Neutrophils/100 WBC (Bld) 62.0 % Normal 40-74 [facility] Erythrocyte distribution width (RBC) [Entitic vol] 14.0 % Normal 11.7-15.0 [facility] Hematocrit (Bld) [Volume fraction] 39.7 % Normal 34.0-50.0 [facility] Hemoglobin (Bld) [Mass/Vol] 13.2 g/dL Normal 11.5-17.0 [facility] MCH (RBC) [Entitic mass] 30.1 Picograms Normal 27.0-34.0 [facility] MCHC (RBC) [Mass/Vol] 33.3 g/dL Normal 32.0-36.0 [facility] MCV (RBC) [Entitic vol] 90.5 fL Normal 80-98 [facility] Platelet mean volume (Bld) [Entitic vol] 7.0 fL Low 7.5-11.2 [facility] Platelets (Bld) [#/Vol] 390 thou/mcL Normal 140-415 [facility] RBC (Bld) [#/Vol] 4.39 x(10)6/mcL Normal 3.80-5.60 [facility] WBC (Bld) [#/Vol] 5.6 thou/mcL Normal 4.0-10.5 [facility] Partial Thromboplastin Time (aPTT)on 03-07-2019 aPTT Coag (PPP) [Time] 27 Sec Normal 23.2-34.6 [facility] Prothrombin Timeon 9 INR Coag (Bld) [Relative time] 0.9 {INR} Normal [facility] Comment on above: Result Comment: MG ANN THE INDUCTION PHASE OF ORAL ANTICOAGULATION, THE INR MAY NOT REFLECT THE ANTICOAGULANT STATUS OF THE PATIENT. THERAPEUTIC RANGES FOR INR'S ARE: MOST CLINICAL SITUATIONS: INR 2.0-3.0 MECHANICAL PROSTHETIC VALVES: INR 2.5-3.5 CRITICAL: INR 5.0 PT Coag (PPP) [Time] 11.9 Sec Normal 11.9-14.6 [facility] Patient Portal Messageon Patient Portal Message --- --- --- --- --- --- --- --- --- From: Hospital, Patient Summary Visit To: TERRIE JERED Tony Sent: 08/09/18 01:30:45 AM EDT Subject: New Results Available A summary regarding your recent visit is available in the Documents section of your Health Record. Normal [facility] Basic Metabolic Panelon 07-15 Calcium [Mass/Vol] 8.4 mg/dL Low 8.5-10.6 [facility] Chloride [Moles/Vol] 100 mmol/L Normal 98-107 [facility] CO2 [Moles/Vol] 29 mmol/L Normal 21-32 [facility] Creatinine [Mass/Vol] 0.97 mg/dL Normal 0.70-1.30 [facility] Glucose [Mass/Vol] 166 mg/dL High 74-106 [facility] Potassium [Moles/Vol] 3.9 mmol/L Normal 3.5-5.1 [facility] Sodium [Moles/Vol] 137 mmol/L Normal 136-145 [facility] Urea nitrogen (BldV) [Mass/Vol] 14 mg/dL Normal 7-18 [facility] Urea nitrogen/Creatinine [Mass ratio] 14 mg/mg Normal [facility] CBC with Differentialon 07-15 Basophils (Bld) [#/Vol] 0.1 thou/mcL Normal 0.0-0.2 [facility] Basophils/100 WBC (Bld) 0.5 % Normal 0-3 [facility] Differential cell count method Nom (Bld) AUTOMATED DIFFERENTIAL Normal [facility] Eosinophils (Bld) [#/Vol] 0.1 thou/mcL Normal 0.0-0.4 [facility] Eosinophils/100 WBC (Bld) 1.2 % Normal 0-7 [facility] Erythrocyte distribution width (RBC) [Entitic vol] 13.3 % Normal 11.7-15.0 [facility] Hematocrit (Bld) [Volume fraction] 36.4 % Normal 34.0-50.0 [facility] Hemoglobin (Bld) [Mass/Vol] 12.1 g/dL Normal 11.5-17.0 [facility] Lymphocytes (Bld) [#/Vol] 2.0 thou/mcL Normal 0.7-4.5 [facility] Lymphocytes/100 WBC (Bld) 20.2 % Normal 14-46 [facility] MCH (RBC) [Entitic mass] 30.1 Picograms Normal 27.0-34.0 [facility] MCHC (RBC) [Mass/Vol] 33.1 g/dL Normal 32.0-36.0 [facility] MCV (RBC) [Entitic vol] 90.8 fL Normal 80-98 [facility] Monocytes (Bld) [#/Vol] 0.8 thou/mcL Normal 0.1-1.0 [facility] Monocytes/100 WBC (Bld) 8.2 % Normal 4-13 [facility] Neutrophils (Bld) [#/Vol] 7.1 thou/mcL Normal 1.5-7.8 [facility] Neutrophils/100 WBC (Bld) 69.9 % Normal 40-74 [facility] Platelet mean volume (Bld) [Entitic vol] 6.8 fL Low 7.5-11.2 [facility] Platelets (Bld) [#/Vol] 333 thou/mcL Normal 140-415 [facility] RBC (Bld) [#/Vol] 4.01 x(10)6/mcL Normal 3.80-5.60 Mo unt [facility] WBC (Bld) [#/Vol] 10.1 thou/mcL Normal 4.0-10.5 Moun t [facility] Patient Summaryon 08-08-2018 Patient Summary PATIENT DISCHARGE INSTRUCTIONS If you are having an emergency and are not able to reach your physician, CALL 911 or go to the nearest emergency room and take this document with you. [facility] 08/08/18 11:02 [address] [place]. [address] PATIENT INFORMATION Name: TERRIE JERED Jimenez Address: [address] [place] [id number] Age: 68 Years Phone: [phone] : 1950 12:00 MRN: [facility])-[id number] Sex: Male Race: White Ethnicity: Not Hispan/Lat Admitted From: Clinic or [facility] Medical Service: Orthopedic Surgery Nurse Unit/Bed: (CO) 2NAN 0225-01 Admit Date: 08/07/2018 07:26 PCP: Miguelina Lopez MD PHYSICIANS INVOLVED WITH CARE ------ Attending Physicians: Jameson Espinal MD , Jeremy - Orthopaedic Surg Admitting Physician: Jameson Espinal MD , Jeremy - Orthopaedic Surg Primary Care Physician:Miguelina Lopez MD,[facility], - Consults: RONALDO Gill - Internal Medicine FOLLOW-UP APPOINTMENTS: Provider: Specialty: Address: Date: Jeremy Barba Jr, MD Orthopaedic Surg [address] [place] [address] (1) Comment: Please call to schedule a 6 week appt. May call sooner if problems occur Provider: Specialty: Address: Date: Miguelina Lopez MD [place] [address] (1) Follow-up as needed Provider: Specialty: Address: [...] doses are changed, or new medications (including vtmf-zta-hjalewd products) are added. Ask your doctor if [...] Decisions Type: Living Will, Medical Power of Risk Management Analyst Copy of Advance Directive/Health Care Decisions on Chart: Patient/Family asked to provide copy SUICIDE HOTLINE: Your mental and emotional well-being are important. If you are in a mental health crisis, or having thoughts of suicide, please call the nationwide suicide hotline, anytime day or night, at 8-417-936-RMHQ. Important information about accessing your health information through the [facility] patient portal If you initiated the self-registration process for [facility] during your stay, please check your personal email for an invitation to enroll in [facility] and complete the steps outlined in the email. If you would prefer to enroll while in the hospital, ask a member of your care team. We would be happy to assist you. If you have already enrolled in [facility], go to [email or web address] to login and access your health information. Thank you for choosing [employer]. PATIENT EDUCATION Constipation, Adult Constipation is when [...] with a lot of sugar. This includes croatian fries, hamburgers, cookies, candy, and soda. ???If [...] 10/18/2008 Document Revised: 05/23/2015 Document Reviewed: 02/11/2014 [employer] Interactive Patient Education ?2016 [employer]. Venous Thromboembolism, Prevention A venous thromboembolism is [...] 04/20/2010 Document Revised: 01/24/2013 Document Reviewed: 08/27/2015 [employer] Interactive Patient Education ?2016 [employer]. Incentive Spirometer An incentive spirometer is a [...] Reviewed: 03/06/2015 Elsevier Interactive Patient Education ?2016 [employer] Fall Prevention in the Home Falls [...] items that you use a lot in fpzs-rh-zzaur places. ???If you need to reach something [...] Reviewed: 06/06/2015 Elsevier Interactive Patient Education ?2015 [employer] PATIENT DISCHARGE INSTRUCTION Signature Page for: JERED FALCON Date/Time: 08/08/2018 11:02:16 A Clinician has explained the information on my discharge instructions and has provided me with a copy. My questions have been answered to my satisfaction. Patient Signature Date/Time Responsible Party Date/Time Relationship to Patient Clinician Signature Date/Time Normal [facility] Anesthesia Recordon 08-08-19 Anesthesia Record Patient: JERED FALCON Age: 68 years Sex: Male : 1950 Associated Diagnoses: None Author: Idalia Godinez DO Procedure Time Out [place] Protocol: patient identity verified, site verified, side verified, procedure to be done verified, patient position verified. REGIONAL ANESTHESIA PROCEDURE Procedure date and begin time: See nurses notes. Procedure date and end time: See nurses notes. Second Procedure Start: Spinal block. Performed by: Idalia Godinez DO. Assisted by: no assistant sales center manager. Informed consent: signed by patient. Technique: Spinal [...] OA Postoperative Diagnosis: Hip OA . Normal [facility] Basic Metabolic Panelon 07-15 Calcium [Mass/Vol] 8.6 mg/dL Normal 8.5-10.6 [facility] Chloride [Moles/Vol] 100 mmol/L Normal 98-107 [facility] CO2 [Moles/Vol] 26 mmol/L Normal 21-32 [facility] Creatinine [Mass/Vol] 0.95 mg/dL Normal 0.70-1.30 [facility] Glucose [Mass/Vol] 191 mg/dL High 74-106 [facility] Potassium [Moles/Vol] 4.2 mmol/L Normal 3.5-5.1 [facility] Sodium [Moles/Vol] 136 mmol/L Normal 136-145 [facility] Urea nitrogen (BldV) [Mass/Vol] 23 mg/dL High 7-18 [facility] Urea nitrogen/Creatinine [Mass ratio] 24 mg/mg Normal [facility] OR Nursingon 08-07-2018 OR Nursing CO NA OR Nursing Record Summary Primary Physician: Jeremy Barba Jr, MD Finalized Date/Time: 08/07/18 12:06:15 Pt. Name: JERED FALCON Otoniel/Sex: 1950 Male Med Rec #: [id number] Physician: Jeremy Barba Jr, MD Financial #: [id number] Pt. Type: I Room/Bed: / Admit/Disch: 08/07/18 07:26:00 - Institution: CO NA OR Case Times Entry 1 Patient Times Patient In Room 08/07/18 10:06:00 Patient Out Room 08/07/18 11:59:00 Surgical Times Start Time 08/07/18 10:48:00 Stop Time 08/07/18 11:52:00 Last Modified By: Rosi Cunningham RNbeth 08/07/18 11:57:43 CO NA OR Delays Entry [...] Storm Role Performed Primary Surgeon Anesthesiologist Nurse Senior Electrical Project Manager Time In 08/07/18 10:44:00 08/07/18 10:06:00 08/07/18 10:06:00 Time Out 08/07/18 11:25:00 08/07/18 11:59:00 08/07/18 11:08:00 Procedure Arthroplasty Hip Total Arthroplasty Hip Total Arthroplasty Hip Total Anterior(Right) Anterior(Right) Anterior(Right) Attendee Comment COVERAGE Relief Reason Last Modified By: Marisa RN , Marisa RN , Marisa RN JulietaKamini 08/07/18 Kamini 08/07/18 Kamini 08/07/18 11:58:27 11:58:27 11:58:27 Entry 4 Entry 5 Entry 6 Case Attendee Case, Attendee Other Kristy MOY , Yessica Monreal Role Performed Improvement Engineer freelance translator First Scrub Time In 08/07/18 10:44:00 08/07/18 10:06:00 08/07/18 10:06:00 Time Out 08/07/18 11:25:00 08/07/18 11:00:00 08/07/18 11:59:00 Procedure Arthroplasty Hip Total Arthroplasty Hip Total Arthroplasty Hip Total Anterior(Right) Anterior(Right) Anterior(Right) Attendee Comment BERNIE/GENIE Relief Reason Lunch Last Modified By: Marisa RN , Marisa RN , Marisa RN , Harrison 08/07/18 Harrison 08/07/18 Harrison 08/07/18 11:58:27 11:58:27 11:58:27 Entry 7 Entry 8 Entry 9 Case Attendee Daija Dietrich , Rocoi Lovell Role Performed Second Scrub Physician Network Mgr Assistive Personnel Time In 08/07/18 10:06:00 08/07/18 10:06:00 08/07/18 10:06:00 Time Out 08/07/18 11:35:00 08/07/18 11:59:00 08/07/18 11:59:00 Procedure Arthroplasty Hip Total Arthroplasty Hip Total Arthroplasty Hip Total Anterior(Right) Anterior(Right) Anterior(Right) Attendee Comment Relief Reason Last Modified By: Marisa RN , Marisa RN , Marisa RN , Harrison 08/07/18 Harrison 08/07/18 Harrison 08/07/18 11:58:27 11:58:27 11:58:27 Entry 10 Entry 11 Entry 12 Case Attendee Marisa RN , Kamini MENDOZAT , Mirta Foster RN , Patricia Orona Role Performed freelance translator Pattern Wheel Maker freelance translator Time In 08/07/18 10:06:00 08/07/18 10:30:00 08/07/18 11:00:00 Time Out 08/07/18 11:00:00 08/07/18 11:59:00 08/07/18 11:30:00 Procedure Arthroplasty Hip Total Arthroplasty Hip Total Arthroplasty Hip Total Anterior(Right) Anterior(Right) Anterior(Right) Attendee Comment relief Relief Reason Lunch Last Modified By: Marisa RN , Marisa RN , Marisa RN , Harrison 08/07/18 Harrison 08/07/18 Harrison 08/07/18 11:58:27 11:58:27 11:58:27 Entry 13 Entry 14 Entry 15 Case Attendee Mansoor Miles CRNA AOC AADC OPERATIONS STAFF OFFICER, Александр Cunningham RN , Kamini Role Performed Nurse Senior Electrical Project Manager Nurse Senior Electrical Project Manager freelance translator Time In 08/07/18 11:08:00 08/07/18 11:34:00 08/07/18 11:30:00 Time Out 08/07/18 11:34:00 08/07/18 11:59:00 08/07/18 11:59:00 Procedure Arthroplasty Hip Total Arthroplasty Hip Total Arthroplasty Hip Total Anterior(Right) Anterior(Right) Anterior(Right) Attendee Comment Relief Reason Last Modified By: Marisa RN , Marisa RN , Marisa MOY , Kamini 08/07/18 Harrison 08/07/18 Harrison 08/07/18 11:58:27 11:58:27 11:58:27 Entry 16 Case Attendee Yokasta Wagner RN Role Performed freelance translator Time In 08/07/18 11:30:00 Time Out 08/07/18 11:59:00 Procedure Arthroplasty Hip Total Anterior(Right) Attendee Comment Relief Reason Last Modified By: Rosi Cunningham RNbeth 08/07/18 11:58:27 CO NA OR General Case Crossing [place] 1 OR CO NA 08 ASA Class 3 Case Wound Class Clean Specialty Orthopedic Surgery Case Level Ortho Complex Diagnosis Preop Diagnosis M16.11 Postop Same As Preop Yes Postop Diagnosis M16.11 This is a down time No record. Last Modified By: Marisa MOY , Kamini 08/07/18 11:47:58 CO NA OR Surgical Procedures Entry 1 Procedure Arthroplasty Hip Total Primary Procedure Yes Anterior Modifiers Right Procedure Wound Clean Class Primary Surgeon Jameson Espinal MD , [facility] Orthopedic Surgery Anesthesia Type General Procedure Performed ASI right total hip arthroplasty Start 08/07/18 10:48:00 Stop 08/07/18 11:52:00 Last Modified By: Kamini Cunningham RN 08/07/18 11:51:28 CO NA OR Catheters, Drains, and Tubes Entry 1 Device Type DRAIN 10 FR ROUND Present on Arrival? No [id number] Location Operative Hip Inserted By Jameson Espinal MD , Jeremy Comments 10 Fr Round Silicone DC'd at End of Case? No Drain/400ml Hemovac Entiat Tegaderm to secure drain. Last Modified By: [...] Location Last Modified By: Marisa MOY , Kamini 08/07/18 10:36:58 CO NA OR Medication Entry [...] Jeremy Medication Comment Last Modified By: Marisa RN , Marisa MOY , Marisa MOY , Kamini 08/07/18 Kamini 08/07/18 Harrison 08/07/18 10:49:59 10:49:59 10:49:59 CO NA OR Irrigation Entry 1 Irrigant 0.9% Saline Irrigant Volume 1000 mL Last Modified By: Marisa MOY , Kamini 08/07/18 12:06:05 CO NA OR Implants Entry 1 Entry 2 Entry 3 Procedure Arthroplasty Hip Total Arthroplasty Hip Total Arthroplasty Hip Total Anterior(Right) Anterior(Right) Anterior(Right) Implant/Explant Implant Implant Implant Wasted Reason Provided by Surgeon No No No Implant Identification Description HIP ACETABULAR SHELL G7 HIP ACETABULAR LINER VE SCREW SUZANNE BIOMET G7 FINNED HT 54MM F 36MM F NEUTRAL [id number] LOW PROFILE DOME TI [id number] 6.5X20MM [id number] Yard Crane Operator SUZANNE BIOMET SUZANNE BIOMET SUZANNE [employer]OMET Catalog Number [id number] Lot Number [id number] Serial Number n/a n/a n/a Implant Site [...] LOW PROFILE DOME TI MP PPS HO [id number] Ma DELTA OPTION CE 36MM 6.5X35MM [id number] 650-1057 Yard Crane Operator SUZANNE BIOMET BIOMET ORTHOPED BRACING BIOMET ORTHOPEDICS [facility] Catalog Number [id number] Lot Number [id number] Serial Number n/a n/a n/a Implant Site [...] MOY , Patricia Foster RN , Patricia Johnson RN 08/07/18 11:14:58 08/07/18 11:33:50 08/07/18 11:33:50 Entry 7 Procedure Arthroplasty Hip Total Anterior(Right) Implant/Explant Implant Wasted Reason Provided by Surgeon No Implant Identification Description HIP NECK BIOLOX OPTION TAPER ADAPTER -6 [phone] Yard Crane Operator [employer] Catalog Number [phone] Lot Number [id number] Serial Number n/a Implant Site right hip [...] Taken No Comment Also performed with Physician's Network Mgr. Procedure Arthroplasty Hip Total Anterior(Right) Last Modified [...] By: Kamini Cunningham RN 08/07/18 12:06 Normal [facility] PACU I Nursingon 08-07-2018 PACU I Nursing CO NA PACU I Nursing Record Summary Primary Physician: Jeremy Barba Jr, MD Finalized Date/Time: 08/07/18 12:46:58 Pt. Name: TERRIEJERED/Sex: 1950 Male Med Rec #: [id number] Physician: Jeremy Barba Jr, MD Financial #: [id number] Pt. Type: I Room/Bed: / Admit/Disch: 08/07/18 [...] By: Ghislaine Lagunas RN 08/07/18 12:46 Normal [facility] PreOp Nursingon 08-07-2018 PreOp Nursing CO NA PreOp Nursing Record Summary Primary Physician: Jeremy Barba Jr, MD Finalized Date/Time: 08/07/18 10:11:50 Pt. Name: JERED FALCON Tony HesterB./Sex: 1950 Male Med Rec #: [id number] Physician: Jeremy Barba Jr, MD Financial #: [id number] Pt. Type: I Room/Bed: / Admit/Disch: 08/07/18 [...] By: Kamini Cunningham RN 08/07/18 10:11 Normal [facility] XR Pelvis 1-2 Viewson 2018 [...] total hip arthroplasty with recent postoperative changes. [facility] thanks you for the opportunity to care for your patient. Workstation ID: [id number] FINAL REPORT Dictated By: Marcell Mcgowan MD 08/07/2018 12:44 Assigned Physician: Marcell Mcgowan MD Reviewed and Electronically Signed By: Marcell Mcgowan MD 08/07/2018 12:44 Transcribed by: MIMI 08/07/2018 12:44 Technologist: FRANCISCO Jones [facility] Comment on above: Order Comment: Posto perative, s/p SIMON Basic Metabolic Panelon 07-15 Calcium [Mass/Vol] 9.5 mg/dL Normal 8.5-10.6 [facility] Chloride [Moles/Vol] 100 mmol/L Normal 98-107 [facility] CO2 [Moles/Vol] 28 mmol/L Normal 21-32 [facility] Creatinine [Mass/Vol] 0.95 mg/dL Normal 0.70-1.30 [facility] Glucose [Mass/Vol] 209 mg/dL High 74-106 [facility] Potassium [Moles/Vol] 4.0 mmol/L Normal 3.5-5.1 [facility] Sodium [Moles/Vol] 139 mmol/L Normal 136-145 [facility] Urea nitrogen (BldV) [Mass/Vol] 13 mg/dL Normal 7-18 [facility] Urea nitrogen/Creatinine [Mass ratio] 14 mg/mg Normal [facility] CBC with Differentialon 07-15 Basophils (Bld) [#/Vol] 0.1 thou/mcL Normal 0.0-0.2 [facility] Basophils/100 WBC (Bld) 1.2 % Normal 0-3 [facility] Differential cell count method Nom (Bld) AUTOMATED DIFFERENTIAL Normal [facility] Eosinophils (Bld) [#/Vol] 0.2 thou/mcL Normal 0.0-0.4 [facility] Eosinophils/100 WBC (Bld) 2.6 % Normal 0-7 [facility] Erythrocyte distribution width (RBC) [Entitic vol] 13.2 % Normal 11.7-15.0 [facility] Hematocrit (Bld) [Volume fraction] 39.4 % Normal 34.0-50.0 [facility] Hemoglobin (Bld) [Mass/Vol] 13.1 g/dL Normal 11.5-17.0 [facility] Lymphocytes (Bld) [#/Vol] 1.9 thou/mcL Normal 0.7-4.5 [facility] Lymphocytes/100 WBC (Bld) 28.7 % Normal 14-46 [facility] MCH (RBC) [Entitic mass] 29.9 Picograms Normal 27.0-34.0 [facility] MCHC (RBC) [Mass/Vol] 33.2 g/dL Normal 32.0-36.0 [facility] MCV (RBC) [Entitic vol] 90.3 fL Normal 80-98 [facility] Monocytes (Bld) [#/Vol] 0.6 thou/mcL Normal 0.1-1.0 [facility] Monocytes/100 WBC (Bld) 8.8 % Normal 4-13 [facility] Neutrophils (Bld) [#/Vol] 3.9 thou/mcL Normal 1.5-7.8 [facility] Neutrophils/100 WBC (Bld) 58.7 % Normal 40-74 [facility] Platelet mean volume (Bld) [Entitic vol] 7.2 fL Low 7.5-11.2 [facility] Platelets (Bld) [#/Vol] 418 thou/mcL High 140-415 [facility] RBC (Bld) [#/Vol] 4.37 x(10)6/mcL Normal 3.80-5.60 Mo [facility] WBC (Bld) [#/Vol] 6.7 thou/mcL Normal 4.0-10.5 [facility] Partial Thromboplastin Time (aPTT)on 08-02-2018 aPTT Coag (PPP) [Time] 29 Sec Normal 24.4-37.5 [facility] Prothrombin Timeon 9 INR Coag (Bld) [Relative time] 1.0 {INR} Normal 0.8-1.2 [facility] Comment on above: Result Comment: MG ANN THE INDUCTION PHASE OF ORAL ANTICOAGULATION, THE INR MAY NOT REFLECT THE ANTICOAGULANT STATUS OF THE PATIENT. THERAPEUTIC RANGES FOR INR'S ARE: MOST CLINICAL SITUATIONS: INR 2.0-3.0 MECHANICAL PROSTHETIC VALVES: INR 2.5-3.5 CRITICAL: INR 5.0 PT Coag (PPP) [Time] 10.7 Sec Normal 9.4-12.5 [facility] Vital Signs Date Time Vital Sign Value Performing Clinician Gena hendrickson 06-01-2023 10:02-0500 Body mass index (BMI) [Ratio] 33.08 kg/m2 Mily Nelson RECYCLING CENTER OPERATOR-RESEARCH WORKER [employer] Work Phone: [facility] 06-01-2023 10:02-0500 Body weight 95.8 kg Mily Nelson RECYCLING CENTER OPERATOR-RESEARCH WORKER [employer] Work Phone: [facility] 06-01-2023 10:02-0500 Diastolic blood pressure 75 mm[Hg] Mily Nelson RECYCLING CENTER OPERATOR-RESEARCH WORKER [employer] Work Phone: [facility] 06-01-2023 10:02-0500 Heart rate 81 /min Mily Nelson RECYCLING CENTER OPERATOR-RESEARCH WORKER [employer] Work Phone: [facility] 06-01-2023 10:02-0500 Systolic blood pressure 140 mm[Hg] Mily Nelson RECYCLING CENTER OPERATOR-RESEARCH WORKER [employer] Work Phone: [facility] 01-11-2022 11:26-0400 Body temperature 98 [degF] MD Bora Lindsey Work Phone: [facility] 01-11-2022 11:26-0400 Body weight 95.39 kg MD Bora Lindsey Work Phone: [facility] 01-11-2022 11:26-0400 Diastolic blood pressure 78 mm[Hg] MD Bora Lindsey Work Phone: [facility] 01-11-2022 11:26-0400 Heart rate 83 /min MD Bora Lindsey Work Phone: [facility] 01-11-2022 11:26-0400 Respiratory rate 16 /min MD Bora Lindsey Work Phone: [facility] 01-11-2022 11:26-0400 SaO2% (BldA) [Mass fraction] 97 % MD Bora Lindsey Work Phone: [facility] 01-11-2022 11:26-0400 Systolic blood pressure 154 mm[Hg] MD Bora Lindsey Work Phone: [facility] 01-11-2022 11:15-0400 Body height 168.91 cm MD Bora Lindsey Work Phone: [facility] Encounters Encounter Date Encounter Type Care Provider Facility Start: 12-27-2023 End: 12-27-2023 ambulatory MIGUELINA LOPEZ Not Available Start: 12-19-2023 End: 12-19-2023 ambulatory Andkeely Adamsitis [facility] Start: 11-07-2023 End: 11-07-2023 ambulatory Andkeely Floresytautas Bryanitis Facility:[facility] Start: 10-31-2023 End: 10-31-2023 ambulatory Andkeely Adamsitis Facility:[facility] Start: 10-17-2023 End: 10-17-2023 ambulatory Andkeely Floresytautas Oliver VERGARA Facility: [facility] Start: 10-03-2023 End: 10-03-2023 [facility]ulatory [facility] Start: 09-16-2023 End: 09-16-2023 ambulatory PIETER RANKIN Not Available Start: 09-13-2023 End: 09-13-2023 ambulatory [facility] Start: 08-08-2023 Telephone encounter Mily perales RECYCLING CENTER OPERATOR-RESEARCH WORKER [employer] Work Phone: [facility] Start: 08-05-2023 End: 08-05-2023 ambulatory SHAHZAD SCRUGGS Not Available Start: 07-15-2023 Telephone encounter Sonia Mcclelland RN [facility] Start: 07-11-2023 End: 07-11-2023 ambulatory QUYEN MCMAHON [facility] Start: 06-13-2023 Telephone encounter Narcisa barahona [facility] Start: 06-01-2023 End: 01-17-2024 ambulatory MILY NELSON [facility] Start: 06-01-2023 End: 06-01-2023 Office outpatient visit 25 minutes Mily Tony Mary HYMAN-RESEARCH WORKER [employer] Work Phone: [facility] Comment on above: Type 2 diabetes jaxson itus with hypoglycemia without coma, without long-term current use of insulin ([facility]) (Primary Dx) Start: 03-24-2023 End: 03-24-2023 ambulatory Miguelina Lopez Facility:[facility] Start: 03-24-2023 End: 03-24-2023 ambulatory MD Miguelina Lopez Work Phone: [facility] Work Phone: Start: 03-24-2023 End: 03-24-2023 Departed Referred MD Miguelina Lopez Work Phone: [facility] [place] Work Phone: Start: 01-11-2022 End: 01-11-2022 Registered Recurring MD Bora Lindsey Work Phone: [facility] Start: 01-06-2021 End: 01-07-[address] JOSE JACKMAN Facility:[facility] Procedures Date Procedure Procedure Detail Performing Clinician Start: 06-01-2023 Hemoglobin glycosyla javon a1c Mily Jimenez Mary RECYCLING CENTER OPERATOR-RESEARCH WORKER [employer] Work Phone: Start: 12-02-2022 Microalbumin [Mass/v olume] in Urine by Test strip Mily Nelson APRN-RESEARCH WORKER [employer] Work Phone: Start: 10-14-2022 Adult [facility]CLING CENTER OPERATOR-RESEARCH WORKER [employer] Work Phone: Plan of Treatment Date Care Activity Detail Author Start: 11-21-2028 DTaP,Tdap and Td Vaccines (2 - Td or Tdap) DTaP,Tdap and Td Vaccines (2 - Td or Tdap) [facility] Start: 07-11-2024 Adult BMI Screening Adult BMI Screening [facility] Start: 07-09-2024 End: 07-09-2024 Patient encounter procedure 07/09/2024 10:30 AM EST Office Visit [facility] [address] [place] [id number] [place] [address] [place] [address] [address] [place] [address] [facility] Start: 06-01-2024 Adult BMI Screening Adult BMI Screening [facility] Start: 06-01-2024 Tobacco Screening Tobacco Screening [facility] Start: 02-19-2024 Adult BMI Screening Adult BMI Screening [facility] Start: 02-19-2024 Tobacco Screening Tobacco Screening [facility] Start: 12-03-2023 Urine screening for protein Urine Microalbumin [facility] Start: 10-15-2023 Depression Screening Depression Screening [facility] Start: 09-13-2023 End: 09-13-2023 Patient encounter procedure 09/13/2023 10:15 AM EDT Office Visit [facility] [address] [place] [address] Melanie Saxena MD [address] [place] [address] [facility] Start: 07-11-2023 End: 07-11-2023 Patient encounter procedure 07/11/2023 12:00 PM EST Office Visit [facility] [address] [place] [id number] Quyen Mcamhon MD [address] [place] [address] [facility] Start: 04-11-2023 COVID-19 Vaccine ( season) COVID-19 Vaccine () [facility] Start: 2016 Fall Risk Screening Fall Risk Screening [facility] Start: 1969 Adult BMI Follow Up Plan Adult BMI Follow Up Plan [email or web address] Start: 1969 Diabetic foot examination Diabetic Foot Exam [email or web address] Start: 1950 Glaucoma screening [facility]hthal[facility] Start: 1950 Medicare Annual Wellness Visit Medicare Annual Wellness Visit [facility] Work Phone: Payers Date Payer Category Payer Unknown 2023 Self-pay 2016 Medicare [id number] 2016 Private Health Insurance [facility] SUPPLEMENT [id number] 2016-Present [phone] [address] [place] [address] [id number] 1959 Medicare [id number] 1959 Unknown [id number] 1950 Unknown [id number] [id number] .593 1950 Unknown [id number] 2.16.840.1.025797.3.579.2 .1286 1950 Unknown [id number] 2.16.840.1.730162.3.579.2 .1286 1950 Unknown [id number] 2.16.840.1.737772.3.579.2 .1286 1950 Unknown [id number] 2.16.840.1.779974.3.579.2 .1259 1950 Unknown [id number] 2.16.840.1.190217.3.579.2 .1259 1950 Unknown [id number] 2.16.840.1.342740.3.579.2 .1259 1950 Unknown [id number] 2.16.840.1.450663.3.579.2 .1259 1950 Unknown [id number] 2.16.840.1.551646.3.579.2 .196 1950 Unknown [id number] 2.16.840.1.592691.3.579.2 .196 1950 Unknown [id number] 2.16.840.1.645417.3.579.2 .196 1950 Unknown [id number] 2.16.840.1.312742.3.579.2 .196 1950 Unknown [id number] 2.16.840.1.197913.3.579.2 . Unknown [id number] 2.16.840.1.241368.3.579.2 .531 Social History Date Type Detail Facility Start: 01-11-2022 End: 06-17-2022 Tobacco smoking status NHIS Ex-smoker (finding) [facility] Start: 1950 Sex Assigned At Male F [facility] History of tobacco use Current smoker [facility] Start: 06-17-2022 Tobacco use and exposure Smokeless tobacco non-user [facility] Start: 06-01-2023 Alcohol intake Current non-dr university relations director of alcohol (finding) [facility] Start: 06-26-2020 End: 06-01-2023 Alcohol intake [facility] Start: 06-26-2020 End: 06-01-2023 Tobacco use panel [facility] Adolescent depressio n screening assessment 0 [facility] Start: 06-17-2022 Tobacco Comment Quite 40 years ago P [facility] Start: 1950 Sex Assigned At Not on file P [facility] Medical Equipment Procedure Code Equipment Code Equipment Origin al Text Equipment Identifier Dates USE DIRECTED THREE TIMES DAILY [id number] Start: 11-17-2022 by miscellaneous route 3 (three) times a day. [id number] USE TO ADMINISTE R INSULIN 4 TIMES DAILY. [id number] Start: 04-18-2023 Clinical Notes 06-01-2023 to 08-08-2023 [...] and verbalized understanding documented in this encounter [facility] 08-08-2023 Telephone encounter Note LM that [...] up to mid 200-300 range. Please advise [facility] 08-08-2023 Telephone encounter Note I recommend he add 2 units to each range for now and until two days AFTER he is off steroids and then resume regular sliding scale. I would not increasing the long acting dose since his fasting sugars are normal [facility] Work Phone: 08-08-2023 Telephone encounter Note Patient informed and verbalized understanding [facility] 07-15-2023 Miscellaneous Notes Faxed PAP supply order along with office note [facility] documented in this encounter [facility] [facility] 07-15-2023 Telephone encounter Note Faxed PAP supply order along with office note to [facility] 06-13-2023 Miscellaneous Notes Patient is asking [...] to drop them off at front office manager. I will take them into the free clinic I let him know. He will bring them to the front office manager soon. documented in this encounter [facility] [employer] 06-13-2023 Telephone encounter Note Patient is asking to speak with you directly. [facility] Telephone encounter Note I left a message for the patient asking for more details regarding this phone call. [email or web address] 06-13-2023 Telephone encounter Note He called back. He has Novolog 70/30 pens that are unused and have been refrigerated. He is wanting to donate them to you for the free clinic and wondering when and how to get them to you. [facility] Telephone encounter Note Okay to drop them off at front office manager. I will take them into the free clinic [email or web address] 06-13-2023 Telephone encounter Note I let him know. He will bring them to the front office manager soon. [email or web address] 06-01-2023 History of Presen t illness Narrative [...] DM type 2 (diabetes mellitus, type 2) ([facility]) HLD (hyperlipidemia) HTN (hypertension) Lactose intolerance PAULINE (obstructive sleep apnea) Sleep apnea Past Surgical History: Procedure Laterality Date APPENDECTOMY CARPAL TUNNEL RELEASE CATARACT EXTRACTION COLONOSCOPY N/A 09/14/2018 Performed by Magnus Mccarty MD at [facility] REMOVAL HYDROCELE EXCISION / REPAIR [...] needed for sleep., Disp: , Rfl: omega 3-xrz-aoy-fish oil 1,200 (144-216) mg capsule, Take by [...] coma, without long-term current use of insulin ([facility]) Better controlled, high post prandial most consistently [...] [place] 06/01/23 1237 documented in this encounter [employer] Consult note Note Date/Time January 11, 2022 12:23pm [facility] [place] [address] Hem/Onc Consult Note - OP Signed Patient: Jered Falcon MR#: [id number] : 1950 Acct:[id number] Age/Sex: 71 / M Type: REG RCR Copies to: Miguelina Lopez MD~ HPI Date/Time of Service: Date of Service: 01/11/2022 Time of Service: 12:19 Referring Provider/PCP: Referring Provider: Miguelina Lopez MD PCP: Miguelina Lopez MD - History of Present Illness Reason [...] unexplained fever, night sweats or weight loss. [facility] - Medical History Medical History: Medical History [...] for coordination of care (as documented) and usou-ue-iubi counseling of patient and/or family. Dictated By: Bora Lindsey MD DD/ 1219 Signed By: <Electronically signed by Bora Lindsey MD> 01/11/22 1230 [facility] Work Phone: Evaluation note* Diagnosis Onset Date Resolution Status Reactive thrombocytosis acut e [facility] Work Phone: Evaluation noteNo assessment information available [facility] Work Phone: Evaluation note* Diagnosis Type 2 diabetes mellitus with hypoglycemia without coma, without long-term current use of insulin ([facility])- Primary documented in this encounter [facility] filed[facility]ed in this [facility] on filedocumented in this encounter [facility]ructionsNot on filedocumented in this encounter [employer] Summary Purpose Family History No Family [...] 2022 2:31pm Assessments Note Patient: JERED FALCON Age: 68 years Sex: Male : 1950 Associated Diagnoses: None Author: Kenneth Zuniga DO Assessment Assessment Diagnosis: Primary osteoarthritis of right hip (WYC71-US M16.11, Working, Medical). Plan Postoperative day #1 right total hip arthroplasty. Enteric coated aspirin--deep venous thrombosis prophylaxis per primary surgical service. Qlglbtoglpal-mlgpvnzhq-umqtpqwtni on gknifstrfm-vtojzwhivwrlwjhvqjq-qeaglvdiy postoperatively. Good blood pressure control postoperatively. Type [...] MD DATE OF SERVICE: 08/02/2018 NAME: JERED FALCON DATE OF : 1950 SURGERY DATE: 08/07/2018 [...] document to your follow up appointments. [facility] 08/08/18 11:02 [address] [place]. [address] PATIENT INFORMATION Name: JERED FALCON Address: [address] [place] [id number] Age: 68 Years Phone: [phone] : 1950 12:00 MRN: [id number] Sex: Male Race: White Ethnicity: Not Hispan/Lat Admitted From: Clinic or [facility] Medical Service: Orthopedic Surgery Nurse Unit/Bed: (MT) 2N 0225-01 Admit Date: 08/07/2018 07:26 PCP: Geoff VERGARA , Miguelina Clark PHYSICIANS INVOLVED WITH CARE Attending Physicians: Jameson Espinal MD , [facility] - Orthopaedic Surg Admitting Physician: Jameson Espinal MD , Jeremy - Orthopaedic Surg Primary Care Physician:Geoff VERGARA , Miguelina Clark,[facility], - Consults: RONALDO Gill - Internal Medicine Problems Active PAULINE (more content not included)... Note Patient: JERED FALCON MRN: [id number] Age: 68 years Sex: Male : 1950 [...] document to your follow up appointments. [facility] 08/08/18 11:02 [address] [place]. [address] PATIENT INFORMATION Name: JERED FALCON Address: [address] [place] [id number] Age: 68 Years Phone: [phone] : 1950 12:00 MRN: [id number] Sex: Male Race: White Ethnicity: Not Hispan/Lat Admitted From: Clinic or [facility] Medical Service: Orthopedic Surgery Nurse Unit/Bed: (MT) [facility] [address] Admit Date: 08/07/2018 07:26 PCP: Miguelina Lopez MD PHYSICIANS INVOLVED WITH CARE Attending Physicians: Jameson Espinal MD , Jeremy - Orthopaedic Surg Admitting Physician: Jameson Espinal MD , Jeremy - Orthopaedic Surg Primary Care Physician:Miguelina Lopez MD,[facility], - Consults: RONALDO Gill - Internal Medicine Problems Active PAULINE (more content not included)... Procedure Findings Note Patient: JERED FALCON MRN: [id number] Age: 68 years Sex: Male : 1950 [...] section and content) DATE CREATED AUTHOR 03/08/2019 [facility] DATE CREATED AUTHOR AUTHOR'S ORGANIZ ATION 01/15/2021 [facility] DATE CREATED AUTHOR AUTHOR'S ORGANIZ ATION 05/07/2022 [facility] dical Specialist DATE CREATED AUTHOR AUTHOR'S ORGANIZ ATION 04/03/2023 [facility] DATE CREATED AUTHOR AUTHOR'S ORGANIZ ATION 09/14/2023 [facility] DATE CREATED AUTHOR AUTHOR'S ORGANIZ ATION 12/28/2023 [facility] dical Specialists EPIC DATE CREATED AUTHOR AUTHOR'S ORGANIZ ATION 01/02/2024 [facility] Care Teams (unrecognized sec tion and content) Team Status: Active Member Role Status Dates Bora Lindsey MD Attending Provider Active Miguelina Lopez MD Primary Care Provider, Referring Jeronimo wilder Active Team Status: Active Member Role Status Dates Miguelina Lopez MD Primary Care Provider Active Team Status: Inactive Member Role Status Dates Miguelina Lopez MD Primary Care Provider Active Gerardo Roman MD Attending Provider Active Terminal Clerk Relationship Specialty Start Date End Date Miguelina Lopez MD [address] [facility] [place] [address] PCP - General Family Medicine 09/12/18 Terminal Clerk Relationship Specialty Start Date End Date Miguelina Lopez MD [address] [facility] [address] [place], [place] [id number] PCP - General Family Medicine 09/12/18 Terminal Clerk Relationship Specialty Start Date End Date Miguelina Lopez MD [address] [facility] [address] [place], [place] [id number] PCP - General Family Medicine 09/12/18 Goals [...] BE BASED ON THE PRIMARY CLINICAL RECORDS. [employer] provides no warranty or guarantee of the accuracy or completeness of information in this document.
[2024-01-02] MEDS: BUPIVACAINE HCL 0.25% PF 25 MG/10 ML VIAL 2 ML INJ (09:49)
[2024-01-02] MEDS: TRIAMCINOLONE ACETONIDE 40 MG/ML VIAL INJ (09:50)
[2024-01-02] MEDS: LIDOCAINE HCL 2% 400 MG/20 ML MDV INJ (09:50)
[2024-01-02 09:51] VITALS: BP 133/72; BP 137/68; PULSE 68; PULSE 73; O2SAT 96
--- NOTE | 2024-01-02 09:51 | W.PM.PROCNOT ---
Date of procedure: 01/02/24 Pre-op diagnosis: Pain due to right sacroiliitis Post-op diagnosis: same as pre-op Procedure: Procedure: Right sacroiliac joint injection Medications: Bupivacaine 0.25% 3cc, kenalog 40mg After informed consent was obtained, the patient was brought to the medical procedure unit and placed in the prone position, when a timeout was completed verifying correct patient, procedure, site, positioning, implant, and/or special equipment.? The skin overlying the area was prepped and draped in standard sterile fashion using alcohol.? A 25-gauge needle was inserted towards the right sacroiliac joint under direct fluoroscopic imaging.? Needle tip was advanced until the joint was encountered.? We instilled a total of 2 mL of solution.? Postoperatively needles were removed.? The patient tolerated the procedure well without complication.? The patient reported reduction in pain symptoms postoperatively. Surgeon: Kelyl Boyd Pathology: none sent Condition: stable Disposition: no change
== END 2024-01-02 09:53 | disposition home or self-care (01) ==
LOC: SURGOUT 08:48
PROVIDERS: PCP Family Medicine; Visit Provider Anesthesiology
DX: M46.1 Sacroiliitis, not elsewhere classified (principal)
CPT/HCPCS: 27096; J0665; J3301

== ENCOUNTER 2024-01-11 09:21 | Outpatient (OUT) | payer MEDICARE, SELFPAY ==
--- OUTSIDE RECORDS SUMMARY | 2024-01-11 09:33 | XMS_ITS | CCD ---
Author Organization [facility] ion Partnership [facility] Care Team Providers Care Photography Spotter Name Role Phone DR JOSE JACKMAN Primary Care Unavailable ERICKA KEMP Consulting Unavailab ERICKA Schilling Attending Unavailab ERICKA Schilling Admitting Unavailab MD Bora Mcduffie Attending Provider MD Miguelina Lopez Primary Care Provider [phone] MD Miguelina Lopez Referring Provider MD Miguelina Lopez Primary Care Provider [phone] MD Gerardo Roman Attending Provider Miguelina Lopez [...] Facility (1 source) Penicillin Drug Allergy [facility] Repository (4 sources) Amoxicillin; Translations: [amoxicillin] [...] to adverse reactions to drug 9 [facility] (5 sources) Shellfish; Translations: [SHELLFISH CONTAINING PRODUCTS] Propensity to adverse reactions to drug [address] [facility] Medic[facility] Current Medications Medication Drug Class(es) [...] coma, without long-term current use of insulin ([facility]) Inject 18 Units under the skin in [...] coma, without long-term current use of insulin ([facility]) Inject 35 Units under the skin in the morning. 36 mL 3 02/18/2023 Active Start: 02-18-2023 insulin glargi ne (LANTUS SOLOSTAR U-100 INSULIN) 100 unit/mL (3 mL) insulin pen Indications: Type 2 diabetes mellitus with hypoglycemia without coma, without long-term current use of insulin ([facility]) Inject 35 Units under the skin in [...] PO Daily January 08, 2022 12:00am omega 2-fxj-bta-fish oil 1,200 (144-216) mg capsule (4 sources) [...] 10-14-2022 10-14-2022 Other aftercare (1 source) terminal manager (current) use of insulin; Translations: [terminal manager (current) use of insulin] Onset: 06-17-2022 Episodic Unclassified (1 source) CONTACT W/AND (SUSP) EXPOS COVID-19; Translations: [CONTACT W/AND (SUSP) EXPOS COVID-19] Onset: 01-06-2021 Results Test Name Value Interpretation Reference Range Facility POCT Hemoglobin A1con 2023 HbA1c (Bld) [Mass fraction] 6.8 g/dL 4 - 7 g/dL [facility] Armando 03-24-2023 L - -------- Specimen: [id number] Received: 03/25/23 Status: AIRAM Clementlópez Num: [id number] Spec Type: Surgical Subm Dr: Gerardo Roman MD Tissues: A Skin-Other than Cyst, tag, debridement or plastic repair (LT EYE) B Skin-Other than Cyst, tag, debridement or plastic repair (RT EYE) Procedures: HE/Xavier Buchanan/Vipul L4/2 -------- Age/ Patient Sex Location Account Attending Physician -------- Jered Falcon/M [place] [id number] Gerardo Roman MD -------- SPEC NUM: [id number] RECD: 03/25/23 STATUS: AIRAM ROSADO NUM: [id number] COLBY: 03/24/[address] [facility] [address]: Gerardo Roman MD ENTERED: 03/25/[address] [facility] [address]: SPEC TYPE: Surgical DEPT: S ORDERED: [...] in one cassette labeled B1. -------- Specimen: [id number] Received: 03/25/23 Status: AIRAM Rosado Num: [id number] Spec Type: Surgical Subm Dr: Gerardo Roman MD Tissues: A Skin-Other than Cyst, tag, debridement or plastic repair (LT EYE) B Skin-Other than Cyst, tag, debridement or plastic repair (RT EYE) Procedures: HE/2, Gross/Micro L4/2 -------- Patient: Jered Falcon [id number] (Continued) -------- Specimen: [id number] Received: 03/25/23 (Continued) Signed (signature on file) Minh Doran MD 03/28/231399 -------- Specimen: [id number] Received: 03/25/23 Status: AIRAM Karen Num: [id number] Spec Type: Surgical Subm Dr: Gerardo Roman MD Tissues: A Skin-Other than Cyst, tag, debridement or plastic repair (LT EYE) B Skin-Other than Cyst, tag, debridement or plastic repair (RT EYE) Procedures: HE/Chanel, Xavier/Vipul L4/2 -------- Patient: TerrieJered [id number] (Continued) -------- Specimen: [id number] Received: 03/25/23 (Continued) Microscopic Description A. One H E slide reviewed. The microscopic examination confirms the diagnosis. B. One H E slide reviewed. The microscopic examination confirms the diagnosis. CPT Codes 12648r9 -------- -------- Specimen: [id number] Received: 03/25/23 Status: AIRAM Karen Num: [id number] Spec Type: Surgical Subm Dr: Gerardo Roman MD Tissues: A Skin-Other than Cyst, tag, debridement or plastic repair (LT EYE) B Skin-Other than Cyst, tag, debridement or plastic repair (RT EYE) Procedures: HE/2, Xavier/Vipul L4/2 -------- Patient: Jered Falcon [id number] (Continued) -------- Signed (signature on file) Minh Doran MD 03/28/23 1400 [facility] XR Chest 2 Views*on 05-04-20 XR Chest [...] by Mansoor Nash on 05/04/2022 0943 Normal [facility] Complete Blood Counton 10-07 Erythrocyte distribution width (RBC) [Ratio] 12.9 % Normal 11.0-15.0 [facility] Specialist Comment on above: Performed By: #### L IPD, CBC, CMP #### [facility] [address] [place], [place] [id number] Hematocrit (Bld) [Volume fraction] 45.1 % Normal 38.5-50.0 [facility] Specialist Comment on above: Performed By: #### L IPD, CBC, CMP #### [facility] [address] [place], [place] [id number] Hemoglobin (Bld) [Mass/Vol] 14.9 g/dL Normal 13.0-17.1 [facility] Specialist Comment on above: Performed By: #### L IPD, CBC, CMP #### [facility] [address] [place], [place] [id number] MCH (RBC) [Entitic mass] 29.9 pg Normal 27.0-33.0 [facility] Specialist Comment on above: Performed By: #### L IPD, CBC, CMP #### [facility] [address] [place], [place] [id number] MCHC (RBC) [Mass/Vol] 33.0 g/dL Normal 32.0-36.0 [facility] Creche Attendant Comment on above: Performed By: #### L IPD, CBC, CMP #### [facility] [address] [place], [place] [id number] MCV (RBC) [Entitic vol] 90 fL Normal 80-100 [facility] Specialist Comment on above: Performed By: #### L IPD, CBC, CMP #### [facility] [address] [place], [place] [id number] Platelet mean volume (Bld) [Entitic vol] 8.90 fL Normal 7.50-12.50 [facility] Comment on above: Performed By: #### L IPD, CBC, CMP #### [facility] [address] [place], [place] [id number] Platelets (Bld) [#/Vol] 421 10*3/uL High 140-400 [facility] Specialist Comment on above: Performed By: #### L IPD, CBC, CMP #### [facility] [address] [place], [place] [id number] RBC (Bld) [#/Vol] 4.99 10*6/uL Normal 4.20-5.80 [facility] Creche Attendant Comment on above: Performed By: #### L IPD, CBC, CMP #### [facility] [address] [place], [place] [id number] RDW-SD 42.6 fL Normal 37.0-50.0 [facility] Specialist Comment on above: Performed By: #### L IPD, CBC, CMP #### [facility] [address] [place], [place] [id number] WBC (Bld) [#/Vol] 6.6 10*3/uL Normal 3.8-11.0 Bel[facility] Creche Attendant Comment on above: Performed By: #### L IPD, CBC, CMP #### [facility] [address] [place], [place] [id number] Comprehensive Metabolic [facility] 10-07-2021 Albumin [Mass/Vol] 4.7 g/dL Normal 3.6-5.1 [place] Creche Attendant Comment on above: Performed By: #### L IPD, CBC, CMP #### [facility] [address] [place], [place] [id number] Albumin/Globulin [Mass ratio] 1.9 {ratio} Normal 1.0-2.5 [facility] Comment on above: Performed By: #### L IPD, CBC, CMP #### [facility] [address] [place], [place] [id number] ALP [Catalytic activity/Vol] 96 U/L Normal 40-129 [facility] Comment on above: Performed By: #### L IPD, CBC, CMP #### [facility] [address] [place], [place] [id number] ALT [Catalytic activity/Vol] 29 U/L Normal 9-46 [facility] Comment on above: Result Comment: 04/15 Female reference range changed. Performed By: #### L IPD, CBC, CMP #### [facility] [address] [place], [place] [id number] Anion gap [Moles/Vol] 18 mmol/L Normal 12-20 [facility] Comment on above: Result Comment: Effe ctive 05/21/2019 reference range changed. Performed By: #### L IPD, CBC, CMP #### [facility] [address] [place], [place] [id number] AST [Catalytic activity/Vol] 24 U/L Normal 10-40 [facility] Comment on above: Performed By: #### L IPD, CBC, CMP #### [facility] [address] [place], [place] [id number] Bilirubin [Mass/Vol] 0.99 mg/dL Normal 0.30-1.20 [facility] Comment on above: Performed By: #### L IPD, CBC, CMP #### [facility] [address] [place], [place] [id number] BUN/CREA 13 Ratio Normal 6-22 [facility] Comment on above: Performed By: #### L IPD, CBC, CMP #### [facility] [address] [place], [place] [id number] Calcium [Mass/Vol] 10.0 mg/dL Normal 8.6-10.2 [place] Creche Attendant Comment on above: Performed By: #### L IPD, CBC, CMP #### [facility] [address] [place], [place] [id number] Chloride [Moles/Vol] 97 mmol/L Low 98-107 [facility] Comment on above: Performed By: #### L IPD, CBC, CMP #### [facility] [address] [place], [place] [id number] CO2 [Moles/Vol] 26 mmol/L Normal 20-31 [facility] Specialist Comment on above: Performed By: #### L IPD, CBC, CMP #### [facility] [address] [place], [place] [id number] Creatinine [Mass/Vol] 0.9 mg/dL Normal 0.7-1.4 [facility] Specialist Comment on above: Performed By: #### L IPD, CBC, CMP #### [facility] [address] [place], [place] [id number] eGFRAA 99 mL/min/1.73m2 Normal >60 [facility] Specialist Comment on above: Performed By: #### L IPD, CBC, CMP #### [facility] [address] [place], [place] [id number] eGFRNAA 81 mL/min/1.73m2 Normal >60 [facility] Specialist Comment on above: Performed By: #### L IPD, CBC, CMP #### [facility] [address] [place], [place] [id number] Globulin (S) [Mass/Vol] 2.5 g/dL Normal 1.9-3.7 [facility] Specialist Comment on above: Performed By: #### L IPD, CBC, CMP #### [facility] [address] [place], [place] [id number] Glucose [Mass/Vol] 196 mg/dL High 65-99 [facility] Comment on above: Result Comment: For FASTING Glucose --- ADA reference ranges: Normal 65-99 mg/dl Prediabetes 100-125 Diabetes >/= 126 Performed By: #### L IPD, CBC, CMP #### [facility] [address] [place], [place] [id number] Potassium [Moles/Vol] 4.0 mmol/L Normal 3.5-5.5 [place] Creche Attendant Comment on above: Performed By: #### L IPD, CBC, CMP #### [facility] [address] [place], [place] [id number] Protein [Mass/Vol] 7.2 g/dL Normal 6.1-8.1 [facility] [place] Creche Attendant Comment on above: Performed By: #### L IPD, CBC, CMP #### [facility] [address] [place], [place] [id number] Sodium [Moles/Vol] 137 mmol/L Normal 135-146 Belen [facility] Creche Attendant Comment on above: Performed By: #### L IPD, CBC, CMP #### [facility] [address] [place], [place] [id number] Urea nitrogen [Mass/Vol] 12 mg/dL Normal 7-25 [facility] Creche Attendant Comment on above: Performed By: #### L IPD, CBC, CMP #### [facility] [address] [place], [place] [id number] Lipid Panelon 10-07-2021 Cholesterol [Mass/Vol] 142 mg/dL Normal 125-200 [facility] Creche Attendant Comment on above: Result Comment: Low risk < 200mg/dL Borderline risk 201-239 mg/dl High risk > or equal to 240 Performed By: #### L IPD, CBC, CMP #### [facility] [address] [place], [place] [id number] Cholesterol in HDL [Mass/Vol] 42 mg/dL Normal >40 [facility] Creche Attendant Comment on above: Result Comment: High Cardiovascular Risk HDL <40 mg/dL Low Cardiovascular Risk HDL > or equal to 60 mg/dl Performed By: #### L IPD, CBC, CMP #### [facility] [address] [place], [place] [id number] Cholesterol in LDL [Mass/Vol] 40 mg/dL Normal [facility] Creche Attendant Comment on above: Result Comment: LDL ATP III CLASSIFICATION LDL less than 100 mg/dl Optimal LDL 100-129 mg/dl Near or above optimal LDL 130-159 Borderline high LDL 160-189 High LDL greater than 189 mg/dl Very High Performed By: #### L IPD, CBC, CMP #### [facility] [address] [place], [place] [id number] Cholesterol in VLDL [Mass/Vol] 60 mg/dL Normal [facility] Creche Attendant Comment on above: Performed By: #### L IPD, CBC, CMP #### [facility] [address] [place], [place] [id number] Cholesterol.total/Ch olesterol in HDL [Mass ratio] 3 {ratio} Normal [facility] Creche Attendant Comment on above: Performed By: #### L IPD, CBC, CMP #### [facility] [address] [place], [place] [id number] Triglyceride [Mass/Vol] 298 mg/dL High 30-150 [facility] Creche Attendant Comment on above: Result Comment: TRIG ATPIII CLASSIFICATIONS TRIG less than 150 mg/dl Normal TRIG 150-199 mg/dl Borderline High TRIG 200-500 mg/dl High TRIG greather than 500 mg/dl Very High Performed By: #### L IPD, CBC, CMP #### [facility] [address] [place], [place] [id number] Microalbumin (w/o Creat)on 10-07-2021 mALB 27.4 mg/dL Normal [facility] Creche Attendant Comment on above: Result Comment: mALB reference range not established. Performed By: #### m ALB #### [facility] [address] [place], [place] [id number] Covid-19 PCR ([facility])on 12-15 SARS-CoV-2 (COVID-19) RNA DANNY+probe Ql (Unsp spec) Not detected Normal NOT DETECTED [facility] Comment on above: Result Comment: This test is not yet approved or cleared by the [place] FDA. When there are no FDA-approved or cleared tests available, and other criteria are met, FDA can make tests available under an emergency access mechanism called an Emergency Use Authorization (EUA). The EUA for this test is supported by the [place] of Health and Human Service's (HHS's) declaration [...] consistent with SARS-CoV-2. Performed By: #### C [facility] #### [facility] [address] [place] [address] Ted Casas Basic Metabolic Panelon 02-14 Calcium [Mass/Vol] 9.5 mg/dL Normal 8.5-10.6 [facility] Chloride [Moles/Vol] 100 mmol/L Normal 98-107 Moun [facility] CO2 [Moles/Vol] 25 mmol/L Normal 21-32 [facility] Creatinine [Mass/Vol] 0.95 mg/dL Normal 0.70-1.30 [facility] Glucose [Mass/Vol] 171 mg/dL High 70-99 [facility] Potassium [Moles/Vol] 4.4 mmol/L Normal 3.5-5.1 [facility] Sodium [Moles/Vol] 136 mmol/L Normal 136-145 [facility] Urea nitrogen (BldV) [Mass/Vol] 19 mg/dL High 7.0-18.0 [facility] Urea nitrogen/Creatinine [Mass ratio] 20 mg/mg Normal [facility] CBC with Differentialon 02-14 Basophils (Bld) [#/Vol] 0.1 thou/mcL Normal 0.0-0.2 [facility] Basophils/100 WBC (Bld) 1.0 % Normal 0-3 [facility] Differential cell count method Nom (Bld) AUTOMATED DIFFERENTIAL Normal [facility] Eosinophils (Bld) [#/Vol] 0.1 thou/mcL Normal 0.0-0.4 [facility] Eosinophils/100 WBC (Bld) 2.6 % Normal 0-7 [facility] Lymphocytes (Bld) [#/Vol] 1.5 thou/mcL Normal 0.7-4.5 [facility] Lymphocytes/100 WBC (Bld) 26.0 % Normal 14-46 [facility] Monocytes (Bld) [#/Vol] 0.5 thou/mcL Normal 0.1-1.0 [facility] Monocytes/100 WBC (Bld) 8.4 % Normal 4-13 [facility] Neutrophils (Bld) [#/Vol] 3.5 thou/mcL Normal 1.5-7.8 [facility] Neutrophils/100 WBC (Bld) 62.0 % Normal 40-74 [facility] Erythrocyte distribution width (RBC) [Entitic vol] 14.0 % Normal 11.7-15.0 [facility] Hematocrit (Bld) [Volume fraction] 39.7 % Normal 34.0-50.0 [facility] Hemoglobin (Bld) [Mass/Vol] 13.2 g/dL Normal 11.5-17.0 [facility] MCH (RBC) [Entitic mass] 30.1 Picograms Normal 27.0-34.0 [facility] MCHC (RBC) [Mass/Vol] 33.3 g/dL Normal 32.0-36.0 [facility] MCV (RBC) [Entitic vol] 90.5 fL Normal 80-98 [facility] Platelet mean volume (Bld) [Entitic vol] 7.0 fL Low 7.5-11.2 [facility] Platelets (Bld) [#/Vol] 390 thou/mcL Normal 140-415 [facility] RBC (Bld) [#/Vol] 4.39 x(10)6/mcL Normal 3.80-5.60 [facility] WBC (Bld) [#/Vol] 5.6 thou/mcL Normal 4.0-10.5 [facility] Partial Thromboplastin Time (aPTT)on 03-07-2019 aPTT Coag (PPP) [Time] 27 Sec Normal 23.2-34.6 [facility] Prothrombin Timeon 9 INR Coag (Bld) [Relative time] 0.9 {INR} Normal [facility] Comment on above: Result Comment: MG ANN THE INDUCTION PHASE OF ORAL ANTICOAGULATION, THE INR MAY NOT REFLECT THE ANTICOAGULANT STATUS OF THE PATIENT. THERAPEUTIC RANGES FOR INR'S ARE: MOST CLINICAL SITUATIONS: INR 2.0-3.0 MECHANICAL PROSTHETIC VALVES: INR 2.5-3.5 CRITICAL: INR 5.0 PT Coag (PPP) [Time] 11.9 Sec Normal 11.9-14.6 [facility] Patient Portal Messageon Patient Portal Message --- --- --- --- --- --- --- --- --- From: Hospital, Patient Summary Visit To: TERRIE JERED Tony Sent: 08/09/18 01:30:45 AM EDT Subject: New Results Available A summary regarding your recent visit is available in the Documents section of your Health Record. Normal [facility] Basic Metabolic Panelon 07-15 Calcium [Mass/Vol] 8.4 mg/dL Low 8.5-10.6 [facility] Chloride [Moles/Vol] 100 mmol/L Normal 98-107 [facility] CO2 [Moles/Vol] 29 mmol/L Normal 21-32 [facility] Creatinine [Mass/Vol] 0.97 mg/dL Normal 0.70-1.30 [facility] Glucose [Mass/Vol] 166 mg/dL High 74-106 [facility] Potassium [Moles/Vol] 3.9 mmol/L Normal 3.5-5.1 [facility] Sodium [Moles/Vol] 137 mmol/L Normal 136-145 [facility] Urea nitrogen (BldV) [Mass/Vol] 14 mg/dL Normal 7-18 [facility] Urea nitrogen/Creatinine [Mass ratio] 14 mg/mg Normal [facility] CBC with Differentialon 07-15 Basophils (Bld) [#/Vol] 0.1 thou/mcL Normal 0.0-0.2 [facility] Basophils/100 WBC (Bld) 0.5 % Normal 0-3 [facility] Differential cell count method Nom (Bld) AUTOMATED DIFFERENTIAL Normal [facility] Eosinophils (Bld) [#/Vol] 0.1 thou/mcL Normal 0.0-0.4 [facility] Eosinophils/100 WBC (Bld) 1.2 % Normal 0-7 [facility] Erythrocyte distribution width (RBC) [Entitic vol] 13.3 % Normal 11.7-15.0 [facility] Hematocrit (Bld) [Volume fraction] 36.4 % Normal 34.0-50.0 [facility] Hemoglobin (Bld) [Mass/Vol] 12.1 g/dL Normal 11.5-17.0 [facility] Lymphocytes (Bld) [#/Vol] 2.0 thou/mcL Normal 0.7-4.5 [facility] Lymphocytes/100 WBC (Bld) 20.2 % Normal 14-46 [facility] MCH (RBC) [Entitic mass] 30.1 Picograms Normal 27.0-34.0 [facility] MCHC (RBC) [Mass/Vol] 33.1 g/dL Normal 32.0-36.0 [facility] MCV (RBC) [Entitic vol] 90.8 fL Normal 80-98 [facility] Monocytes (Bld) [#/Vol] 0.8 thou/mcL Normal 0.1-1.0 [facility] Monocytes/100 WBC (Bld) 8.2 % Normal 4-13 [facility] Neutrophils (Bld) [#/Vol] 7.1 thou/mcL Normal 1.5-7.8 [facility] Neutrophils/100 WBC (Bld) 69.9 % Normal 40-74 [facility] Platelet mean volume (Bld) [Entitic vol] 6.8 fL Low 7.5-11.2 [facility] Platelets (Bld) [#/Vol] 333 thou/mcL Normal 140-415 [facility] RBC (Bld) [#/Vol] 4.01 x(10)6/mcL Normal 3.80-5.60 [facility] WBC (Bld) [#/Vol] 10.1 thou/mcL Normal 4.0-10.5 Moun t [facility] Patient Summaryon 08-08-2018 Patient Summary PATIENT DISCHARGE INSTRUCTIONS If you are having an emergency and are not able to reach your physician, CALL 911 or go to the nearest emergency room and take this document with you. [facility] 08/08/18 11:02 [address] [place]. [address] PATIENT INFORMATION Name: TERRIE JERED Jimenez Address: [address] [place] [id number] Age: 68 Years Phone: [phone] : 1950 12:00 MRN: [facility][id number] Sex: Male Race: White Ethnicity: Not Hispan/Lat Admitted From: Clinic or [facility] Medical Service: Orthopedic Surgery Nurse Unit/Bed: (CO) 2NAN 0225-01 Admit Date: 08/07/2018 07:26 PCP: Miguelina Lopez MD PHYSICIANS INVOLVED WITH CARE ------ Attending Physicians: Jameson Espinal MD , Jeremy - Orthopaedic Surg Admitting Physician: Jameson Espinal MD , Jeremy - Orthopaedic Surg Primary Care Physician:Miguelina Lopez MD,[facility], - Consults: RONALDO Gill - Internal Medicine FOLLOW-UP APPOINTMENTS: Provider: Specialty: Address: Date: Jeremy Barba Jr, MD Orthopaedic Surg [address] [place] [address] (1) Comment: Please call to schedule a 6 week appt. May call sooner if problems occur Provider: Specialty: Address: Date: Miguelina Lopez MD [place] [address] (1) Follow-up as needed Provider: Specialty: Address: [...] doses are changed, or new medications (including eovp-ghe-dsrfowr products) are added. Ask your doctor if [...] Decisions Type: Living Will, Medical Power of Box Car Checker Copy of Advance Directive/Health Care Decisions on Chart: Patient/Family asked to provide copy SUICIDE HOTLINE: Your mental and emotional well-being are important. If you are in a mental health crisis, or having thoughts of suicide, please call the nationwide suicide hotline, anytime day or night, at 1-004-664-EQZQ. Important information about accessing your health information through the [place] [email or web address] patient portal If you initiated the self-registration process for [email or web address] during your stay, please check your personal email for an invitation to enroll in [email or web address] and complete the steps outlined in the email. If you would prefer to enroll while in the hospital, ask a member of your care team. We would be happy to assist you. If you have already enrolled in [email or web address], go to [email or web address] to login and access your health information. Thank you for choosing [employer]. PATIENT EDUCATION Constipation, Adult Constipation is when [...] with a lot of sugar. This includes yakut fries, hamburgers, cookies, candy, and soda. ???If [...] 10/18/2008 Document Revised: 05/23/2015 Document Reviewed: 02/11/2014 [employer] Patient Education ?2016 [employer]. Venous Thromboembolism, Prevention A venous thromboembolism is [...] 04/20/2010 Document Revised: 01/24/2013 Document Reviewed: 08/27/2015 [employer] Patient Education ?2016 [employer]. Incentive Spirometer An incentive spirometer is a [...] Reviewed: 03/06/2015 Elsevier Interactive Patient Education ?2016 [email or web address] Fall Prevention in the Home Falls [...] items that you use a lot in xrwi-hx-ihwmz places. ???If you need to reach something above you, use a strong step stool that has a grab bar. ???Keep electrical cords out of the way. ???Do not use floor azerbaijani or wax that makes floors slippery. If [...] Reviewed: 06/06/2015 Elsevier Interactive Patient Education ?2015 [employer] PATIENT DISCHARGE INSTRUCTION Signature Page for: JERED FALCON Date/Time: 08/08/2018 11:02:16 A Clinician has explained the information on my discharge instructions and has provided me with a copy. My questions have been answered to my satisfaction. Patient Signature Date/Time Responsible Party Date/Time Relationship to Patient Clinician Signature Date/Time Normal [facility] Anesthesia Recordon 08-08-19 Anesthesia Record Patient: JERED FALCON Age: 68 years Sex: Male : 1950 Associated Diagnoses: None Author: Idalia Godinez DO Procedure Time Out [place] Protocol: patient identity verified, site verified, side verified, procedure to be done verified, patient position verified. REGIONAL ANESTHESIA PROCEDURE Procedure date and begin time: See nurses notes. Procedure date and end time: See nurses notes. Second Procedure Start: Spinal block. Performed by: Idalia Godinez DO. Assisted by: no social worker assistant. Informed consent: signed by patient. Technique: [...] OA Postoperative Diagnosis: Hip OA . Normal [facility] Basic Metabolic Panelon 07-15 Calcium [Mass/Vol] 8.6 mg/dL Normal 8.5-10.6 [facility] Chloride [Moles/Vol] 100 mmol/L Normal 98-107 M[facility] CO2 [Moles/Vol] 26 mmol/L Normal 21-32 [facility] Creatinine [Mass/Vol] 0.95 mg/dL Normal 0.70-1.30 [facility] Glucose [Mass/Vol] 191 mg/dL High 74-106 [facility] Potassium [Moles/Vol] 4.2 mmol/L Normal 3.5-5.1 [facility] Sodium [Moles/Vol] 136 mmol/L Normal 136-145 [facility] Urea nitrogen (BldV) [Mass/Vol] 23 mg/dL High 7-18 [facility] Urea nitrogen/Creatinine [Mass ratio] 24 mg/mg Normal [facility] OR Nursingon 08-07-2018 OR Nursing CO NA OR Nursing Record Summary Primary Physician: Jeremy Barba Jr, MD Finalized Date/Time: 08/07/18 12:06:15 Pt. Name: JERED FALCON Otoniel/Sex: 1950 Male Med Rec #: [id number] Physician: Jeremy Barba Jr, MD Financial #: [id number] Pt. Type: I Room/Bed: / Admit/Disch: 08/07/18 [...] Storm Role Performed Primary Surgeon Anesthesiologist Nurse Seater Grinder Time In 08/07/18 10:44:00 08/07/18 10:06:00 08/07/18 [...] Kristy MOY , Yessica Monreal Role Performed Automotive Teacher center administrator First Scrub Time In 08/07/18 10:44:00 08/07/18 10:06:00 08/07/18 10:06:00 Time Out 08/07/18 11:25:00 08/07/18 11:00:00 08/07/18 11:59:00 Procedure Arthroplasty Hip Total Arthroplasty Hip Total Arthroplasty Hip Total Anterior(Right) Anterior(Right) Anterior(Right) Attendee Comment BERNIE/GENIE Relief Reason Lunch Last Modified By: Marisa RN , Marisa RN , Marisa RN , Valdez 08/07/18 Valdez 08/07/18 Valdez 08/07/18 11:58:27 11:58:27 11:58:27 Entry 7 Entry 8 Entry 9 Case Attendee Daija Dietrich , Rocio Lovell Role Performed Second Scrub Physician Main Galley Scullion Assistive Personnel Time In 08/07/18 10:06:00 08/07/18 10:06:00 08/07/18 10:06:00 Time Out 08/07/18 11:35:00 08/07/18 11:59:00 08/07/18 11:59:00 Procedure Arthroplasty Hip Total Arthroplasty Hip Total Arthroplasty Hip Total Anterior(Right) Anterior(Right) Anterior(Right) Attendee Comment Relief Reason Last Modified By: Marisa RN , Marisa RN , Marisa RN , Valdez 08/07/18 Valdez 08/07/18 Valdez 08/07/18 11:58:27 11:58:27 11:58:27 Entry 10 Entry 11 Entry 12 Case Attendee Marisa RN , Kamini MENDOZAT , Mirta Foster RN , Patricia Orona Role Performed center administrator Work Manager center administrator Time In 08/07/18 10:06:00 08/07/18 10:30:00 08/07/18 11:00:00 Time Out 08/07/18 11:00:00 08/07/18 11:59:00 08/07/18 11:30:00 Procedure Arthroplasty Hip Total Arthroplasty Hip Total Arthroplasty Hip Total Anterior(Right) Anterior(Right) Anterior(Right) Attendee Comment relief Relief Reason Lunch Last Modified By: Marisa RN , Marisa RN , Marisa RN , Valdez 08/07/18 Valdez 08/07/18 Valdez 08/07/18 11:58:27 11:58:27 11:58:27 Entry 13 Entry 14 Entry 15 Case Attendee Mansoor Miles CRNA HR LEADER, Александр Cunningham RN , Kamini Role Performed Nurse Seater Grinder Nurse Seater Grinder center administrator Time In 08/07/18 11:08:00 08/07/18 11:34:00 08/07/18 11:30:00 Time Out 08/07/18 11:34:00 08/07/18 11:59:00 08/07/18 11:59:00 Procedure Arthroplasty Hip Total Arthroplasty Hip Total Arthroplasty Hip Total Anterior(Right) Anterior(Right) Anterior(Right) Attendee Comment Relief Reason Last Modified By: Marisa RN , Marisa RN , Marisa MOY , Kamini 08/07/18 Valdez 08/07/18 Valdez 08/07/18 11:58:27 11:58:27 11:58:27 Entry 16 Case Attendee Yokasta Wagner RN Role Performed center administrator Time In 08/07/18 11:30:00 Time Out 08/07/18 11:59:00 Procedure Arthroplasty Hip Total Anterior(Right) Attendee Comment Relief Reason Last Modified By: Rosi Cunningham RNbeth 08/07/18 11:58:27 CO NA OR General Case Lvn Home Health 1 OR CO NA 08 ASA Class [...] Class Primary Surgeon Jameson Espinal MD , [facility] Orthopedic Surgery Anesthesia Type General Procedure Performed ASI right total hip arthroplasty Start 08/07/18 10:48:00 Stop 08/07/18 11:52:00 Last Modified By: Kamini Cunningham RN 08/07/18 11:51:28 CO NA OR Catheters, Drains, and Tubes Entry 1 Device Type DRAIN 10 FR ROUND Present on Arrival? No [id number] Location Operative Hip Inserted By Jameson Espinal MD , Jeremy Comments 10 Fr Round Silicone DC'd at End of Case? No Drain/400ml Hemovac [place] Tegaderm to secure drain. Last Modified By: [...] Marisa MOY , Kamini 08/07/18 Kamini 08/07/18 Valdez 08/07/18 10:49:59 10:49:59 10:49:59 CO NA OR [...] FINNED HT 54MM F 36MM F NEUTRAL [id number] LOW PROFILE DOME TI [id number] 6.5X20MM [id number] Fur Weigher [employer]NE [employer]NE [employer] Catalog Number [id number] Lot Number [id number] Serial Number n/a n/a n/a Implant Site [...] LOW PROFILE DOME TI MP PPS HO [id number] Ma DELTA OPTION CE 36MM 6.5X35MM [id number] Fur Weigher SUZANNE BIOMET BIOMET ORTHOPED BRACING BIOMET ORTHOPEDICS [facility] Catalog Number [id number] [phone] Lot Number [id number] Serial Number n/a n/a n/a Implant Site [...] NECK BIOLOX OPTION TAPER ADAPTER -6 [phone] Fur Weigher [employer] Catalog Number [id number] Lot Number [id number] Serial Number n/a Implant Site right hip [...] Taken No Comment Also performed with Physician's Main Galley Scullion. Procedure Arthroplasty Hip Total Anterior(Right) Last Modified [...] pressure and/or shearing forces. Last Modified By: aKmini Cunningham RN 08/07/18 11:48:40 CO NA OR [...] By: Kamini Cunningham RN 08/07/18 12:06 Normal [facility] PACU I Nursingon 08-07-2018 PACU I Nursing CO NA PACU I Nursing Record Summary Primary Physician: Jeremy Barba Jr, MD Finalized Date/Time: 08/07/18 12:46:58 Pt. Name: TERRIEJERED/Sex: 1950 Male Med Rec #: [id number] Physician: Jeremy Barba Jr, MD Financial #: [id number] Pt. Type: I Room/Bed: / Admit/Disch: 08/07/18 [...] By: Ghislaine Lagunas RN 08/07/18 12:46 Normal [facility] PreOp Nursingon 08-07-2018 PreOp Nursing CO NA PreOp Nursing Record Summary Primary Physician: Jeremy Barba Jr, MD Finalized Date/Time: 08/07/18 10:11:50 Pt. Name: JERED FALCON Tony HesterB./Sex: 1950 Male Med Rec #: [id number] Physician: Jeremy Barba Jr, MD Financial #: [id number] Pt. Type: I Room/Bed: / Admit/Disch: 08/07/18 07:26:00 - Institution: CO NA OR PreOp Case Times Entry 1 PreOp Case Times In Room Time 08/07/18 08:26:00 Out Room Time 08/07/18 10:05:00 Last Modified By: Kamini Cunningham RN 08/07/18 10:11:48 CO NA OR PreOp Case Attendees Entry 1 Case Attendee Mis Blakely RN Role eDan RN Last Modified By: Mis Blakely RN 08/07/18 08:37:23 Finalized By: Kamini Cunningham RN Document Signatures Signed By: Kamini Cunningham RN 08/07/18 10:11 Normal [facility] XR Pelvis 1-2 Viewson 2018 [...] total hip arthroplasty with recent postoperative changes. [place] thanks you for the opportunity to care for your patient. Workstation ID: [id number] FINAL REPORT Dictated By: Marcell Mcgowan MD 08/07/2018 12:44 Assigned Physician: Marcell Mcgowan MD Reviewed and Electronically Signed By: Marcell Mcgowan MD 08/07/2018 12:44 Transcribed by: MIMI 08/07/2018 12:44 Technologist: FRANCISCO Jones [facility] Comment on above: Order Comment: Posto perative, s/p SIMON Basic Metabolic Panelon 07-15 Calcium [Mass/Vol] 9.5 mg/dL Normal 8.5-10.6 [facility] Chloride [Moles/Vol] 100 mmol/L Normal 98-107 [facility] CO2 [Moles/Vol] 28 mmol/L Normal 21-32 [facility] Creatinine [Mass/Vol] 0.95 mg/dL Normal 0.70-1.30 [facility] Glucose [Mass/Vol] 209 mg/dL High 74-106 [facility] Potassium [Moles/Vol] 4.0 mmol/L Normal 3.5-5.1 [facility] Sodium [Moles/Vol] 139 mmol/L Normal 136-145 [facility] Urea nitrogen (BldV) [Mass/Vol] 13 mg/dL Normal 7-18 [facility] Urea nitrogen/Creatinine [Mass ratio] 14 mg/mg Normal [facility] CBC with Differentialon 07-15 Basophils (Bld) [#/Vol] 0.1 thou/mcL Normal 0.0-0.2 [facility] Basophils/100 WBC (Bld) 1.2 % Normal 0-3 [facility] Differential cell count method Nom (Bld) AUTOMATED DIFFERENTIAL Normal [facility] Eosinophils (Bld) [#/Vol] 0.2 thou/mcL Normal 0.0-0.4 [facility] Eosinophils/100 WBC (Bld) 2.6 % Normal 0-7 [facility] Erythrocyte distribution width (RBC) [Entitic vol] 13.2 % Normal 11.7-15.0 [facility] Hematocrit (Bld) [Volume fraction] 39.4 % Normal 34.0-50.0 [facility] Hemoglobin (Bld) [Mass/Vol] 13.1 g/dL Normal 11.5-17.0 [facility] Lymphocytes (Bld) [#/Vol] 1.9 thou/mcL Normal 0.7-4.5 [facility] Lymphocytes/100 WBC (Bld) 28.7 % Normal 14-46 [facility] MCH (RBC) [Entitic mass] 29.9 Picograms Normal 27.0-34.0 [facility] MCHC (RBC) [Mass/Vol] 33.2 g/dL Normal 32.0-36.0 [facility] MCV (RBC) [Entitic vol] 90.3 fL Normal 80-98 [facility] Monocytes (Bld) [#/Vol] 0.6 thou/mcL Normal 0.1-1.0 [facility] Monocytes/100 WBC (Bld) 8.8 % Normal 4-13 [facility] Neutrophils (Bld) [#/Vol] 3.9 thou/mcL Normal 1.5-7.8 [facility] Neutrophils/100 WBC (Bld) 58.7 % Normal 40-74 [facility] Platelet mean volume (Bld) [Entitic vol] 7.2 fL Low 7.5-11.2 [facility] Platelets (Bld) [#/Vol] 418 thou/mcL High 140-415 [facility] RBC (Bld) [#/Vol] 4.37 x(10)6/mcL Normal 3.80-5.60 Mo [facility] WBC (Bld) [#/Vol] 6.7 thou/mcL Normal 4.0-10.5 [facility] Partial Thromboplastin Time (aPTT)on 08-02-2018 aPTT Coag (PPP) [Time] 29 Sec Normal 24.4-37.5 [facility] Prothrombin Timeon 9 INR Coag (Bld) [Relative time] 1.0 {INR} Normal 0.8-1.2 [facility] Comment on above: Result Comment: MG ANN THE INDUCTION PHASE OF ORAL ANTICOAGULATION, THE INR MAY NOT REFLECT THE ANTICOAGULANT STATUS OF THE PATIENT. THERAPEUTIC RANGES FOR INR'S ARE: MOST CLINICAL SITUATIONS: INR 2.0-3.0 MECHANICAL PROSTHETIC VALVES: INR 2.5-3.5 CRITICAL: INR 5.0 PT Coag (PPP) [Time] 10.7 Sec Normal 9.4-12.5 [facility] Vital Signs Date Time Vital Sign Value Performing Clinician Gena hendrickson 06-01-2023 10:02-0500 Body mass index (BMI) [Ratio] 33.08 kg/m2 Mily Nelson SEWER SEPARATION DESIGNER-REAR LOAD TRUCK DRIVER Work Phone: [facility] 06-01-2023 10:02-0500 Body weight 95.8 kg Mily Nelson SEWER SEPARATION DESIGNER-REAR LOAD TRUCK DRIVER Work Phone: [facility] 06-01-2023 10:02-0500 Diastolic blood pressure 75 mm[Hg] Mily Nelson SEWER SEPARATION DESIGNER-REAR LOAD TRUCK DRIVER Work Phone: [facility] 06-01-2023 10:02-0500 Heart rate 81 /min Mily Nelson SEWER SEPARATION DESIGNER-REAR LOAD TRUCK DRIVER Work Phone: [facility] 06-01-2023 10:02-0500 Systolic blood pressure 140 mm[Hg] Mily Nelson SEWER SEPARATION DESIGNER-REAR LOAD TRUCK DRIVER Work Phone: [facility] 01-11-2022 11:26-0400 Body temperature 98 [...] 11:26-0400 Systolic blood pressure 154 mm[Hg] MD Boar Lindsey Work Phone: [facility] 01-11-2022 11:15-0400 Body height 168.91 cm MD Bora Lindsey Work Phone: [facility] Encounters Encounter Date Encounter Type Care Provider Facility Start: 12-27-2023 End: 12-27-2023 ambulatory MIGUELINA LOPEZ Not Available Start: 12-19-2023 End: 12-19-2023 ambulatory [facility] Adamsitis [facility] Start: 11-07-2023 End: 11-07-2023 ambulatory Andkeely Floresytautas Bryanitis [facility] Start: 10-31-2023 End: 10-31-2023 ambulatory Andkeely Adamsitis [facility] Start: 10-17-2023 End: 10-17-2023 ambulatory Andkeely Floresytautas Oliver VERGARA Facility: [facility] Start: 10-03-2023 End: 10-03-2023 [facility] Start: 09-16-2023 End: 09-16-2023 ambulatory PIETER RANKIN Not Available Start: 09-13-2023 End: 09-13-2023 ambulatory [facility] Start: 08-08-2023 Telephone encounter Mily perales SEWER SEPARATION DESIGNER-REAR LOAD TRUCK DRIVER Work Phone: [facility] Start: 08-05-2023 End: 08-05-2023 ambulatory SHAHZAD SCRUGGS Not Available Start: 07-15-2023 Telephone encounter Sonia Mcclelland RN [facility] Start: 07-11-2023 End: 07-11-2023 ambulatory QUYEN MCMAHON [facility] Start: 06-13-2023 Telephone encounter Narcisa barahona [facility] Start: 06-01-2023 End: 01-17-2024 ambulatory MILY NELSON [facility] Start: 06-01-2023 End: 06-01-2023 Office outpatient visit 25 minutes Mily Tony Mary HYMAN-REAR LOAD TRUCK DRIVER Work Phone: [facility] Comment on above: Type 2 diabetes jaxson itus with hypoglycemia without coma, without long-term current use of insulin ([facility]) (Primary Dx) Start: 03-24-2023 End: 03-24-2023 ambulatory Miguelina Lopez Facility:[facility] Start: 03-24-2023 End: 03-24-2023 ambulatory MD Miguelina Lopez Work Phone: [facility] Work Phone: Start: 03-24-2023 End: 03-24-2023 Departed Referred MD Miguelina Lopez Work Phone: [facility] [place] Work Phone: Start: 01-11-2022 End: 01-11-2022 Registered Recurring MD Bora Lindsey Work Phone: [facility] Start: 01-06-2021 End: 01-07-[address] JOSE JACKMAN Facility:[facility] Procedures Date Procedure Procedure Detail Performing Clinician Start: 06-01-2023 Hemoglobin glycosyla javon a1c Mily Jimenez Mary SEWER SEPARATION DESIGNER-REAR LOAD TRUCK DRIVER Work Phone: Start: 12-02-2022 Microalbumin [Mass/v olume] in Urine by Test strip Mily Nelson APRN-REAR LOAD TRUCK DRIVER Work Phone: Start: 10-14-2022 Adult depression [facility] SEWER SEPARATION DESIGNER-REAR LOAD TRUCK DRIVER Work Phone: Plan of Treatment Date Care Activity Detail Author Start: 11-21-2028 DTaP,Tdap and Td Vaccines (2 - Td or Tdap) DTaP,Tdap and Td Vaccines (2 - Td or Tdap) [facility] Start: 07-11-2024 Adult BMI Screening Adult BMI Screening [facility] Start: 07-09-2024 End: 07-09-2024 Patient encounter procedure 07/09/2024 10:30 AM EST Office Visit [facility] [address] [place] [id number] [place] [address] [place] [address] [address] [place] [address] [facility] Start: 06-01-2024 Adult BMI Screening Adult BMI Screening [facility] Start: 06-01-2024 Tobacco Screening Tobacco Screening [facility] Start: 02-19-2024 Adult BMI Screening Adult BMI Screening [facility] Start: 02-19-2024 Tobacco Screening Tobacco Screening [facility] Start: 12-03-2023 Urine screening for protein Urine Microalbumin [facility] Start: 10-15-2023 Depression Screening Depression Screening [facility] Start: 09-13-2023 End: 09-13-2023 Patient encounter procedure 09/13/2023 10:15 AM EDT Office Visit [facility] [address] [place] [address] Melanie Saxena MD [address] [place] [address] [facility] Start: 07-11-2023 End: 07-11-2023 Patient encounter procedure 07/11/2023 12:00 PM EST Office Visit [facility] [address] [place] [phone] Quyen Mcmahon MD [address] [place] [address] [facility] Start: 04-11-2023 COVID-19 Vaccine ( season) COVID-19 Vaccine () [facility] Start: 2016 Fall Risk Screening Fall Risk Screening [facility] Start: 1969 Adult BMI Follow Up Plan Adult BMI Follow Up Plan [facility] Start: 1969 Diabetic foot examination Diabetic Foot Exam [facility] Start: 1950 Glaucoma screening [facility] Start: 1950 Medicare Annual Wellness Visit Medicare Annual Wellness Visit On license of [facility] Work Phone: Payers Date Payer Category Payer Unknown 2023 Self-pay 2016 Medicare [id number] 2016 Private Health Insurance [facility] SUPPLEMENT [id number] 2016-Present [phone] [address] [place] [address] [id number] 1959 Medicare [id number] 1959 Unknown [id number] 1950 Unknown [id number] [id number] .593 1950 Unknown [id number] 2.16.840.1.401533.3.579.2 .1286 1950 Unknown [id number] 2.16.840.1.706420.3.579.2 .1286 1950 Unknown [id number] 2.16.840.1.677414.3.579.2 .1286 1950 Unknown [id number] 2.16.840.1.577788.3.579.2 .1259 1950 Unknown [id number] 2.16.840.1.176348.3.579.2 .1259 1950 Unknown [id number] 2.16.840.1.237509.3.579.2 .1259 1950 Unknown [id number] 2.16.840.1.483350.3.579.2 .1259 1950 Unknown [id number] 2.16.840.1.124063.3.579.2 .196 1950 Unknown [id number] 2.16.840.1.088384.3.579.2 .196 1950 Unknown [id number] 2.16.840.1.163875.3.579.2 .196 1950 Unknown [id number] 2.16.840.1.938053.3.579.2 .196 1950 Unknown [id number] 2.16.840.1.369497.3.579.2 . Unknown [id number] 2.16.840.1.301767.3.579.2 .531 Social History Date Type Detail Facility Start: 01-11-2022 End: 06-17-2022 Tobacco smoking status NHIS Ex-smoker (finding) [facility] Start: 1950 Sex Assigned At Male F [facility] History of tobacco use Current smoker [facility] Start: 06-17-2022 Tobacco use and exposure Smokeless tobacco non-user [facility] Start: 06-01-2023 Alcohol intake Current non-dr pr intern of alcohol (finding) [facility] Start: 06-26-2020 End: 06-01-2023 Alcohol intake [facility] Start: 06-26-2020 End: 06-01-2023 Tobacco use panel [facility] Adolescent depressio n screening assessment 0 [facility] Start: 06-17-2022 Tobacco Comment Quite 40 years ago P [facility] Start: 1950 Sex Assigned At Not on file P [facility] Medical Equipment Procedure Code Equipment Code Equipment Origin al Text Equipment Identifier Dates USE DIRECTED THREE TIMES DAILY [id number] Start: 11-17-2022 by miscellaneous route 3 (three) times a day. [id number] USE TO ADMINISTE R INSULIN 4 TIMES DAILY. [id number] Start: 04-18-2023 Clinical Notes 06-01-2023 to 08-08-2023 [...] and verbalized understanding documented in this encounter [facility] 08-08-2023 Telephone encounter Note LM [...] up to mid 200-300 range. Please advise [facility] 08-08-2023 Telephone encounter Note I recommend he add 2 units to each range for now and until two days AFTER he is off steroids and then resume regular sliding scale. I would not increasing the long acting dose since his fasting sugars are normal [facility] Work Phone: 08-08-2023 Telephone encounter Note Patient informed and verbalized understanding [facility] 07-15-2023 Miscellaneous Notes Faxed PAP supply order along with office note to [facility] documented in this encounter [facility] 07-15-2023 Telephone encounter Note Faxed PAP supply order along with office note to [facility] 06-13-2023 Miscellaneous Notes Patient is [...] to drop them off at front desk receptionist. I will take them into the free clinic I let him know. He will bring them to the front desk receptionist soon. documented in this encounter [facility] 06-13-2023 Telephone encounter Note Patient is asking to speak with you directly. [email or web address] Telephone encounter Note I left a message for the patient asking for more details regarding this phone call. [facility] 06-13-2023 Telephone encounter Note He called back. He has Novolog 70/30 pens that are unused and have been refrigerated. He is wanting to donate them to you for the free clinic and wondering when and how to get them to you. [facility]23 Telephone encounter Note Okay to drop them off at front desk receptionist. I will take them into the free clinic [facility] 06-13-2023 Telephone encounter Note I let him know. He will bring them to the front desk receptionist soon. [facility] 06-01-2023 History of Presen t illness Narrative [...] DM type 2 (diabetes mellitus, type 2) ([facility]) HLD (hyperlipidemia) HTN (hypertension) Lactose intolerance PAULINE (obstructive sleep apnea) Sleep apnea Past Surgical History: Procedure Laterality Date APPENDECTOMY CARPAL TUNNEL RELEASE CATARACT EXTRACTION COLONOSCOPY N/A 09/14/2018 Performed by Magnus Mccarty MD at [facility] REMOVAL HYDROCELE EXCISION / REPAIR [...] needed for sleep., Disp: , Rfl: omega 0-zto-fdy-fish oil 1,200 (144-216) mg capsule, Take by [...] coma, without long-term current use of insulin ([facility]) Better controlled, high post prandial most [...] [place] 06/01/23 1237 documented in this encounter [facility] Consult note Note Date/Time January 11, 2022 12:23pm [facility] [place] [address] Hem/Onc Consult Note - OP Signed Patient: Jered Falcon MR#: [id number] : 1950 Acct:[id number] Age/Sex: 71 / M Type: REG RCR [...] unexplained fever, night sweats or weight loss. [facility] - Medical History Medical History: [...] for coordination of care (as documented) and ndcz-am-kizc counseling of patient and/or family. Dictated By: Bora Lindsey MD DD/ 1219 Signed By: <Electronically signed by Bora Lindsey MD> 01/11/22 1230 [facility] Work Phone: Evaluation note* Diagnosis Onset Date Resolution Status Reactive thrombocytosis acut e [facility] Work Phone: Evaluation noteNo assessment information available [facility] Work Phone: Evaluation note* Diagnosis Type 2 diabetes mellitus with hypoglycemia without coma, without long-term current use of insulin ([facility])- Primary documented [facility] this [facility] filed[facility]ed in this [facility] on filedocumented in this encounter [facility] System[facility]ructionsNot on filedocumented in this encounter [facility] Summary Purpose Family History No Family [...] January 08, 2022 2:31pm Assessments Note Patient: JREED FALCON Age: 68 years Sex: Male : 1950 Associated Diagnoses: None Author: Kenneth Zuniga DO Assessment Assessment Diagnosis: Primary osteoarthritis of right hip ([id number] M16.11, Working, Medical). Plan Postoperative day #1 right total hip arthroplasty. Enteric coated aspirin--deep venous thrombosis prophylaxis per primary surgical service. Ktfykwipnoew-afimwfptr-qcvmcoewbb on tpunrxfdfm-luqwbgaayozvwvzqkco-hpdbpwssi postoperatively. Good blood pressure control postoperatively. Type [...] summary document to your follow up appointments. [facility] 08/08/18 11:02 [address] [place]. [address] PATIENT INFORMATION Name: JERED FALCON Address: [address] [place] [id number] Age: 68 Years Phone: [phone] : 1950 12:00 MRN: [id number] Sex: Male Race: White Ethnicity: Not Hispan/Lat Admitted From: Clinic or [facility] Medical Service: Orthopedic Surgery Nurse Unit/Bed: (MA) 2N 0225-01 Admit Date: 08/07/2018 07:26 PCP: Geoff VERGARA , Miguelina Clark PHYSICIANS INVOLVED WITH CARE Attending Physicians: Jameson Espinal MD , [facility] - Orthopaedic Surg Admitting Physician: Jameson Espinal MD , [facility] - Orthopaedic Surg Primary Care Physician:Geoff VERGARA , Miguelina Clark,[facility], - Consults: RONALDO Gill - Internal Medicine Problems Active PAULINE (more content not included)... Note Patient: JERED FALCON MRN: [id number] Age: 68 years Sex: Male : 1950 [...] summary document to your follow up appointments. [facility] 08/08/18 11:02 [address] [place]. [address] PATIENT INFORMATION Name: JERED FALCON Address: [address] [place] [id number] Age: 68 Years Phone: [phone] : 1950 12:00 MRN: [id number] Sex: Male Race: White Ethnicity: Not Hispan/Lat Admitted From: Clinic or [facility] Medical Service: Orthopedic Surgery Nurse Unit/Bed: (MA) [facility] [address] Admit Date: 08/07/2018 07:26 PCP: Miguelina Lopez MD PHYSICIANS INVOLVED WITH CARE Attending Physicians: Jameson Espinal MD , [facility] - Orthopaedic Surg Admitting Physician: Jameson Espinal MD , Jeremy - Orthopaedic Surg Primary Care Physician:Miguelina Lopez MD,[facility], - Consults: RONALDO Gill - Internal Medicine Problems Active PAULINE (more content not included)... Procedure Findings Note Patient: JERED FALCON MRN: [id number] Age: 68 years Sex: Male : 1950 [...] section and content) DATE CREATED AUTHOR 03/08/2019 [facility] DATE CREATED AUTHOR AUTHOR'S ORGANIZ ATION 01/15/2021 [facility] DATE CREATED AUTHOR AUTHOR'S ORGANIZ ATION 05/07/2022 [facility] dical Specialist DATE CREATED AUTHOR AUTHOR'S ORGANIZ ATION 04/03/2023 [facility] DATE CREATED AUTHOR AUTHOR'S ORGANIZ ATION 09/14/2023 [facility] DATE CREATED AUTHOR AUTHOR'S ORGANIZ ATION 12/28/2023 [facility] dical Specialists EPIC DATE CREATED AUTHOR AUTHOR'S ORGANIZ ATION 01/02/2024 [facility] Care Teams (unrecognized sec tion and [...] Active Gerardo Roman MD Attending Provider Active Photography Spotter Relationship Specialty Start Date End Date Miguelina Lopez MD [address] [facility] [place] [address] [place] [address] PCP - General Family Medicine 09/12/18 Photography Spotter Relationship Specialty Start Date End Date Miguelina Lopez MD [address] [facility] [address] [place], [place] [id number] PCP - General Family Medicine 09/12/18 Photography Spotter Relationship Specialty Start Date End Date Miguelina Lopez MD [address] [facility] [address] [place], [place] [id number] PCP - General Family Medicine 09/12/18 Goals [...] BE BASED ON THE PRIMARY CLINICAL RECORDS. [employer] provides no warranty or guarantee of the accuracy or completeness of information in this document.
--- NOTE | 2024-01-11 09:55 | P.CN_ITS ---
Consult Note: HPI Data of Consult Patient: known to practice within the last 3 years Consult date: 10/03/23 Requesting Physician: Sarah Tran NP Primary Care Provider: ALAYNA Gallegos Narrative Reason for consult: low back, right buttock pain Narrative: 73yom who presents for evaluation. notes increasing low back, buttock R>L pain. worsening over past several months. lumbar imaging shows spondylosis and degenerative disc disease in lower lumbar spine. previously underwent lumbar rfa in 2019 with significant benefit >6 months. notes that pain is similar to back then. has completed >6 weeks of provider directed home exercises program, without benefit. uses OTC pain meds as needed. denies adverse med side effects. Recently underwent bilateral L4-5 L5-S1 medial branch thermal RFA with no improvement per pt and no improvement from right L4-5 l5-S1 TFESI and right SIJ injection per pt. Reports worsening of right buttock and thigh pain. Pain today 0/10 increasing with driving and sitting cc:: CC: Sarah Tran NP Review of Systems ROS Status of ROS 10 or more systems reviewed and unremark able except as noted in history and below Musculoskeletal Reports: other (right buttock thigh pain) PFSH PFSH Medical History Diabetes ?E11.9 - Type 2 diabetes mellitus without complications (ICD-10) Sleep apnea ?G47.30 - Sleep apnea, unspecified (ICD-10) High cholesterol ?E78.00 - Pure hypercholesterolemia, unspecified (ICD-10) HTN (hypertension) ?I10 - Essential (primary) hypertension (ICD-10) Surgical History History of knee replacement ?Z96.659 - Presence of unspecified artificial knee joint (ICD-10) History of hip replacement ?Z96.649 - Presence of unspecified artificial hip joint (ICD-10) History of rotator cuff surgery ?Z98.890 - Other specified postprocedural states (ICD-10) History of carpal tunnel release ?Z98.890 - Other specified postprocedural states (ICD-10) Meds Home Medications and Allergies Home Medications ?Medication ?Instructions ?Recorded ?Confirmed ?Type amlodipine 5 mg tablet 5 mg PO DAILY 10/03/23 01/02/24 History atorvastatin 80 mg tablet 80 mg PO DAILY 10/03/23 01/02/24 History glimepiride 4 mg tablet 4 mg PO BID 10/03/23 01/02/24 History insulin aspart U-100 100 unit/mL 35 unit subcut DAILY 10/03/23 01/02/24 History (3 mL) subcutaneous pen (Novolog FlexPen U-100 Insulin aspart) insulin glargine 100 unit/mL 35 unit subcut DAILY 10/03/23 01/02/24 History subcutaneous solution (Lantus U-100 Insulin) losartan 100 1 tab PO DAILY 10/03/23 01/02/24 History mg-hydrochlorothiazide 25 mg tablet metformin 500 mg tablet,extended 500 mg PO QID 10/03/23 01/02/24 History release 24 hr aspirin 81 mg capsule 81 mg PO DAILY 01/02/24 01/02/24 History Allergies Allergy/AdvReac Type Severity Reaction Status Date / Time Penicillins Allergy Rash Verified 01/02/24 09:05 shellfish derived Allergy Rash Verified 01/02/24 09:05 Exam Constitutional Documenting provider has reviewed patient's vital signs: yes Common normals: no apparent distress, oriented x3, healthy appearing, alert and well nourished General appearance: cooperative HENMT Common normals: normocephalic, hearing grossly normal bilaterally and moist oral mucous membranes Head and scalp: normocephalic Eye Common normals: PERRL Pupil: PERRL Neck & C-Spine Common normals: full ROM General: normal visual inspection Chest Common normals: inspection of chest normal Respiratory Common normals: normal respiratory effort, no retractions and no use of accessory muscles Back & Pelvis Lumbar spine/lower back: normal to inspection, lumbar ROM normal and straight leg raise negative bilaterally Pelvis: sciatic notch tenderness Sacroiliac joints: SI joints normal Other: tender right ischial bursa with deep palpation, no pain with internal or external rotation of right hip (replaced) nontender over right GTB and IT band negative SLR bilaterally, improved from prior strength 5/5 in BLE improved from prior right SIJ negative omar(patricks), gaenslens, thigh thrust, compression test improved from prior negative facet loading, no pain with flexion extension or rotation Extremity Common normals: normal to inspection and full ROM Neuro Common normals: oriented x3, CN's II-XII intact bilaterally, moves all extremities, no focal motor deficits, no sensory deficits noted and deep tendon reflexes 2+ bilaterally Sensorium/orientation: alert Motor exam: strength 5/5 throughout and no movement abnormalities noted Psych Common normals: mental status grossly normal, thought process normal, cooperative, affect normal, speech normal and activity/motor behavior normal Speech: normal speech Thought process: normal thought process Results Additional Findings Additional findings: If on a controlled substance or opioids, I have checked an [place] report on this patient and there are no aberrancies noted in the prescribing history.??If on a controlled substance or opioid a drug screen was completed and reviewed within the last year, and if there has not been a drug screen completed we ordered one today to monitor higher risk, state monitored pain medication use. As part of providing excellent, safe, comprehensive care, the following was completed at our patient's visit: 1. A medication reconciliation and review to ensure accurate knowledge of current/active medications, including asking our patients to inform us about any [id number] medications or herbal remedies/nutritional supplements/alt ernative remedies. 2. A review to specifically ensure our patients have had annual screening for screening for depression, screening for tobacco use, and screening for unhealthy alcohol use. For concerning screenings had a discussion with the patient, provided patient education, and recommended follow-up with primary care provider when appropriate. If patient noted with a risk of falling, they received education on strength, gait, and balance training to prevent future risk of falling. Assessment and Plan Assessment and Plan (1) Lumbar spondylosis: (2) Lumbar stenosis with neurogenic claudication: (3) Sacroiliitis: (4) Lumbar degenerative disc disease: (5) Ischial bursitis of right side: (6) Lumbar radiculopathy: Plan extensive conversation today about patients pain pattern and pathology, patients biggest complaint is right buttock pain with long periods of driving and sitting. Patients physical exam has improved greatly from prior to interventional therapy as noted above. Patient cannot take tylenol as it intereferes with his dexcom, cannot take NSAIDs due hx of kidney issues, declining muscle relaxers declining TCS/SSRI/SNRI, has benefitted from tramadol in the past. At this time I would prefer patient have updated imaging of lumbar spine including a lumbar MRI without contrast to evaluate lumbar DDD, lumbar spondylosis, lumbar radiculopathy, lumbar stenosis with NC prior to initiating opioid therapy. I am also requesting patient be evaluated by Dr Barnett for right ischial bursitis. Could consider sciatic nerve root injection or spinal cord stimulator trial based on lumbar MRI and orthopedic referral. Patient would like to defer lumbar MRI at this time. f/u after orthopedic consult
== END 2024-01-11 09:22 | disposition home or self-care (01) ==
LOC: PM 09:22
PROVIDERS: PCP Family Medicine; Visit Provider Nurse Practitioner
DX: M47.816 Spondylosis without myelopathy or radiculopathy, lumbar region (principal); M48.062 Spinal stenosis, lumbar region with neurogenic claudication; M46.1 Sacroiliitis, not elsewhere classified; M51.36 Other intervertebral disc degeneration, lumbar region; M70.71 Other bursitis of hip, right hip; M54.16 Radiculopathy, lumbar region
CPT/HCPCS: G0463

== ENCOUNTER 2024-02-06 14:07 | Outpatient (OUT) | payer MEDICARE, SELFPAY ==
--- NOTE | 2024-02-06 | XR_ITS ---
The [address] [address] Patient Name: ISMAEL GARAY MRN: [id number] date: 1950 Sex: M Assigned Patient Location: Current Patient Location: Accession/Order Number: [id number] Exam Date: 02/06/2024 14:08 Report Date: 02/08/2024 10:07 At the request of: LINDSEY WILL Procedure: XR hip RT 2V w/ pelvis PROCEDURE: XR hip RT 2V w/ pelvis HISTORY: RIGHT HIP AND PELVIS PAIN COMPARISON: None. FINDINGS: BONES:Total right hip replacement without appreciable hardware fracture loosening. No bone fracture dislocation. Mild degenerative changes of the left hip joint. SOFT TISSUES:No visible soft tissue swelling. EFFUSION:None visible. OTHER: Negative. XR/XR hip RT 2V w/ pelvis IMPRESSION: 1. Total right hip replacement without evidence of hardware failure. 2. 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 Electronically authenticated by: CHARITO HUI Date: 02/08/2024 10:07
== END 2024-02-06 14:08 | disposition home or self-care (01) ==
LOC: EC 14:07
PROVIDERS: PCP Family Medicine; Visit Provider Student in an Organized Health Care Education/Training Program
DX: M25.551 Pain in right hip (principal); M16.12 Unilateral primary osteoarthritis, left hip; Z96.641 Presence of right artificial hip joint
CPT/HCPCS: 73502